=== PATIENT | male | born 1960 | race Caucasian/White ===

== ENCOUNTER 2016-11-11 15:26 | Emergency (ER) | payer BC ==
[2016-11-11 15:50] VITALS: BP 133/58; PULSE 68; RESP 17; O2SAT 97
[2016-11-11 15:51] VITALS: TEMP 99.4
[2016-11-11] MEDS ORDERED: guaiFENesin 100 mg/5 ml Syrup UD PO STA (15:55)
[2016-11-11] MEDS ORDERED: guaiFENesin 100 mg/5 ml Syrup UD ONE (16:11)
--- NOTE | 2016-11-11 16:14 | RAD ---
HISTORY: cough COMPARISON: 06/23/2013 TECHNIQUE: Chest PA and lateral FINDINGS: LUNGS: No consolidation. Bilateral infrahilar minimal peribronchial thickening -right greater than left - can be seen with bronchitis 15 mm nodular opacity projecting over right lower lung zone, anterior right 6th rib and posterior right 9th rib. Possible nipple shadow. Cannot be confirmed as present previously. Right pulmonary nodule -not excluded PLEURA: No significant pleural effusion identified. No pneumothorax apparent. CARDIOVASCULAR: Minimal cardiomegaly OSSEOUS STRUCTURES: No significant abnormalities. VISUALIZED UPPER ABDOMEN: Normal. OTHER FINDINGS: None. IMPRESSION: No consolidative like infiltrate. Right infrahilar bronchovascular markings a reflect bronchitis. Indeterminate right lower lung zone nodular opacity - nipple shadow versus right pulmonary nodule Nipple markers with bilateral obliques chest x-ray views versus noncontrast CT chest
--- NOTE | 2016-11-11 16:24 | C.PDOC ---
Time Seen by Provider: 11/11/16 15:40 Chief Complaint (Nursing): Dizziness/Lightheaded Past Medical History Vital Signs: Last Vital Signs Temp 99.4 F 11/11/16 15:45 Pulse 68 11/11/16 15:45 Resp 17 11/11/16 15:45 BP 133/58 L 11/11/16 15:45 Pulse Ox 97 11/11/16 15:45 - Medical History PMH: Anemia, Diabetes, HTN, End Stage Renal Disease - [facility] Procedures DIALYSIS ARTERIOVENOSTOM (06/23/13) HEMODIALYSIS (06/23/13) VENOUS CATHETERIZATION FOR RENAL DIALYSIS (06/23/13) Family History: States: Diabetes - Social History Hx Tobacco Use: No Hx Alcohol Use: No Hx Substance Use: No - Immunization History Hx Tetanus Toxoid Vaccination: No Hx Influenza Vaccination: No Hx Pneumococcal Vaccination: No ED Course And Treatment O2 Sat by Pulse Oximetry: 97 Disposition Counseled Patient/Family Regarding: Diagnosis, Need For Followup, Rx Given - Disposition Disposition: HOME/ ROUTINE Disposition Time: 16:24 Condition: STABLE Instructions: Upper Respiratory Infection (ED)
--- NOTE | 2016-11-11 16:28 | C.PDOC ---
History Of Present Illness Patient is a 55 y/o male, whose past medical history includes HTN, diabetes, and ESRD on hemodialysis (Mon, Wed, Fri) presents to the emergency department for evaluation of cough since yesterday. Patient reports having upper back pain when he coughs. He wants to make sure "no fluid in lungs". He also reports feeling lightheaded and thinks blood pressure is high. Denies any sputum, shortness of breath, congestion, sore throat, fever, chills, headache, or any other associated symptoms at this time. Patient is also asking for food. Time Seen by Provider: 11/11/16 15:40 Chief Complaint (Nursing): Dizziness/Lightheaded History Per: Patient History/Exam Limitations: no limitations Onset/Duration Of Symptoms: Days (1) Current Symptoms Are (Timing): Still Present Severity: None Pain Scale Rating Of: 0 Recent travel outside of the [place]: No Additional History Per: Patient Past Medical History Reviewed: Historical Data, Nursing Documentation, Vital Signs Vital Signs: Last Vital Signs Temp 99.4 F 11/11/16 15:45 Pulse 68 11/11/16 15:45 Resp 17 11/11/16 15:45 BP 133/58 L 11/11/16 15:45 Pulse Ox 97 11/11/16 16:33 - Medical History PMH: Anemia, Diabetes, HTN, End Stage Renal Disease Other Surgeries: vascular access - [facility] Procedures DIALYSIS ARTERIOVENOSTOM (06/23/13) HEMODIALYSIS (06/23/13) VENOUS CATHETERIZATION FOR RENAL DIALYSIS (06/23/13) Family History: States: Diabetes - Social History Hx Tobacco Use: No Hx Alcohol Use: No Hx Substance Use: No - Immunization History Hx Tetanus Toxoid Vaccination: No Hx Influenza Vaccination: No Hx Pneumococcal Vaccination: No Review Of Systems Except As Marked, All Systems Reviewed And Found Negative. Constitutional: Negative for: Fever, Chills Cardiovascular: Positive for: Light Headedness. Negative for: Chest Pain, Palpitations Respiratory: Positive for: Cough. Negative for: Shortness of Breath, Hemoptysis , Sputum Gastrointestinal: Negative for: Nausea, Vomiting Genitourinary: Negative for: Incontinence Musculoskeletal: Positive for: Back Pain Neurological: Positive for: Dizziness. Negative for: Weakness, Numbness, Headache Physical Exam - Physical Exam Appears: Well, Non-toxic, No Acute Distress Skin: Warm, Dry, No Diaphoretic, No Pale, No Rash Head: Atraumatic, Normacephalic Eye(s): bilateral: Normal Inspection, EOMI Ear(s): Bilateral: Normal (no erythema) Nose: Normal Oral Mucosa: Moist Throat: Normal, No Erythema, No Exudate, No Drooling, No Mass Neck: Normal ROM, Supple Chest: Symmetrical Cardiovascular: Rhythm Regular, No Murmur Respiratory: Normal Breath Sounds, No Accessory Muscle Use, No Rales, No Rhonchi , No Wheezing Gastrointestinal/Abdominal: Soft, No Tenderness Extremity: Left: Other (left arm fistula), Bilateral: Atraumatic, No Pedal Edema , Normal Color And Temperature, Normal ROM Neurological/Psych: Oriented x3, Normal Speech Gait: Steady ED Course And Treatment ECG: Interpreted By Me, Viewed By Me ECG Rhythm: Sinus Rhythm ECG Interpretation: No Changes From Prior Interpretation Of ECG: T wave inversion in lateral leads. No change from prior ECG on 06/23/13. Rate From EC (bpm) O2 Sat by Pulse Oximetry: 97 (on RA) Pulse Ox Interpretation: Normal - Radiology CXR: Interpreted by Me, Viewed By Me CXR Interpretation: Yes: No Acute Disease Progress Note: EKG, CXR ordered and reviewed. Patient was treated with Robitussin. On reassessment, patient is resting comfortably, no acute distress. Patient was asking for food upon arrival. Additionally upon discharge asking for work note for 2 days. He is stable for discharge Disposition Counseled Patient/Family Regarding: Diagnosis, Need For Followup, Rx Given - Disposition Referrals: Adam Holland MD [Staff Provider] - Disposition: HOME/ ROUTINE Disposition Time: 16:24 Condition: STABLE Additional Instructions: Your chest xray was normal, no pneumonia or fluid in lungs Please take cough medicine as needed and follow up with your primary DR Deepa Holland Continue with your usual medications Prescriptions: Benzonatate [Tessalon Perles] 100 mg PO TID #30 sgl Instructions: Upper Respiratory Infection (ED) Forms: Work Excuse - POA Present On Arrival: None - Clinical Impression Clinical Impression: Upper respiratory infection - PA / VENEREAL DISEASE CONTROL HEAD / Resident Statement MD/DO has reviewed & agrees with the documentation as recorded. - Scribe Statement The provider has reviewed the documentation as recorded by the Scribe Yumiko Holland All medical record entries made by the Scribe were at my direction and personally dictated by me. I have reviewed the chart and agree that the record accurately reflects my personal performance of the history, physical exam, medical decision making, and the department course for this patient. I have also personally directed, reviewed, and agree with the discharge instructions and disposition.
--- NOTE | 2016-11-12 12:15 | CARD ---
APPROVED REPORT EKG Measurement Heart [id number] <Conclusion> Sinus rhythm with short MS ST & T wave abnormality, consider inferolateral ischemia Prolonged QT Abnormal ECG
== END 2016-11-11 16:35 | disposition home or self-care (01) ==
LOC: C.ER 15:26
DX: J06.9 Acute upper respiratory infection, unspecified (principal)

== ENCOUNTER 2017-04-22 14:14 | Inpatient (IN) | payer BC ==
--- NOTE | 2017-04-22 15:29 | C.PDOC ---
History Of Present Illness 56 y/o male presents to the ED complaining of cough associated with fever, shortness of breath and 3 episodes of loose stool x 2 days. Shortness of breath worsened today. Denies vomiting, rash, neck pain, travel or any further medical complaints. PMD: Adam Holland MD Time Seen by Provider: 04/22/17 14:39 Chief Complaint (Nursing): Chest Pain History Per: Patient History/Exam Limitations: no limitations Onset/Duration Of Symptoms: Days (x2 days) Current Symptoms Are (Timing): Still Present Recent travel outside of the [place]: No Past Medical History Reviewed: Historical Data, Nursing Documentation, Vital Signs Vital Signs: Last Vital Signs Temp 101.2 F H 04/22/17 16:10 Pulse 91 H 04/22/17 14:25 Resp 20 04/22/17 14:25 BP 149/49 L 04/22/17 17:04 Pulse Ox 93 L 04/22/17 18:41 - Medical History PMH: Anemia, Diabetes, HTN, End Stage Renal Disease, Chronic Kidney Disease Other PMH: Dialysis - LT LOWER ARM AV SHUNT....+VE BRUIT AND THRILL Other Surgeries: Vacular access device - [email or web address] Procedures DIALYSIS ARTERIOVENOSTOM (06/23/13) HEMODIALYSIS (06/23/13) VENOUS CATHETERIZATION FOR RENAL DIALYSIS (06/23/13) Family History: States: Diabetes - Social History Hx Tobacco Use: No Hx Alcohol Use: Yes (ocassionally) Hx Substance Use: No - Immunization History Hx Tetanus Toxoid Vaccination: No Hx Influenza Vaccination: Yes Hx Pneumococcal Vaccination: Yes Review Of Systems Except As Marked, All Systems Reviewed And Found Negative. (As per HPI, otherwise negative) Constitutional: Positive for: Fever Respiratory: Positive for: Cough, Shortness of Breath Gastrointestinal: Positive for: Other (3 episodes of loose stool). Negative for : Nausea Musculoskeletal: Negative for: Neck Pain Skin: Negative for: Rash Physical Exam - Physical Exam Appears: Chronically Ill Skin: Normal Color, Warm, Dry, No Rash Head: Atraumatic, Normacephalic Eye(s): bilateral: Normal Inspection, PERRL, EOMI Ear(s): Bilateral: Normal Oral Mucosa: Moist Throat: No Erythema, No Exudate Neck: Normal ROM, Supple Chest: Symmetrical, No Tenderness Cardiovascular: Rhythm Regular, No Murmur Respiratory: Decreased Breath Sounds Gastrointestinal/Abdominal: Normal Exam, Soft, No Tenderness Back: Normal Inspection, No CVA Tenderness Extremity: Normal ROM, No Swelling Neurological/Psych: Oriented x3, Normal Speech, Normal Motor Gait: Steady ED Course And Treatment - Laboratory Results Result Diagrams: 04/22/17 15:37 04/22/17 15:37 ECG: Interpreted By Vt ECG Rhythm: Sinus Rhythm ECG Interpretation: Normal Rate From EC O2 Sat by Pulse Oximetry: 93 (RA) Pulse Ox Interpretation: Normal - Radiology CXR: Interpreted by Me CXR Interpretation: Yes: No Acute Disease. No: Infiltrates Medical Decision Making Medical Decision Making: Time: 14:57 Plan: EKG CMP Lactic Acid, Plasma CBC w/ diff Chest x-ray Influenza A B Tamiflu is given for flu. Patient placed for isolation for influenza. Case was discussed with Deepa Holland. Scribe Attestation: Documented by Sachin Holland acting as a scribe for ESSIE Reyes. Scribe Attestation: All medical record entries made by the Scribe were at my direction and personally dictated by me. I have reviewed the chart and agree that the record accurately reflects my personal performance of the history, physical exam, medical decision making, and the department course for this patient. I have also personally directed, reviewed, and agree with the discharge instructions and disposition. Disposition - Disposition Disposition: HOSPITALIZED Disposition Time: 17:30 Condition: FAIR - POA Present On Arrival: None - Clinical Impression Clinical Impression: Chest pain, Influenza B, Dyspnea
[2017-04-22 15:43] LABS: BASO # 0.1 K/uL (0.0-0.2); BASO % 0.7 % (0.0-2.0); EOS % 0.2 % (0.0-4.0); HEMOGLOBIN 9.6 g/dL (12.0-18.0); LYMPH # 0.4 K/uL (1.0-4.3); LYMPH % 4.9 % (20.0-40.0); MEAN CORPUSCULAR HEMOGLOBIN 30.2 pg (27.0-31.0); MEAN CORPUSCULAR HGB CONC 32.9 g/dL (33.0-37.0); MEAN PLATELET VOLUME 10.3 fL (7.2-11.7); MONO # 0.5 K/uL (0.0-0.8); MONO % 6.1 % (0.0-10.0); NEUT # 7.2 K/uL (1.8-7.0); NEUT % 88.1 % (50.0-75.0); RBC 3.19 Mil/uL (4.40-5.90); RED CELL DISTRIBUTION WIDTH 16.1 % (11.5-14.5); WHITE BLOOD COUNT 8.2 K/uL (4.8-10.8)
[2017-04-22 15:51] LABS: MEAN CELL VOLUME 91.8 fL (80.0-94.0); PLATELET COUNT 93 K/uL (130-400)
[2017-04-22 16:06] LABS: ANISOCYTOSIS SLIGHT; BANDS 7 % (0-2); HYPOCHROMIC SLIGHT; LYMPHOCYTE 8 % (20-40); MONOCYTE 7 % (0-10); NEUTROPHIL 78 % (50-75); PLATELET ESTIMATE DECREASED (NORMAL); POIKILOCYTOSIS SLIGHT; TOTAL CELLS COUNTED 100
[2017-04-22 16:08] LABS: LARGE PLATELETS PRESENT; TARGET CELLS SLIGHT
[2017-04-22 16:09] LABS: ALB/GLOB RATIO 1.2 (1.0-2.1); ALBUMIN 3.6 g/dL (3.5-5.0); CALCIUM 7.8 mg/dl (8.6-10.4)
--- NOTE | 2017-04-22 16:32 | RAD ---
HISTORY: SOB, cough, fever COMPARISON: No prior. TECHNIQUE: Chest PA and lateral FINDINGS: LUNGS: No active pulmonary disease. PLEURA: No significant pleural effusion identified. No pneumothorax apparent. CARDIOVASCULAR: Borderline heart size. No congestive change. OSSEOUS STRUCTURES: No significant abnormalities. VISUALIZED UPPER ABDOMEN: Normal. OTHER FINDINGS: None. IMPRESSION: No acute infiltrate.
--- NOTE | 2017-04-22 19:51 | CP.PCM.HP ---
Past Patient History - Infectious Disease Hx of Infectious Diseases: None - Past Medical History & Family History Past Medical History?: Yes - Past Social History Smoking Status: Never Smoked - CARDIAC Hx Hypertension: Yes - RENAL Hx Chronic Kidney Disease: Yes - ENDOCRINE/METABOLIC Hx Endocrine Disorders: Yes Hx Diabetes Mellitus Type 2: Yes - HEMATOLOGICAL/ONCOLOGICAL Hx Anemia: Yes - MUSCULOSKELETAL/RHEUMATOLOGICAL Hx Falls: No - PSYCHIATRIC Hx Substance Use: No - SURGICAL HISTORY Hx Vascular Access Device: Yes - ANESTHESIA Hx Anesthesia: No Meds Allergies/Adverse Reactions: Allergies Allergy/AdvReac Type Severity Reaction Status Date / Time No Known Allergies Allergy Verified 04/22/17 14:55 Physical Exam - Constitutional Appears: Well - Head Exam Head Exam: ATRAUMATIC, NORMAL INSPECTION, NORMOCEPHALIC - Eye Exam Eye Exam: EOMI, Normal appearance, PERRL Pupil Exam: NORMAL ACCOMODATION, PERRL - ENT Exam ENT Exam: Mucous Membranes Moist, Normal Exam - Neck Exam Neck exam: Positive for: Normal Inspection - Respiratory Exam Respiratory Exam: Decreased Breath Sounds - Cardiovascular Exam Cardiovascular Exam: REGULAR RHYTHM, +S1, +S2 - GI/Abdominal Exam GI & Abdominal Exam: Diminished Bowel Sounds, Soft - Rectal Exam Rectal Exam: Deferred Results - Vital Signs Recent Vital Signs: Last Vital Signs Temp 98.5 F 04/22/17 19:13 Pulse 67 04/22/17 19:13 Resp 18 04/22/17 19:13 BP 166/61 H 04/22/17 19:13 Pulse Ox 96 04/22/17 19:13 - Labs Result Diagrams: 04/22/17 15:37 04/22/17 15:37 Labs: Laboratory Results - last 24 hr 04/22/17 04/22/17 04/22/17 14:19 15:37 15:37 WBC 8.2 RBC 3.19 L Hgb 9.6 L Hct 29.3 L MCV 91.8 D MCH 30.2 MCHC 32.9 L RDW 16.1 H Plt Count 93 L D MPV 10.3 Neut % (Auto) 88.1 H Lymph % (Auto) 4.9 L [place] % (Auto) 6.1 Eos % (Auto) 0.2 Baso % (Auto) 0.7 Neut # 7.2 H Lymph # 0.4 L [place] # 0.5 Eos # 0.0 Baso # 0.1 Neutrophils % (Manual) 78 H Band Neutrophils % 7 H Lymphocytes % (Manual) 8 L Monocytes % (Manual) 7 Platelet Estimate Decreased L Large Platelets Present Hypochromasia (manual) Slight Poikilocytosis (manual Slight Anisocytosis (manual) Slight Target Cells Slight Sodium 133 Potassium 4.6 Chloride 91 L Carbon Dioxide 30 Anion Gap 18 BUN 58 H Creatinine 9.0 H* Est GFR ( Amer) 7 Est GFR (Non-Af Amer) 6 POC Glucose (mg/dL) 187 H Random Glucose 167 H Lactic Acid Calcium 7.8 L Total Bilirubin 1.0 AST 36 ALT 44 Alkaline Phosphatase 198 H Total Protein 6.7 Albumin 3.6 Globulin 3.1 Albumin/Globulin Ratio 1.2 Influenza Typ A,B (EIA) 04/22/17 04/22/17 15:37 Unknown WBC RBC Hgb Hct MCV MCH MCHC RDW Plt Count MPV Neut % (Auto) Lymph % (Auto) [place] % (Auto) Eos % (Auto) Baso % (Auto) Neut # Lymph # [place] # Eos # Baso # Neutrophils % (Manual) Band Neutrophils % Lymphocytes % (Manual) Monocytes % (Manual) Platelet Estimate Large Platelets Hypochromasia (manual) Poikilocytosis (manual Anisocytosis (manual) Target Cells Sodium Potassium Chloride Carbon Dioxide Anion Gap BUN Creatinine Est GFR ( Amer) Est GFR (Non-Af Amer) POC Glucose (mg/dL) Random Glucose Lactic Acid 1.3 Calcium Total Bilirubin AST ALT Alkaline Phosphatase Total Protein Albumin Globulin Albumin/Globulin Ratio Influenza Typ A,B (EIA) Pos for influenza b H
[2017-04-22] MEDS ORDERED: Pneumococcal 23-Valent Vaccine IM ONE (20:17)
[2017-04-22] MEDS ORDERED: HYDROmorphone 1 mg/ml ISec IVP PRN (22:56)
[2017-04-22] MEDS: (Novolog) Insulin Aspart, Recombinant 100 u/ml 10 ml vial SC SCH (22:57)
[2017-04-23] MEDS: (Novolog) Insulin Aspart, Recombinant 100 u/ml 10 ml vial SC SCH ×4 (07:30→21:18)
--- NOTE | 2017-04-23 10:51 | CP.PCM.CON ---
History of Present Illness - History of Present Illness History of Present Illness: 56 y/o male presents to the ED complaining of cough associated with fever, shortness of breath and 3 episodes of loose stool x 2 days. Shortness of breath worsened today. Denies vomiting, rash, neck pain, travel or any further medical complaints. Has had fever, chills, CLINE, cough FLU teat positive- admitted for flu treatment Last dialysis 04/22 PMH: ESRD HTN DM 2 SEC HPT PSH: AV FISTULA Review of Systems - Constitutional Constitutional: Chills, Fatigue, Fever - EENT Eyes: absent: As Per HPI, Blind Spots, Blurred Vision, Change in Vision, Decreased Night Vision, Diplopia, Discharge, Dry Eye, Exophthalmos, Floaters, Irritation, Itchy Eyes, Loss of Peripheral Vision, Pain, Photophobia, Requires Corrective Lenses, Sees Flashes, Spots in Vision, Tunnel Vision, Other Visual Disturbances, Loss of Vision, Other Ears: absent: As Per HPI, Decreased Hearing, Ear Discharge, Ear Pain, Tinnitus, Abnormal Hearing, Disequilibrium, Dizziness, Other Nose/Mouth/Throat: absent: As Per HPI, Epistaxis, Nasal Congestion, Nasal Discharge, Nasal Obstruction, Nasal Trauma, Nose Pain, Post Nasal Drip, Sinus Pain, Sinus Pressure, Bleeding Gums, Change in Voice, Dental Pain, Dry Mouth, Dysphagia, Halitosis, Hoarsness, Lip Swelling, Mouth Lesions, Mouth Pain, Odynophagia, Sore Throat, Throat Swelling, Tongue Swelling, Facial Pain, Neck Pain, Neck Mass, Other - Cardiovascular Cardiovascular: Chest Pain, Dyspnea on Exertion - Respiratory Respiratory: Cough, Pain with Coughing - Gastrointestinal Gastrointestinal: Abdominal Pain, Nausea - Genitourinary Genitourinary: As Per HPI - Musculoskeletal Musculoskeletal: Muscle Weakness, Myalgias - Integumentary Integumentary: absent: As Per HPI, Acne, Alopecia, Bleeding Lesions, Change in Hair, Change in Nails, Change in Pigmentation, Changing Lesions, Dry Skin, Erythema, Furuncle, Hirsutism, Lesions, New Lesions, Non-Healing Lesions, Photosensitivity, Pruritus, Rash, Skin Pain, Skin Ulcer, Sores, Striae, Swelling , Unusual Bruising, Wounds, Jaundice, Other - Neurological Neurological: Weakness Past Patient History - Infectious Disease Hx of Infectious Diseases: None - Past Medical History & Family History Past Medical History?: Yes Past Family History: Reviewed and not pertinent - Past Social History Smoking Status: Never Smoked Chewing Tobacco Use: No Cigar Use: No Drugs: Denies Home Situation {Lives}: With Family - CARDIAC Hx Hypertension: Yes - RENAL Hx Chronic Kidney Disease: Yes - ENDOCRINE/METABOLIC Hx Endocrine Disorders: Yes Hx Diabetes Mellitus Type 2: Yes - HEMATOLOGICAL/ONCOLOGICAL Hx Anemia: Yes - MUSCULOSKELETAL/RHEUMATOLOGICAL Hx Falls: No - PSYCHIATRIC Hx Substance Use: No - SURGICAL HISTORY Hx Vascular Access Device: Yes - ANESTHESIA Hx Anesthesia: No Meds Allergies/Adverse Reactions: Allergies Allergy/AdvReac Type Severity Reaction Status Date / Time No Known Allergies Allergy Verified 04/22/17 14:55 - Medications Medications: Current Medications Amlodipine Besylate (Norvasc) 10 mg PO DAILY [facility] Aspirin (Aspirin Chewable) 81 mg PO DAILY [facility] Last Admin: 04/23/17 10:43 Dose: 81 mg Benzonatate (Tessalon Perles) 100 mg PO TID [facility] Last Admin: 04/23/17 10:43 Dose: 100 mg Ferrous Sulfate (Feosol) 325 mg PO TID [facility] Last Admin: 04/23/17 10:43 Dose: 325 mg Hydromorphone HCl (Dilaudid) 1 mg IVP Q8H PRN PRN Reason: Pain, moderate (4-7) Last Admin: 04/22/17 23:08 Dose: 1 mg Insulin Aspart (Novolog) 0 unit SC ACHS [facility] PRN Reason: Protocol Last Admin: 04/23/17 07:30 Dose: Not Given Losartan Potassium (Cozaar) 50 mg PO DAILY [facility] Last Admin: 04/23/17 10:44 Dose: 50 mg Oseltamivir Phosphate (Tamiflu Susp) 30 mg PO DAILY [facility] Stop: 04/27/17 11:01 Pantoprazole Sodium (Protonix Inj) 40 mg IVP DAILY [facility] Last Admin: 04/23/17 10:46 Dose: 40 mg Sitagliptin Phosphate (Januvia) 100 mg PO BID [facility] Physical Exam - Constitutional Appears: In Acute Distress, Chronically Ill - Head Exam Head Exam: ATRAUMATIC, NORMAL INSPECTION - Eye Exam Eye Exam: EOMI, Normal appearance - Neck Exam Neck exam: Positive for: Normal Inspection. Negative for: Tenderness - Respiratory Exam Respiratory Exam: Rhonchi, NORMAL BREATHING PATTERN - Cardiovascular Exam Cardiovascular Exam: REGULAR RHYTHM, +S1 - GI/Abdominal Exam GI & Abdominal Exam: Soft. absent: Tenderness - Extremities Exam Extremities exam: Positive for: normal inspection. Negative for: tenderness - Neurological Exam Neurological exam: Alert, Oriented x3 - Skin Skin Exam: Dry, Warm Results - Vital Signs Recent Vital Signs: Last Vital Signs Temp 98.6 F 04/23/17 07:36 Pulse 67 04/23/17 07:36 Resp 20 04/23/17 07:36 BP 186/81 H 04/23/17 07:36 Pulse Ox 92 L 04/23/17 07:36 - Labs Result Diagrams: 04/22/17 15:37 04/22/17 15:37 Labs: Laboratory Results - last 24 hr 04/22/17 04/22/17 04/22/17 14:19 15:37 15:37 WBC 8.2 RBC 3.19 L Hgb 9.6 L Hct 29.3 L MCV 91.8 D MCH 30.2 MCHC 32.9 L RDW 16.1 H Plt Count 93 L D MPV 10.3 Neut % (Auto) 88.1 H Lymph % (Auto) 4.9 L [place] % (Auto) 6.1 Eos % (Auto) 0.2 Baso % (Auto) 0.7 Neut # 7.2 H Lymph # 0.4 L [place] # 0.5 Eos # 0.0 Baso # 0.1 Neutrophils % (Manual) 78 H Band Neutrophils % 7 H Lymphocytes % (Manual) 8 L Monocytes % (Manual) 7 Platelet Estimate Decreased L Large Platelets Present Hypochromasia (manual) Slight Poikilocytosis (manual Slight Anisocytosis (manual) Slight Target Cells Slight Sodium 133 Potassium 4.6 Chloride 91 L Carbon Dioxide 30 Anion Gap 18 BUN 58 H Creatinine 9.0 H* Est GFR ( Amer) 7 Est GFR (Non-Af Amer) 6 POC Glucose (mg/dL) 187 H Random Glucose 167 H Lactic Acid Calcium 7.8 L Total Bilirubin 1.0 AST 36 ALT 44 Alkaline Phosphatase 198 H Total Protein 6.7 Albumin 3.6 Globulin 3.1 Albumin/Globulin Ratio 1.2 Influenza Typ A,B (EIA) 04/22/17 04/22/17 04/22/17 15:37 21:14 Unknown WBC RBC Hgb Hct MCV MCH MCHC RDW Plt Count MPV Neut % (Auto) Lymph % (Auto) [place] % (Auto) Eos % (Auto) Baso % (Auto) Neut # Lymph # [place] # Eos # Baso # Neutrophils % (Manual) Band Neutrophils % Lymphocytes % (Manual) Monocytes % (Manual) Platelet Estimate Large Platelets Hypochromasia (manual) Poikilocytosis (manual Anisocytosis (manual) Target Cells Sodium Potassium Chloride Carbon Dioxide Anion Gap BUN Creatinine Est GFR ( Amer) Est GFR (Non-Af Amer) POC Glucose (mg/dL) 118 H Random Glucose Lactic Acid 1.3 Calcium Total Bilirubin AST ALT Alkaline Phosphatase Total Protein Albumin Globulin Albumin/Globulin Ratio Influenza Typ A,B (EIA) Pos for influenza b H 04/23/17 06:32 WBC RBC Hgb Hct MCV MCH MCHC RDW Plt Count MPV Neut % (Auto) Lymph % (Auto) [place] % (Auto) Eos % (Auto) Baso % (Auto) Neut # Lymph # [place] # Eos # Baso # Neutrophils % (Manual) Band Neutrophils % Lymphocytes % (Manual) Monocytes % (Manual) Platelet Estimate Large Platelets Hypochromasia (manual) Poikilocytosis (manual Anisocytosis (manual) Target Cells Sodium Potassium Chloride Carbon Dioxide Anion Gap BUN Creatinine Est GFR ( Amer) Est GFR (Non-Af Amer) POC Glucose (mg/dL) 64 L Random Glucose Lactic Acid Calcium Total Bilirubin AST ALT Alkaline Phosphatase Total Protein Albumin Globulin Albumin/Globulin Ratio Influenza Typ A,B (EIA) Assessment & Plan (1) ESRD (end stage renal disease) Status: Acute (2) Type 2 diabetes mellitus with diabetic nephropathy Status: Acute (3) HTN (hypertension) Status: Acute (4) Flu Status: Acute - Assessment and Plan (Free Text) Plan: Recommend tamiflu Dialysis MWF Monitor HTN
[2017-04-23] MEDS: Oseltamivir 6 MG/ML PO SCH (10:56)
--- NOTE | 2017-04-23 11:59 | CARD ---
APPROVED REPORT EKG Measurement Heart [id number] <Conclusion> Normal sinus rhythm Possible Left atrial enlargement T wave abnormality, consider lateral ischemia Prolonged QT Abnormal ECG
--- NOTE | 2017-04-23 14:15 | CP.PCM.PN ---
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 DISCUSS WITH THE FINDINGS WITH DR EL NO SIGN OF DISTRESS NOTED AT THIS TIME Objective - Vital Signs/Intake and Output Vital Signs (last 24 hours): Temp Pulse Resp BP Pulse Ox 99 F 71 20 178/88 H 98 04/23/17 12:56 04/23/17 12:56 04/23/17 12:56 04/23/17 12:56 04/23/17 12:56 - Medications Medications: Current Medications Amlodipine Besylate (Norvasc) 10 mg PO DAILY [facility] Last Admin: 04/23/17 11:50 Dose: 10 mg Aspirin (Aspirin Chewable) 81 mg PO DAILY [facility] Last Admin: 04/23/17 10:43 Dose: 81 mg Benzonatate (Tessalon Perles) 100 mg PO TID [facility] Last Admin: 04/23/17 13:05 Dose: 100 mg Clonidine HCl (Catapres) 0.2 mg PO BID [facility] Last Admin: 04/23/17 12:54 Dose: 0.2 mg Ferrous Sulfate (Feosol) 325 mg PO TID [facility] Last Admin: 04/23/17 13:05 Dose: 325 mg Hydromorphone HCl (Dilaudid) 1 mg IVP Q8H PRN PRN Reason: Pain, moderate (4-7) Last Admin: 04/23/17 11:51 Dose: 1 mg Insulin Aspart (Novolog) 0 unit SC [facility] PRN Reason: Protocol Last Admin: 04/23/17 12:53 Dose: 2 unit Losartan Potassium (Cozaar) 50 mg PO DAILY [facility] Last Admin: 04/23/17 10:44 Dose: 50 mg Oseltamivir Phosphate (Tamiflu Susp) 30 mg PO DAILY [facility] Stop: 04/27/17 11:01 Last Admin: 04/23/17 10:56 Dose: 30 mg Pantoprazole Sodium (Protonix Inj) 40 mg IVP DAILY [facility] Last Admin: 04/23/17 10:46 Dose: 40 mg Sitagliptin Phosphate (Januvia) 25 mg PO DAILY [facility] - Labs Labs: 04/22/17 15:37 04/22/17 15:37
--- NOTE | 2017-04-23 15:49 | CARD ---
APPROVED REPORT EKG Measurement Heart [id number] <Conclusion> Normal sinus rhythm ST & T wave abnormality, consider lateral ischemia Prolonged QT Abnormal ECG
--- NOTE | 2017-04-23 17:15 | CP.PCM.CON ---
History of Present Illness - History of Present Illness History of Present Illness: 56 y/o male presents to the ED complaining of cough associated with fever, shortness of breath and 3 episodes of loose stool x 2 days. Shortness of breath worsened today. Denies vomiting, rash, neck pain, travel or any further medical complaints. referred for ID eval of influenza PMD: Adam Holland MD - Medical History PMH: Anemia, Diabetes, HTN, End Stage Renal Disease, Chronic Kidney Disease Other PMH: Dialysis - LT LOWER ARM AV SHUNT....+VE BRUIT AND THRILL Other Surgeries: Vacular access device Review of Systems - Review of Systems All systems: reviewed and no additional remarkable complaints except - Constitutional Constitutional: Anorexia, Chills, Fever - EENT Eyes: absent: As Per HPI, Blind Spots, Blurred Vision, Change in Vision, Decreased Night Vision, Diplopia, Discharge, Dry Eye, Exophthalmos, Floaters, Irritation, Itchy Eyes, Loss of Peripheral Vision, Pain, Photophobia, Requires Corrective Lenses, Sees Flashes, Spots in Vision, Tunnel Vision, Other Visual Disturbances, Loss of Vision, Other Ears: absent: As Per HPI, Decreased Hearing, Ear Discharge, Ear Pain, Tinnitus, Abnormal Hearing, Disequilibrium, Dizziness, Other Nose/Mouth/Throat: absent: As Per HPI, Epistaxis, Nasal Congestion, Nasal Discharge, Nasal Obstruction, Nasal Trauma, Nose Pain, Post Nasal Drip, Sinus Pain, Sinus Pressure, Bleeding Gums, Change in Voice, Dental Pain, Dry Mouth, Dysphagia, Halitosis, Hoarsness, Lip Swelling, Mouth Lesions, Mouth Pain, Odynophagia, Sore Throat, Throat Swelling, Tongue Swelling, Facial Pain, Neck Pain, Neck Mass, Other - Cardiovascular Cardiovascular: As Per HPI - Respiratory Respiratory: As Per HPI, Cough, Dyspnea - Gastrointestinal Gastrointestinal: As Per HPI, Abdominal Pain, Diarrhea - Genitourinary Genitourinary: absent: As Per HPI, Change in Urinary Stream, Difficulty Urinating, Dysuria, Flank Pain, Hematuria, Pyuria, Nocturia, Urinary Incontinence, Urinary Frequency, Urinary Hesitance, Urinary Urgency, Voiding Freq/Small Amts, Freq UTI, Hx Renal/Bladder Calculi, Hx /Renal Surgery, Bladder Distension, Other - Musculoskeletal Musculoskeletal: absent: As Per HPI, Abnormal Gait, Arthralgias, Atrophy, Back Pain, Deformity, Joint Swelling, Limited Range of Motion, Loss of Height, Muscle Cramps, Muscle Weakness, Myalgias, Neck Pain, Numbness, Radiating Pain into Limb, Stiffness, Tingling, Other - Integumentary Integumentary: absent: As Per HPI, Acne, Alopecia, Bleeding Lesions, Change in Hair, Change in Nails, Change in Pigmentation, Changing Lesions, Dry Skin, Erythema, Furuncle, Hirsutism, Lesions, New Lesions, Non-Healing Lesions, Photosensitivity, Pruritus, Rash, Skin Pain, Skin Ulcer, Sores, Striae, Swelling , Unusual Bruising, Wounds, Jaundice, Other - Neurological Neurological: absent: As Per HPI, Abnormal Gait, Abnormal Hearing, Abnormal Movements, Abnormal Speech, Behavioral Changes, Burning Sensations, Confusion, Convulsions, Disequilibrium, Dizziness, Numbness, Focal Weakness, Frequent Falls , Headaches, Lack of Coordination, Loss of Vision, Memory Loss, Paresthesias, Radicular Pain, Restless Legs, Sensory Deficit, Syncope, Tingling, Tremor, Vertigo, Weakness, Other Visual Disturbances, Other - Psychiatric Psychiatric: absent: As Per HPI, Abnormal Sleep Pattern, Anhedonia, Anxiety, Auditory Hallucinations, Behavioral Changes, Change in Appetite, Change in Libido, Confusion, Depression, Difficulty Concentrating, Hallucinations, Homicidal Ideation, Hopelessness, Irritability, Memory Loss, Mood Swings, Panic Attacks, Paranoia, Suicidal Ideation, Visual Hallucinations, Tactile Hallucinations, Other - Endocrine Endocrine: absent: As Per HPI, Change in Body Appearance, Change in Libido, Cold Intolorance, Deepening of Voice, Excessive Sweating, Fatigue, Flushing, Heat Intolorance, Increase in Ring/Shoe/Hat Size, Palpitations, Polydipsia, Polyphagia, Polyuria, Other - Hematologic/Lymphatic Hematologic: absent: As Per HPI, Easy Bleeding, Easy Bruising, Lymphadenopathy, Other Past Patient History - Infectious Disease Hx of Infectious Diseases: None - Past Medical History & Family History Past Medical History?: Yes Past Family History: Reviewed and not pertinent - Past Social History Smoking Status: Never Smoked Chewing Tobacco Use: No Cigar Use: No Drugs: Denies Home Situation {Lives}: With Family - CARDIAC Hx Hypertension: Yes - RENAL Hx Chronic Kidney Disease: Yes - ENDOCRINE/METABOLIC Hx Endocrine Disorders: Yes Hx Diabetes Mellitus Type 2: Yes - HEMATOLOGICAL/ONCOLOGICAL Hx Anemia: Yes - MUSCULOSKELETAL/RHEUMATOLOGICAL Hx Falls: No - PSYCHIATRIC Hx Substance Use: No - SURGICAL HISTORY Hx Vascular Access Device: Yes - ANESTHESIA Hx Anesthesia: No Meds Allergies/Adverse Reactions: Allergies Allergy/AdvReac Type Severity Reaction Status Date / Time No Known Allergies Allergy Verified 04/22/17 14:55 - Medications Medications: Current Medications Amlodipine Besylate (Norvasc) 10 mg PO DAILY [facility] Last Admin: 04/23/17 11:50 Dose: 10 mg Aspirin (Aspirin Chewable) 81 mg PO DAILY [facility] Last Admin: 04/23/17 10:43 Dose: 81 mg Benzonatate (Tessalon Perles) 100 mg PO TID [facility] Last Admin: 04/23/17 13:05 Dose: 100 mg Clonidine HCl (Catapres) 0.2 mg PO BID [facility] Last Admin: 04/23/17 12:54 Dose: 0.2 mg Ferrous Sulfate (Feosol) 325 mg PO TID [facility] Last Admin: 04/23/17 13:05 Dose: 325 mg Hydromorphone HCl (Dilaudid) 1 mg IVP Q8H PRN PRN Reason: Pain, moderate (4-7) Last Admin: 04/23/17 11:51 Dose: 1 mg Insulin Aspart (Novolog) 0 unit SC ACHS [facility] PRN Reason: Protocol Last Admin: 04/23/17 16:52 Dose: Not Given Losartan Potassium (Cozaar) 50 mg PO DAILY [facility] Last Admin: 04/23/17 10:44 Dose: 50 mg Oseltamivir Phosphate (Tamiflu Susp) 30 mg PO DAILY [facility] Stop: 04/27/17 11:01 Last Admin: 04/23/17 10:56 Dose: 30 mg Pantoprazole Sodium (Protonix Inj) 40 mg IVP DAILY [facility] Last Admin: 04/23/17 10:46 Dose: 40 mg Sitagliptin Phosphate (Januvia) 25 mg PO DAILY [facility] Physical Exam - Constitutional Appears: Toxic, Chronically Ill - Head Exam Head Exam: ATRAUMATIC, NORMAL INSPECTION, NORMOCEPHALIC - Eye Exam Eye Exam: PERRL. absent: Scleral icterus - ENT Exam ENT Exam: Mucous Membranes Dry, Normal External Ear Exam, Normal Oropharynx - Neck Exam Neck exam: Negative for: Lymphadenopathy - Respiratory Exam Respiratory Exam: Decreased Breath Sounds, Prolonged Expiratory Phase, Rhonchi - Cardiovascular Exam Cardiovascular Exam: Tachycardia, REGULAR RHYTHM, +S1, +S2 - GI/Abdominal Exam GI & Abdominal Exam: Diminished Bowel Sounds, Soft. absent: Guarding, Rebound, Rigid, Tenderness - Rectal Exam Rectal Exam: Deferred - Exam Exam: NORMAL INSPECTION - Extremities Exam Extremities exam: Positive for: pedal pulses present. Negative for: calf tenderness, pedal edema, tenderness - Back Exam Back exam: absent: CVA tenderness (L), CVA tenderness (R), paraspinal tenderness - Neurological Exam Neurological exam: Alert, CN II-XII Intact, Oriented x3, Reflexes Normal - Psychiatric Exam Psychiatric exam: Depressed - Skin Skin Exam: Dry Results - Vital Signs Recent Vital Signs: Last Vital Signs Temp 98 F 04/23/17 15:28 Pulse 67 04/23/17 15:28 Resp 20 04/23/17 15:28 BP 152/74 H 04/23/17 15:28 Pulse Ox 92 L 04/23/17 15:28 - Labs Result Diagrams: 04/22/17 15:37 04/22/17 15:37 Labs: Laboratory Results - last 24 hr 04/22/17 04/23/17 04/23/17 21:14 06:32 07:08 POC Glucose (mg/dL) 118 H 64 L 120 H Troponin I 04/23/17 04/23/17 04/23/17 11:21 11:54 16:14 POC Glucose (mg/dL) 169 H 77 Troponin I 0.4890 H* Assessment & Plan (1) Chest pain Status: Acute (2) ESRD (end stage renal disease) Status: Acute (3) Flu Status: Acute (4) HTN (hypertension) Status: Acute (5) Influenza B Status: Acute (6) Type 2 diabetes mellitus with diabetic nephropathy Status: Acute (7) Hyperkalemia Status: Acute (8) Upper respiratory infection Status: Acute - Assessment and Plan (Free Text) Assessment: cont iv rx and isolation tamiflu ordered
[2017-04-23] MEDS ORDERED: Oxycodone/Acetaminophen 5/325 mg Tab PO PRN (17:18)
--- NOTE | 2017-04-23 17:31 | CP.PCM.PN ---
Subjective - Date & Time of Evaluation Date of Evaluation: 04/23/17 Time of Evaluation: 09:40 - Subjective Subjective: clinically same Objective - Vital Signs/Intake and Output Vital Signs (last 24 hours): Temp Pulse Resp BP Pulse Ox 98 F 67 20 152/74 H 92 L 04/23/17 15:28 04/23/17 15:28 04/23/17 15:28 04/23/17 15:28 04/23/17 15:28 Intake and Output: 04/23/17 04/23/17 06:59 18:59 Intake Total 480 Balance 480 - Medications Medications: Current Medications Amlodipine Besylate (Norvasc) 10 mg PO DAILY [facility] Last Admin: 04/23/17 11:50 Dose: 10 mg Aspirin (Aspirin Chewable) 81 mg PO DAILY [facility] Last Admin: 04/23/17 10:43 Dose: 81 mg Benzonatate (Tessalon Perles) 100 mg PO TID [facility] Last Admin: 04/23/17 17:29 Dose: 100 mg Clonidine HCl (Catapres) 0.2 mg PO BID [facility] Last Admin: 04/23/17 17:30 Dose: 0.2 mg Ferrous Sulfate (Feosol) 325 mg PO TID [facility] Last Admin: 04/23/17 17:30 Dose: 325 mg Hydromorphone HCl (Dilaudid) 1 mg IVP Q8H PRN PRN Reason: Pain, moderate (4-7) Last Admin: 04/23/17 11:51 Dose: 1 mg Ceftriaxone Sodium 1 gm/ (Sodium Chloride) 100 mls @ 100 mls/hr IVPB Q24H [facility] Insulin Aspart (Novolog) 0 unit SC ACHS [facility] PRN Reason: Protocol Last Admin: 04/23/17 16:52 Dose: Not Given Losartan Potassium (Cozaar) 50 mg PO DAILY [facility] Last Admin: 04/23/17 10:44 Dose: 50 mg Oseltamivir Phosphate (Tamiflu Susp) 30 mg PO DAILY [facility] Stop: 04/27/17 11:01 Last Admin: 04/23/17 10:56 Dose: 30 mg Pantoprazole Sodium (Protonix Inj) 40 mg IVP DAILY [facility] Last Admin: 04/23/17 10:46 Dose: 40 mg Sitagliptin Phosphate (Januvia) 25 mg PO DAILY [facility] - Labs Labs: 04/22/17 15:37 04/22/17 15:37
--- NOTE | 2017-04-23 18:24 | CP.PCM.CON ---
History of Present Illness - History of Present Illness History of Present Illness: I was asked to evaluate patient by Dr Deepa Holland. Patient is a 56 year old male with PMH HTN, hypercholesteroelmia ESRD on HD who presents with fever, cough and pleuritic chest pain. Symptoms began about 2 days ago and the patient was found to have fever. The patient presented to [facility]. He is positve for influenza. The patient describes a sharp pain that occurs with inspiration. He also has back pain. Review of Systems - Constitutional Constitutional: Fatigue, Fever, Malaise - EENT Eyes: absent: As Per HPI, Blind Spots, Blurred Vision, Change in Vision, Decreased Night Vision, Diplopia, Discharge, Dry Eye, Exophthalmos, Floaters, Irritation, Itchy Eyes, Loss of Peripheral Vision, Pain, Photophobia, Requires Corrective Lenses, Sees Flashes, Spots in Vision, Tunnel Vision, Other Visual Disturbances, Loss of Vision, Other Ears: absent: As Per HPI, Decreased Hearing, Ear Discharge, Ear Pain, Tinnitus, Abnormal Hearing, Disequilibrium, Dizziness, Other Nose/Mouth/Throat: absent: As Per HPI, Epistaxis, Nasal Congestion, Nasal Discharge, Nasal Obstruction, Nasal Trauma, Nose Pain, Post Nasal Drip, Sinus Pain, Sinus Pressure, Bleeding Gums, Change in Voice, Dental Pain, Dry Mouth, Dysphagia, Halitosis, Hoarsness, Lip Swelling, Mouth Lesions, Mouth Pain, Odynophagia, Sore Throat, Throat Swelling, Tongue Swelling, Facial Pain, Neck Pain, Neck Mass, Other - Cardiovascular Cardiovascular: absent: As Per HPI, Acrocyanosis, Chest Pain, Chest Pain at Rest , Chest Pain with Activity, Claudication, Diaphoresis, Dyspnea, Dyspnea on Exertion, Edema, Irregular Heart Rhythm, Pain Radiating to Arm/Neck/Jaw, Leg Edema, Leg Ulcers, Lightheadedness, Orthopnea, Palpitations, Paroxysmal Nocturnal Dyspnea, Pedal Edema, Radiating Pain, Rapid Heart Rate, Slow Heart Rate, Syncope, Other - Respiratory Respiratory: absent: As Per HPI, Cough, Dyspnea, Hemoptysis, Dyspnea on Exertion , Wheezing, Snoring, Stridor, Pain on Inspiration, Chest Congestion, Excessive Mucous Production, Change in Mucous Color, Pain with Coughing, Other - Gastrointestinal Gastrointestinal: absent: As Per HPI, Abdominal Pain, Belching, Bloating, Change in Bowel Habits, Change in Stool Character, Coffee Ground Emesis, Constipation, Cramping, Diarrhea, Dyspepsia, Dysphagia, Early Satiety, Excessive Flatus, Fecal Incontinence, Heartburn, Hematemesis, Hematochezia, Loose Stools, Melena, Nausea, Odynophagia, Temesmus, Vomiting, Other - Genitourinary Genitourinary: absent: As Per HPI, Change in Urinary Stream, Difficulty Urinating, Dysuria, Flank Pain, Hematuria, Pyuria, Nocturia, Urinary Incontinence, Urinary Frequency, Urinary Hesitance, Urinary Urgency, Voiding Freq/Small Amts, Freq UTI, Hx Renal/Bladder Calculi, Hx /Renal Surgery, Bladder Distension, Other - Musculoskeletal Musculoskeletal: absent: As Per HPI, Abnormal Gait, Arthralgias, Atrophy, Back Pain, Deformity, Joint Swelling, Limited Range of Motion, Loss of Height, Muscle Cramps, Muscle Weakness, Myalgias, Neck Pain, Numbness, Radiating Pain into Limb, Stiffness, Tingling, Other - Integumentary Integumentary: absent: As Per HPI, Acne, Alopecia, Bleeding Lesions, Change in Hair, Change in Nails, Change in Pigmentation, Changing Lesions, Dry Skin, Erythema, Furuncle, Hirsutism, Lesions, New Lesions, Non-Healing Lesions, Photosensitivity, Pruritus, Rash, Skin Pain, Skin Ulcer, Sores, Striae, Swelling , Unusual Bruising, Wounds, Jaundice, Other - Neurological Neurological: absent: As Per HPI, Abnormal Gait, Abnormal Hearing, Abnormal Movements, Abnormal Speech, Behavioral Changes, Burning Sensations, Confusion, Convulsions, Disequilibrium, Dizziness, Numbness, Focal Weakness, Frequent Falls , Headaches, Lack of Coordination, Loss of Vision, Memory Loss, Paresthesias, Radicular Pain, Restless Legs, Sensory Deficit, Syncope, Tingling, Tremor, Vertigo, Weakness, Other Visual Disturbances, Other - Psychiatric Psychiatric: absent: As Per HPI, Abnormal Sleep Pattern, Anhedonia, Anxiety, Auditory Hallucinations, Behavioral Changes, Change in Appetite, Change in Libido, Confusion, Depression, Difficulty Concentrating, Hallucinations, Homicidal Ideation, Hopelessness, Irritability, Memory Loss, Mood Swings, Panic Attacks, Paranoia, Suicidal Ideation, Visual Hallucinations, Tactile Hallucinations, Other - Endocrine Endocrine: absent: As Per HPI, Change in Body Appearance, Change in Libido, Cold Intolorance, Deepening of Voice, Excessive Sweating, Fatigue, Flushing, Heat Intolorance, Increase in Ring/Shoe/Hat Size, Palpitations, Polydipsia, Polyphagia, Polyuria, Other - Hematologic/Lymphatic Hematologic: absent: As Per HPI, Easy Bleeding, Easy Bruising, Lymphadenopathy, Other Past Patient History - Infectious Disease Hx of Infectious Diseases: None - Past Medical History & Family History Past Medical History?: Yes Past Family History: Reviewed and not pertinent - Past Social History Smoking Status: Never Smoked Chewing Tobacco Use: No Cigar Use: No Drugs: Denies Home Situation {Lives}: With Family - CARDIAC Hx Hypertension: Yes - RENAL Hx Chronic Kidney Disease: Yes - ENDOCRINE/METABOLIC Hx Endocrine Disorders: Yes Hx Diabetes Mellitus Type 2: Yes - HEMATOLOGICAL/ONCOLOGICAL Hx Anemia: Yes - MUSCULOSKELETAL/RHEUMATOLOGICAL Hx Falls: No - PSYCHIATRIC Hx Substance Use: No - SURGICAL HISTORY Hx Vascular Access Device: Yes - ANESTHESIA Hx Anesthesia: No Meds Allergies/Adverse Reactions: Allergies Allergy/AdvReac Type Severity Reaction Status Date / Time No Known Allergies Allergy Verified 04/22/17 14:55 - Medications Medications: Current Medications Amlodipine Besylate (Norvasc) 10 mg PO DAILY [facility] Last Admin: 04/23/17 11:50 Dose: 10 mg Aspirin (Aspirin Chewable) 81 mg PO DAILY [facility] Last Admin: 04/23/17 10:43 Dose: 81 mg Benzonatate (Tessalon Perles) 100 mg PO TID [facility] Last Admin: 04/23/17 17:29 Dose: 100 mg Clonidine HCl (Catapres) 0.2 mg PO BID [facility] Last Admin: 04/23/17 17:30 Dose: 0.2 mg Ferrous Sulfate (Feosol) 325 mg PO TID [facility] Last Admin: 04/23/17 17:30 Dose: 325 mg Hydromorphone HCl (Dilaudid) 1 mg IVP Q8H PRN PRN Reason: Pain, moderate (4-7) Last Admin: 04/23/17 11:51 Dose: 1 mg Ceftriaxone Sodium 1 gm/ (Sodium Chloride) 100 mls @ 100 mls/hr IVPB Q24H [facility] Insulin Aspart (Novolog) 0 unit SC ACHS [facility] PRN Reason: Protocol Last Admin: 04/23/17 16:52 Dose: Not Given Losartan Potassium (Cozaar) 50 mg PO DAILY [facility] Last Admin: 04/23/17 10:44 Dose: 50 mg Oseltamivir Phosphate (Tamiflu Susp) 30 mg PO DAILY [facility] Stop: 04/27/17 11:01 Last Admin: 04/23/17 10:56 Dose: 30 mg Pantoprazole Sodium (Protonix Inj) 40 mg IVP DAILY [facility] Last Admin: 04/23/17 10:46 Dose: 40 mg Sitagliptin Phosphate (Januvia) 25 mg PO DAILY [facility] Temazepam (Restoril) 15 mg PO HS PRN PRN Reason: Sleep Physical Exam - Constitutional Appears: Non-toxic - Head Exam Head Exam: NORMAL INSPECTION - Eye Exam Eye Exam: Normal appearance - ENT Exam ENT Exam: Mucous Membranes Moist - Neck Exam Neck exam: Positive for: Full Rom - Respiratory Exam Respiratory Exam: NORMAL BREATHING PATTERN - Cardiovascular Exam Cardiovascular Exam: REGULAR RHYTHM - GI/Abdominal Exam GI & Abdominal Exam: Normal Bowel Sounds - Rectal Exam Rectal Exam: Deferred - Extremities Exam Extremities exam: Negative for: pedal edema - Back Exam Back exam: NORMAL INSPECTION - Neurological Exam Neurological exam: Alert, Oriented x3 - Psychiatric Exam Psychiatric exam: Normal Affect - Skin Skin Exam: Normal Color Results - Vital Signs Recent Vital Signs: Last Vital Signs Temp 98 F 04/23/17 15:28 Pulse 63 04/23/17 17:32 Resp 20 04/23/17 15:28 BP 153/65 H 04/23/17 17:32 Pulse Ox 92 L 04/23/17 15:28 - Labs Result Diagrams: 04/22/17 15:37 04/22/17 15:37 Labs: Laboratory Results - last 24 hr 04/22/17 04/23/17 04/23/17 21:14 06:32 07:08 POC Glucose (mg/dL) 118 H 64 L 120 H Troponin I 04/23/17 04/23/17 04/23/17 11:21 11:54 16:14 POC Glucose (mg/dL) 169 H 77 Troponin I 0.4890 H* - EKG Data EKG shows normal: Sinus rhythm Assessment & Plan (1) Dyspnea Assessment and Plan: likely due to flu. I have reviewed the EKG there is evidence of lateral wall T wave abnormality. The patient had a similar EKG in October. I recommend treatment for flu. The troponin is likley not diagnostic of [place]. recommend medical tehrapy. can add aspirin. follow up after full therapy for flu, and likely will need stress test as an outpatient. Status: Acute (2) ESRD (end stage renal disease) Status: Acute (3) Influenza B Status: Acute
[2017-04-24] MEDS: (Novolog) Insulin Aspart, Recombinant 100 u/ml 10 ml vial SC SCH ×4 (09:31→21:12)
[2017-04-24] MEDS: Oseltamivir 6 MG/ML PO SCH (09:40)
--- NOTE | 2017-04-24 13:51 | CP.PCM.PN ---
Subjective - Date & Time of Evaluation Date of Evaluation: 04/24/17 Time of Evaluation: 13:48 - Subjective Subjective: Seen at dialysis Now afebrile Feels much better No n. v, f, chills, diarrhea, HAs HTN still uncontrolled Objective - Vital Signs/Intake and Output Vital Signs (last 24 hours): Temp Pulse Resp BP Pulse Ox 97.9 F 61 16 211/85 H 97 04/24/17 13:05 04/24/17 13:05 04/24/17 13:05 04/24/17 13:05 04/24/17 13:05 Intake and Output: 04/24/17 04/24/17 06:59 18:59 Intake Total 100 Balance 100 - Medications Medications: Current Medications Amlodipine Besylate (Norvasc) 10 mg PO DAILY [facility] Last Admin: 04/24/17 12:35 Dose: 10 mg Aspirin (Aspirin Chewable) 81 mg PO DAILY [facility] Last Admin: 04/24/17 09:26 Dose: 81 mg Benzonatate (Tessalon Perles) 100 mg PO TID [facility] Last Admin: 04/24/17 09:27 Dose: 100 mg Clonidine HCl (Catapres) 0.2 mg PO BID [facility] Last Admin: 04/24/17 12:35 Dose: 0.2 mg Ferrous Sulfate (Feosol) 325 mg PO TID [facility] Last Admin: 04/24/17 09:27 Dose: 325 mg Hydromorphone HCl (Dilaudid) 1 mg IVP Q8H PRN PRN Reason: Pain, moderate (4-7) Last Admin: 04/23/17 11:51 Dose: 1 mg Ceftriaxone Sodium 1 gm/ (Sodium Chloride) 100 mls @ 100 mls/hr IVPB Q24H [facility] Last Admin: 04/23/17 18:56 Dose: 100 mls/hr Insulin Aspart (Novolog) 0 unit SC ACHS [facility] PRN Reason: Protocol Last Admin: 04/24/17 09:31 Dose: Not Given Losartan Potassium (Cozaar) 50 mg PO DAILY [facility] Last Admin: 04/24/17 12:35 Dose: 50 mg Oseltamivir Phosphate (Tamiflu Susp) 30 mg PO DAILY [facility] Stop: 04/27/17 11:01 Last Admin: 04/24/17 09:40 Dose: 30 mg Pantoprazole Sodium (Protonix Inj) 40 mg IVP DAILY [facility] Last Admin: 04/24/17 09:27 Dose: 40 mg Sitagliptin Phosphate (Januvia) 25 mg PO DAILY [facility] Last Admin: 04/24/17 09:27 Dose: 25 mg Temazepam (Restoril) 15 mg PO HS PRN PRN Reason: Sleep Last Admin: 04/23/17 21:20 Dose: 15 mg - Labs Labs: 04/22/17 15:37 04/22/17 15:37 - Constitutional Appears: Non-toxic, No Acute Distress, Chronically Ill - Head Exam Head Exam: ATRAUMATIC, NORMAL INSPECTION - Eye Exam Eye Exam: EOMI, Normal appearance - Neck Exam Neck Exam: Normal Inspection. absent: Tenderness - Respiratory Exam Respiratory Exam: Clear to Ausculation Bilateral, NORMAL BREATHING PATTERN - Cardiovascular Exam Cardiovascular Exam: REGULAR RHYTHM, +S1 - GI/Abdominal Exam GI & Abdominal Exam: Soft. absent: Tenderness - Extremities Exam Extremities Exam: Normal Inspection. absent: Tenderness - Neurological Exam Neurological Exam: Alert, CN II-XII Intact - Skin Skin Exam: Dry, Warm Assessment and Plan (1) ESRD (end stage renal disease) Status: Acute (2) Type 2 diabetes mellitus with diabetic nephropathy Status: Acute (3) HTN (hypertension) Status: Acute (4) Flu Status: Acute - Assessment and Plan (Free Text) Plan: UF 3400ml with HD Increase BP meds monitor for fevers
--- NOTE | 2017-04-24 13:54 | CP.PCM.PN ---
Subjective - Date & Time of Evaluation Date of Evaluation: 04/24/17 Time of Evaluation: 13:43 - Subjective Subjective: PATIENT WAS ADMITTED FOR INFLUENZA B AND DYSPNEA; PATIENT IS CHRONIC HD AND HE IS SCHEDULED MWF PATIENT IS ON TAMIFLU RENAL DOSE SINCE 04/22 PATIENT HAD AN ELEVATED BP DURING DIALYSIS AND BP MEDS WERE ADMINISTERED AT THE TREATMENT ROOM BY THE NURSE INFECTION DISEASE CONSULT- DR GRACE WANT TO WAIT FOR BLOOD CULT RESULT BEFORE CLEAR THE PATIENT FOR DC PATIENT IS AFEBRILE AND LATEST AMMONIA LEVEL IS 26 AFTER LACTULOSE GIVEN PLAN IS TO D/C TOMORROW HOME IF BP IS STABLE, AND BLOOD CULT IS NEGATIVE Objective - Vital Signs/Intake and Output Vital Signs (last 24 hours): Temp Pulse Resp BP Pulse Ox 97.9 F 61 16 211/85 H 97 04/24/17 13:05 04/24/17 13:05 04/24/17 13:05 04/24/17 13:05 04/24/17 13:05 Intake and Output: 04/24/17 04/24/17 06:59 18:59 Intake Total 100 Balance 100 - Medications Medications: Current Medications Amlodipine Besylate (Norvasc) 10 mg PO DAILY [facility] Last Admin: 04/24/17 12:35 Dose: 10 mg Aspirin (Aspirin Chewable) 81 mg PO DAILY [facility] Last Admin: 04/24/17 09:26 Dose: 81 mg Benzonatate (Tessalon Perles) 100 mg PO TID [facility] Last Admin: 04/24/17 09:27 Dose: 100 mg Clonidine HCl (Catapres) 0.2 mg PO BID [facility] Last Admin: 04/24/17 12:35 Dose: 0.2 mg Ferrous Sulfate (Feosol) 325 mg PO TID [facility] Last Admin: 04/24/17 09:27 Dose: 325 mg Hydromorphone HCl (Dilaudid) 1 mg IVP Q8H PRN PRN Reason: Pain, moderate (4-7) Last Admin: 04/23/17 11:51 Dose: 1 mg Ceftriaxone Sodium 1 gm/ (Sodium Chloride) 100 mls @ 100 mls/hr IVPB Q24H [facility] Last Admin: 04/23/17 18:56 Dose: 100 mls/hr Insulin Aspart (Novolog) 0 unit SC ACHS [facility] PRN Reason: Protocol Last Admin: 04/24/17 09:31 Dose: Not Given Losartan Potassium (Cozaar) 50 mg PO DAILY [facility] Last Admin: 04/24/17 12:35 Dose: 50 mg Oseltamivir Phosphate (Tamiflu Susp) 30 mg PO DAILY [facility] Stop: 04/27/17 11:01 Last Admin: 04/24/17 09:40 Dose: 30 mg Pantoprazole Sodium (Protonix Inj) 40 mg IVP DAILY [facility] Last Admin: 04/24/17 09:27 Dose: 40 mg Sitagliptin Phosphate (Januvia) 25 mg PO DAILY [facility] Last Admin: 04/24/17 09:27 Dose: 25 mg Temazepam (Restoril) 15 mg PO HS PRN PRN Reason: Sleep Last Admin: 04/23/17 21:20 Dose: 15 mg - Labs Labs: 04/22/17 15:37 04/22/17 15:37
--- NOTE | 2017-04-24 17:40 | CP.PCM.PN ---
Subjective - Date & Time of Evaluation Date of Evaluation: 04/24/17 Time of Evaluation: 10:00 - Subjective Subjective: doing better cultures so far neg possible d/c on po rx ok to d/c rocephin if cultures neg Objective - Vital Signs/Intake and Output Vital Signs (last 24 hours): Temp Pulse Resp BP Pulse Ox 97.9 F 64 20 158/69 H 96 04/24/17 16:00 04/24/17 16:00 04/24/17 16:00 04/24/17 17:38 04/24/17 16:00 Intake and Output: 04/24/17 04/24/17 06:59 18:59 Intake Total 100 480 Balance 100 480 - Medications Medications: Current Medications Amlodipine Besylate (Norvasc) 10 mg PO DAILY [facility] Last Admin: 04/24/17 12:35 Dose: 10 mg Aspirin (Aspirin Chewable) 81 mg PO DAILY [facility] Last Admin: 04/24/17 09:26 Dose: 81 mg Benzonatate (Tessalon Perles) 100 mg PO TID [facility] Last Admin: 04/24/17 17:38 Dose: 100 mg Carvedilol (Coreg) 12.5 mg PO BID [facility] Last Admin: 04/24/17 17:38 Dose: 12.5 mg Clonidine HCl (Catapres) 0.2 mg PO BID [facility] Last Admin: 04/24/17 17:38 Dose: 0.2 mg Ferrous Sulfate (Feosol) 325 mg PO TID [facility] Last Admin: 04/24/17 17:38 Dose: 325 mg Hydromorphone HCl (Dilaudid) 1 mg IVP Q8H PRN PRN Reason: Pain, moderate (4-7) Last Admin: 04/23/17 11:51 Dose: 1 mg Ceftriaxone Sodium 1 gm/ (Sodium Chloride) 100 mls @ 100 mls/hr IVPB Q24H [facility] Last Admin: 04/23/17 18:56 Dose: 100 mls/hr Insulin Aspart (Novolog) 0 unit SC ACHS [facility] PRN Reason: Protocol Last Admin: 04/24/17 16:57 Dose: 3 unit Losartan Potassium (Cozaar) 50 mg PO DAILY [facility] Last Admin: 04/24/17 12:35 Dose: 50 mg Oseltamivir Phosphate (Tamiflu Susp) 30 mg PO DAILY [facility] Stop: 04/27/17 11:01 Last Admin: 04/24/17 09:40 Dose: 30 mg Pantoprazole Sodium (Protonix Inj) 40 mg IVP DAILY [facility] Last Admin: 04/24/17 09:27 Dose: 40 mg Sitagliptin Phosphate (Januvia) 25 mg PO DAILY [facility] Last Admin: 04/24/17 09:27 Dose: 25 mg Temazepam (Restoril) 15 mg PO HS PRN PRN Reason: Sleep Last Admin: 04/23/17 21:20 Dose: 15 mg - Labs Labs: 04/22/17 15:37 04/22/17 15:37 - Constitutional Appears: Non-toxic, Chronically Ill - Head Exam Head Exam: NORMOCEPHALIC - Eye Exam Eye Exam: PERRL - ENT Exam ENT Exam: Mucous Membranes Dry - Neck Exam Neck Exam: absent: Lymphadenopathy - Respiratory Exam Respiratory Exam: Decreased Breath Sounds - Cardiovascular Exam Cardiovascular Exam: REGULAR RHYTHM Assessment and Plan (1) Chest pain Status: Acute (2) ESRD (end stage renal disease) Status: Acute (3) Flu Status: Acute (4) HTN (hypertension) Status: Acute (5) Influenza B Status: Acute (6) Type 2 diabetes mellitus with diabetic nephropathy Status: Acute (7) Hyperkalemia Status: Acute (8) Upper respiratory infection Status: Acute
--- NOTE | 2017-04-24 19:36 | CP.PCM.PN ---
Subjective - Date & Time of Evaluation Date of Evaluation: 04/24/17 Time of Evaluation: 10:00 - Subjective Subjective: clinically same Objective - Vital Signs/Intake and Output Vital Signs (last 24 hours): Temp Pulse Resp BP Pulse Ox 97.9 F 63 20 158/69 H 96 04/24/17 16:00 04/24/17 18:24 04/24/17 16:00 04/24/17 17:38 04/24/17 16:00 Intake and Output: 04/24/17 04/25/17 18:59 06:59 Intake Total 660 100 Balance 660 100 - Medications Medications: Current Medications Amlodipine Besylate (Norvasc) 10 mg PO DAILY [facility] Last Admin: 04/24/17 12:35 Dose: 10 mg Aspirin (Aspirin Chewable) 81 mg PO DAILY [facility] Last Admin: 04/24/17 09:26 Dose: 81 mg Benzonatate (Tessalon Perles) 100 mg PO TID [facility] Last Admin: 04/24/17 17:38 Dose: 100 mg Carvedilol (Coreg) 12.5 mg PO BID [facility] Last Admin: 04/24/17 17:38 Dose: 12.5 mg Clonidine HCl (Catapres) 0.2 mg PO BID [facility] Last Admin: 04/24/17 17:38 Dose: 0.2 mg Ferrous Sulfate (Feosol) 325 mg PO TID [facility] Last Admin: 04/24/17 17:38 Dose: 325 mg Hydromorphone HCl (Dilaudid) 1 mg IVP Q8H PRN PRN Reason: Pain, moderate (4-7) Last Admin: 04/23/17 11:51 Dose: 1 mg Ceftriaxone Sodium 1 gm/ (Sodium Chloride) 100 mls @ 100 mls/hr IVPB Q24H [facility] Last Admin: 04/24/17 18:59 Dose: 100 mls/hr Insulin Aspart (Novolog) 0 unit SC ACHS [facility] PRN Reason: Protocol Last Admin: 04/24/17 16:57 Dose: 3 unit Losartan Potassium (Cozaar) 50 mg PO DAILY [facility] Last Admin: 04/24/17 12:35 Dose: 50 mg Oseltamivir Phosphate (Tamiflu Susp) 30 mg PO DAILY [facility] Stop: 04/27/17 11:01 Last Admin: 04/24/17 09:40 Dose: 30 mg Pantoprazole Sodium (Protonix Inj) 40 mg IVP DAILY [facility] Last Admin: 04/24/17 09:27 Dose: 40 mg Sitagliptin Phosphate (Januvia) 25 mg PO DAILY [facility] Last Admin: 04/24/17 09:27 Dose: 25 mg Temazepam (Restoril) 15 mg PO HS PRN PRN Reason: Sleep Last Admin: 04/23/17 21:20 Dose: 15 mg - Labs Labs: 04/22/17 15:37 04/22/17 15:37
[2017-04-24 23:53] VITALS: RESP 20
[2017-04-25 08:15] VITALS: O2SAT 98
[2017-04-25] MEDS: (Novolog) Insulin Aspart, Recombinant 100 u/ml 10 ml vial SC SCH ×2 (08:23→12:22)
--- NOTE | 2017-04-25 11:23 | CP.PCM.PN ---
Subjective - Date & Time of Evaluation Date of Evaluation: 04/25/17 Time of Evaluation: 11:21 - Subjective Subjective: in bed, comfortable still with couhg BP elevated had HD yesterday afebrile ROS- as per HPI, other than that 10 point ROS negative Objective - Vital Signs/Intake and Output Vital Signs (last 24 hours): Temp Pulse Resp BP Pulse Ox 98 F 60 20 176/78 H 98 04/25/17 08:14 04/25/17 08:14 04/25/17 08:14 04/25/17 09:31 04/25/17 08:14 Intake and Output: 04/25/17 04/25/17 06:59 18:59 Intake Total 160 Balance 160 - Medications Medications: Current Medications Amlodipine Besylate (Norvasc) 10 mg PO DAILY [facility] Last Admin: 04/25/17 09:31 Dose: 10 mg Aspirin (Aspirin Chewable) 81 mg PO DAILY [facility] Last Admin: 04/25/17 09:30 Dose: 81 mg Benzonatate (Tessalon Perles) 100 mg PO TID [facility] Last Admin: 04/25/17 09:31 Dose: 100 mg Carvedilol (Coreg) 12.5 mg PO BID [facility] Last Admin: 04/25/17 09:31 Dose: 12.5 mg Clonidine HCl (Catapres) 0.2 mg PO BID [facility] Last Admin: 04/25/17 09:30 Dose: 0.2 mg Ferrous Sulfate (Feosol) 325 mg PO TID [facility] Last Admin: 04/25/17 09:30 Dose: 325 mg Hydromorphone HCl (Dilaudid) 1 mg IVP Q8H PRN PRN Reason: Pain, moderate (4-7) Last Admin: 04/23/17 11:51 Dose: 1 mg Ceftriaxone Sodium 1 gm/ (Sodium Chloride) 100 mls @ 100 mls/hr IVPB Q24H [facility] Last Admin: 04/24/17 18:59 Dose: 100 mls/hr Insulin Aspart (Novolog) 0 unit SC ACHS [facility] PRN Reason: Protocol Last Admin: 04/25/17 08:23 Dose: 4 unit Losartan Potassium (Cozaar) 50 mg PO DAILY [facility] Last Admin: 04/25/17 09:31 Dose: 50 mg Oseltamivir Phosphate (Tamiflu Susp) 30 mg PO DAILY [facility] Stop: 04/27/17 11:01 Last Admin: 04/24/17 09:40 Dose: 30 mg Pantoprazole Sodium (Protonix Inj) 40 mg IVP DAILY [facility] Last Admin: 04/25/17 09:30 Dose: 40 mg Sitagliptin Phosphate (Januvia) 25 mg PO DAILY [facility] Last Admin: 04/25/17 09:31 Dose: 25 mg Temazepam (Restoril) 15 mg PO HS PRN PRN Reason: Sleep Last Admin: 04/24/17 21:24 Dose: 15 mg - Labs Labs: 04/22/17 15:37 04/22/17 15:37 - Constitutional Appears: Well, Non-toxic - Head Exam Head Exam: ATRAUMATIC, NORMOCEPHALIC - Eye Exam Eye Exam: EOMI, PERRL - ENT Exam ENT Exam: Mucous Membranes Moist - Neck Exam Neck Exam: Full ROM - Respiratory Exam Respiratory Exam: Decreased Breath Sounds, Rhonchi - Cardiovascular Exam Cardiovascular Exam: REGULAR RHYTHM, +S1, +S2 - GI/Abdominal Exam GI & Abdominal Exam: Soft. absent: Tenderness - Extremities Exam Extremities Exam: Full ROM. absent: Pedal Edema - Neurological Exam Neurological Exam: Alert, Awake, Oriented x3 - Psychiatric Exam Psychiatric exam: Normal Affect, Normal Mood - Skin Skin Exam: Dry, Intact Assessment and Plan (1) ESRD (end stage renal disease) Status: Acute (2) Flu Status: Acute (3) HTN (hypertension) Status: Acute (4) Type 2 diabetes mellitus with diabetic nephropathy Status: Acute - Assessment and Plan (Free Text) Plan: HD MWF increase losartan to 100 mg daily for elevated BP
[2017-04-25] MEDS: Oseltamivir 6 MG/ML PO SCH (14:15)
--- NOTE | 2017-04-25 15:09 | CP.PCM.PN ---
Subjective - Date & Time of Evaluation Date of Evaluation: 04/25/17 Time of Evaluation: 10:00 - Subjective Subjective: clinically same Objective - Vital Signs/Intake and Output Vital Signs (last 24 hours): Temp Pulse Resp BP Pulse Ox 98 F 60 20 176/78 H 98 04/25/17 08:14 04/25/17 08:14 04/25/17 08:14 04/25/17 09:31 04/25/17 08:14 Intake and Output: 04/25/17 04/25/17 06:59 18:59 Intake Total 160 Balance 160 - Medications Medications: Current Medications Amlodipine Besylate (Norvasc) 10 mg PO DAILY [facility] Last Admin: 04/25/17 09:31 Dose: 10 mg Aspirin (Aspirin Chewable) 81 mg PO DAILY [facility] Last Admin: 04/25/17 09:30 Dose: 81 mg Benzonatate (Tessalon Perles) 100 mg PO TID [facility] Last Admin: 04/25/17 13:55 Dose: 100 mg Carvedilol (Coreg) 12.5 mg PO BID [facility] Last Admin: 04/25/17 09:31 Dose: 12.5 mg Clonidine HCl (Catapres) 0.2 mg PO BID [facility] Last Admin: 04/25/17 09:30 Dose: 0.2 mg Ferrous Sulfate (Feosol) 325 mg PO TID [facility] Last Admin: 04/25/17 13:55 Dose: 325 mg Hydromorphone HCl (Dilaudid) 1 mg IVP Q8H PRN PRN Reason: Pain, moderate (4-7) Last Admin: 04/23/17 11:51 Dose: 1 mg Ceftriaxone Sodium 1 gm/ (Sodium Chloride) 100 mls @ 100 mls/hr IVPB Q24H [facility] Last Admin: 04/24/17 18:59 Dose: 100 mls/hr Insulin Aspart (Novolog) 0 unit SC ACHS [facility] PRN Reason: Protocol Last Admin: 04/25/17 12:22 Dose: Not Given Losartan Potassium (Cozaar) 100 mg PO DAILY [facility] Oseltamivir Phosphate (Tamiflu Susp) 30 mg PO DAILY [facility] Stop: 04/27/17 11:01 Last Admin: 04/25/17 14:15 Dose: 30 mg Pantoprazole Sodium (Protonix Ec Tab) 40 mg PO DAILY [facility] Sitagliptin Phosphate (Januvia) 25 mg PO DAILY [facility] Last Admin: 04/25/17 09:31 Dose: 25 mg Temazepam (Restoril) 15 mg PO HS PRN PRN Reason: Sleep Last Admin: 04/24/17 21:24 Dose: 15 mg - Labs Labs: 04/22/17 15:37 04/22/17 15:37
[2017-04-25 15:15] VITALS: PULSE 57
[2017-04-25 15:30] VITALS: BP 171/78; TEMP 98
[2017-04-26] MEDS ORDERED: Pantoprazole 40 mg EC Tab PO SCH (10:00)
== END 2017-04-25 15:56 | disposition home or self-care (01) | DRG 193 ==
LOC: C.ER 14:14 → C.9E 17:30 → C.5S 19:04 → OBSVTOIN 04-24 13:41
PROVIDERS: ADMIT Internal Medicine Nephrology; ATTEND Internal Medicine Nephrology
PROC: 5A1D70Z Performance of Urinary Filtration, Intermittent, Less than 6 Hours Per Day (ICD-10-PCS; principal; 2017-04-24)
DX: J10.1 Influenza due to other identified influenza virus with other respiratory manifestations (principal); N18.6 End stage renal disease; E11.22 Type 2 diabetes mellitus with diabetic chronic kidney disease; I12.0 Hypertensive chronic kidney disease with stage 5 chronic kidney disease or end stage renal disease; R09.89 Other specified symptoms and signs involving the circulatory and respiratory systems; D64.9 Anemia, unspecified; E87.6 Hypokalemia; Z99.2 Dependence on renal dialysis

== ENCOUNTER 2017-05-18 10:39 | Inpatient (IN) | payer BC ==
--- NOTE | 2017-05-18 11:14 | C.PDOC ---
History Of Present Illness 56 y/o male, with history of end-stage renal disease and HTN, sent by dialysis center to the ER for generalized weakness and multiple falls in the past few days. Patient receives dialysis treatment on Thursday, Wednesdays, and Fridays. Of note, patient did not receive dialysis today. Family is at bedside stating that patient has generalized weakness. Family and patient denies that he has fever,nausea, vomiting, chest pain, and abdominal pain. Time Seen by Provider: 05/18/17 11:04 Chief Complaint (Nursing): Weakness/Neurological Deficit History Per: Patient History/Exam Limitations: no limitations Onset/Duration Of Symptoms: Days Current Symptoms Are (Timing): Still Present Past Medical History Reviewed: Historical Data, Nursing Documentation, Vital Signs Vital Signs: Last Vital Signs Temp 98.6 F 05/18/17 14:54 Pulse 64 05/18/17 14:54 Resp 18 05/18/17 14:54 BP 174/63 H 05/18/17 14:54 Pulse Ox 92 L 05/18/17 15:25 - Medical History PMH: Anemia, Diabetes, HTN, End Stage Renal Disease, Chronic Kidney Disease Surgical History: No Surg Hx - [facility] Procedures (04/24/17) DIALYSIS [facility] (06/23/13) HEMODIALYSIS (06/23/13) VENOUS CATHETERIZATION FOR RENAL DIALYSIS (06/23/13) Family History: States: Diabetes - Social History Hx Tobacco Use: No Hx Alcohol Use: Yes Hx Substance Use: No - Immunization History Hx Tetanus Toxoid Vaccination: No Hx Influenza Vaccination: Yes Hx Pneumococcal Vaccination: Yes Review Of Systems Except As Marked, All Systems Reviewed And Found Negative. Constitutional: Positive for: Weakness. Negative for: Fever, Chills Cardiovascular: Negative for: Chest Pain Gastrointestinal: Negative for: Nausea, Vomiting, Abdominal Pain Physical Exam - Physical Exam Appears: Non-toxic, No Acute Distress Skin: Normal Color, Warm Head: Atraumatic, Normacephalic Eye(s): bilateral: Normal Inspection, PERRL Nose: Normal Oral Mucosa: Moist Neck: Supple Chest: Symmetrical Cardiovascular: Rhythm Regular Respiratory: Normal Breath Sounds, No Accessory Muscle Use, No Rales, No Rhonchi , No Wheezing Extremity: Normal ROM Neurological/Psych: Oriented x3, Normal Speech, Normal Cognition, Normal Motor, Normal Sensation ED Course And Treatment - Laboratory Results Result Diagrams: 05/18/17 12:02 05/18/17 12:02 O2 Sat by Pulse Oximetry: 92 Pulse Ox Interpretation: Abnormal Medical Decision Making Medical Decision Making: Impression: Generalized Weakness, no focal deficit on exam. h/o of esrd, missed hd today. ro intracrnial, metabolic, infectious etiology Plan: --Labs --Urinalysis --ECG --CT-Head 930: seen by dr nolan bedside ,accepted, dr higgins will arrange hd. labs unremarkble. no leukocytosis. afebrile, Disposition - Disposition Disposition: HOSPITALIZED Disposition Time: 15:25 Condition: STABLE - Clinical Impression Clinical Impression: Weakness, Renal failure, Near syncope - Scribe Statement The provider has reviewed the documentation as recorded by the Christinaibe Niki Michaud Provider Attestation: All medical record entries made by the Scribe were at my direction and personally dictated by me. I have reviewed the chart and agree that the record accurately reflects my personal performance of the history, physical exam, medical decision making, and the department course for this patient. I have also personally directed, reviewed, and agree with the discharge instructions and disposition. Decision To Admit - Pt Status Changed To: Hospital Disposition Of: Inpatient - Admit Certification Admit to Inpatient:: After my assessment, the patient will require hospitalization for at least two midnights. This is because of the severity of symptoms shown, intensity of services needed, and/or the medical risk in this patient being treated as an outpatient. - InPatient: Physician Admission Certification: I certify that this patient requires 2 or more midnights of care for the following reason:: need sadmission for possible cardiac sycnpee - . Bed Request Type: Telemetry Admitting Physician: Adam Nolan Patient Diagnosis: Weakness, Renal failure, Near syncope
[2017-05-18 12:09] LABS: BASO # 0.1 K/uL (0.0-0.2); BASO % 1.4 % (0.0-2.0); EOS # 0.1 K/uL (0.0-0.7); EOS % 0.8 % (0.0-4.0); HEMOGLOBIN 9.7 g/dL (12.0-18.0); LYMPH # 0.9 K/uL (1.0-4.3); LYMPH % 12.2 % (20.0-40.0); MEAN CELL VOLUME 93.1 fL (80.0-94.0); MEAN CORPUSCULAR HEMOGLOBIN 30.7 pg (27.0-31.0); MEAN PLATELET VOLUME 10.7 fL (7.2-11.7); MONO # 0.6 K/uL (0.0-0.8); MONO % 8.3 % (0.0-10.0); NEUT # 5.9 K/uL (1.8-7.0); NEUT % 77.3 % (50.0-75.0); NRBC % 0.1 % (0.0-2.0); RBC 3.16 Mil/uL (4.40-5.90); RED CELL DISTRIBUTION WIDTH 17.1 % (11.5-14.5); WHITE BLOOD COUNT 7.6 K/uL (4.8-10.8)
[2017-05-18 12:15] LABS: INR 1.2; PROTHROMBIN TIME 13.7 SECONDS (9.7-12.2)
[2017-05-18 12:29] LABS: TROPONIN I 0.027 ng/mL (0.00-0.120)
[2017-05-18 12:31] LABS: ALB/GLOB RATIO 1.1 (1.0-2.1); ALBUMIN 3.9 g/dL (3.5-5.0); CALCIUM 9.4 mg/dl (8.6-10.4)
--- NOTE | 2017-05-18 12:54 | CT ---
PROCEDURE: CT HEAD WITHOUT CONTRAST. HISTORY: fall/weakness COMPARISON: None available. TECHNIQUE: Axial computed tomography images were obtained through the head/brain without intravenous contrast. Radiation dose: Total exam DLP = 1468.95 MGy-cm. This CT exam was performed using one or more of the following dose reduction techniques: Automated exposure control, adjustment of the mA and/or kV according to patient size, and/or use of iterative reconstruction technique. FINDINGS: HEMORRHAGE: No intracranial hemorrhage. BRAIN: Diffuse atrophy with prominence of the ventricles and sulci noted. No mass effect or edema. Intracranial atherosclerosis. Scattered periventricular and subcortical white matter hypodensities, which are nonspecific, but often seen with chronic microvascular ischemic disease. Please note that MRI with diffusion imaging is more sensitive in the detection of acute ischemic event. VENTRICLES: No hydrocephalus. CALVARIUM: Unremarkable. PARANASAL SINUSES: Mucosal the bilateral maxillary sinuses. No air-fluid levels identified. MASTOID AIR CELLS: Unremarkable as visualized. No inflammatory changes. 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 IMPRESSION: Generalized atrophy. Nonspecific white matter changes.
--- NOTE | 2017-05-18 13:04 | RAD ---
Chest x-ray single frontal view History: Chest pain. Comparison: 04/22/2017 Findings: Prominent diffuse increased interstitial markings suggestive for underlying edema and or infiltrate. Patchy increased markings at the left lung base. Cardiomegaly. Degenerative changes in the spine and shoulders. Impression: Prominent diffuse increased interstitial markings suggestive for underlying edema and or infiltrate. Patchy increased markings at the left lung base. Cardiomegaly.
[2017-05-18 16:20] LABS: MAGNESIUM 2.3 mg/dL (1.6-2.3)
[2017-05-18 16:49] LABS: HEPATITIS B SURFACE AG Negative (NEGATIVE)
--- NOTE | 2017-05-18 19:15 | CP.PCM.HP ---
Past Patient History - Infectious Disease Hx of Infectious Diseases: None - Past Medical History & Family History Past Medical History?: Yes - Past Social History Smoking Status: Never Smoked - CARDIAC Hx Hypertension: Yes - RENAL Hx Chronic Kidney Disease: Yes - ENDOCRINE/METABOLIC Hx Endocrine Disorders: Yes Hx Diabetes Mellitus Type 2: Yes - HEMATOLOGICAL/ONCOLOGICAL Hx Anemia: Yes - MUSCULOSKELETAL/RHEUMATOLOGICAL Hx Falls: No - PSYCHIATRIC Hx Substance Use: No - SURGICAL HISTORY Hx Surgeries: Yes Hx Orthopedic Surgery: Yes (left shoulder) Hx Vascular Access Device: Yes (Left arm AV shunt) - ANESTHESIA Hx Anesthesia: No Meds Allergies/Adverse Reactions: Allergies Allergy/AdvReac Type Severity Reaction Status Date / Time No Known Allergies Allergy Verified 04/22/17 14:55 Physical Exam - Constitutional Appears: Well - Head Exam Head Exam: ATRAUMATIC, NORMAL INSPECTION, NORMOCEPHALIC - Eye Exam Eye Exam: EOMI, Normal appearance, PERRL Pupil Exam: NORMAL ACCOMODATION, PERRL - ENT Exam ENT Exam: Mucous Membranes Moist, Normal Exam - Neck Exam Neck exam: Positive for: Normal Inspection - Respiratory Exam Respiratory Exam: Decreased Breath Sounds - Cardiovascular Exam Cardiovascular Exam: REGULAR RHYTHM, +S1, +S2 - GI/Abdominal Exam GI & Abdominal Exam: Diminished Bowel Sounds, Soft - Rectal Exam Rectal Exam: Deferred Results - Vital Signs Recent Vital Signs: Last Vital Signs Temp 91.1 F L 05/18/17 16:00 Pulse 63 05/18/17 16:00 Resp 18 05/18/17 16:00 BP 208/81 H 05/18/17 19:00 Pulse Ox 92 L 05/18/17 15:29 - Labs Result Diagrams: 05/18/17 12:02 05/18/17 12:02 Labs: Laboratory Results - last 24 hr 05/18/17 05/18/17 05/18/17 12:02 12:02 12:02 WBC 7.6 RBC 3.16 L Hgb 9.7 L Hct 29.5 L MCV 93.1 MCH 30.7 MCHC 33.0 RDW 17.1 H Plt Count 145 MPV 10.7 Neut % (Auto) 77.3 H Lymph % (Auto) 12.2 L [place] % (Auto) 8.3 Eos % (Auto) 0.8 Baso % (Auto) 1.4 Neut # 5.9 Lymph # 0.9 L [place] # 0.6 Eos # 0.1 Baso # 0.1 PT 13.7 H INR 1.2 APTT 32 Sodium 130 L Potassium 5.6 H Chloride 92 L Carbon Dioxide 26 Anion Gap 18 BUN 57 H Creatinine 8.6 H* Est GFR ( Amer) 8 Est GFR (Non-Af Amer) 6 Random Glucose 195 H Calcium 9.4 Phosphorus Magnesium Total Bilirubin 1.0 AST 57 ALT 66 Alkaline Phosphatase 170 H Troponin I 0.0270 Total Protein 7.4 Albumin 3.9 Globulin 3.5 Albumin/Globulin Ratio 1.1 Hep Bs Antigen 05/18/17 15:56 WBC RBC Hgb Hct MCV MCH MCHC RDW Plt Count MPV Neut % (Auto) Lymph % (Auto) [place] % (Auto) Eos % (Auto) Baso % (Auto) Neut # Lymph # [place] # Eos # Baso # PT INR APTT Sodium Potassium Chloride Carbon Dioxide Anion Gap BUN Creatinine Est GFR ( Amer) Est GFR (Non-Af Amer) Random Glucose Calcium Phosphorus 5.3 H Magnesium 2.3 Total Bilirubin AST ALT Alkaline Phosphatase Troponin I Total Protein Albumin Globulin Albumin/Globulin Ratio Hep Bs Antigen Negative
[2017-05-18 19:58] LABS: SQUAMOUS EPITHIAL < 1 /hpf (0-5); URINE BILIRUBIN NEGATIVE (NEGATIVE); URINE BLOOD NEGATIVE (NEGATIVE); URINE CLARITY Clear (Clear); URINE COLOR Yellow (YELLOW); URINE GLUCOSE (UA) 3+ mg/dL (Normal); URINE LEUKOCYTE ESTERASE NEG Leu/uL (Negative); URINE NITRATE NEGATIVE (NEGATIVE); URINE PROTEIN 3+ mg/dL (NEGATIVE); URINE UROBILINOGEN NORMAL mg/dL (0.2-1.0)
--- NOTE | 2017-05-19 10:47 | CP.PCM.CON ---
History of Present Illness - History of Present Illness History of Present Illness: I was asked to see patient by Dr Deepa Holland. Patient is a 56 year old male with PMH ESRD on HD, HTN, DM who presents with weakness and near syncope. He was scheduled for dialysis, and developed the above symptoms. He denies chest pain or dyspnea. he presented to [facility] with hypertensive urgency. He denies current chest pain. Review of Systems - Constitutional Constitutional: absent: As Per HPI, Anorexia, Chills, Daytime Sleepiness, Excessive Sweating, Fatigue, Fever, Frequent Falls, Headache, Increased Appetite , Lethargy, Malaise, Night Sweats, Snoring, Sleep Apnea, Weight Gain, Weight Loss, Weakness, Other - EENT Eyes: absent: As Per HPI, Blind Spots, Blurred Vision, Change in Vision, Decreased Night Vision, Diplopia, Discharge, Dry Eye, Exophthalmos, Floaters, Irritation, Itchy Eyes, Loss of Peripheral Vision, Pain, Photophobia, Requires Corrective Lenses, Sees Flashes, Spots in Vision, Tunnel Vision, Other Visual Disturbances, Loss of Vision, Other Ears: absent: As Per HPI, Decreased Hearing, Ear Discharge, Ear Pain, Tinnitus, Abnormal Hearing, Disequilibrium, Dizziness, Other Nose/Mouth/Throat: absent: As Per HPI, Epistaxis, Nasal Congestion, Nasal Discharge, Nasal Obstruction, Nasal Trauma, Nose Pain, Post Nasal Drip, Sinus Pain, Sinus Pressure, Bleeding Gums, Change in Voice, Dental Pain, Dry Mouth, Dysphagia, Halitosis, Hoarsness, Lip Swelling, Mouth Lesions, Mouth Pain, Odynophagia, Sore Throat, Throat Swelling, Tongue Swelling, Facial Pain, Neck Pain, Neck Mass, Other - Cardiovascular Cardiovascular: Syncope - Respiratory Respiratory: absent: As Per HPI, Cough, Dyspnea, Hemoptysis, Dyspnea on Exertion , Wheezing, Snoring, Stridor, Pain on Inspiration, Chest Congestion, Excessive Mucous Production, Change in Mucous Color, Pain with Coughing, Other - Gastrointestinal Gastrointestinal: absent: As Per HPI, Abdominal Pain, Belching, Bloating, Change in Bowel Habits, Change in Stool Character, Coffee Ground Emesis, Constipation, Cramping, Diarrhea, Dyspepsia, Dysphagia, Early Satiety, Excessive Flatus, Fecal Incontinence, Heartburn, Hematemesis, Hematochezia, Loose Stools, Melena, Nausea, Odynophagia, Temesmus, Vomiting, Other - Genitourinary Genitourinary: absent: As Per HPI, Change in Urinary Stream, Difficulty Urinating, Dysuria, Flank Pain, Hematuria, Pyuria, Nocturia, Urinary Incontinence, Urinary Frequency, Urinary Hesitance, Urinary Urgency, Voiding Freq/Small Amts, Freq UTI, Hx Renal/Bladder Calculi, Hx /Renal Surgery, Bladder Distension, Other - Musculoskeletal Musculoskeletal: absent: As Per HPI, Abnormal Gait, Arthralgias, Atrophy, Back Pain, Deformity, Joint Swelling, Limited Range of Motion, Loss of Height, Muscle Cramps, Muscle Weakness, Myalgias, Neck Pain, Numbness, Radiating Pain into Limb, Stiffness, Tingling, Other - Integumentary Integumentary: absent: As Per HPI, Acne, Alopecia, Bleeding Lesions, Change in Hair, Change in Nails, Change in Pigmentation, Changing Lesions, Dry Skin, Erythema, Furuncle, Hirsutism, Lesions, New Lesions, Non-Healing Lesions, Photosensitivity, Pruritus, Rash, Skin Pain, Skin Ulcer, Sores, Striae, Swelling , Unusual Bruising, Wounds, Jaundice, Other - Neurological Neurological: Syncope - Psychiatric Psychiatric: absent: As Per HPI, Abnormal Sleep Pattern, Anhedonia, Anxiety, Auditory Hallucinations, Behavioral Changes, Change in Appetite, Change in Libido, Confusion, Depression, Difficulty Concentrating, Hallucinations, Homicidal Ideation, Hopelessness, Irritability, Memory Loss, Mood Swings, Panic Attacks, Paranoia, Suicidal Ideation, Visual Hallucinations, Tactile Hallucinations, Other - Endocrine Endocrine: absent: As Per HPI, Change in Body Appearance, Change in Libido, Cold Intolorance, Deepening of Voice, Excessive Sweating, Fatigue, Flushing, Heat Intolorance, Increase in Ring/Shoe/Hat Size, Palpitations, Polydipsia, Polyphagia, Polyuria, Other - Hematologic/Lymphatic Hematologic: absent: As Per HPI, Easy Bleeding, Easy Bruising, Lymphadenopathy, Other Past Patient History - Infectious Disease Hx of Infectious Diseases: None - Past Medical History & Family History Past Medical History?: Yes - Past Social History Smoking Status: Never Smoked - CARDIAC Hx Hypertension: Yes - RENAL Hx Chronic Kidney Disease: Yes - ENDOCRINE/METABOLIC Hx Endocrine Disorders: Yes Hx Diabetes Mellitus Type 2: Yes - HEMATOLOGICAL/ONCOLOGICAL Hx Anemia: Yes - MUSCULOSKELETAL/RHEUMATOLOGICAL Hx Falls: No - PSYCHIATRIC Hx Substance Use: No - SURGICAL HISTORY Hx Surgeries: Yes Hx Orthopedic Surgery: Yes (left shoulder) Hx Vascular Access Device: Yes (Left arm AV shunt) - ANESTHESIA Hx Anesthesia: No Meds Home Medications: Home Medication List Medication Instructions Recorded Confirmed Type Calcium Acetate [Phoslo] 667 mg PO TID #90 tab 05/20/17 Rx Carvedilol [Coreg] 12.5 mg PO BID #60 tab 05/20/17 Rx GlipiZIDE [Glucotrol] 5 mg PO DAILY #30 tab 05/20/17 Rx Losartan [Cozaar] 50 mg PO DAILY #30 tab 05/20/17 Rx Minoxidil 5 mg PO DAILY #30 tab 05/20/17 Rx amLODIPine [Norvasc] 10 mg PO DAILY #30 tab 05/20/17 Rx cloNIDine [Catapres] 0.2 mg PO BID #60 tab 05/20/17 Rx Allergies/Adverse Reactions: Allergies Allergy/AdvReac Type Severity Reaction Status Date / Time No Known Allergies Allergy Verified 04/22/17 14:55 - Medications Medications: Current Medications Amlodipine Besylate (Norvasc) 10 mg PO DAILY [facility] Last Admin: 05/19/17 09:30 Dose: 10 mg Aspirin (Aspirin Chewable) 81 mg PO DAILY [facility] Last Admin: 05/19/17 09:30 Dose: 81 mg Calcium Acetate (Phoslo) 667 mg PO TID [facility] Last Admin: 05/19/17 09:29 Dose: 667 mg Carvedilol (Coreg) 12.5 mg PO BID [facility] Last Admin: 05/19/17 09:29 Dose: 12.5 mg Clonidine HCl (Catapres) 0.2 mg PO DAILY [facility] Last Admin: 05/19/17 09:30 Dose: 0.2 mg Glipizide (Glucotrol) 5 mg PO DAILY [facility] Last Admin: 05/19/17 09:30 Dose: 5 mg Heparin Sodium (Porcine) (Heparin) 5,000 units SC Q12 [facility] Last Admin: 05/19/17 09:29 Dose: 5,000 units Minoxidil (Minoxidil) 2.5 mg PO DAILY [facility] Last Admin: 05/19/17 09:30 Dose: 2.5 mg Zolpidem Tartrate (Ambien) 5 mg PO HS PRN PRN Reason: Insomnia Physical Exam - Constitutional Appears: Non-toxic - Head Exam Head Exam: NORMAL INSPECTION - Eye Exam Eye Exam: Normal appearance - ENT Exam ENT Exam: Mucous Membranes Moist - Neck Exam Neck exam: Positive for: Full Rom - Respiratory Exam Respiratory Exam: NORMAL BREATHING PATTERN - Cardiovascular Exam Cardiovascular Exam: REGULAR RHYTHM - GI/Abdominal Exam GI & Abdominal Exam: Normal Bowel Sounds - Rectal Exam Rectal Exam: Deferred - Extremities Exam Extremities exam: Positive for: tenderness - Neurological Exam Neurological exam: Alert, Oriented x3 - Psychiatric Exam Psychiatric exam: Normal Affect, Normal Mood - Skin Skin Exam: Normal Color, Warm Results - Vital Signs Recent Vital Signs: Last Vital Signs Temp 97.2 F L 05/19/17 08:26 Pulse 60 05/19/17 08:26 Resp 20 05/19/17 08:26 BP 186/79 H 05/19/17 09:29 Pulse Ox 100 05/19/17 08:26 - Labs Result Diagrams: 05/18/17 12:02 05/18/17 12:02 Labs: Laboratory Results - last 24 hr 05/18/17 05/18/17 05/18/17 12:02 12:02 12:02 WBC 7.6 RBC 3.16 L Hgb 9.7 L Hct 29.5 L MCV 93.1 MCH 30.7 MCHC 33.0 RDW 17.1 H Plt Count 145 MPV 10.7 Neut % (Auto) 77.3 H Lymph % (Auto) 12.2 L [place] % (Auto) 8.3 Eos % (Auto) 0.8 Baso % (Auto) 1.4 Neut # 5.9 Lymph # 0.9 L [place] # 0.6 Eos # 0.1 Baso # 0.1 PT 13.7 H INR 1.2 APTT 32 Sodium 130 L Potassium 5.6 H Chloride 92 L Carbon Dioxide 26 Anion Gap 18 BUN 57 H Creatinine 8.6 H* Est GFR ( Amer) 8 Est GFR (Non-Af Amer) 6 POC Glucose (mg/dL) Random Glucose 195 H Calcium 9.4 Phosphorus Magnesium Total Bilirubin 1.0 AST 57 ALT 66 Alkaline Phosphatase 170 H Troponin I 0.0270 Total Protein 7.4 Albumin 3.9 Globulin 3.5 Albumin/Globulin Ratio 1.1 Urine Color Urine Clarity Urine pH Ur Specific [place] Urine Protein Urine Glucose (UA) Urine Ketones Urine Blood Urine Nitrate Urine Bilirubin Urine Urobilinogen Ur Leukocyte Esterase Urine WBC (Auto) Urine RBC (Auto) Ur Squamous Epith Cells Hep Bs Antigen 05/18/17 05/18/17 05/18/17 15:56 19:47 21:23 WBC RBC Hgb Hct MCV MCH MCHC RDW Plt Count MPV Neut % (Auto) Lymph % (Auto) [place] % (Auto) Eos % (Auto) Baso % (Auto) Neut # Lymph # [place] # Eos # Baso # PT INR APTT Sodium Potassium Chloride Carbon Dioxide Anion Gap BUN Creatinine Est GFR ( Amer) Est GFR (Non-Af Amer) POC Glucose (mg/dL) 226 H Random Glucose Calcium Phosphorus 5.3 H Magnesium 2.3 Total Bilirubin AST ALT Alkaline Phosphatase Troponin I Total Protein Albumin Globulin Albumin/Globulin Ratio Urine Color Yellow Urine Clarity Clear Urine pH 8.0 Ur Specific [place] 1.011 Urine Protein 3+ H Urine Glucose (UA) 3+ H Urine Ketones Negative Urine Blood Negative Urine Nitrate Negative Urine Bilirubin Negative Urine Urobilinogen Normal Ur Leukocyte Esterase Neg Urine WBC (Auto) 1 Urine RBC (Auto) 2 Ur Squamous Epith Cells < 1 Hep Bs Antigen Negative 05/19/17 05:59 WBC RBC Hgb Hct MCV MCH MCHC RDW Plt Count MPV Neut % (Auto) Lymph % (Auto) [place] % (Auto) Eos % (Auto) Baso % (Auto) Neut # Lymph # [place] # Eos # Baso # PT INR APTT Sodium Potassium Chloride Carbon Dioxide Anion Gap BUN Creatinine Est GFR ( Amer) Est GFR (Non-Af Amer) POC Glucose (mg/dL) 236 H Random Glucose Calcium Phosphorus Magnesium Total Bilirubin AST ALT Alkaline Phosphatase Troponin I Total Protein Albumin Globulin Albumin/Globulin Ratio Urine Color Urine Clarity Urine pH Ur Specific [place] Urine Protein Urine Glucose (UA) Urine Ketones Urine Blood Urine Nitrate Urine Bilirubin Urine Urobilinogen Ur Leukocyte Esterase Urine WBC (Auto) Urine RBC (Auto) Ur Squamous Epith Cells Hep Bs Antigen - EKG Data EKG Interpreted by: Myself EKG shows normal: Sinus rhythm Assessment & Plan (1) Near syncope Assessment and Plan: likley related to uncontrolled hypertension. will monitor on telemetry Status: Acute (2) ESRD (end stage renal disease) Assessment and Plan: will need dialysis Status: Acute (3) HTN (hypertension) Assessment and Plan: blood pressure control Status: Acute
--- NOTE | 2017-05-19 10:47 | CP.PCM.CON ---
History of Present Illness - History of Present Illness History of Present Illness: patient seen/examined. full consult to follow. patient has history or ESRD on HD, HTN who presents with dizziness weakness. patient is hypertensive urgency. currently no active chest pain or dyspnea. will control blood pressure. recheck labs after dailysis. Past Patient History - Infectious Disease Hx of Infectious Diseases: None - Past Medical History & Family History Past Medical History?: Yes - Past Social History Smoking Status: Never Smoked - CARDIAC Hx Hypertension: Yes - RENAL Hx Chronic Kidney Disease: Yes - ENDOCRINE/METABOLIC Hx Endocrine Disorders: Yes Hx Diabetes Mellitus Type 2: Yes - HEMATOLOGICAL/ONCOLOGICAL Hx Anemia: Yes - MUSCULOSKELETAL/RHEUMATOLOGICAL Hx Falls: No - PSYCHIATRIC Hx Substance Use: No - SURGICAL HISTORY Hx Surgeries: Yes Hx Orthopedic Surgery: Yes (left shoulder) Hx Vascular Access Device: Yes (Left arm AV shunt) - ANESTHESIA Hx Anesthesia: No Meds Allergies/Adverse Reactions: Allergies Allergy/AdvReac Type Severity Reaction Status Date / Time No Known Allergies Allergy Verified 04/22/17 14:55 - Medications Medications: Current Medications Amlodipine Besylate (Norvasc) 10 mg PO DAILY [facility] Last Admin: 05/19/17 09:30 Dose: 10 mg Aspirin (Aspirin Chewable) 81 mg PO DAILY [facility] Last Admin: 05/19/17 09:30 Dose: 81 mg Calcium Acetate (Phoslo) 667 mg PO TID [facility] Last Admin: 05/19/17 09:29 Dose: 667 mg Carvedilol (Coreg) 12.5 mg PO BID [facility] Last Admin: 05/19/17 09:29 Dose: 12.5 mg Clonidine HCl (Catapres) 0.2 mg PO DAILY [facility] Last Admin: 05/19/17 09:30 Dose: 0.2 mg Glipizide (Glucotrol) 5 mg PO DAILY [facility] Last Admin: 05/19/17 09:30 Dose: 5 mg Heparin Sodium (Porcine) (Heparin) 5,000 units SC Q12 [facility] Last Admin: 05/19/17 09:29 Dose: 5,000 units Minoxidil (Minoxidil) 2.5 mg PO DAILY [facility] Last Admin: 05/19/17 09:30 Dose: 2.5 mg Zolpidem Tartrate (Ambien) 5 mg PO HS PRN PRN Reason: Insomnia Results - Vital Signs Recent Vital Signs: Last Vital Signs Temp 97.2 F L 05/19/17 08:26 Pulse 60 05/19/17 08:26 Resp 20 05/19/17 08:26 BP 186/79 H 05/19/17 09:29 Pulse Ox 100 05/19/17 08:26 - Labs Result Diagrams: 05/18/17 12:02 05/18/17 12:02 Labs: Laboratory Results - last 24 hr 05/18/17 05/18/17 05/18/17 12:02 12:02 12:02 WBC 7.6 RBC 3.16 L Hgb 9.7 L Hct 29.5 L MCV 93.1 MCH 30.7 MCHC 33.0 RDW 17.1 H Plt Count 145 MPV 10.7 Neut % (Auto) 77.3 H Lymph % (Auto) 12.2 L [place] % (Auto) 8.3 Eos % (Auto) 0.8 Baso % (Auto) 1.4 Neut # 5.9 Lymph # 0.9 L [place] # 0.6 Eos # 0.1 Baso # 0.1 PT 13.7 H INR 1.2 APTT 32 Sodium 130 L Potassium 5.6 H Chloride 92 L Carbon Dioxide 26 Anion Gap 18 BUN 57 H Creatinine 8.6 H* Est GFR ( Amer) 8 Est GFR (Non-Af Amer) 6 POC Glucose (mg/dL) Random Glucose 195 H Calcium 9.4 Phosphorus Magnesium Total Bilirubin 1.0 AST 57 ALT 66 Alkaline Phosphatase 170 H Troponin I 0.0270 Total Protein 7.4 Albumin 3.9 Globulin 3.5 Albumin/Globulin Ratio 1.1 Urine Color Urine Clarity Urine pH Ur Specific [place] Urine Protein Urine Glucose (UA) Urine Ketones Urine Blood Urine Nitrate Urine Bilirubin Urine Urobilinogen Ur Leukocyte Esterase Urine WBC (Auto) Urine RBC (Auto) Ur Squamous Epith Cells Hep Bs Antigen 05/18/17 05/18/17 05/18/17 15:56 19:47 21:23 WBC RBC Hgb Hct MCV MCH MCHC RDW Plt Count MPV Neut % (Auto) Lymph % (Auto) [place] % (Auto) Eos % (Auto) Baso % (Auto) Neut # Lymph # [place] # Eos # Baso # PT INR APTT Sodium Potassium Chloride Carbon Dioxide Anion Gap BUN Creatinine Est GFR ( Amer) Est GFR (Non-Af Amer) POC Glucose (mg/dL) 226 H Random Glucose Calcium Phosphorus 5.3 H Magnesium 2.3 Total Bilirubin AST ALT Alkaline Phosphatase Troponin I Total Protein Albumin Globulin Albumin/Globulin Ratio Urine Color Yellow Urine Clarity Clear Urine pH 8.0 Ur Specific [place] 1.011 Urine Protein 3+ H Urine Glucose (UA) 3+ H Urine Ketones Negative Urine Blood Negative Urine Nitrate Negative Urine Bilirubin Negative Urine Urobilinogen Normal Ur Leukocyte Esterase Neg Urine WBC (Auto) 1 Urine RBC (Auto) 2 Ur Squamous Epith Cells < 1 Hep Bs Antigen Negative 05/19/17 05:59 WBC RBC Hgb Hct MCV MCH MCHC RDW Plt Count MPV Neut % (Auto) Lymph % (Auto) [place] % (Auto) Eos % (Auto) Baso % (Auto) Neut # Lymph # [place] # Eos # Baso # PT INR APTT Sodium Potassium Chloride Carbon Dioxide Anion Gap BUN Creatinine Est GFR ( Amer) Est GFR (Non-Af Amer) POC Glucose (mg/dL) 236 H Random Glucose Calcium Phosphorus Magnesium Total Bilirubin AST ALT Alkaline Phosphatase Troponin I Total Protein Albumin Globulin Albumin/Globulin Ratio Urine Color Urine Clarity Urine pH Ur Specific [place] Urine Protein Urine Glucose (UA) Urine Ketones Urine Blood Urine Nitrate Urine Bilirubin Urine Urobilinogen Ur Leukocyte Esterase Urine WBC (Auto) Urine RBC (Auto) Ur Squamous Epith Cells Hep Bs Antigen
--- NOTE | 2017-05-19 11:20 | CP.PCM.CON ---
History of Present Illness - History of Present Illness History of Present Illness: seen and examined 56 y/o male, with history of end-stage renal disease and HTN, sent by dialysis center to the ER for generalized weakness and multiple falls in the past few days. Patient receives dialysis treatment on Thursday, Wednesdays, and Fridays. Of note, patient did not receive dialysis today. Family is at bedside stating that patient has generalized weakness. Pt able to walk to bathroom but gets weak after walking a short distance. Family and patient denies that he has fever,nausea, vomiting, chest pain, and abdominal pain. Pt had SBP in 220s on admission, diagnosed w/ htn emergency. He was emergently dialyzed yesterday evening PMH: ESRD HTN DM 2 SEC HPT PSH: AV FISTULA Allergies: NKDA Family hx: no hx of kidney dz in family Review of Systems - Review of Systems All systems: reviewed and no additional remarkable complaints except (as per HPI ) Past Patient History - Infectious Disease Hx of Infectious Diseases: None - Past Medical History & Family History Past Medical History?: Yes - Past Social History Smoking Status: Never Smoked - CARDIAC Hx Hypertension: Yes - RENAL Hx Chronic Kidney Disease: Yes - ENDOCRINE/METABOLIC Hx Endocrine Disorders: Yes Hx Diabetes Mellitus Type 2: Yes - HEMATOLOGICAL/ONCOLOGICAL Hx Anemia: Yes - MUSCULOSKELETAL/RHEUMATOLOGICAL Hx Falls: No - PSYCHIATRIC Hx Substance Use: No - SURGICAL HISTORY Hx Surgeries: Yes Hx Orthopedic Surgery: Yes (left shoulder) Hx Vascular Access Device: Yes (Left arm AV shunt) - ANESTHESIA Hx Anesthesia: No Meds Allergies/Adverse Reactions: Allergies Allergy/AdvReac Type Severity Reaction Status Date / Time No Known Allergies Allergy Verified 04/22/17 14:55 - Medications Medications: Current Medications Amlodipine Besylate (Norvasc) 10 mg PO DAILY [facility] Last Admin: 05/19/17 09:30 Dose: 10 mg Aspirin (Aspirin Chewable) 81 mg PO DAILY [facility] Last Admin: 05/19/17 09:30 Dose: 81 mg Calcium Acetate (Phoslo) 667 mg PO TID [facility] Last Admin: 05/19/17 09:29 Dose: 667 mg Carvedilol (Coreg) 12.5 mg PO BID [facility] Last Admin: 05/19/17 09:29 Dose: 12.5 mg Clonidine HCl (Catapres) 0.2 mg PO DAILY [facility] Last Admin: 01/23/18 09:30 Dose: 0.2 mg Glipizide (Glucotrol) 5 mg PO DAILY [facility] Last Admin: 05/19/17 09:30 Dose: 5 mg Heparin Sodium (Porcine) (Heparin) 5,000 units SC Q12 [facility] Last Admin: 05/19/17 09:29 Dose: 5,000 units Minoxidil (Minoxidil) 2.5 mg PO DAILY [facility] Last Admin: 05/19/17 09:30 Dose: 2.5 mg Zolpidem Tartrate (Ambien) 5 mg PO HS PRN PRN Reason: Insomnia Physical Exam - Constitutional Appears: Non-toxic, No Acute Distress, Chronically Ill - Head Exam Head Exam: NORMAL INSPECTION - Eye Exam Eye Exam: Normal appearance Pupil Exam: PERRL - ENT Exam ENT Exam: Mucous Membranes Moist, Normal Exam - Neck Exam Neck exam: Positive for: Normal Inspection - Respiratory Exam Respiratory Exam: Clear to Auscultation Bilateral, NORMAL BREATHING PATTERN - Cardiovascular Exam Cardiovascular Exam: REGULAR RHYTHM, RRR - GI/Abdominal Exam GI & Abdominal Exam: Distended, Normal Bowel Sounds, Soft - Extremities Exam Extremities exam: Positive for: normal inspection (lue avf w/ thrill) - Neurological Exam Neurological exam: Alert, Oriented x3 - Psychiatric Exam Psychiatric exam: Normal Affect, Normal Mood - Skin Skin Exam: Intact, Warm Results - Vital Signs Recent Vital Signs: Last Vital Signs Temp 97.2 F L 05/19/17 08:26 Pulse 60 05/19/17 08:26 Resp 20 05/19/17 08:26 BP 186/79 H 05/19/17 09:29 Pulse Ox 100 05/19/17 08:26 - Labs Result Diagrams: 05/18/17 12:02 05/18/17 12:02 Labs: Laboratory Results - last 24 hr 05/18/17 05/18/17 05/18/17 12:02 12:02 12:02 WBC 7.6 RBC 3.16 L Hgb 9.7 L Hct 29.5 L MCV 93.1 MCH 30.7 MCHC 33.0 RDW 17.1 H Plt Count 145 MPV 10.7 Neut % (Auto) 77.3 H Lymph % (Auto) 12.[address] [place] % (Auto) 8.3 Eos % (Auto) 0.8 Baso % (Auto) 1.4 Neut # 5.9 Lymph # 0.[address] [place] # 0.6 Eos # 0.1 Baso # 0.1 PT 13.7 H INR 1.2 APTT 32 Sodium 130 L Potassium 5.6 H Chloride 92 L Carbon Dioxide 26 Anion Gap 18 BUN 57 H Creatinine 8.6 H* Est GFR ( Amer) 8 Est GFR (Non-Af Amer) 6 POC Glucose (mg/dL) Random Glucose 195 H Calcium 9.4 Phosphorus Magnesium Total Bilirubin 1.0 AST 57 ALT 66 Alkaline Phosphatase 170 H Troponin I 0.0270 Total Protein 7.4 Albumin 3.9 Globulin 3.5 Albumin/Globulin Ratio 1.1 Urine Color Urine Clarity Urine pH Ur Specific [place] Urine Protein Urine Glucose (UA) Urine Ketones Urine Blood Urine Nitrate Urine Bilirubin Urine Urobilinogen Ur Leukocyte Esterase Urine WBC (Auto) Urine RBC (Auto) Ur Squamous Epith Cells Hep Bs Antigen 05/18/17 05/18/17 05/18/17 15:56 19:47 21:23 WBC RBC Hgb Hct MCV MCH MCHC RDW Plt Count MPV Neut % (Auto) Lymph % (Auto) [place] % (Auto) Eos % (Auto) Baso % (Auto) Neut # Lymph # [place] # Eos # Baso # PT INR APTT Sodium Potassium Chloride Carbon Dioxide Anion Gap BUN Creatinine Est GFR ( Amer) Est GFR (Non-Af Amer) POC Glucose (mg/dL) 226 H Random Glucose Calcium Phosphorus 5.3 H Magnesium 2.3 Total Bilirubin AST ALT Alkaline Phosphatase Troponin I Total Protein Albumin Globulin Albumin/Globulin Ratio Urine Color Yellow Urine Clarity Clear Urine pH 8.0 Ur Specific [place] 1.011 Urine Protein 3+ H Urine Glucose (UA) 3+ H Urine Ketones Negative Urine Blood Negative Urine Nitrate Negative Urine Bilirubin Negative Urine Urobilinogen Normal Ur Leukocyte Esterase Neg Urine WBC (Auto) 1 Urine RBC (Auto) 2 Ur Squamous Epith Cells < 1 Hep Bs Antigen Negative 05/19/17 05:59 WBC RBC Hgb Hct MCV MCH MCHC RDW Plt Count MPV Neut % (Auto) Lymph % (Auto) [place] % (Auto) Eos % (Auto) Baso % (Auto) Neut # Lymph # [place] # Eos # Baso # PT INR APTT Sodium Potassium Chloride Carbon Dioxide Anion Gap BUN Creatinine Est GFR ( Amer) Est GFR (Non-Af Amer) POC Glucose (mg/dL) 236 H Random Glucose Calcium Phosphorus Magnesium Total Bilirubin AST ALT Alkaline Phosphatase Troponin I Total Protein Albumin Globulin Albumin/Globulin Ratio Urine Color Urine Clarity Urine pH Ur Specific [place] Urine Protein Urine Glucose (UA) Urine Ketones Urine Blood Urine Nitrate Urine Bilirubin Urine Urobilinogen Ur Leukocyte Esterase Urine WBC (Auto) Urine RBC (Auto) Ur Squamous Epith Cells Hep Bs Antigen Assessment & Plan (1) Near syncope Status: Acute (2) Weakness Status: Acute (3) ESRD (end stage renal disease) Status: Acute (4) HTN (hypertension) Status: Acute - Assessment and Plan (Free Text) Assessment: maintain hd mwf increase minoxidil dose clonidine bid dosing carly w/ hd
[2017-05-19] MEDS ORDERED: EPOETIN ALFA 4,000 UNIT/ML ML Dialysis IV ONE (12:13)
--- NOTE | 2017-05-19 16:38 | CP.PCM.PN ---
Subjective - Date & Time of Evaluation Date of Evaluation: 05/19/17 Time of Evaluation: 10:20 - Subjective Subjective: clinically same Objective - Vital Signs/Intake and Output Vital Signs (last 24 hours): Temp Pulse Resp BP Pulse Ox 98.3 F 63 20 162/99 H 96 05/19/17 15:00 05/19/17 15:30 05/19/17 15:00 05/19/17 15:00 05/19/17 15:00 Intake and Output: 05/19/17 05/19/17 06:59 18:59 Intake Total 300 Balance 300 - Medications Medications: Current Medications Amlodipine Besylate (Norvasc) 10 mg PO DAILY [facility] Last Admin: 05/19/17 09:30 Dose: 10 mg Aspirin (Aspirin Chewable) 81 mg PO DAILY [facility] Last Admin: 05/19/17 09:30 Dose: 81 mg Calcium Acetate (Phoslo) 667 mg PO TID [facility] Last Admin: 05/19/17 13:18 Dose: 667 mg Carvedilol (Coreg) 12.5 mg PO BID [facility] Last Admin: 05/19/17 09:29 Dose: 12.5 mg Clonidine HCl (Catapres) 0.2 mg PO BID [facility] Glipizide (Glucotrol) 5 mg PO DAILY [facility] Last Admin: 05/19/17 09:30 Dose: 5 mg Heparin Sodium (Porcine) (Heparin) 5,000 units SC Q12 [facility] Last Admin: 05/19/17 09:29 Dose: 5,000 units Minoxidil (Minoxidil) 5 mg PO DAILY [facility] Zolpidem Tartrate (Ambien) 5 mg PO HS PRN PRN Reason: Insomnia - Labs Labs: 05/18/17 12:02 05/18/17 12:02 PT 13.7 SECONDS (9.7-12.2) H 05/18/17 12:02 INR 1.2 05/18/17 12:02 APTT 32 SECONDS (21-34) 05/18/17 12:02 - Constitutional Appears: Well - Head Exam Head Exam: ATRAUMATIC, NORMAL INSPECTION, NORMOCEPHALIC - Eye Exam Eye Exam: EOMI, Normal appearance, PERRL Pupil Exam: NORMAL ACCOMODATION, PERRL - ENT Exam ENT Exam: Mucous Membranes Moist, Normal Exam - Neck Exam Neck Exam: Full ROM, Normal Inspection. absent: Lymphadenopathy - Respiratory Exam Respiratory Exam: Decreased Breath Sounds - Cardiovascular Exam Cardiovascular Exam: REGULAR RHYTHM, +S1, +S2 - GI/Abdominal Exam GI & Abdominal Exam: Soft, Diminished Bowel Sounds - Rectal Exam Rectal Exam: Deferred
[2017-05-19] MEDS ORDERED: (Novolog) Insulin Aspart, Recombinant 100 u/ml 10 ml vial SC SCH ×2 (16:54→22:00)
[2017-05-19] MEDS: (Novolog) Insulin Aspart, Recombinant 100 u/ml 10 ml vial SC SCH ×2 (17:22→21:52)
--- NOTE | 2017-05-19 23:13 | CARD ---
APPROVED REPORT EKG Measurement Heart [id number] ID [id number] <Conclusion> Normal sinus rhythm ST & T wave abnormality, consider lateral ischemia Prolonged QT Abnormal ECG
[2017-05-20] MEDS: (Novolog) Insulin Aspart, Recombinant 100 u/ml 10 ml vial SC SCH ×2 (06:45→14:32)
--- NOTE | 2017-05-20 08:30 | CP.PCM.PN ---
Subjective - Date & Time of Evaluation Date of Evaluation: 05/20/17 Time of Evaluation: 08:10 - Subjective Subjective: feels better. no nausea Objective - Vital Signs/Intake and Output Vital Signs (last 24 hours): Temp Pulse Resp BP Pulse Ox 98.4 F 58 L 18 181/80 H 96 05/20/17 08:08 05/20/17 08:08 05/20/17 08:08 05/20/17 08:08 05/20/17 08:08 - Medications Medications: Current Medications Amlodipine Besylate (Norvasc) 10 mg PO DAILY [facility] Last Admin: 05/19/17 09:30 Dose: 10 mg Aspirin (Aspirin Chewable) 81 mg PO DAILY [facility] Last Admin: 05/19/17 09:30 Dose: 81 mg Calcium Acetate (Phoslo) 667 mg PO TID [facility] Last Admin: 05/19/17 17:22 Dose: 667 mg Carvedilol (Coreg) 12.5 mg PO BID [facility] Last Admin: 05/19/17 18:05 Dose: 12.5 mg Clonidine HCl (Catapres) 0.2 mg PO BID [facility] Last Admin: 05/19/17 17:22 Dose: 0.2 mg Glipizide (Glucotrol) 5 mg PO DAILY [facility] Last Admin: 05/19/17 09:30 Dose: 5 mg Heparin Sodium (Porcine) (Heparin) 5,000 units SC Q12 [facility] Last Admin: 05/19/17 21:18 Dose: 5,000 units Insulin Aspart (Novolog) 0 unit SC ACHS [facility] PRN Reason: Protocol Last Admin: 05/20/17 06:45 Dose: Not Given Minoxidil (Minoxidil) 5 mg PO DAILY [facility] Zolpidem Tartrate (Ambien) 5 mg PO HS PRN PRN Reason: Insomnia Last Admin: 05/19/17 21:18 Dose: 5 mg - Labs Labs: 05/18/17 12:02 05/18/17 12:02 PT 13.7 SECONDS (9.7-12.2) H 05/18/17 12:02 INR 1.2 05/18/17 12:02 APTT 32 SECONDS (21-34) 05/18/17 12:02 - Constitutional Appears: Non-toxic - Head Exam Head Exam: NORMAL INSPECTION - Eye Exam Eye Exam: Normal appearance - ENT Exam ENT Exam: Mucous Membranes Moist - Neck Exam Neck Exam: Full ROM - Respiratory Exam Respiratory Exam: Decreased Breath Sounds - Cardiovascular Exam Cardiovascular Exam: REGULAR RHYTHM - GI/Abdominal Exam GI & Abdominal Exam: Normal Bowel Sounds - Rectal Exam Rectal Exam: Deferred - Extremities Exam Extremities Exam: absent: Pedal Edema - Back Exam Back Exam: NORMAL INSPECTION - Neurological Exam Neurological Exam: Alert - Psychiatric Exam Psychiatric exam: Normal Affect - Skin Skin Exam: Normal Color Assessment and Plan (1) ESRD (end stage renal disease) Assessment & Plan: HD today Status: Acute (2) HTN (hypertension) Assessment & Plan: add Losartan. otherwise stable cardiac status Status: Acute
[2017-05-20 09:57] VITALS: O2SAT 95
--- NOTE | 2017-05-20 14:49 | CP.PCM.PN ---
Subjective - Date & Time of Evaluation Date of Evaluation: 05/20/17 Time of Evaluation: 14:46 - Subjective Subjective: s/p dialysis now - UF 3400ml HTN still increased feels well no other complaint Objective - Vital Signs/Intake and Output Vital Signs (last 24 hours): Temp Pulse Resp BP Pulse Ox 98.1 F 63 65 H 188/73 H 95 05/20/17 09:15 05/20/17 09:15 05/20/17 09:15 05/20/17 14:33 05/20/17 09:15 - Medications Medications: Current Medications Amlodipine Besylate (Norvasc) 10 mg PO DAILY [facility] Last Admin: 05/20/17 14:32 Dose: 10 mg Aspirin (Aspirin Chewable) 81 mg PO DAILY [facility] Last Admin: 05/20/17 14:29 Dose: 81 mg Calcium Acetate (Phoslo) 667 mg PO TID [facility] Last Admin: 05/20/17 14:33 Dose: Not Given Carvedilol (Coreg) 12.5 mg PO BID [facility] Last Admin: 05/20/17 14:33 Dose: 12.5 mg Clonidine HCl (Catapres) 0.2 mg PO BID [facility] Last Admin: 05/20/17 14:30 Dose: 0.2 mg Glipizide (Glucotrol) 5 mg PO DAILY [facility] Last Admin: 05/20/17 14:31 Dose: 5 mg Heparin Sodium (Porcine) (Heparin) 5,000 units SC Q12 [facility] Last Admin: 05/20/17 14:31 Dose: Not Given Insulin Aspart (Novolog) 0 unit SC ACHS [facility] PRN Reason: Protocol Last Admin: 05/20/17 14:32 Dose: Not Given Losartan Potassium (Cozaar) 50 mg PO DAILY [facility] Last Admin: 05/20/17 14:31 Dose: 50 mg Minoxidil (Minoxidil) 5 mg PO BID [facility] Zolpidem Tartrate (Ambien) 5 mg PO HS PRN PRN Reason: Insomnia Last Admin: 05/19/17 21:18 Dose: 5 mg - Labs Labs: 05/18/17 12:02 05/18/17 12:02 PT 13.7 SECONDS (9.7-12.2) H 05/18/17 12:02 INR 1.2 05/18/17 12:02 APTT 32 SECONDS (21-34) 05/18/17 12:02 - Constitutional Appears: No Acute Distress, Chronically Ill - Head Exam Head Exam: ATRAUMATIC, NORMAL INSPECTION - Eye Exam Eye Exam: EOMI, Normal appearance - Neck Exam Neck Exam: Normal Inspection. absent: Tenderness - Respiratory Exam Respiratory Exam: Clear to Ausculation Bilateral, NORMAL BREATHING PATTERN - Cardiovascular Exam Cardiovascular Exam: REGULAR RHYTHM, +S1 - GI/Abdominal Exam GI & Abdominal Exam: Soft. absent: Tenderness - Extremities Exam Extremities Exam: Normal Inspection. absent: Tenderness - Neurological Exam Neurological Exam: Alert, CN II-XII Intact - Skin Skin Exam: Dry, Warm Assessment and Plan (1) Near syncope Status: Acute (2) ESRD (end stage renal disease) Status: Acute (3) HTN (hypertension) Status: Acute - Assessment and Plan (Free Text) Plan: Increase minoxidil dose dialysis MWF Discharge as per medicine
[2017-05-20 15:27] VITALS: PULSE 70; RESP 20; TEMP 98.5
--- NOTE | 2017-05-20 15:28 | CP.PCM.PN ---
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 Carranza today, stable for discharge from cardiology stand point seen by Dr. shruti nolan , stable for discharge home today and f/u with his office on Thursday physical therapy out patient arranged Objective - Vital Signs/Intake and Output Vital Signs (last 24 hours): Temp Pulse Resp BP Pulse Ox 98.5 F 70 20 183/75 H 95 05/20/17 15:26 05/20/17 15:26 05/20/17 15:26 05/20/17 15:26 05/20/17 15:26 - Medications Medications: Current Medications Amlodipine Besylate (Norvasc) [address] [facility] Last Admin: 05/20/17 14:32 Dose: 10 mg Aspirin (Aspirin Chewable) [address] [facility] Last Admin: 05/20/17 14:29 Dose: 81 mg Calcium Acetate (Phoslo) [address] [facility] Last Admin: 05/20/17 14:33 Dose: Not Given Carvedilol (Coreg) 12.[address] [facility] Last Admin: 05/20/17 14:33 Dose: 12.5 mg Clonidine HCl (Catapres) 0.[address] [facility] Last Admin: 05/20/17 14:30 Dose: 0.2 mg Glipizide (Glucotrol) [address] [facility] Last Admin: 05/20/17 14:31 Dose: 5 mg Heparin Sodium (Porcine) (Heparin) 5,[address] [facility] Last Admin: 05/20/17 14:31 Dose: Not Given Insulin Aspart (Novolog) [address] [facility] PRN Reason: Protocol Last Admin: 05/20/17 14:32 Dose: Not Given Losartan Potassium (Cozaar) [address] [facility] Last Admin: 05/20/17 14:31 Dose: 50 mg Minoxidil (Minoxidil) [address] [facility] Zolpidem Tartrate (Ambien) 5 mg PO HS PRN PRN Reason: Insomnia Last Admin: 05/19/17 21:18 Dose: 5 mg - Labs Labs: 05/18/17 12:02 05/18/17 12:02 PT 13.7 SECONDS (9.7-12.2) H 05/18/17 12:02 INR 1.2 05/18/17 12:02 APTT 32 SECONDS (21-34) 05/18/17 12:02
[2017-05-20 16:01] VITALS: BP 183/74
== END 2017-05-20 17:25 | disposition home or self-care (01) | DRG 312 ==
LOC: C.ER 10:39 → C.9E 13:25 → C.6T 14:35
PROVIDERS: ADMIT Internal Medicine Nephrology; ATTEND Internal Medicine Nephrology
PROC: 5A1D70Z Performance of Urinary Filtration, Intermittent, Less than 6 Hours Per Day (ICD-10-PCS; principal; 2017-05-18)
PROC: 5A1D70Z Performance of Urinary Filtration, Intermittent, Less than 6 Hours Per Day (ICD-10-PCS; 2017-05-19)
DX: R55 Syncope and collapse (principal); E11.22 Type 2 diabetes mellitus with diabetic chronic kidney disease; I12.0 Hypertensive chronic kidney disease with stage 5 chronic kidney disease or end stage renal disease; N18.6 End stage renal disease; I16.1 Hypertensive emergency; N25.81 Secondary hyperparathyroidism of renal origin; Z79.84 Long term (current) use of oral hypoglycemic drugs; Z99.2 Dependence on renal dialysis

== ENCOUNTER 2018-01-29 18:39 | Inpatient (IN) | payer BC ==
[2018-01-29 18:49] VITALS: BMI 24.3
[2018-01-29 19:01] LABS: BASO # 0.2 K/uL (0.0-0.2); BASO % 2.7 % (0.0-2.0); EOS # 0.1 K/uL (0.0-0.7); EOS % 1.9 % (0.0-4.0); HEMOGLOBIN 10.5 g/dL (12.0-18.0); LYMPH # 0.9 K/uL (1.0-4.3); LYMPH % 15.5 % (20.0-40.0); MEAN CELL VOLUME 87.7 fL (80.0-94.0); MEAN CORPUSCULAR HEMOGLOBIN 29.3 pg (27.0-31.0); MEAN CORPUSCULAR HGB CONC 33.4 g/dL (33.0-37.0); MEAN PLATELET VOLUME 8.8 fL (7.2-11.7); MONO # 0.7 K/uL (0.0-0.8); MONO % 11.8 % (0.0-10.0); NEUT % 68.1 % (50.0-75.0); NRBC % 0.2 % (0.0-2.0); RBC 3.59 Mil/uL (4.40-5.90); WHITE BLOOD COUNT 5.9 K/uL (4.8-10.8)
[2018-01-29 19:09] LABS: INR 1.1; PROTHROMBIN TIME 12.2 SECONDS (9.7-12.2)
[2018-01-29 19:14] LABS: ALB/GLOB RATIO 1.5 (1.0-2.1); ALBUMIN 4.6 g/dL (3.5-5.0); CALCIUM 9.6 mg/dl (8.6-10.4)
--- NOTE | 2018-01-29 19:16 | C.PDOC ---
History Of Present Illness 57 year old male with PMHx od ESRD, HTN is brought to the ED by EMS for evaluation of new sudden onset slurred speech prior to arrival. Family unknown of exact time. As per EMS , daughter states she talked to patient on the phone after completing dialysis this afternoon and patient with new onset slurred speech. As per Family at bedside, patient with simialr symptoms 9 months ago but resolved without residual defects. Patient receives dialysis treatments on Thursday, Thursday and Thursday. Patient is not complaint with his medications. Patient was seen by ramp manager in the past and refused angiogram. Patient is a poor historian. 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 PER EMS, DAUGHTER STATES TA LKED TO PT ON PHONE AFTER COMPLETING HD THIS AFTERNOON AND PT W NEW ONSET SLURRED SPEECH. PER FAMILY @ BEDSIDE, PT W SIM SX 9 MO AGO BUT RESOLVED WO RESIDUAL DEF. history of end-stage renal disease and HTN, sent by dialysis center to the ER for generalized weakness and multiple falls in the past few days. Patient receives dialysis treatment on Thursday, Wednesdays, and Fridays. Patient is not compliant Patient is seen by the ramp manager in the past patient refuses angiogram Time Seen by Provider: 01/29/18 19:10 Chief Complaint (Nursing): Altered Mental Status History Per: EMS, Family History/Exam Limitations: Clinical Condition Onset/Duration Of Symptoms: Hrs Onset Of Symptoms: Cannot Confirm Onset Current Symptoms Are (Timing): Still Present Usual Baseline: Unknown Exacerbating Factor(s): Other Use Of Anticoag/Antiplatelets: Unknown Speech Is: Slurred Decreased Ability To: Stand Recent travel outside of the [place]: No Additional History Per: EMS Associated Symptoms: Confused Past Medical History Reviewed: Historical Data, Nursing Documentation, Vital Signs - Medical History PMH: Anemia, Diabetes, HTN, End Stage Renal Disease, Chronic Kidney Disease Surgical History: No Surg Hx - [facility] Procedures (05/18/17) DIALYSIS [facility] (06/23/13) HEMODIALYSIS (06/23/13) VENOUS CATHETERIZATION FOR RENAL DIALYSIS (06/23/13) Family History: States: Diabetes - Social History Hx Tobacco Use: No Hx Alcohol Use: Yes Hx Substance Use: No - Immunization History Hx Tetanus Toxoid Vaccination: No Hx Influenza Vaccination: Yes Hx Pneumococcal Vaccination: Yes Review Of Systems Except As Marked, All Systems Reviewed And Found Negative. Constitutional: Negative for: Fever, Chills Eyes: Negative for: Vision Change Cardiovascular: Negative for: Chest Pain, Palpitations Respiratory: Negative for: Cough, Shortness of Breath Gastrointestinal: Negative for: Nausea, Vomiting Skin: Negative for: Rash Neurological: Positive for: Change in Speech, Altered Mental Status. Negative for: Weakness, Numbness Physical Exam - Physical Exam Appears: Non-toxic, Other (moderate distress) Skin: Normal Color, Warm, Dry Head: Atraumatic, Normacephalic Eye(s): bilateral: Normal Inspection, PERRL, EOMI Oral Mucosa: Moist, No Drooling Throat: Normal, No Drooling, Other (no stridor) Neck: Normal ROM, Supple Chest: Symmetrical Cardiovascular: Rhythm Regular Respiratory: Normal Breath Sounds, No Rales, No Rhonchi, No Wheezing Gastrointestinal/Abdominal: Soft, No Tenderness, No Guarding, No Rebound Extremity: No Tenderness, No Swelling Extremity: Bilateral: Atraumatic, Normal Color And Temperature Neurological/Psych: Other (See NIH) Gait: Unable To Assess ED Course And Treatment - Laboratory Results Result Diagrams: 01/30/18 10:20 01/30/18 11:58 ECG: Interpreted By Me Interpretation Of ECG: TWI I, II, AVL V4-6 [facility] 04/2017 Rate From EC O2 Sat by Pulse Oximetry: 99 (ON RA) Pulse Ox Interpretation: Normal - Radiology CXR: Interpreted by Me CXR Interpretation: Yes: Cardiomegaly ([facility] PRIOR) NIHSS Stroke Scale - Date/Time Evaluation Performed Date Performed: 01/29/18 Time Performed: 19:23 When Was NIHSS Performed: Baseline - How Severe is the Stoke Level of Consciousness: 0=Alert LOC to Questions: 0=Both comments correct LOC to commands: 0=Obeys both correctly Best Gaze: 0=Normal Visual: 0=No visual loss Facial: 0=Normal Motor Arm - Left: 0=No drift Motor Arm - Right: 0=No drift Motor Leg - Left: 0=No drift Motor Leg - Right: 0=No drift Limb Ataxia: 0=Absent Sensory: 1=Mild to moderate loss Best Language: 0=No aphasia Dysarthia: 1=Mild to moderate slurring Extinction & Inattention (Neglect): 0=Normal, no object Score: 2 Severity Of Stroke: 1-4= Minor Stroke Progress - Re-Evaluation Re-evaluation Note: 01/29/18 19:11 d/w dr brown: CT HEAD -bleed, +lucency l thalamus 1 cm NEW COMPARED TO PRIOR 01/29/18 19:24 PT POORLY COOPERATIVE W EXAM INITIALLY APPEARING W GLOBAL MOTOR DEFICIT, NONVERBAL. AFTER EXTENSIVE D/W FAMILY AND INTERVENTION W PT, PT NOW VERBAL APPROPRIATE INTERACTIVE. NIH 2. PER BROTHER, PT APPEARS MORE SLEEPY AND "QUIETER" VOICE BUT NO CONFUSION. PS IS COMPLIANT W MEDS, NO ASA TODAY. 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 Q1 HR NEURO. DOES NOT MEET TPA CRITERIA. WILL CONSULT. 01/29/18 19:37 PT FAILED SWALLOW SCREEN, UNABLE TO DOSE PLAVIX 01/29/18 20:01 EXAM [facility] PRIOR D/W DR Deepa EL WILL ADMIT - Data Reviewed Data Reviewed: Lab, Diagnostic imaging, EKG, Old records - Critical Care Citical Care: Excluding Proc Time Critical Care Time: 90 minutes rTPA Inclusion/Exclusion - Refusal of Treatment Patient Refused Treatment: No - Inclusion Criteria for Altepase Patient is 18 years or Older: Yes Time of Onset Established Less Than 270 Mins Before TX Begin: Yes Risk/Benefit Discussed With Patient/Family Member Present: Yes - Exclusion Criteria for Altepase Uncontrolled Hypertension at Time of TX (SBP>185 or DBP>110): Yes Active Internal Bleeding: No Known Bleeding Diathesis: No Evidence of an Intracranial Hemorrhage: No Evidence Major Acute Infarct w/ Signs Greater Than 1/3 MCA: No Suspicion of Subarachnoid Bleed on PreTX Eval(CT: neg bleed): No - Warning to TPA With Conditions Following Conditions Weighed Against Anticipated Benefit: Yes Condition: Stroke Serevity Too Mild, Rapid Improvement, Care Team Unable to Determine Eligibilty Medical Decision Making Medical Decision Making: Plan: * Labs * CT head * EKG * Labs * CXR * Aspirin [address] Lujan called, neurology vertical contour band saw operator regarding the patient. Disposition Counseled Patient/Family Regarding: Studies Performed, Diagnosis - Disposition Disposition: HOSPITALIZED Disposition Time: 20:00 Condition: SERIOUS - Clinical Impression Clinical Impression: TIA (transient ischemic attack) - Scribe Statement The provider has reviewed the documentation as recorded by the Scribe Zechariah Baldwin All medical record entries made by the Scribe were at my direction and personally dictated by me. I have reviewed the chart and agree that the record accurately reflects my personal performance of the history, physical exam, medical decision making, and the department course for this patient. I have also personally directed, reviewed, and agree with the discharge instructions and d isposition.
--- NOTE | 2018-01-29 19:18 | CT ---
Date of service: 01/29/2018 PROCEDURE: CT HEAD WITHOUT CONTRAST. HISTORY: Code Stroke COMPARISON: Noncontrast head CT 05/18/2017. TECHNIQUE: Axial computed tomography images were obtained through the head/brain without intravenous contrast. Radiation dose: Total exam DLP = 2260.51 mGy-cm. This CT exam was performed using one or more of the following dose reduction techniques: Automated exposure control, adjustment of the mA and/or kV according to patient size, and/or use of iterative reconstruction technique. FINDINGS: HEMORRHAGE: No intracranial hemorrhage. BRAIN: There is an interval tiny lucency identified at the left thalamus suggestive of tiny acute or subacute infarct. No lobar brain infarction identified throughout once again. Minimal diffuse cerebral atrophy is reiterated. Trace bilateral chronic microangiopathy is also identified once again. No mass effect or suspicious extra-axial fluid collection. Midline parenchymal brain anatomy remains unremarkable with the posterior fossa contents remarkable only for prominent cisterna magna once again. VENTRICLES: Unremarkable. No hydrocephalus. CALVARIUM: Unremarkable. PARANASAL SINUSES: Unremarkable as visualized. No significant inflammatory changes. MASTOID AIR CELLS: Unremarkable as visualized. No inflammatory changes. OTHER FINDINGS: None. IMPRESSION: 1. Interval acute or subacute infarction left thalamus minimal in size. 2. No additional interval acute findings appreciable. 3. Minimal age related neuro degenerative changes as described above, reiterated. 4. Prominent cisterna magna again identified. Findings discussed with Dr. Hicks with written down and read back verification 01/29/2018, 7:08 p.m..
[2018-01-29 19:25] LABS: TROPONIN I 0.028 ng/mL (0.00-0.120)
--- NOTE | 2018-01-29 23:10 | CP.PCM.HP ---
Past Patient History - Infectious Disease Hx of Infectious Diseases: None - Past Medical History & Family History Past Medical History?: Yes - Past Social History Smoking Status: Never Smoked - CARDIAC Hx Hypertension: Yes - RENAL Hx Chronic Kidney Disease: Yes - ENDOCRINE/METABOLIC Hx Endocrine Disorders: Yes Hx Diabetes Mellitus Type 2: Yes - HEMATOLOGICAL/ONCOLOGICAL Hx Anemia: Yes - MUSCULOSKELETAL/RHEUMATOLOGICAL Hx Falls: No - PSYCHIATRIC Hx Substance Use: No - SURGICAL HISTORY Hx Surgeries: Yes Hx Orthopedic Surgery: Yes (left shoulder) Hx Vascular Access Device: Yes (Left arm AV shunt) - ANESTHESIA Hx Anesthesia: No Meds Allergies/Adverse Reactions: Allergies Allergy/AdvReac Type Severity Reaction Status Date / Time No Known Allergies Allergy Verified 04/22/17 14:55 Results - Vital Signs Recent Vital Signs: Last Vital Signs Temp 98.1 F 01/29/18 22:11 Pulse 66 01/29/18 22:11 Resp 14 01/29/18 22:11 BP 144/63 01/29/18 22:11 Pulse Ox 99 01/29/18 22:11 - Labs Result Diagrams: 01/29/18 18:57 01/29/18 18:57 Labs: Laboratory Results - last 24 hr 01/29/18 01/29/18 01/29/18 18:48 18:57 18:57 WBC 5.9 RBC 3.59 L Hgb 10.5 L Hct 31.5 L MCV 87.7 D MCH 29.3 MCHC 33.4 RDW 18.0 H Plt Count 176 MPV 8.8 Neut % (Auto) 68.1 Lymph % (Auto) 15.5 L [place] % (Auto) 11.8 H Eos % (Auto) 1.9 Baso % (Auto) 2.7 H Neut # (Auto) 4.0 Lymph # (Auto) 0.9 L [place] # (Auto) 0.7 Eos # (Auto) 0.1 Baso # (Auto) 0.2 PT 12.2 INR 1.1 APTT 33 Sodium Potassium Chloride Carbon Dioxide Anion Gap BUN Creatinine Est GFR ( Amer) Est GFR (Non-Af Amer) POC Glucose (mg/dL) 177 H Random Glucose Hemoglobin A1c Calcium Total Bilirubin AST ALT Alkaline Phosphatase Troponin I Total Protein Albumin Globulin Albumin/Globulin Ratio Triglycerides Cholesterol LDL Cholesterol Direct HDL Cholesterol Blood Type Antibody Screen 10/05/18 10/05/18 10/05/18 18:57 18:57 18:57 WBC RBC Hgb Hct MCV MCH MCHC RDW Plt Count MPV Neut % (Auto) Lymph % (Auto) [place] % (Auto) Eos % (Auto) Baso % (Auto) Neut # (Auto) Lymph # (Auto) [place] # (Auto) Eos # (Auto) Baso # (Auto) PT INR APTT Sodium 141 Potassium 4.7 Chloride 95 L Carbon Dioxide 35 H Anion Gap 16 BUN 29 H Creatinine 5.3 H Est GFR ( Amer) 14 Est GFR (Non-Af Amer) 11 POC Glucose (mg/dL) Random Glucose 184 H Hemoglobin A1c 7.8 H Calcium 9.6 Total Bilirubin 0.6 AST 20 ALT 20 L D Alkaline Phosphatase 126 D Troponin I 0.0280 Total Protein 7.6 Albumin 4.6 Globulin 3.0 Albumin/Globulin Ratio 1.5 Triglycerides 72 Cholesterol 167 LDL Cholesterol Direct 72 HDL Cholesterol 71 H Blood Type B POSITIVE Antibody Screen Negative
[2018-01-30] MEDS: (Novolog) Insulin Aspart, Recombinant 100 u/ml 10 ml vial SC SCH ×4 (07:30→21:52)
[2018-01-30 10:24] LABS: BASO # 0.1 K/uL (0.0-0.2); BASO % 1.3 % (0.0-2.0); EOS # 0.1 K/uL (0.0-0.7); EOS % 1.5 % (0.0-4.0); HEMOGLOBIN 10.2 g/dL (12.0-18.0); LYMPH # 0.8 K/uL (1.0-4.3); LYMPH % 18.7 % (20.0-40.0); MEAN CELL VOLUME 88.8 fL (80.0-94.0); MEAN CORPUSCULAR HEMOGLOBIN 29.1 pg (27.0-31.0); MEAN CORPUSCULAR HGB CONC 32.8 g/dL (33.0-37.0); MEAN PLATELET VOLUME 8.7 fL (7.2-11.7); MONO # 0.6 K/uL (0.0-0.8); MONO % 13.6 % (0.0-10.0); NEUT # 2.8 K/uL (1.8-7.0); NEUT % 64.9 % (50.0-75.0); NRBC % 0.1 % (0.0-2.0); RBC 3.51 Mil/uL (4.40-5.90); RED CELL DISTRIBUTION WIDTH 18.6 % (11.5-14.5); WHITE BLOOD COUNT 4.3 K/uL (4.8-10.8)
[2018-01-30] MEDS: Enoxaparin 30 mg Syringe SC SCH (10:30)
--- NOTE | 2018-01-30 10:33 | CP.PCM.CON ---
History of Present Illness - History of Present Illness History of Present Illness: 57 year old male with PMHx od ESRDon HD MWF, HTN, DM brought to the ED by EMS for evaluation of new sudden onset slurred speech prior to arrival. Family unknown of exact time. As per EMS , daughter states she talked to patient on the phone after completing dialysis yesterday afternoon and patient with new onset slurred speech. As per Family , patient with simialr symptoms 9 months ago but resolved without residual defects. Patient receives dialysis treatments on Thursday, Thursday and Thursday. Patient is not complaint with his medications. Patient was seen by [facility] in the past and refused angiogram. Patient is a poor historian. PMHx- esrd on HD, HTN, DM PSHx- av fistula Social- denies any smoking, alcohol or drugs Family - no family history of ESRD Review of Systems - Review of Systems Review of Systems: unable to obtain as pt very poor historian and not answering questions Past Patient History - Infectious Disease Hx of Infectious Diseases: None - Past Medical History & Family History Past Medical History?: Yes - Past Social History Smoking Status: Never Smoked - CARDIAC Hx Hypertension: Yes - RENAL Hx Chronic Kidney Disease: Yes - ENDOCRINE/METABOLIC Hx Endocrine Disorders: Yes Hx Diabetes Mellitus Type 2: Yes - HEMATOLOGICAL/ONCOLOGICAL Hx Anemia: Yes - MUSCULOSKELETAL/RHEUMATOLOGICAL Hx Falls: No - PSYCHIATRIC Hx Substance Use: No - SURGICAL HISTORY Hx Surgeries: Yes Hx Orthopedic Surgery: Yes (left shoulder) Hx Vascular Access Device: Yes (Left arm AV shunt) - ANESTHESIA Hx Anesthesia: No Meds Allergies/Adverse Reactions: Allergies Allergy/AdvReac Type Severity Reaction Status Date / Time No Known Allergies Allergy Verified 04/22/17 14:55 - Medications Medications: Current Medications Amlodipine Besylate (Norvasc) 10 mg PO DAILY [facility] Aspirin (Aspirin) 325 mg PO DAILY [facility] Calcium Acetate (Phoslo) 667 mg PO TID [facility] Carvedilol (Coreg) 12.5 mg PO BID [facility] Clonidine HCl (Catapres) 0.2 mg PO BID [facility] Enoxaparin Sodium (Lovenox) 30 mg SC DAILY [facility] Glipizide (Glucotrol) 5 mg PO DAILY [facility] Insulin Aspart (Novolog) 0 unit SC ACHS [facility]; Protocol Losartan Potassium (Cozaar) 100 mg PO DAILY [facility] Minoxidil (Minoxidil) 2.5 mg PO BID [facility] Pantoprazole Sodium (Protonix Inj) 40 mg IVP DAILY [facility] Rosuvastatin Calcium (Crestor) 10 mg PO HS [facility] Last Admin: 01/29/18 23:48 Dose: Not Given Sitagliptin Phosphate (Januvia) 100 mg PO DAILY [facility] Physical Exam - Constitutional Appears: Well, Non-toxic - Head Exam Head Exam: ATRAUMATIC, NORMOCEPHALIC - Eye Exam Eye Exam: EOMI, PERRL - ENT Exam ENT Exam: Mucous Membranes Moist - Neck Exam Neck exam: Negative for: Lymphadenopathy - Respiratory Exam Respiratory Exam: Clear to Auscultation Bilateral. absent: Rhonchi, Wheezes - Cardiovascular Exam Cardiovascular Exam: REGULAR RHYTHM, +S1, +S2 - GI/Abdominal Exam GI & Abdominal Exam: Normal Bowel Sounds, Soft. absent: Tenderness - Extremities Exam Extremities exam: Positive for: full ROM. Negative for: joint swelling, pedal edema - Neurological Exam Neurological exam: Alert - Psychiatric Exam Psychiatric exam: Normal Affect, Normal Mood - Skin Skin Exam: Dry, Warm Results - Vital Signs Recent Vital Signs: Last Vital Signs Temp 98.7 F 01/30/18 07:15 Pulse 65 01/30/18 07:15 Resp 20 01/30/18 07:15 BP 167/77 H 01/30/18 07:15 Pulse Ox 100 01/30/18 07:15 - Labs Result Diagrams: 01/30/18 10:20 01/29/18 18:57 Labs: Laboratory Results - last 24 hr 01/29/18 01/29/18 01/29/18 18:48 18:57 18:57 WBC 5.9 RBC 3.59 L Hgb 10.5 L Hct 31.5 L MCV 87.7 D MCH 29.3 MCHC 33.4 RDW 18.0 H Plt Count 176 MPV 8.8 Neut % (Auto) 68.1 Lymph % (Auto) 15.5 L [place] % (Auto) 11.8 H Eos % (Auto) 1.9 Baso % (Auto) 2.7 H Neut # (Auto) 4.0 Lymph # (Auto) 0.9 L [place] # (Auto) 0.7 Eos # (Auto) 0.1 Baso # (Auto) 0.2 PT 12.2 INR 1.1 APTT 33 Sodium Potassium Chloride Carbon Dioxide Anion Gap BUN Creatinine Est GFR ( Amer) Est GFR (Non-Af Amer) POC Glucose (mg/dL) 177 H Random Glucose Hemoglobin A1c Calcium Total Bilirubin AST ALT Alkaline Phosphatase Troponin I Total Protein Albumin Globulin Albumin/Globulin Ratio Triglycerides Cholesterol LDL Cholesterol Direct HDL Cholesterol Blood Type Antibody Screen 01/29/18 01/29/18 01/29/18 18:57 18:57 18:57 WBC RBC Hgb Hct MCV MCH MCHC RDW Plt Count MPV Neut % (Auto) Lymph % (Auto) [place] % (Auto) Eos % (Auto) Baso % (Auto) Neut # (Auto) Lymph # (Auto) [place] # (Auto) Eos # (Auto) Baso # (Auto) PT INR APTT Sodium 141 Potassium 4.7 Chloride 95 L Carbon Dioxide 35 H Anion Gap 16 BUN 29 H Creatinine 5.3 H Est GFR ( Amer) 14 Est GFR (Non-Af Amer) 11 POC Glucose (mg/dL) Random Glucose 184 H Hemoglobin A1c 7.8 H Calcium 9.6 Total Bilirubin 0.6 AST 20 ALT 20 L D Alkaline Phosphatase 126 D Troponin I 0.0280 Total Protein 7.6 Albumin 4.6 Globulin 3.0 Albumin/Globulin Ratio 1.5 Triglycerides 72 Cholesterol 167 LDL Cholesterol Direct 72 HDL Cholesterol 71 H Blood Type B POSITIVE Antibody Screen Negative 01/30/18 10:20 WBC 4.3 L RBC 3.51 L Hgb 10.2 L Hct 31.2 L MCV 88.8 MCH 29.1 MCHC 32.8 L RDW 18.6 H Plt Count 164 MPV 8.7 Neut % (Auto) 64.9 Lymph % (Auto) 18.7 L [place] % (Auto) 13.6 H Eos % (Auto) 1.5 Baso % (Auto) 1.3 Neut # (Auto) 2.8 Lymph # (Auto) 0.8 L [place] # (Auto) 0.6 Eos # (Auto) 0.1 Baso # (Auto) 0.1 PT INR APTT Sodium Potassium Chloride Carbon Dioxide Anion Gap BUN Creatinine Est GFR ( Amer) Est GFR (Non-Af Amer) POC Glucose (mg/dL) Random Glucose Hemoglobin A1c Calcium Total Bilirubin AST ALT Alkaline Phosphatase Troponin I Total Protein Albumin Globulin Albumin/Globulin Ratio Triglycerides Cholesterol LDL Cholesterol Direct HDL Cholesterol Blood Type Antibody Screen Assessment & Plan (1) Slurred speech Status: Acute (2) ESRD (end stage renal disease) Status: Acute (3) HTN (hypertension) Status: Acute (4) Type 2 diabetes mellitus with diabetic nephropathy Status: Acute - Assessment and Plan (Free Text) Plan: CT head- new left thalamus stroke neurolgy eval ASA and plavix resume BP meds target BP < 130/80 HD on thursday monitor BS
--- NOTE | 2018-01-30 11:13 | CP.PCM.CON ---
History of Present Illness - History of Present Illness History of Present Illness: CONSULT DICTATIED NEW CHANGE IN MENTAL STATUS WITH SPEECH IMPAIRED THALAMIC APHASIA MILD PARESIS NEUROPATHY ASA/PLAVIX/STATIN/ARB DM CONTROL MRI/ECHO/CAROTID/EEG Past Patient History - Infectious Disease Hx of Infectious Diseases: None - Past Medical History & Family History Past Medical History?: Yes - Past Social History Smoking Status: Never Smoked - CARDIAC Hx Hypertension: Yes - RENAL Hx Chronic Kidney Disease: Yes - ENDOCRINE/METABOLIC Hx Endocrine Disorders: Yes Hx Diabetes Mellitus Type 2: Yes - HEMATOLOGICAL/ONCOLOGICAL Hx Anemia: Yes - MUSCULOSKELETAL/RHEUMATOLOGICAL Hx Falls: No - PSYCHIATRIC Hx Substance Use: No - SURGICAL HISTORY Hx Surgeries: Yes Hx Orthopedic Surgery: Yes (left shoulder) Hx Vascular Access Device: Yes (Left arm AV shunt) - ANESTHESIA Hx Anesthesia: No Meds Allergies/Adverse Reactions: Allergies Allergy/AdvReac Type Severity Reaction Status Date / Time No Known Allergies Allergy Verified 04/22/17 14:55 - Medications Medications: Current Medications Amlodipine Besylate (Norvasc) 10 mg PO DAILY [facility] Aspirin (Aspirin) 325 mg PO DAILY [facility] Calcium Acetate (Phoslo) 667 mg PO TID [facility] Carvedilol (Coreg) 12.5 mg PO BID [facility] Clonidine HCl (Catapres) 0.2 mg PO BID [facility] Enoxaparin Sodium (Lovenox) 30 mg SC DAILY [facility] Glipizide (Glucotrol) 5 mg PO DAILY [facility] Insulin Aspart (Novolog) 0 unit SC ACHS [facility]; Protocol Losartan Potassium (Cozaar) 100 mg PO DAILY [facility] Minoxidil (Minoxidil) 2.5 mg PO BID [facility] Pantoprazole Sodium (Protonix Inj) 40 mg IVP DAILY [facility] Rosuvastatin Calcium (Crestor) 10 mg PO HS [facility] Last Admin: 01/29/18 23:48 Dose: Not Given Sitagliptin Phosphate (Januvia) 100 mg PO DAILY [facility] Results - Vital Signs Recent Vital Signs: Last Vital Signs Temp 98.7 F 01/30/18 07:15 Pulse 65 01/30/18 07:15 Resp 20 01/30/18 07:15 BP 167/77 H 01/30/18 07:15 Pulse Ox 100 01/30/18 07:15 - Labs Result Diagrams: 01/30/18 10:20 01/29/18 18:57 Labs: Laboratory Results - last 24 hr 1001/29/18 01/29/18 18:48 18:57 18:57 WBC 5.9 RBC 3.59 L Hgb 10.5 L Hct 31.5 L MCV 87.7 D MCH 29.3 MCHC 33.4 RDW 18.0 H Plt Count 176 MPV 8.8 Neut % (Auto) 68.1 Lymph % (Auto) 15.5 L [place] % (Auto) 11.8 H Eos % (Auto) 1.9 Baso % (Auto) 2.7 H Neut # (Auto) 4.0 Lymph # (Auto) 0.9 L [place] # (Auto) 0.7 Eos # (Auto) 0.1 Baso # (Auto) 0.2 PT 12.2 INR 1.1 APTT 33 Sodium Potassium Chloride Carbon Dioxide Anion Gap BUN Creatinine Est GFR ( Amer) Est GFR (Non-Af Amer) POC Glucose (mg/dL) 177 H Random Glucose Hemoglobin A1c Calcium Total Bilirubin AST ALT Alkaline Phosphatase Troponin I Total Protein Albumin Globulin Albumin/Globulin Ratio Triglycerides Cholesterol LDL Cholesterol Direct HDL Cholesterol Blood Type Antibody Screen 01/29/18 01/29/18 01/29/18 18:57 18:57 18:57 WBC RBC Hgb Hct MCV MCH MCHC RDW Plt Count MPV Neut % (Auto) Lymph % (Auto) [place] % (Auto) Eos % (Auto) Baso % (Auto) Neut # (Auto) Lymph # (Auto) [place] # (Auto) Eos # (Auto) Baso # (Auto) PT INR APTT Sodium 141 Potassium 4.7 Chloride 95 L Carbon Dioxide 35 H Anion Gap 16 BUN 29 H Creatinine 5.3 H Est GFR ( Amer) 14 Est GFR (Non-Af Amer) 11 POC Glucose (mg/dL) Random Glucose 184 H Hemoglobin A1c 7.8 H Calcium 9.6 Total Bilirubin 0.6 AST 20 ALT 20 L D Alkaline Phosphatase 126 D Troponin I 0.0280 Total Protein 7.6 Albumin 4.6 Globulin 3.0 Albumin/Globulin Ratio 1.5 Triglycerides 72 Cholesterol 167 LDL Cholesterol Direct 72 HDL Cholesterol 71 H Blood Type B POSITIVE Antibody Screen Negative 01/30/18 10:20 WBC 4.3 L RBC 3.51 L Hgb 10.2 L Hct 31.2 L MCV 88.8 MCH 29.1 MCHC 32.8 L RDW 18.6 H Plt Count 164 MPV 8.7 Neut % (Auto) 64.9 Lymph % (Auto) 18.7 L [place] % (Auto) 13.6 H Eos % (Auto) 1.5 Baso % (Auto) 1.3 Neut # (Auto) 2.8 Lymph # (Auto) 0.8 L [place] # (Auto) 0.6 Eos # (Auto) 0.1 Baso # (Auto) 0.1 PT INR APTT Sodium Potassium Chloride Carbon Dioxide Anion Gap BUN Creatinine Est GFR ( Amer) Est GFR (Non-Af Amer) POC Glucose (mg/dL) Random Glucose Hemoglobin A1c Calcium Total Bilirubin AST ALT Alkaline Phosphatase Troponin I Total Protein Albumin Globulin Albumin/Globulin Ratio Triglycerides Cholesterol LDL Cholesterol Direct HDL Cholesterol Blood Type Antibody Screen
[2018-01-30 11:29] LABS: CK-MB 0.89 ng/mL (0.0-3.38); TROPONIN I 0.028 ng/mL (0.00-0.120)
[2018-01-30 12:35] LABS: ALB/GLOB RATIO 1.4 (1.0-2.1); ALBUMIN 3.8 g/dL (3.5-5.0); CALCIUM 9.4 mg/dl (8.6-10.4)
[2018-01-30 13:17] LABS: PROLACTIN 8.5 ng/mL (3.7-17.9)
--- NOTE | 2018-01-30 13:52 | RAD ---
Date of service: 01/29/2018 HISTORY: Code Stroke COMPARISON: Comparison chest dated 05/18/2017 FINDINGS: LUNGS: Note that the left lung apex is obscured partially obscured by overlying mandible and facial soft tissue artifact. Mild moderate diffuse pulmonary venous congestive changes with bilateral lower lobe alveolar-type infiltrates and possible small bilateral effusions PLEURA: No significant pleural effusion identified, no pneumothorax apparent. CARDIOVASCULAR: Marked cardiomegaly. OSSEOUS STRUCTURES: No significant abnormalities. VISUALIZED UPPER ABDOMEN: Normal. OTHER FINDINGS: None. IMPRESSION: Slightly limited study as described Mild moderate diffuse pulmonary venous congestive changes with bilateral lower lobe alveolar-type infiltrates and possible small bilateral effusions
[2018-01-30 14:31] LABS: FREE T4 1.29 ng/dL (0.78-2.19)
--- NOTE | 2018-01-30 14:51 | CP.PCM.CON ---
History of Present Illness - History of Present Illness History of Present Illness: CC: CVA HPI: 57 year old man with chronic medical conditiosn 1. ESRD on HD stable 2. HTN is chronic and stable now with permessive hypertension as per neuro, on clonidine, minoxidil, amlodipine 3. DM is chronic and stable on insulin and januvia Past Patient History - Infectious Disease Hx of Infectious Diseases: None - Past Medical History & Family History Past Medical History?: Yes - Past Social History Smoking Status: Never Smoked - CARDIAC Hx Hypertension: Yes - RENAL Hx Chronic Kidney Disease: Yes - ENDOCRINE/METABOLIC Hx Endocrine Disorders: Yes Hx Diabetes Mellitus Type 2: Yes - HEMATOLOGICAL/ONCOLOGICAL Hx Anemia: Yes - MUSCULOSKELETAL/RHEUMATOLOGICAL Hx Falls: No - PSYCHIATRIC Hx Substance Use: No - SURGICAL HISTORY Hx Surgeries: Yes Hx Orthopedic Surgery: Yes (left shoulder) Hx Vascular Access Device: Yes (Left arm AV shunt) - ANESTHESIA Hx Anesthesia: No Meds Allergies/Adverse Reactions: Allergies Allergy/AdvReac Type Severity Reaction Status Date / Time No Known Allergies Allergy Verified 04/22/17 14:55 - Medications Medications: Current Medications Amlodipine Besylate (Norvasc) 10 mg PO DAILY [facility] Last Admin: 01/30/18 10:30 Dose: Not Given Aspirin (Aspirin) 325 mg PO DAILY [facility] Last Admin: 01/30/18 10:30 Dose: Not Given Calcium Acetate (Phoslo) 667 mg PO TID [facility] Last Admin: 01/30/18 10:30 Dose: Not Given Carvedilol (Coreg) 12.5 mg PO BID [facility] Last Admin: 01/30/18 10:30 Dose: Not Given Clonidine HCl (Catapres) 0.2 mg PO BID [facility] Last Admin: 01/30/18 10:30 Dose: Not Given Clopidogrel Bisulfate (Plavix) 75 mg PO DAILY [facility] Enoxaparin Sodium (Lovenox) 30 mg SC DAILY [facility] Last Admin: 01/30/18 10:30 Dose: Not Given Glipizide (Glucotrol) 5 mg PO DAILY [facility] Last Admin: 01/30/18 10:30 Dose: Not Given Influenza Virus Vaccine (Fluzone Quad [id number]) 60 mcg IM .ONCE ONE Stop: 01/31/18 12:01 Insulin Aspart (Novolog) 0 unit [facility]; Protocol Last Admin: 01/30/18 10:30 Dose: Not Given Losartan Potassium (Cozaar) 100 mg PO DAILY [facility] Last Admin: 01/30/18 10:30 Dose: Not Given Minoxidil (Minoxidil) 2.5 mg PO BID [facility] Last Admin: 01/30/18 10:30 Dose: Not Given Pantoprazole Sodium (Protonix Inj) 40 mg IVP DAILY [facility] Last Admin: 01/30/18 10:30 Dose: Not Given Rosuvastatin Calcium (Crestor) 10 mg PO [facility] Last Admin: 01/29/18 23:48 Dose: Not Given Rosuvastatin Calcium (Crestor) 5 mg PO [facility] Sitagliptin Phosphate (Januvia) 100 mg PO DAILY [facility] Last Admin: 01/30/18 10:30 Dose: Not Given Physical Exam - Constitutional Appears: Well, Non-toxic, Confused - Head Exam Head Exam: ATRAUMATIC, NORMAL INSPECTION - Eye Exam Eye Exam: absent: Conjunctival injection, Scleral icterus Pupil Exam: NORMAL ACCOMODATION - ENT Exam ENT Exam: Mucous Membranes Moist, Normal External Ear Exam - Neck Exam Neck exam: Negative for: Lymphadenopathy, Thyromegaly - Respiratory Exam Respiratory Exam: Clear to Auscultation Bilateral, NORMAL BREATHING PATTERN - Cardiovascular Exam Cardiovascular Exam: REGULAR RHYTHM, RRR, +S1, +S2. absent: JVD Additional comments: Left forearm +AVF - GI/Abdominal Exam GI & Abdominal Exam: Normal Bowel Sounds. absent: Organomegaly - Extremities Exam Extremities exam: Negative for: calf tenderness, pedal edema - Neurological Exam Neurological exam: Altered, CN II-XII Intact, Oriented x3 - Psychiatric Exam Psychiatric exam: Normal Affect, Normal Mood Results - Vital Signs Recent Vital Signs: Last Vital Signs Temp 98.7 F 01/30/18 07:15 Pulse 65 01/30/18 07:15 Resp 20 01/30/18 07:15 BP 167/77 H 01/30/18 07:15 Pulse Ox 100 01/30/18 07:15 - Labs Result Diagrams: 01/30/18 10:20 01/30/18 11:58 Labs: Laboratory Results - last 24 hr 01/29/18 01/29/18 01/29/18 18:48 18:57 18:57 WBC 5.9 RBC 3.59 L Hgb 10.5 L Hct 31.5 L MCV 87.7 D MCH 29.3 MCHC 33.4 RDW 18.0 H Plt Count 176 MPV 8.8 Neut % (Auto) 68.1 Lymph % (Auto) 15.5 L [place] % (Auto) 11.8 H Eos % (Auto) 1.9 Baso % (Auto) 2.7 H Neut # (Auto) 4.0 Lymph # (Auto) 0.9 L [place] # (Auto) 0.7 Eos # (Auto) 0.1 Baso # (Auto) 0.2 ESR PT 12.2 INR 1.1 APTT 33 Sodium Potassium Chloride Carbon Dioxide Anion Gap BUN Creatinine Est GFR ( Amer) Est GFR (Non-Af Amer) POC Glucose (mg/dL) 177 H Random Glucose Hemoglobin A1c Calcium Phosphorus Magnesium Total Bilirubin AST ALT Alkaline Phosphatase Total Creatine Kinase CK-MB (Mass) Troponin I Total Protein Albumin Globulin Albumin/Globulin Ratio Triglycerides Cholesterol LDL Cholesterol Direct HDL Cholesterol Vitamin B12 Homocysteine Free T4 TSH 3rd Generation Prolactin Blood Type Antibody Screen 01/29/18 01/29/18 01/29/18 18:57 18:57 18:57 WBC RBC Hgb Hct MCV MCH MCHC RDW Plt Count MPV Neut % (Auto) Lymph % (Auto) [place] % (Auto) Eos % (Auto) Baso % (Auto) Neut # (Auto) Lymph # (Auto) [place] # (Auto) Eos # (Auto) Baso # (Auto) ESR PT INR APTT Sodium 141 Potassium 4.7 Chloride 95 L Carbon Dioxide 35 H Anion Gap 16 BUN 29 H Creatinine 5.3 H Est GFR ( Amer) 14 Est GFR (Non-Af Amer) 11 POC Glucose (mg/dL) Random Glucose 184 H Hemoglobin A1c 7.8 H Calcium 9.6 Phosphorus Magnesium Total Bilirubin 0.6 AST 20 ALT 20 L D Alkaline Phosphatase 126 D Total Creatine Kinase CK-MB (Mass) Troponin I 0.0280 Total Protein 7.6 Albumin 4.6 Globulin 3.0 Albumin/Globulin Ratio 1.5 Triglycerides 72 Cholesterol 167 LDL Cholesterol Direct 72 HDL Cholesterol 71 H Vitamin B12 Homocysteine Free T4 TSH 3rd Generation Prolactin Blood Type B POSITIVE Antibody Screen Negative 01/30/18 01/30/18 01/30/18 10:20 10:20 11:58 WBC 4.3 L RBC 3.51 L Hgb 10.2 L Hct 31.2 L MCV 88.8 MCH 29.1 MCHC 32.8 L RDW 18.6 H Plt Count 164 MPV 8.7 Neut % (Auto) 64.9 Lymph % (Auto) 18.7 L [place] % (Auto) 13.6 H Eos % (Auto) 1.5 Baso % (Auto) 1.3 Neut # (Auto) 2.8 Lymph # (Auto) 0.8 L [place] # (Auto) 0.6 Eos # (Auto) 0.1 Baso # (Auto) 0.1 ESR PT INR APTT Sodium 140 Potassium 4.6 Chloride 95 L Carbon Dioxide 35 H Anion Gap 15 BUN 40 H Creatinine 7.3 H Est GFR ( Amer) 9 Est GFR (Non-Af Amer) 8 POC Glucose (mg/dL) Random Glucose 181 H Hemoglobin A1c Calcium 9.4 Phosphorus 4.0 Magnesium 2.3 Total Bilirubin 0.4 AST 14 L D ALT 14 L D Alkaline Phosphatase 111 Total Creatine Kinase 38 L CK-MB (Mass) 0.89 Troponin I 0.0280 Total Protein 6.6 Albumin 3.8 Globulin 2.8 Albumin/Globulin Ratio 1.4 Triglycerides Cholesterol LDL Cholesterol Direct HDL Cholesterol Vitamin B12 Homocysteine Free T4 TSH 3rd Generation Prolactin Blood Type Antibody Screen 01/30/18 01/30/18 01/30/18 12:12 12:17 13:55 WBC RBC Hgb Hct MCV MCH MCHC RDW Plt Count MPV Neut % (Auto) Lymph % (Auto) [place] % (Auto) Eos % (Auto) Baso % (Auto) Neut # (Auto) Lymph # (Auto) [place] # (Auto) Eos # (Auto) Baso # (Auto) ESR 9 PT INR APTT Sodium Potassium Chloride Carbon Dioxide Anion Gap BUN Creatinine Est GFR ( Amer) Est GFR (Non-Af Amer) POC Glucose (mg/dL) Random Glucose Hemoglobin A1c Calcium Phosphorus Magnesium Total Bilirubin AST ALT Alkaline Phosphatase Total Creatine Kinase CK-MB (Mass) Troponin I Total Protein Albumin Globulin Albumin/Globulin Ratio Triglycerides Cholesterol LDL Cholesterol Direct HDL Cholesterol Vitamin B12 450 Homocysteine 22.9 H Free T4 1.29 TSH 3rd Generation 1.20 Prolactin 8.5 Blood Type Antibody Screen - EKG Data EKG Interpreted by: Myself EKG shows normal: Sinus rhythm (LVH with strain) Rate: Normal - Imaging and Cardiology Chest x-ray Status: Image reviewed by me (Poor inspirtory effort, pleural effusions) Assessment & Plan - Assessment and Plan (Free Text) Assessment: 57 year old man with acute CVA of thalamic region, high dose statin, antiplatelet as per neuro, BP targets as per neuro x 48 hours ESRD on HD, may need to decrease dry weight Acute diastolic CHF treat with more HD DM is chronic and stable on insulin, continue januvia HTN is chronic and hypertensive
--- NOTE | 2018-01-30 15:36 | CP.PCM.PN ---
Subjective - Date & Time of Evaluation Date of Evaluation: 01/30/18 Time of Evaluation: 11:00 - Subjective Subjective: clinically same Objective - Vital Signs/Intake and Output Vital Signs (last 24 hours): Temp Pulse Resp BP Pulse Ox 98.7 F 65 20 167/77 H 100 01/30/18 07:15 01/30/18 07:15 01/30/18 07:15 01/30/18 07:15 01/30/18 07:15 - Medications Medications: Current Medications Amlodipine Besylate (Norvasc) 10 mg PO DAILY [facility] Last Admin: 01/30/18 10:30 Dose: Not Given Aspirin (Aspirin) 325 mg PO DAILY [facility] Last Admin: 01/30/18 10:30 Dose: Not Given Calcium Acetate (Phoslo) 667 mg PO TID [facility] Last Admin: 01/30/18 10:30 Dose: Not Given Carvedilol (Coreg) 12.5 mg PO BID [facility] Last Admin: 01/30/18 10:30 Dose: Not Given Clonidine HCl (Catapres) 0.2 mg PO BID [facility] Last Admin: 01/30/18 10:30 Dose: Not Given Clopidogrel Bisulfate (Plavix) 75 mg PO DAILY [facility] Enoxaparin Sodium (Lovenox) 30 mg SC DAILY [facility] Last Admin: 01/30/18 10:30 Dose: Not Given Glipizide (Glucotrol) 5 mg PO DAILY [facility] Last Admin: 01/30/18 10:30 Dose: Not Given Influenza Virus Vaccine (Fluzone Quad 2935-1920) 60 mcg IM .ONCE ONE Stop: 01/31/18 12:01 Insulin Aspart (Novolog) 0 unit SC [facility]; Protocol Last Admin: 01/30/18 10:30 Dose: Not Given Losartan Potassium (Cozaar) 100 mg PO DAILY [facility] Last Admin: 01/30/18 10:30 Dose: Not Given Minoxidil (Minoxidil) 2.5 mg PO BID [facility] Last Admin: 01/30/18 10:30 Dose: Not Given Pantoprazole Sodium (Protonix Inj) 40 mg IVP DAILY [facility] Last Admin: 01/30/18 10:30 Dose: Not Given Rosuvastatin Calcium (Crestor) 10 mg PO [facility] Last Admin: 01/29/18 23:48 Dose: Not Given Rosuvastatin Calcium (Crestor) 5 mg PO [facility] Sitagliptin Phosphate (Januvia) 100 mg PO DAILY [facility] Last Admin: 01/30/18 10:30 Dose: Not Given - Labs Labs: 01/30/18 10:20 01/30/18 11:58 PT 12.2 SECONDS (9.7-12.2) 01/29/18 18:57 INR 1.1 01/29/18 18:57 APTT 33 SECONDS (21-34) 01/29/18 18:57 - Constitutional Appears: Well - Head Exam Head Exam: ATRAUMATIC, NORMAL INSPECTION, NORMOCEPHALIC - Eye Exam Eye Exam: EOMI, Normal appearance, PERRL Pupil Exam: NORMAL ACCOMODATION, PERRL - ENT Exam ENT Exam: Mucous Membranes Moist, Normal Exam - Neck Exam Neck Exam: Full ROM, Normal Inspection. absent: Lymphadenopathy - Respiratory Exam Respiratory Exam: Decreased Breath Sounds - Cardiovascular Exam Cardiovascular Exam: REGULAR RHYTHM, +S1, +S2 - GI/Abdominal Exam GI & Abdominal Exam: Soft, Diminished Bowel Sounds - Rectal Exam Rectal Exam: Deferred
[2018-01-31] MEDS: (Novolog) Insulin Aspart, Recombinant 100 u/ml 10 ml vial SC SCH ×4 (08:10→21:48)
[2018-01-31] MEDS: Enoxaparin 30 mg Syringe SC SCH (10:23)
[2018-01-31] MEDS ORDERED: Influenza Vaccine 60 MCG/0.5 ML SYR (3 yr & up) IM ONE ×2 (12:00→14:00)
--- NOTE | 2018-01-31 13:28 | CP.PCM.PN ---
Subjective - Date & Time of Evaluation Date of Evaluation: 01/31/18 Time of Evaluation: 13:26 - Subjective Subjective: Events reviewed Objective - Vital Signs/Intake and Output Vital Signs (last 24 hours): Temp Pulse Resp BP Pulse Ox 98.1 F 72 20 147/69 95 01/31/18 07:00 01/31/18 12:54 01/31/18 07:00 01/31/18 10:24 01/31/18 07:00 Intake and Output: 01/31/18 01/31/18 06:59 18:59 Intake Total 120 Balance 120 - Medications Medications: Current Medications Amlodipine Besylate (Norvasc) 10 mg PO DAILY [facility] Last Admin: 01/31/18 10:23 Dose: 10 mg Aspirin (Aspirin) 325 mg PO DAILY [facility] Last Admin: 01/31/18 10:23 Dose: 325 mg Calcium Acetate (Phoslo) 667 mg PO TID [facility] Last Admin: 01/31/18 10:24 Dose: 667 mg Carvedilol (Coreg) 12.5 mg PO BID [facility] Last Admin: 01/31/18 10:24 Dose: 12.5 mg Clonidine HCl (Catapres) 0.2 mg PO BID [facility] Last Admin: 01/31/18 10:24 Dose: 0.2 mg Clopidogrel Bisulfate (Plavix) 75 mg PO DAILY [facility] Last Admin: 01/31/18 10:24 Dose: 75 mg Enoxaparin Sodium (Lovenox) 30 mg SC DAILY [facility] Last Admin: 01/31/18 10:23 Dose: 30 mg Glipizide (Glucotrol) 5 mg PO DAILY [facility] Last Admin: 01/31/18 10:24 Dose: 5 mg Insulin Aspart (Novolog) 0 unit SC [facility]; Protocol Last Admin: 01/31/18 12:30 Dose: Not Given Losartan Potassium (Cozaar) 100 mg PO DAILY [facility] Last Admin: 01/31/18 10:23 Dose: 100 mg Minoxidil (Minoxidil) 2.5 mg PO BID [facility] Last Admin: 01/31/18 10:24 Dose: 2.5 mg Pantoprazole Sodium (Protonix Inj) 40 mg IVP DAILY [facility] Last Admin: 01/31/18 10:24 Dose: 40 mg Rosuvastatin Calcium (Crestor) 5 mg PO HS [facility] Last Admin: 01/30/18 21:52 Dose: 5 mg Sitagliptin Phosphate (Januvia) 100 mg PO DAILY [facility] Last Admin: 01/31/18 10:23 Dose: 100 mg - Labs Labs: 01/30/18 10:20 01/30/18 11:58 PT 12.2 SECONDS (9.7-12.2) 01/29/18 18:57 INR 1.1 01/29/18 18:57 APTT 33 SECONDS (21-34) 01/29/18 18:57 Assessment and Plan - Assessment and Plan (Free Text) Assessment: 57 year old man with acute CVA of thalamic region, high dose statin, Dual antiplatelet therapy ESRD on HD, may need to decrease dry weight Acute diastolic CHF treat with more HD DM is chronic and stable on insulin, continue januvia HTN is chronic and Stable on minoxidil, amlodipine, clonidine, coreg, losartan Aggressive physical therapy
--- NOTE | 2018-01-31 14:38 | CP.PCM.PN ---
Subjective - Date & Time of Evaluation Date of Evaluation: 01/31/18 Time of Evaluation: 10:45 - Subjective Subjective: clinically same Objective - Vital Signs/Intake and Output Vital Signs (last 24 hours): Temp Pulse Resp BP Pulse Ox 98.1 F 72 20 147/69 95 01/31/18 07:00 01/31/18 12:54 01/31/18 07:00 01/31/18 10:24 01/31/18 07:00 Intake and Output: 01/31/18 01/31/18 06:59 18:59 Intake Total 120 Balance 120 - Medications Medications: Current Medications Amlodipine Besylate (Norvasc) 10 mg PO DAILY [facility] Last Admin: 01/31/18 10:23 Dose: 10 mg Aspirin (Aspirin) 325 mg PO DAILY [facility] Last Admin: 01/31/18 10:23 Dose: 325 mg Calcium Acetate (Phoslo) 667 mg PO TID [facility] Last Admin: 01/31/18 13:29 Dose: 667 mg Carvedilol (Coreg) 12.5 mg PO BID [facility] Last Admin: 01/31/18 10:24 Dose: 12.5 mg Clonidine HCl (Catapres) 0.2 mg PO BID [facility] Last Admin: 01/31/18 10:24 Dose: 0.2 mg Clopidogrel Bisulfate (Plavix) 75 mg PO DAILY [facility] Last Admin: 01/31/18 10:24 Dose: 75 mg Enoxaparin Sodium (Lovenox) 30 mg SC DAILY [facility] Last Admin: 01/31/18 10:23 Dose: 30 mg Glipizide (Glucotrol) 5 mg PO DAILY [facility] Last Admin: 01/31/18 10:24 Dose: 5 mg Insulin Aspart (Novolog) 0 unit SC [facility]; Protocol Last Admin: 01/31/18 12:30 Dose: Not Given Losartan Potassium (Cozaar) 100 mg PO DAILY [facility] Last Admin: 01/31/18 10:23 Dose: 100 mg Minoxidil (Minoxidil) 2.5 mg PO BID [facility] Last Admin: 01/31/18 10:24 Dose: 2.5 mg Pantoprazole Sodium (Protonix Inj) 40 mg IVP DAILY [facility] Last Admin: 01/31/18 10:24 Dose: 40 mg Rosuvastatin Calcium (Crestor) 5 mg PO HS [facility] Last Admin: 01/30/18 21:52 Dose: 5 mg Sitagliptin Phosphate (Januvia) 100 mg PO DAILY [facility] Last Admin: 01/31/18 10:23 Dose: 100 mg - Labs Labs: 01/30/18 10:20 01/30/18 11:58 PT 12.2 SECONDS (9.7-12.2) 01/29/18 18:57 INR 1.1 01/29/18 18:57 APTT 33 SECONDS (21-34) 01/29/18 18:57 - Constitutional Appears: Well - Head Exam Head Exam: ATRAUMATIC, NORMAL INSPECTION, NORMOCEPHALIC - Eye Exam Eye Exam: EOMI, Normal appearance, PERRL Pupil Exam: NORMAL ACCOMODATION, PERRL - ENT Exam ENT Exam: Mucous Membranes Moist, Normal Exam - Neck Exam Neck Exam: Full ROM, Normal Inspection. absent: Lymphadenopathy - Respiratory Exam Respiratory Exam: Decreased Breath Sounds - Cardiovascular Exam Cardiovascular Exam: REGULAR RHYTHM, +S1, +S2 - GI/Abdominal Exam GI & Abdominal Exam: Soft, Diminished Bowel Sounds - Rectal Exam Rectal Exam: Deferred
--- NOTE | 2018-02-01 06:33 | CON ---
DATE: 01/30/2018 ATTENDING PHYSICIAN: Gely Holland MD LOCATION: The patient's room number is 650, bed B. REASON FOR THE CONSULTATION: Transient ischemic attack. CHIEF COMPLAINT: The patient was brought in by family member with a history of change in speech as per the documentation. From neurological point of view, I was called into evaluate him for further management. HISTORY OF PRESENT ILLNESS: The patient is a 57-year-old right-handed male presenting with change in mental status, manifesting as slurred speech as per the documentation from his daughter who has found him with change in his speech yesterday afternoon. The patient was brought into emergency room yesterday evening, and he was admitted following CAT scan. They found some deficiency in the brain consistent with possible stroke. From the neurological point of view, I was called into evaluate him. He had similar episodes happened in the past, which resolved on its own. At present, he is complaining of chest pain. PAST MEDICAL HISTORY: Hypertension, non-insulin dependent diabetes mellitus, and dyslipidemia. ALLERGIES: NO KNOWN ALLERGIES. REVIEW OF SYSTEMS: A 12-point systems have been reviewed. From neuro, change in mental status. MEDICATIONS: Aspirin, Catapres, Coreg, Cozaar, Glucotrol, Januvia, minoxidil, Norvasc, and PhosLo. PHYSICAL EXAMINATION: VITAL SIGNS: Blood pressure 167/77, mean arterial pressure of 107, respiratory rate 18 to 20 per minute, pulse rate 65 and regular, and temperature 98.7 degrees Fahrenheit. NECK: Supple. No carotid bruit. HEART: Heart sounds regular with systolic murmurs. Breathing is normal on either side. EXTREMITIES: Both legs seem to be externally rotated. NEUROLOGICAL: Mental status examination: The patient is examined in the presence of his close friends who were [place]ian with less Welsh speaking. However, they are very close to the patient. The patient, however, recognized them as well as name of the persons. Spontaneous speech, one word answer. He knows his name. Seems to be confused. He does not want to be oriented to place and time. He follows one-step command. Significant right and left contusion. Naming repetition and fluency, all are impaired. Cranial nerve examination: Responds to visual threat. Pupils react to light. Extraocular movement decreased in all direction. No facial sensory deficits. Mild facial asymmetry manifesting with flattening of the right nasolabial fold. Hearing is normal. Tongue is midline. Good gag. Motor examination: On outstretched hand with eyes closed, no drift noted. Power is symmetric on either side. Deep tendon flexes are absent throughout. Plantars have equivocal response on both sides. Sensory examination: Responds to pain symmetrically on both sides. No cortical sensory loss. Significant bilateral distal sensory motor neuropathy noted. Coordination: Nbkgzp-[id number] test is intact. Gait is deferred at this time. CONCLUSION: As per neurological examination, the patient is presenting with cerebral dysfunction manifesting with transcortical aphasia with quadriparesis. This is probably posterior cerebral artery ischemic process. The patient is also suffering from bilateral distal symmetric sensory motor neuropathy. Uncontrolled high blood pressure. RECOMMENDATIONS: 1. Keep the blood pressure, mean arterial pressure around 100. 2. Add Plavix in addition to aspirin for better protection for his stroke process. 3. Angiotensin-receptor blockers with statins should be given. 4. Diabetic control. 5. MRI of the brain to rule out any new ischemic process at the posterior cerebral artery distribution. 6. Coronary echocardiogram to rule out any cardiac thrombogenesis. 7. Carotid Doppler to assess the stenosis. 8. Rule out paroxysmal activities by doing electroencephalogram. 9. Keep him bedrest, out of bed with supervision. 10. Speech and swallow evaluation as well is also recommended. The patient will be followed closely with you. Binu Duarte MD
[2018-02-01] MEDS: (Novolog) Insulin Aspart, Recombinant 100 u/ml 10 ml vial SC SCH ×4 (07:45→22:06)
--- NOTE | 2018-02-01 08:01 | CARD ---
APPROVED REPORT Date of service: 01/29/2018 EKG Measurement Heart [id number] <Conclusion> Normal sinus rhythm ST & T wave abnormality, consider inferolateral ischemia Prolonged QT Abnormal ECG
--- NOTE | 2018-02-01 10:47 | CP.PCM.PN ---
Subjective - Date & Time of Evaluation Date of Evaluation: 02/01/18 Time of Evaluation: 10:46 - Subjective Subjective: seen and examined comfortable 10 point ros obtained and negative Objective - Vital Signs/Intake and Output Vital Signs (last 24 hours): Temp Pulse Resp BP Pulse Ox 97.7 F 68 18 148/64 99 02/01/18 07:00 02/01/18 07:05 02/01/18 07:00 02/01/18 07:00 02/01/18 07:15 Intake and Output: 02/01/18 02/01/18 06:59 18:59 Intake Total 120 Balance 120 - Medications Medications: Current Medications Amlodipine Besylate (Norvasc) 10 mg PO DAILY [facility] Last Admin: 01/31/18 10:23 Dose: 10 mg Aspirin (Aspirin) 325 mg PO DAILY [facility] Last Admin: 01/31/18 10:23 Dose: 325 mg Calcium Acetate (Phoslo) 667 mg PO TIDCC [facility] Last Admin: 02/01/18 09:35 Dose: 667 mg Carvedilol (Coreg) 12.5 mg PO BID [facility] Last Admin: 01/31/18 17:38 Dose: 12.5 mg Clonidine HCl (Catapres) 0.2 mg PO BID [facility] Last Admin: 01/31/18 17:37 Dose: 0.2 mg Clopidogrel Bisulfate (Plavix) 75 mg PO DAILY [facility] Last Admin: 01/31/18 10:24 Dose: 75 mg Enoxaparin Sodium (Lovenox) 30 mg SC DAILY [facility] Last Admin: 01/31/18 10:23 Dose: 30 mg Glipizide (Glucotrol) 5 mg PO DAILY [facility] Last Admin: 01/31/18 10:24 Dose: 5 mg Insulin Aspart (Novolog) 0 unit SC [facility]; Protocol Last Admin: 02/01/18 07:45 Dose: 1 unit Lorazepam (Ativan) 1 mg IVP ONCE PRN PRN Reason: prior to mri Stop: 02/01/18 15:30 Losartan Potassium (Cozaar) 100 mg PO DAILY [facility] Minoxidil (Minoxidil) 2.5 mg PO BID [facility] Last Admin: 01/31/18 17:38 Dose: 2.5 mg Pantoprazole Sodium (Protonix Inj) 40 mg IVP DAILY [facility] Last Admin: 01/31/18 10:24 Dose: 40 mg Rosuvastatin Calcium (Crestor) 5 mg PO HS [facility] Last Admin: 01/31/18 21:46 Dose: 5 mg Sitagliptin Phosphate (Januvia) 25 mg PO DAILY [facility] - Labs Labs: 01/30/18 10:20 01/30/18 11:58 PT 12.2 SECONDS (9.7-12.2) 01/29/18 18:57 INR 1.1 01/29/18 18:57 APTT 33 SECONDS (21-34) 01/29/18 18:57 - Constitutional Appears: Non-toxic, No Acute Distress, Chronically Ill - Head Exam Head Exam: NORMAL INSPECTION, NORMOCEPHALIC - Eye Exam Eye Exam: Normal appearance Pupil Exam: PERRL - ENT Exam ENT Exam: Mucous Membranes Moist, Normal Exam - Neck Exam Neck Exam: Full ROM - Respiratory Exam Respiratory Exam: Decreased Breath Sounds, Clear to Ausculation Bilateral - Cardiovascular Exam Cardiovascular Exam: REGULAR RHYTHM, RRR - GI/Abdominal Exam GI & Abdominal Exam: Distended, Soft - Extremities Exam Extremities Exam: Full ROM, Normal Inspection Assessment and Plan (1) Slurred speech Status: Acute (2) ESRD (end stage renal disease) Status: Acute (3) HTN (hypertension) Status: Acute (4) Type 2 diabetes mellitus with diabetic nephropathy Status: Acute - Assessment and Plan (Free Text) Assessment: new thalamic cva poorly controlled htn esrd on hd diastolic dysfunction dm plan: hd today, challenge dry weight bp currently acceptable on current meds on [facility] rehab
[2018-02-01] MEDS: Enoxaparin 30 mg Syringe SC SCH (11:00)
--- NOTE | 2018-02-01 12:06 | PN ---
DATE: 02/01/2018 NEUROLOGICAL PROBLEM: Change in mental status. PHYSICAL EXAMINATION: VITAL SIGNS: Blood pressure 148/71, mean arterial pressure of 96, respiratory rate 18, temperature 98.3 with a pulse rate of 61 and regular. The patient is arousable, following commands. He knows he is in the hospital, communicable only in the [place]ic. Moves all four extremities as before. His mental status examination is somewhat improved to compare with my yesterday's examination. His recommended workup from neurological point of view is all in progress. Continue the present management with stroke prophylaxis. The patient will be followed closely with you. Binu Duarte MD
--- NOTE | 2018-02-01 13:52 | MRI ---
Date of service: 02/01/2018 PROCEDURE: MRI BRAIN WITHOUT CONTRAST HISTORY: STROKE COMPARISON: The TECHNIQUE: Multiplanar, multisequence MR images of the brain were obtained without intravenous contrast enhancement. FINDINGS: HEMORRHAGE: No acute parenchymal, subarachnoid nor extra-axial hemorrhage. No evidence of hemosiderin deposition identified on gradient echo weighted sequence. DWI: No evidence of an acute or early subacute infarction seen on diffusion imaging.. BRAIN PARENCHYMA: Minor chronic periventricular white matter ischemic changes with a few scattered chronic bilateral basal nuclei and brainstem lacunar type infarcts. No obvious parenchymal nor extra-axial mass or collection seen on this noncontrast exam. Mild moderate generalized volume loss VENTRICLES: No obstructive hydrocephalus. CRANIUM: Unremarkable. ORBITS: Findings consistent with exophthalmos; clinical correlation with thyroid function tests and ophthalmologic examination. PARANASAL SINUSES/MASTOIDS: Minor mucosal thickening within the left and minimal mucosal thickening right maxillary antra. VASCULAR SYSTEM: Visualized major vascular flow voids at skull base patent. OTHER FINDINGS: None. IMPRESSION: No acute intracranial hemorrhage or infarction. Mild chronic white matter basal nuclei and brainstem ischemic changes. Mild moderate generalized volume loss. Findings consistent with exophthalmos; clinical correlation with thyroid function tests and ophthalmologic examination.
--- NOTE | 2018-02-01 18:14 | CARD ---
APPROVED REPORT Date of service: 02/01/2018 EXAM: Two-dimensional and M-mode echocardiogram with Doppler and color Doppler. Other Information Quality : GoodRhythm : INDICATION CVA/TIA RISK FACTORS Hypertension Hyperlipidemia Diabetes 2D DIMENSIONS IVSd1.4 (0.7-1.1cm)LVDd4.8 (3.9-5.9cm) LVOT Diameter2.1 (1.8-2.4cm)PWd1.4 (0.7-1.1cm) LA Knzwvv17 (18-58mL)LVDs2.8 (2.5-4.0cm) FS (%) 40.9 %LVEF (%)71.7 (>50%) LVEF (Sosa's)62.38 % M-Mode DIMENSIONS Left Atrium (MM)4.14 (2.5-4.0cm)IVSd0.82 (0.7-1.1cm) Aortic Root3.40 (2.2-3.7cm)LVDd5.48 (4.0-5.6cm) Aortic Cusp Exc.1.58 (1.5-2.0cm)PWd1.08 (0.7-1.1cm) FS (%) 44 %LVDs3.08 (2.0-3.8cm) LVEF (%)74 (>50%) Aortic Valve AoV Peak Brjajule364.1cm/sAoV VTI55.8cmAO Peak GR.29mmHg LVOT Peak Htahrqqy837.5cm/sLVOT VTI27.19cmAO Mean GR.15mmHg TODD (VMAX)1.85qu2YQF (VTI)1.62cm2 Mitral Valve MV E Scvnnpjx706.5cm/sMV A Clyummyq98.9cm/sE/A ratio1.8 TDI Lateral E' Peak V4.48cm/sMedial E' Peak V3.45cm/sE/Lateral E'27.3 E/Medial E'35.5 Tricuspid Valve TR Peak Agmdlwwg114hu/sTR Peak Gr.54wgGcVXNR16mqLt LEFT VENTRICLE The left ventricle is normal size. There is mild to moderate concentric left ventricular hypertrophy. The left ventricular function is normal. The left ventricular ejection fraction is within the normal range. There is normal LV segmental wall motion. RIGHT VENTRICLE The right ventricle is normal size. The right ventricle is mildly hypertrophied. The right ventricular systolic function is normal. ATRIA The left atrium is borderline dilated. The right atrium is borderline dilated. AORTIC VALVE The aortic valve is severely thickened. No aortic regurgitation is present. There is mild valvular aortic stenosis. MITRAL VALVE The mitral valve is moderately thickened. There is no mitral valve stenosis. Mitral regurgitation is mild. TRICUSPID VALVE The tricuspid valve is normal in structure. There is mild tricuspid regurgitation. There is mild to moderate pulmonary hypertension. PULMONIC VALVE The pulmonary valve is normal in structure. There is trace pulmonic valvular regurgitation. GREAT VESSELS The aortic root is normal in size. The IVC is normal in size and collapses >50% with inspiration. PERICARDIAL EFFUSION There is a small circumferential pericardial effusion. <Conclusion> There is mild to moderate concentric left ventricular hypertrophy. The left ventricular function is normal. The left ventricular ejection fraction is within the normal range. There is normal LV segmental wall motion. Mitral regurgitation is mild. There is mild tricuspid regurgitation. There is mild valvular aortic stenosis. There is mild to moderate pulmonary hypertension. There is a small circumferential pericardial effusion.
--- NOTE | 2018-02-01 18:26 | CP.PCM.PN ---
Subjective - Date & Time of Evaluation Date of Evaluation: 02/01/18 Time of Evaluation: 09:45 - Subjective Subjective: clinically same Objective - Vital Signs/Intake and Output Vital Signs (last 24 hours): Temp Pulse Resp BP Pulse Ox 97.7 F 67 16 166/72 H 98 02/01/18 14:25 02/01/18 14:05 02/01/18 14:25 02/01/18 17:25 02/01/18 14:25 Intake and Output: 02/01/18 02/01/18 06:59 18:59 Intake Total 120 Balance 120 - Medications Medications: Current Medications Amlodipine Besylate (Norvasc) 10 mg PO DAILY [facility] Last Admin: 02/01/18 11:56 Dose: Not Given Aspirin (Aspirin) 325 mg PO DAILY [facility] Last Admin: 02/01/18 11:00 Dose: 325 mg Calcium Acetate (Phoslo) 667 mg PO TIDCC [facility] Last Admin: 02/01/18 09:35 Dose: 667 mg Carvedilol (Coreg) 12.5 mg PO BID [facility] Last Admin: 02/01/18 11:55 Dose: Not Given Clonidine HCl (Catapres) 0.2 mg PO BID [facility] Last Admin: 02/01/18 11:55 Dose: Not Given Clopidogrel Bisulfate (Plavix) 75 mg PO DAILY [facility] Last Admin: 02/01/18 11:00 Dose: 75 mg Enoxaparin Sodium (Lovenox) 30 mg SC DAILY [facility] Last Admin: 02/01/18 11:00 Dose: 30 mg Glipizide (Glucotrol) 5 mg PO DAILY [facility] Last Admin: 02/01/18 11:00 Dose: 5 mg Insulin Aspart (Novolog) 0 unit SC [facility]; Protocol Last Admin: 02/01/18 12:16 Dose: 4 unit Losartan Potassium (Cozaar) 100 mg PO DAILY [facility] Last Admin: 02/01/18 11:55 Dose: Not Given Minoxidil (Minoxidil) 2.5 mg PO BID [facility] Last Admin: 02/01/18 11:55 Dose: Not Given Pantoprazole Sodium (Protonix Inj) 40 mg IVP DAILY [facility] Last Admin: 02/01/18 10:59 Dose: 40 mg Rosuvastatin Calcium (Crestor) 5 mg PO HS [facility] Last Admin: 01/31/18 21:46 Dose: 5 mg Sitagliptin Phosphate (Januvia) 25 mg PO DAILY [facility] Last Admin: 02/01/18 11:00 Dose: 25 mg - Labs Labs: 01/30/18 10:20 01/30/18 11:58 PT 12.2 SECONDS (9.7-12.2) 01/29/18 18:57 INR 1.1 01/29/18 18:57 APTT 33 SECONDS (21-34) 01/29/18 18:57
[2018-02-01 18:32] VITALS: RESP 20
--- NOTE | 2018-02-01 21:07 | CARD ---
APPROVED REPORT Date of service: 01/30/2018 EKG Measurement Heart [id number] <Conclusion> Normal sinus rhythm Possible Left atrial enlargement ST & T wave abnormality, consider inferolateral ischemia Prolonged QT Abnormal ECG
[2018-02-02] MEDS: (Novolog) Insulin Aspart, Recombinant 100 u/ml 10 ml vial SC SCH ×2 (08:23→12:42)
[2018-02-02] MEDS: Enoxaparin 30 mg Syringe SC SCH (09:31)
--- NOTE | 2018-02-02 09:40 | CP.PCM.PN ---
"Subjective - Date & Time of Evaluation Date of Evaluation: 02/02/18 Time of Evaluation: 09:38 - Subjective Subjective: No new compliants No CP or SOB Moves all extrem, normal speech, power and tone. No fever,chills, N,V or abd pain. Objective - Vital Signs/Intake and Output Vital Signs (last 24 hours): Temp Pulse Resp BP Pulse Ox 98.4 F 62 20 168/71 H 100 02/02/18 07:00 02/02/18 08:00 02/02/18 07:00 02/02/18 08:50 02/02/18 07:00 Intake and Output: 02/02/18 02/02/18 06:59 18:59 Intake Total 120 Balance 120 - Medications Medications: Current Medications Amlodipine Besylate (Norvasc) 10 mg PO DAILY [facility] Last Admin: 02/02/18 09:36 Dose: Not Given Aspirin (Aspirin) 325 mg PO DAILY [facility] Last Admin: 02/02/18 09:29 Dose: 325 mg Calcium Acetate (Phoslo) 667 mg PO TIDCC [facility] Last Admin: 02/02/18 08:44 Dose: 667 mg Carvedilol (Coreg) 12.5 mg PO BID [facility] Last Admin: 02/01/18 18:36 Dose: 12.5 mg Clonidine HCl (Catapres) 0.2 mg PO BID [facility] Last Admin: 02/02/18 09:33 Dose: Not Given Clopidogrel Bisulfate (Plavix) 75 mg PO DAILY [facility] Last Admin: 02/02/18 09:29 Dose: 75 mg Enoxaparin Sodium (Lovenox) 30 mg SC DAILY [facility] Last Admin: 02/02/18 09:31 Dose: 30 mg Famotidine (Pepcid) 20 mg PO DAILY [facility] Last Admin: 02/02/18 09:30 Dose: 20 mg Glipizide (Glucotrol) 5 mg PO DAILY [facility] Last Admin: 02/02/18 09:29 Dose: 5 mg Insulin Aspart (Novolog) 0 unit SC [facility]; Protocol Last Admin: 02/02/18 08:23 Dose: Not Given Losartan Potassium (Cozaar) 100 mg PO DAILY [facility] Last Admin: 02/02/18 09:33 Dose: Not Given Minoxidil (Minoxidil) 2.5 mg PO BID [facility] Last Admin: 02/01/18 18:36 Dose: 2.5 mg Rosuvastatin Calcium (Crestor) 5 mg PO HS [facility] Last Admin: 02/01/18 21:07 Dose: 5 mg Sitagliptin Phosphate (Januvia) 25 mg PO DAILY [facility] Last Admin: 02/02/18 09:30 Dose: 25 mg Zolpidem Tartrate (Ambien) 5 mg PO HS PRN PRN Reason: Insomnia Last Admin: 02/01/18 22:09 Dose: 5 mg - Labs Labs: 01/30/18 10:20 01/30/18 11:58 PT 12.2 SECONDS (9.7-12.2) 01/29/18 18:57 INR 1.1 01/29/18 18:57 APTT 33 SECONDS (21-34) 01/29/18 18:57 - Constitutional Appears: No Acute Distress - Head Exam Head Exam: ATRAUMATIC, NORMAL INSPECTION, NORMOCEPHALIC - Eye Exam Eye Exam: EOMI, Normal appearance - ENT Exam ENT Exam: Mucous Membranes Moist, Normal Oropharynx - Neck Exam Neck Exam: Full ROM. absent: Tenderness, Thyromegaly - Respiratory Exam Respiratory Exam: Clear to Ausculation Bilateral. absent: Rhonchi, Wheezes - Cardiovascular Exam Cardiovascular Exam: REGULAR RHYTHM, +S1, +S2, Murmur Additional comments: soft B/L carotid bruits - GI/Abdominal Exam GI & Abdominal Exam: Soft, Normal Bowel Sounds. absent: Tenderness, Organomegaly - Extremities Exam Extremities Exam: Full ROM, Normal Inspection. absent: Pedal Edema, Tenderness - Neurological Exam Neurological Exam: Alert, Awake, Oriented x3 - Psychiatric Exam Psychiatric exam: Normal Affect - Skin Skin Exam: Normal Color, Warm Assessment and Plan - Assessment and Plan (Free Text) Assessment: Images directly viewed by me: | Echo Mod LVH, normal LVEF, grade 2 DD, mild AI, MR, TR with PASP ~42-45mmhg, Aortic sclerosis with no more than mild stenosis by doppler. | Carotid : mild scattered plaque CC and bulb B/L no significant stenosis 57 year old man with acute CVA of thalamic region, high dose statin, antiplatelet as per neuro, BP targets as per neuro x 48 hours - ESRD on HD, may need to decrease dry weight - Acute diastolic CHF treat with more HD - DM is chronic and stable on insulin, continue januvia - HTN is chronic and hypertensive Suggest optimization of BP if ok with neuro: by addition of chlorthalidone and hydralazine and titrate"
--- NOTE | 2018-02-02 10:03 | CP.PCM.PN ---
Subjective - Date & Time of Evaluation Date of Evaluation: 02/02/18 Time of Evaluation: 10:01 - Subjective Subjective: no events comfortable 10 point ROS obtained and negative bp remains high, noted addition of minoxidil noted Objective - Vital Signs/Intake and Output Vital Signs (last 24 hours): Temp Pulse Resp BP Pulse Ox 98.4 F 62 20 168/71 H 100 02/02/18 07:00 02/02/18 08:00 02/02/18 07:00 02/02/18 09:39 02/02/18 07:00 Intake and Output: 02/02/18 02/02/18 06:59 18:59 Intake Total 120 Balance 120 - Medications Medications: Current Medications Amlodipine Besylate (Norvasc) 10 mg PO DAILY [facility] Last Admin: 02/02/18 09:36 Dose: Not Given Aspirin (Aspirin) 325 mg PO DAILY [facility] Last Admin: 02/02/18 09:29 Dose: 325 mg Calcium Acetate (Phoslo) 667 mg PO TIDCC [facility] Last Admin: 02/02/18 08:44 Dose: 667 mg Carvedilol (Coreg) 12.5 mg PO BID [facility] Last Admin: 02/02/18 09:39 Dose: 12.5 mg Clonidine HCl (Catapres) 0.2 mg PO BID [facility] Last Admin: 02/02/18 09:33 Dose: Not Given Clopidogrel Bisulfate (Plavix) 75 mg PO DAILY [facility] Last Admin: 02/02/18 09:29 Dose: 75 mg Enoxaparin Sodium (Lovenox) 30 mg SC DAILY [facility] Last Admin: 02/02/18 09:31 Dose: 30 mg Famotidine (Pepcid) 20 mg PO DAILY [facility] Last Admin: 02/02/18 09:30 Dose: 20 mg Glipizide (Glucotrol) 5 mg PO DAILY [facility] Last Admin: 02/02/18 09:29 Dose: 5 mg Insulin Aspart (Novolog) 0 unit SC [facility]; Protocol Last Admin: 02/02/18 08:23 Dose: Not Given Losartan Potassium (Cozaar) 100 mg PO DAILY [facility] Last Admin: 02/02/18 09:33 Dose: Not Given Minoxidil (Minoxidil) 2.5 mg PO BID [facility] Last Admin: 02/02/18 09:39 Dose: 2.5 mg Rosuvastatin Calcium (Crestor) 5 mg PO HS [facility] Last Admin: 02/01/18 21:07 Dose: 5 mg Sitagliptin Phosphate (Januvia) 25 mg PO DAILY [facility] Last Admin: 02/02/18 09:30 Dose: 25 mg Zolpidem Tartrate (Ambien) 5 mg PO HS PRN PRN Reason: Insomnia Last Admin: 02/01/18 22:09 Dose: 5 mg - Labs Labs: 01/30/18 10:20 01/30/18 11:58 PT 12.2 SECONDS (9.7-12.2) 01/29/18 18:57 INR 1.1 01/29/18 18:57 APTT 33 SECONDS (21-34) 01/29/18 18:57 - Constitutional Appears: No Acute Distress, Chronically Ill - Head Exam Head Exam: NORMAL INSPECTION, NORMOCEPHALIC - Eye Exam Eye Exam: Normal appearance, PERRL Pupil Exam: PERRL - ENT Exam ENT Exam: Mucous Membranes Moist, Normal Exam - Neck Exam Neck Exam: Full ROM, Normal Inspection - Respiratory Exam Respiratory Exam: Clear to Ausculation Bilateral, NORMAL BREATHING PATTERN - Cardiovascular Exam Cardiovascular Exam: REGULAR RHYTHM, RRR - GI/Abdominal Exam GI & Abdominal Exam: Distended, Soft, Normal Bowel Sounds - Extremities Exam Extremities Exam: Full ROM, Normal Inspection - Neurological Exam Neurological Exam: Alert, Awake - Psychiatric Exam Psychiatric exam: Normal Affect, Normal Mood - Skin Skin Exam: Dry, Intact Assessment and Plan (1) Slurred speech Status: Acute (2) ESRD (end stage renal disease) Status: Acute (3) HTN (hypertension) Status: Acute (4) Type 2 diabetes mellitus with diabetic nephropathy Status: Acute - Assessment and Plan (Free Text) Assessment: hd mwf, increase uf, challenge dry weight may increase minoxidil dose if bp remains uncontrolled management of cva per neuro
--- NOTE | 2018-02-02 13:36 | CP.PCM.PN ---
Subjective - Date & Time of Evaluation Date of Evaluation: 02/02/18 Time of Evaluation: 15:26 - Subjective Subjective: PGY1 Neurology Progress Note for Dr. Vargas: Patient seen at bedside this morning. Patient's family at bedside and with patient's consent, history and physical exam was obtained. Patient reports he is feeling much better today. No acute events overnight. No new complaints. Patient was able to tolerate diet without issue. Patient reports that he feels better today, and says he can "move all of his extremities just fine." Patient denies chest pain, shortness of breath, dizziness, headache, nausea, vomiting and/or blurry vision. Objective - Vital Signs/Intake and Output Vital Signs (last 24 hours): Temp Pulse Resp BP Pulse Ox 98.4 F 62 20 168/71 H 100 02/02/18 07:00 02/02/18 08:00 02/02/18 07:00 02/02/18 09:39 02/02/18 07:00 Intake and Output: 02/02/18 02/02/18 06:59 18:59 Intake Total 120 Balance 120 - Medications Medications: Current Medications Amlodipine Besylate (Norvasc) 10 mg PO DAILY [facility] Last Admin: 02/02/18 09:36 Dose: Not Given Aspirin (Aspirin) 325 mg PO DAILY [facility] Last Admin: 02/02/18 09:29 Dose: 325 mg Calcium Acetate (Phoslo) 667 mg PO TIDCC [facility] Last Admin: 02/02/18 12:10 Dose: 667 mg Carvedilol (Coreg) 12.5 mg PO BID [facility] Last Admin: 02/02/18 09:39 Dose: 12.5 mg Clonidine HCl (Catapres) 0.2 mg PO BID [facility] Last Admin: 02/02/18 09:33 Dose: Not Given Clopidogrel Bisulfate (Plavix) 75 mg PO DAILY [facility] Last Admin: 02/02/18 09:29 Dose: 75 mg Enoxaparin Sodium (Lovenox) 30 mg SC DAILY [facility] Last Admin: 02/02/18 09:31 Dose: 30 mg Famotidine (Pepcid) 20 mg PO DAILY [facility] Last Admin: 02/02/18 09:30 Dose: 20 mg Glipizide (Glucotrol) 5 mg PO DAILY [facility] Last Admin: 02/02/18 09:29 Dose: 5 mg Insulin Aspart (Novolog) 0 unit SC [facility]; Protocol Last Admin: 02/02/18 12:42 Dose: 3 unit Losartan Potassium (Cozaar) 100 mg PO DAILY [facility] Last Admin: 02/02/18 09:33 Dose: Not Given Minoxidil (Minoxidil) 2.5 mg PO BID [facility] Last Admin: 02/02/18 09:39 Dose: 2.5 mg Rosuvastatin Calcium (Crestor) 5 mg PO HS [facility] Last Admin: 02/01/18 21:07 Dose: 5 mg Sitagliptin Phosphate (Januvia) 25 mg PO DAILY [facility] Last Admin: 02/02/18 09:30 Dose: 25 mg Zolpidem Tartrate (Ambien) 5 mg PO HS PRN PRN Reason: Insomnia Last Admin: 02/01/18 22:09 Dose: 5 mg - Labs Labs: 01/30/18 10:20 01/30/18 11:58 PT 12.2 SECONDS (9.7-12.2) 01/29/18 18:57 INR 1.1 01/29/18 18:57 APTT 33 SECONDS (21-34) 01/29/18 18:57
--- NOTE | 2018-02-02 15:18 | CP.PCM.PN ---
Subjective - Date & Time of Evaluation Date of Evaluation: 02/02/18 Time of Evaluation: 10:30 - Subjective Subjective: clinically same Objective - Vital Signs/Intake and Output Vital Signs (last 24 hours): Temp Pulse Resp BP Pulse Ox 98.4 F 62 20 168/71 H 100 02/02/18 07:00 02/02/18 08:00 02/02/18 07:00 02/02/18 09:39 02/02/18 07:00 Intake and Output: 02/02/18 02/02/18 06:59 18:59 Intake Total 120 Balance 120 - Medications Medications: Current Medications Amlodipine Besylate (Norvasc) 10 mg PO [facility]ILY [facility] Last Admin: 02/02/18 09:36 Dose: Not Given Aspirin (Aspirin) 325 mg PO DAILY [facility] Last Admin: 02/02/18 09:29 Dose: 325 mg Calcium Acetate (Phoslo) 667 mg PO [facility] Last Admin: 02/02/18 12:10 Dose: 667 mg Carvedilol (Coreg) 12.5 mg PO BID [facility] Last Admin: 02/02/18 09:39 Dose: 12.5 mg Clonidine HCl (Catapres) 0.2 mg PO BID [facility] Last Admin: 02/02/18 09:33 Dose: Not Given Clopidogrel Bisulfate (Plavix) 75 mg PO DAILY [facility] Last Admin: 02/02/18 09:29 Dose: 75 mg Enoxaparin Sodium (Lovenox) 30 mg SC [facility]ILY [facility] Last Admin: 02/02/18 09:31 Dose: 30 mg Famotidine (Pepcid) 20 mg PO DAILY [facility] Last Admin: 02/02/18 09:30 Dose: 20 mg Glipizide (Glucotrol) 5 mg PO DAILY [facility] Last Admin: 02/02/18 09:29 Dose: 5 mg Insulin Aspart (Novolog) 0 unit SC [facility]; Protocol Last Admin: 02/02/18 12:42 Dose: 3 unit Losartan Potassium (Cozaar) 100 mg PO DAILY [facility] Last Admin: 02/02/18 09:33 Dose: Not Given Minoxidil (Minoxidil) 2.5 mg PO BID [facility] Last Admin: 02/02/18 09:39 Dose: 2.5 mg Rosuvastatin Calcium (Crestor) 5 mg PO [facility] Last Admin: 02/01/18 21:07 Dose: 5 mg Sitagliptin Phosphate (Januvia) 25 mg PO DAILY [facility] Last Admin: 02/02/18 09:30 Dose: 25 mg Zolpidem Tartrate (Ambien) 5 mg PO HS PRN PRN Reason: Insomnia Last Admin: 02/01/18 22:09 Dose: 5 mg - Labs Labs: 01/30/18 10:20 01/30/18 11:58 PT 12.2 SECONDS (9.7-12.2) 01/29/18 18:57 INR 1.1 01/29/18 18:57 APTT 33 SECONDS (21-34) 01/29/18 18:57 - Constitutional Appears: Well - Head Exam Head Exam: ATRAUMATIC, NORMAL INSPECTION, NORMOCEPHALIC - Eye Exam Eye Exam: EOMI, Normal appearance, PERRL Pupil Exam: NORMAL ACCOMODATION, PERRL - ENT Exam ENT Exam: Mucous Membranes Moist, Normal Exam - Neck Exam Neck Exam: Full ROM, Normal Inspection. absent: Lymphadenopathy - Respiratory Exam Respiratory Exam: Decreased Breath Sounds - Cardiovascular Exam Cardiovascular Exam: REGULAR RHYTHM, +S1, +S2 - GI/Abdominal Exam GI & Abdominal Exam: Soft, Diminished Bowel Sounds - Rectal Exam Rectal Exam: Deferred
[2018-02-02 16:05] VITALS: BP 137/80; TEMP 98; O2SAT 97
[2018-02-02 16:38] VITALS: PULSE 62
--- NOTE | 2018-02-02 16:48 | CP.PCM.PN ---
Subjective - Date & Time of Evaluation Date of Evaluation: 02/02/18 Time of Evaluation: 16:48 - Subjective Subjective: alert, oriented, ambulatory, denies pain, NAD. Objective - Vital Signs/Intake and Output Vital Signs (last 24 hours): Temp Pulse Resp BP Pulse Ox 98 F 62 20 137/80 97 02/02/18 16:00 02/02/18 16:37 02/02/18 16:00 02/02/18 16:00 02/02/18 16:00 Intake and Output: 02/02/18 02/02/18 06:59 18:59 Intake Total 120 500 Balance 120 500 - Medications Medications: Current Medications Amlodipine Besylate (Norvasc) 10 mg PO DAILY [facility] Last Admin: 02/02/18 09:36 Dose: Not Given Aspirin (Aspirin) 325 mg PO DAILY [facility] Last Admin: 02/02/18 09:29 Dose: 325 mg Calcium Acetate (Phoslo) 667 mg PO TIDCC [facility] Last Admin: 02/02/18 12:10 Dose: 667 mg Carvedilol (Coreg) 12.5 mg PO BID [facility] Last Admin: 02/02/18 09:39 Dose: 12.5 mg Clonidine HCl (Catapres) 0.2 mg PO BID [facility] Last Admin: 02/02/18 09:33 Dose: Not Given Clopidogrel Bisulfate (Plavix) 75 mg PO DAILY [facility] Last Admin: 02/02/18 09:29 Dose: 75 mg Enoxaparin Sodium (Lovenox) 30 mg SC DAILY [facility] Last Admin: 02/02/18 09:31 Dose: 30 mg Famotidine (Pepcid) 20 mg PO DAILY [facility] Last Admin: 02/02/18 09:30 Dose: 20 mg Glipizide (Glucotrol) 5 mg PO DAILY [facility] Last Admin: 02/02/18 09:29 Dose: 5 mg Insulin Aspart (Novolog) 0 unit SC [facility]; Protocol Last Admin: 02/02/18 12:42 Dose: 3 unit Losartan Potassium (Cozaar) 100 mg PO DAILY [facility] Last Admin: 02/02/18 09:33 Dose: Not Given Minoxidil (Minoxidil) 2.5 mg PO BID [facility] Last Admin: 02/02/18 09:39 Dose: 2.5 mg Rosuvastatin Calcium (Crestor) 5 mg PO HS [facility] Last Admin: 02/01/18 21:07 Dose: 5 mg Sitagliptin Phosphate (Januvia) 25 mg PO DAILY [facility] Last Admin: 02/02/18 09:30 Dose: 25 mg Zolpidem Tartrate (Ambien) 5 mg PO HS PRN PRN Reason: Insomnia Last Admin: 02/01/18 22:09 Dose: 5 mg - Labs Labs: 01/30/18 10:20 01/30/18 11:58 PT 12.2 SECONDS (9.7-12.2) 01/29/18 18:57 INR 1.1 01/29/18 18:57 APTT 33 SECONDS (21-34) 01/29/18 18:57 Assessment and Plan - Assessment and Plan (Free Text) Assessment: 57 year old male admitted with TIA, weakness, seen and examined. Alert and orientedx3, denies any pain or headaches. Physical therapy cleared for independent walking. Discussed with DR Deepa Holland, plan to discharge home and fol low up in the office in 1 week. All medications such as plavix, aspirin crestor and the BP meds continued at home.
--- NOTE | 2018-02-03 12:06 | VASCLAB ---
Date of service: 02/01/2018 PROCEDURE: Carotid Duplex Exam. HISTORY: ASSESS STENOSIS COMPARISON: None available. TECHNIQUE: Grayscale and duplex Doppler evaluation of the cervical carotid and vertebral arteries were performed. The common carotid, carotid bifurcations and cervical Internal Carotid Artery (ICA) and proximal External Carotid Artery (ECA) were evaluated. The vertebral arteries were evaluated for gross patency and flow direction. Report prepared by Jojo Iyer, HALINA, S FINDINGS: RIGHT CAROTID ARTERIES: 1. Common Carotid Artery: No significant focal plaque formation of the right common carotid artery. Maximum Peak Systolic velocity: 92 cm/sec: End-diastolic velocity 14 cm/sec. 2. Carotid Bifurcation: plaque formation. Maximum Peak Systolic velocity: 74 cm/sec: End-diastolic velocity 13 cm/sec. 3. Internal Carotid Artery: Plaque description: 3.1. Proximal Segment: Peak systolic velocity 87 cm/sec: End-diastolic velocity 19 cm/sec - % stenosis 3.2. Middle Segment: Peak systolic velocity 61 cm/sec: End-diastolic velocity 13 cm/sec - % stenosis 3.3. Distal Segment: Peak systolic velocity 73 cm/sec: End-diastolic velocity 14 cm/sec - % stenosis 4. External Carotid Artery: No significant focal plaque formation. Peak systolic velocity 97 cm/sec 5. ICA/CCA Ratio: 1.1 LEFT CAROTID ARTERIES: 1. Common Carotid Artery: No significant focal plaque formation of the left common carotid artery. Maximum Peak Systolic velocity: 90 cm/sec: End-diastolic velocity 16 cm/sec. 2. Carotid Bifurcation: plaque formation. Maximum Peak Systolic velocity: 71 cm/sec: End-diastolic velocity 14 cm/sec. 3. Internal Carotid Artery: Plaque description: 3.1. Proximal Segment: Peak systolic velocity 71 cm/sec: End-diastolic velocity 18 cm/sec - % stenosis 3.2. Middle Segment: Peak systolic velocity 73 cm/sec: End-diastolic velocity 16 cm/sec - % stenosis 3.3. Distal Segment: Peak systolic velocity 102 cm/sec: End-diastolic velocity 21 cm/sec - % stenosis 4. External Carotid Artery: No significant focal plaque formation. Peak systolic velocity 89 cm/sec 5. ICA/CCA Ratio: 1.5 VERTEBRAL ARTERIES: 1. Right Vertebral Artery: The right vertebral artery flow direction is antegrade. 2. Left Vertebral Artery: The left vertebral artery flow direction is antegrade. OTHER FINDINGS: 1. Right Brachial Blood pressure: 130 mmHg. 2. Left Brachial Blood pressure: 125 mmHg. IMPRESSION: RIGHT: Duplex scan does not suggest hemodynamically significant stenosis of the right extracranial carotid arteries. LEFT: Duplex scan does not suggest hemodynamically significant stenosis of the left extracranial carotid arteries.
--- NOTE | 2018-02-03 14:38 | EEG ---
DATE: 01/30/2018 This is a 16-channel electroencephalogram of awake and drowsy adult. During the study, photic stimulation was performed. Hyperventilation was not performed. The resting electroencephalogram consist of 20 to 30 microvolt, 9 to 11 Hz alpha activity seen at posterior dominant rhythm in parietal and occipital leads. Decreased delta activity seen, which is consistent with early drowsiness and some movement artifact contaminated with background rhythm on right temporal and frontal leads. The photic stimulation did not evoke driving response noted at 2 to 20 Hz. IMPRESSION: This is a normal electroencephalogram of awake and drowsy adult. During the study, neither electroencephalographic, paroxysmal activities nor focal slowing noted. Binu Duarte MD
== END 2018-02-02 16:50 | disposition home or self-care (01) | DRG 64 ==
LOC: C.ER 18:39 → C.9E 20:00 → C.6T 21:58
PROVIDERS: ADMIT Internal Medicine Nephrology; ATTEND Internal Medicine Nephrology
PROC: 5A1D70Z Performance of Urinary Filtration, Intermittent, Less than 6 Hours Per Day (ICD-10-PCS; principal; 2018-02-01)
DX: I63.9 Cerebral infarction, unspecified (principal); I50.31 Acute diastolic (congestive) heart failure; N18.6 End stage renal disease; G82.50 Quadriplegia, unspecified; I13.2 Hypertensive heart and chronic kidney disease with heart failure and with stage 5 chronic kidney disease, or end stage renal disease; R47.01 Aphasia; E78.5 Hyperlipidemia, unspecified; E11.22 Type 2 diabetes mellitus with diabetic chronic kidney disease; E11.21 Type 2 diabetes mellitus with diabetic nephropathy; Z79.4 Long term (current) use of insulin; Z99.2 Dependence on renal dialysis; I70.0 Atherosclerosis of aorta; I65.22 Occlusion and stenosis of left carotid artery

== ENCOUNTER 2018-06-09 18:21 | Observation (INO) | payer BC ==
[2018-06-09 18:21] VITALS: BMI 24.3
[2018-06-09] MEDS ORDERED: Labetalol 5 mg/ml Inj 20ML IV STA ×2 (19:19→22:57)
[2018-06-09] MEDS ORDERED: (Novolin R) Insulin Human Regular 100 units/ml vial IVP ONE (19:21)
--- NOTE | 2018-06-09 19:25 | C.PDOC ---
History Of Present Illness 57 year old male presents complaining of headache. Patient came from dialysis this afternoon and noticed his blood pressure was high. Patient reports not taking his sugar medication today either. Denies chest pain or SOB. Chief Complaint (Nursing): High Blood Pressure History Per: Patient History/Exam Limitations: no limitations Onset/Duration Of Symptoms: Hrs Current Symptoms Are (Timing): Still Present Associated Symptoms: Headache Quality Of Symptoms: Asymptomatic Recent travel outside of the [place]: No Past Medical History Reviewed: Historical Data, Nursing Documentation, Vital Signs Vital Signs: Last Vital Signs Temp 97.9 F 06/09/18 18:27 Pulse 68 06/09/18 18:27 Resp 17 06/09/18 18:27 BP 239/99 H 06/09/18 19:07 Pulse Ox 97 06/09/18 18:27 - Medical History PMH: Anemia, Diabetes, HTN, End Stage Renal Disease, Chronic Kidney Disease - [facility] Procedures (01/29/18) DIALYSIS ARTERIOVENOSTOM (06/23/13) HEMODIALYSIS (06/23/13) VENOUS CATHETERIZATION FOR RENAL DIALYSIS (06/23/13) Family History: States: Diabetes - Social History Hx Tobacco Use: No Hx Alcohol Use: No Hx Substance Use: No - Immunization History Hx Tetanus Toxoid Vaccination: No Hx Influenza Vaccination: Yes Hx Pneumococcal Vaccination: Yes Review Of Systems Constitutional: Negative for: Fever, Chills Cardiovascular: Negative for: Chest Pain, Palpitations Respiratory: Negative for: Cough, Shortness of Breath Gastrointestinal: Negative for: Nausea, Vomiting Neurological: Positive for: Headache. Negative for: Weakness, Numbness Physical Exam - Physical Exam Appears: Non-toxic, Other (Alert, Conscious) Skin: Normal Color, Warm, Dry Head: Atraumatic, Normacephalic Eye(s): bilateral: Normal Inspection, PERRL, EOMI Oral Mucosa: Moist Neck: Normal, No Midline Cervical Tenderness, No Paracervical Tenderness, Supple Chest: Symmetrical, No Tenderness Cardiovascular: Rhythm Regular, Other (Pressure 233/92) Respiratory: Normal Breath Sounds, No Rales, No Rhonchi, No Wheezing Gastrointestinal/Abdominal: Soft, No Tenderness Neurological/Psych: Oriented x3, Normal Speech ED Course And Treatment - Laboratory Results Result Diagrams: 06/09/18 19:31 06/09/18 19:31 ECG: Interpreted By Me, Viewed By Me ECG Rhythm: ST/T Changes ECG Interpretation: No Acute Changes, Abnormal Interpretation Of ECG: NSR, st-T abnormalitry inferolateraal area., abnormal tracings Rate From EC O2 Sat by Pulse Oximetry: 97 (Room air) Pulse Ox Interpretation: Normal Progress Note: CT head, EKG, and blood work ordered. Insulin, toradol, and labetalol administered. Disposition Discussed With Dr.: Adam Holland Doctor Will See Patient In The: Hospital Counseled Patient/Family Regarding: Diagnosis - Disposition Disposition: HOSPITALIZED Disposition Time: 23:38 Condition: STABLE Prescriptions: Mv,Vargas,Min/Iron/Folic Acid/Lut [Complete Multi] 1 tab PO DAILY #30 tab Forms: [employer] (Tanzanian) - POA Present On Arrival: None - Clinical Impression Clinical Impression: ESRD (end stage renal disease) on dialysis, Severe hypertension, Hyperglycemia - Scribe Statement The provider has reviewed the documentation as recorded by the Scribtracee Lombardi All medical record entries made by the Scribe were at my direction and personally dictated by me. I have reviewed the chart and agree that the record accurately reflects my personal performance of the history, physical exam, medical decision making, and the department course for this patient. I have also personally directed, reviewed, and agree with the discharge instructions and disposition.
[2018-06-09] MEDS ORDERED: Labetalol 5mg/ml (4ml) ONE ×4 (19:27→22:23)
[2018-06-09] MEDS ORDERED: (Novolin R) Insulin Human Regular 100 units/ml vial ONE ×2 (19:33→23:16)
[2018-06-09 19:34] LABS: EOS # 0.1 K/uL (0.0-0.7); MEAN CELL VOLUME 91.3 fL (80.0-94.0); MONO # 0.3 K/uL (0.0-0.8); NEUT # 2.4 K/uL (1.8-7.0); NRBC % 0.1 % (0.0-2.0)
[2018-06-09 19:41] LABS: BASO % 1.2 % (0.0-2.0); EOS % 3.2 % (0.0-4.0); HEMOGLOBIN 11.3 g/dL (12.0-18.0); LYMPH # 0.9 K/uL (1.0-4.3); LYMPH % 23.8 % (20.0-40.0); MEAN CORPUSCULAR HEMOGLOBIN 29.6 pg (27.0-31.0); MEAN CORPUSCULAR HGB CONC 32.4 g/dL (33.0-37.0); MEAN PLATELET VOLUME 10.3 fL (7.2-11.7); MONO % 7.6 % (0.0-10.0); NEUT % 64.2 % (50.0-75.0); RBC 3.82 Mil/uL (4.40-5.90); RED CELL DISTRIBUTION WIDTH 15.2 % (11.5-14.5); WHITE BLOOD COUNT 3.7 K/uL (4.8-10.8)
[2018-06-09 19:46] LABS: ALB/GLOB RATIO 1.6 (1.0-2.1); ALBUMIN 4.9 g/dL (3.5-5.0)
[2018-06-09] MEDS ORDERED: Labetalol 25mg/5ml Syringe IVP STA ×6 (20:36→23:09)
[2018-06-09] MEDS ORDERED: (Novolin R) Insulin Human Regular 100 units/ml vial SC ONE (22:59)
[2018-06-10 04:11] LABS: CK-MB 2.4 ng/mL (0.0-3.38); TROPONIN I 0.038 ng/mL (0.00-0.120)
[2018-06-10] MEDS ORDERED: Nitroglycerin 2% Ointment Foilpak UD TOP ONE ×2 (05:18→05:26)
--- NOTE | 2018-06-10 06:55 | CP.PCM.CON ---
History of Present Illness - History of Present Illness History of Present Illness: 57 year old male with h/o HTN,DM,anemia,ESRD on HD presents to ER complaining of headache. Patient came from dialysis this afternoon and noticed his blood pressure was high when checked at home . Patient reports not taking his sugar m edication yesterday. Denies chest pain or SOB. last HD 06/09/18 In ER treated with trandate,imdur,norvasc and clonidine with improvement in BP Current BP 174/74mmHg history from patient and Review of Systems - Review of Systems Systems not reviewed;Unavailable: Language Barrier - Constitutional Constitutional: Chills, Fever - EENT Eyes: Change in Vision Ears: Dizziness Nose/Mouth/Throat: Sore Throat - Cardiovascular Cardiovascular: Chest Pain, Dyspnea - Respiratory Respiratory: Cough - Gastrointestinal Gastrointestinal: Abdominal Pain, Nausea, Vomiting - Integumentary Integumentary: Pruritus, Rash - Neurological Neurological: Dizziness Past Patient History - Infectious Disease Hx of Infectious Diseases: None - Past Medical History & Family History Past Medical History?: Yes - Past Social History Smoking Status: Never Smoked Home Situation {Lives}: With Family - CARDIAC Hx Hypertension: Yes - RENAL Hx Chronic Kidney Disease: Yes - ENDOCRINE/METABOLIC Hx Endocrine Disorders: Yes Hx Diabetes Mellitus Type 2: Yes - HEMATOLOGICAL/ONCOLOGICAL Hx Anemia: Yes - MUSCULOSKELETAL/RHEUMATOLOGICAL Hx Falls: No - PSYCHIATRIC Hx Substance Use: No - SURGICAL HISTORY Hx Surgeries: Yes Hx Orthopedic Surgery: Yes (left shoulder) Hx Vascular Access Device: Yes (Left arm AV shunt) - ANESTHESIA Hx Anesthesia: Yes Hx Anesthesia Reactions: No Meds Home Medications: Home Medication List Medication Instructions Recorded Confirmed Type Mv,Vargas,Min/Iron/Folic Acid/Lut 1 tab PO DAILY #30 tab 06/09/18 Rx [Complete Multi] Allergies/Adverse Reactions: Allergies Allergy/AdvReac Type Severity Reaction Status Date / Time No Known Allergies Allergy Verified 06/09/18 18:31 - Medications Medications: Current Medications Amlodipine Besylate (Norvasc) 10 mg PO DAILY [facility] Aspirin (Aspirin) 325 mg PO DAILY [facility] Calcium Acetate (Phoslo) 667 mg PO TID [facility] Carvedilol (Coreg) 12.5 mg PO BID [facility] Clonidine HCl (Catapres) 0.1 mg PO Q8 [facility] Clopidogrel Bisulfate (Plavix) 75 mg PO DAILY [facility] Glipizide (Glucotrol) 5 mg PO DAILY [facility] Heparin Sodium (Porcine) (Heparin) 5,000 units SC BID [facility] Insulin Aspart (Novolog) 0 unit SC QID [facility]; Protocol Isosorbide Mononitrate (Imdur) 60 mg PO DAILY [facility] Losartan Potassium (Cozaar) 100 mg PO DAILY [facility] Minoxidil (Minoxidil) 2.5 mg PO BID [facility] Pantoprazole Sodium (Protonix Ec Tab) 20 mg PO DAILY [facility] Rosuvastatin Calcium (Crestor) 5 mg PO HS [facility] Sitagliptin Phosphate (Januvia) 25 mg PO DAILY [facility] Sitagliptin Phosphate (Januvia) 100 mg PO DAILY [facility] Physical Exam - Constitutional Appears: No Acute Distress - Head Exam Head Exam: ATRAUMATIC, NORMAL INSPECTION, NORMOCEPHALIC - Eye Exam Eye Exam: EOMI - ENT Exam ENT Exam: Mucous Membranes Moist - Neck Exam Neck exam: Positive for: Normal Inspection - Respiratory Exam Respiratory Exam: Clear to Auscultation Bilateral - Cardiovascular Exam Cardiovascular Exam: REGULAR RHYTHM - GI/Abdominal Exam GI & Abdominal Exam: Normal Bowel Sounds, Soft. absent: Tenderness - Extremities Exam Extremities exam: Positive for: normal inspection. Negative for: pedal edema - Neurological Exam Neurological exam: Alert, Oriented x3 - Skin Skin Exam: Normal Color Results - Vital Signs Recent Vital Signs: Last Vital Signs Temp 98.2 F 06/10/18 06:18 Pulse 58 L 06/10/18 06:18 Resp 20 06/10/18 06:18 BP 173/74 H 06/10/18 06:18 Pulse Ox 20 L 06/10/18 06:18 - Labs Result Diagrams: 06/09/18 19:31 06/09/18 19:31 Labs: Laboratory Results - last 24 hr 06/09/18 06/09/18 06/09/18 18:50 19:31 19:31 WBC 3.7 L RBC 3.82 L Hgb 11.3 L Hct 34.8 L MCV 91.3 D MCH 29.6 MCHC 32.4 L RDW 15.2 H Plt Count 117 L D MPV 10.3 Neut % (Auto) 64.2 Lymph % (Auto) 23.8 [place] % (Auto) 7.6 Eos % (Auto) 3.2 Baso % (Auto) 1.2 Neut # (Auto) 2.4 Lymph # (Auto) 0.9 L [place] # (Auto) 0.3 Eos # (Auto) 0.1 Baso # (Auto) 0.0 Sodium 135 Potassium 4.0 Chloride 87 L Carbon Dioxide 34 H Anion Gap 18 BUN 40 H Creatinine 5.6 H Est GFR ( Amer) 13 Est GFR (Non-Af Amer) 11 POC Glucose (mg/dL) 409 H* Random Glucose 394 H D Calcium 9.0 Total Bilirubin 0.8 AST 24 ALT 35 Alkaline Phosphatase 170 H D Total Creatine Kinase CK-MB (Mass) Troponin I Total Protein 7.9 Albumin 4.9 Globulin 3.0 Albumin/Globulin Ratio 1.6 06/09/18 06/09/18 06/10/18 20:39 23:10 03:38 WBC RBC Hgb Hct MCV MCH MCHC RDW Plt Count MPV Neut % (Auto) Lymph % (Auto) [place] % (Auto) Eos % (Auto) Baso % (Auto) Neut # (Auto) Lymph # (Auto) [place] # (Auto) Eos # (Auto) Baso # (Auto) Sodium Potassium Chloride Carbon Dioxide Anion Gap BUN Creatinine Est GFR ( Amer) Est GFR (Non-Af Amer) POC Glucose (mg/dL) 284 H 267 H Random Glucose Calcium Total Bilirubin AST ALT Alkaline Phosphatase Total Creatine Kinase 72 CK-MB (Mass) 2.40 Troponin I 0.0380 Total Protein Albumin Globulin Albumin/Globulin Ratio Assessment & Plan - Assessment and Plan (Free Text) Assessment: 1.Uncontrolled BP-improved with meds contine BP meds 2.Hyperglycemia in patient with DM 3.Anemia BP improved .will not admit to ICU at present time
--- NOTE | 2018-06-10 07:18 | CT ---
Date of service: 06/09/2018 PROCEDURE: CT HEAD WITHOUT CONTRAST. HISTORY: Headache. Increased blood pressure. COMPARISON: 01/29/2018 TECHNIQUE: Axial computed tomography images were obtained through the head/brain without intravenous contrast. Radiation dose: Total exam DLP = 850.69 mGy-cm. This CT exam was performed using one or more of the following dose reduction techniques: Automated exposure control, adjustment of the mA and/or kV according to patient size, and/or use of iterative reconstruction technique. FINDINGS: HEMORRHAGE: No intracranial hemorrhage. BRAIN: No mass effect or edema. Scattered focal lucencies in the subcortical and periventricular white matter suggestive for chronic microvascular ischemic change. Punctate left basal ganglia lacunar infarct. Chronic lacunar infarct in the left thalamus. Prominent cisterna magna.. VENTRICLES: Unremarkable. No hydrocephalus. CALVARIUM: Unremarkable. PARANASAL SINUSES: Unremarkable as visualized. No significant inflammatory changes. MASTOID AIR CELLS: Unremarkable as visualized. No inflammatory changes. OTHER FINDINGS: Intracranial arterial calcifications. IMPRESSION: Chronic microvascular ischemic changes. Chronic lacunar infarcts in the left basal ganglia and thalamus. Prominent cisterna magna. If symptoms persists, consider correlation with MRI. A preliminary report was generated at 9:15 p.m. on 06/09/[address] Alexx Dugan from [employer].
[2018-06-10] MEDS: (Novolog) Insulin Aspart, Recombinant 100 u/ml 10 ml vial SC SCH ×4 (08:14→21:17)
[2018-06-10] MEDS ORDERED: Pantoprazole 20 mg EC Tab PO SCH (10:00)
[2018-06-10] MEDS ORDERED: (Novolog) Insulin Aspart, Recombinant 100 u/ml 10 ml vial SC SCH (10:00)
[2018-06-10 13:29] LABS: CK-MB 2.49 ng/mL (0.0-3.38); TROPONIN I 0.036 ng/mL (0.00-0.120)
--- NOTE | 2018-06-10 14:59 | CP.PCM.CON ---
History of Present Illness - History of Present Illness History of Present Illness: 57 year old male with h/o HTN, DM,anemia,ESRD on HD presents to ER complaining of headache. Patient came from dialysis yesterday afternoon and was found to have elevated blood pressure Patient reports not taking his BP medication yesterday.Had chest pain yesterday as well. initial Bp was 230/130 Denies chest pain or SOB at present . feels fine , no headaches In ER, he was treated with trandate,imdur,norvasc and clonidine with improvement in BP PMHx- as above PSHx- av fistula placement Social- no smoking, alcohol or drugs Family- no family history of kidney disease Review of Systems - Review of Systems Review of Systems: as per HPI, other than that 10 point ROS negative Past Patient History - Infectious Disease Hx of Infectious Diseases: None - Past Medical History & Family History Past Medical History?: Yes - Past Social History Smoking Status: Never Smoked Home Situation {Lives}: With Family - CARDIAC Hx Hypertension: Yes - RENAL Hx Chronic Kidney Disease: Yes - ENDOCRINE/METABOLIC Hx Endocrine Disorders: Yes Hx Diabetes Mellitus Type 2: Yes - HEMATOLOGICAL/ONCOLOGICAL Hx Anemia: Yes - MUSCULOSKELETAL/RHEUMATOLOGICAL Hx Falls: No - PSYCHIATRIC Hx Substance Use: No - SURGICAL HISTORY Hx Surgeries: Yes Hx Orthopedic Surgery: Yes (left shoulder) Hx Vascular Access Device: Yes (Left arm AV shunt) - ANESTHESIA Hx Anesthesia: Yes Hx Anesthesia Reactions: No Meds Home Medications: Home Medication List Medication Instructions Recorded Confirmed Type Mv,Vargas,Min/Iron/Folic Acid/Lut 1 tab PO DAILY #30 tab 06/09/18 Rx [Complete Multi] Allergies/Adverse Reactions: Allergies Allergy/AdvReac Type Severity Reaction Status Date / Time No Known Allergies Allergy Verified 06/09/18 18:31 - Medications Medications: Current Medications Amlodipine Besylate (Norvasc) 10 mg PO DAILY [facility] Last Admin: 06/10/18 11:28 Dose: 10 mg Aspirin (Aspirin) 325 mg PO DAILY [facility] Last Admin: 06/10/18 11:28 Dose: 325 mg Calcium Acetate (Phoslo) 667 mg PO TIDCC [facility] Last Admin: 06/10/18 12:48 Dose: 667 mg Carvedilol (Coreg) 12.5 mg PO BID [facility] Last Admin: 06/10/18 11:28 Dose: 12.5 mg Clonidine HCl (Catapres) 0.1 mg PO Q8 [facility] Last Admin: 06/10/18 13:54 Dose: 0.1 mg Clopidogrel Bisulfate (Plavix) 75 mg PO DAILY [facility] Last Admin: 06/10/18 11:28 Dose: 75 mg Glipizide (Glucotrol) 5 mg PO DAILY [facility] Last Admin: 06/10/18 11:28 Dose: 5 mg Heparin Sodium (Porcine) (Heparin) 5,000 units SC BID [facility] Last Admin: 06/10/18 11:29 Dose: 5,000 units Influenza Virus Vaccine (Flucelvax Quad [id number] Syr) 60 mcg IM .ONCE ONE Stop: 06/12/18 10:01 Insulin Aspart (Novolog) 0 unit SC [facility]; Protocol Last Admin: 06/10/18 11:38 Dose: 10 u Isosorbide Mononitrate (Imdur) 60 mg PO DAILY [facility] Last Admin: 06/10/18 11:28 Dose: 60 mg Losartan Potassium (Cozaar) 100 mg PO DAILY [facility] Last Admin: 06/10/18 11:28 Dose: 100 mg Minoxidil (Minoxidil) 2.5 mg PO BID [facility] Last Admin: 06/10/18 11:29 Dose: 2.5 mg Pantoprazole Sodium (Protonix Ec Tab) 20 mg PO DAILY [facility] Last Admin: 06/10/18 11:28 Dose: 20 mg Pneumococcal Polyvalent Vaccine (Pneumovax 23 Vaccine) 0.5 ml IM .ONCE ONE Stop: 06/12/18 10:01 Rosuvastatin Calcium (Crestor) 5 mg PO [facility] Sitagliptin Phosphate (Januvia) 25 mg PO DAILY [facility] Last Admin: 06/10/18 11:28 Dose: 25 mg Physical Exam - Constitutional Appears: Well, Non-toxic - Head Exam Head Exam: ATRAUMATIC, NORMOCEPHALIC - Eye Exam Eye Exam: EOMI, PERRL - ENT Exam ENT Exam: Mucous Membranes Moist - Neck Exam Neck exam: Negative for: Lymphadenopathy - Respiratory Exam Respiratory Exam: Clear to Auscultation Bilateral. absent: Rhonchi, Wheezes - Cardiovascular Exam Cardiovascular Exam: REGULAR RHYTHM, +S1, +S2 - GI/Abdominal Exam GI & Abdominal Exam: Normal Bowel Sounds, Soft. absent: Tenderness - Extremities Exam Extremities exam: Positive for: full ROM. Negative for: pedal edema - Neurological Exam Neurological exam: Alert, Oriented x3 - Psychiatric Exam Psychiatric exam: Normal Affect, Normal Mood - Skin Skin Exam: Dry, Intact, Normal Color Results - Vital Signs Recent Vital Signs: Last Vital Signs Temp 98.1 F 06/10/18 07:40 Pulse 63 06/10/18 12:51 Resp 18 06/10/18 07:40 BP 152/66 H 06/10/18 11:35 Pulse Ox 94 L 06/10/18 07:40 - Labs Result Diagrams: 06/09/18 19:31 06/09/18 19:31 Labs: Laboratory Results - last 24 hr 06/09/18 06/09/18 06/09/18 18:50 19:31 19:31 WBC 3.7 L RBC 3.82 L Hgb 11.3 L Hct 34.8 L MCV 91.3 D MCH 29.6 MCHC 32.4 L RDW 15.2 H Plt Count 117 L D MPV 10.3 Neut % (Auto) 64.2 Lymph % (Auto) 23.8 [place] % (Auto) 7.6 Eos % (Auto) 3.2 Baso % (Auto) 1.2 Neut # (Auto) 2.4 Lymph # (Auto) 0.9 L [place] # (Auto) 0.3 Eos # (Auto) 0.1 Baso # (Auto) 0.0 Sodium 135 Potassium 4.0 Chloride 87 L Carbon Dioxide 34 H Anion Gap 18 BUN 40 H Creatinine 5.6 H Est GFR ( Amer) 13 Est GFR (Non-Af Amer) 11 POC Glucose (mg/dL) 409 H* Random Glucose 394 H D Calcium 9.0 Total Bilirubin 0.8 AST 24 ALT 35 Alkaline Phosphatase 170 H D Total Creatine Kinase CK-MB (Mass) Troponin I Total Protein 7.9 Albumin 4.9 Globulin 3.0 Albumin/Globulin Ratio 1.6 06/09/18 06/09/18 06/10/18 20:39 23:10 03:38 WBC RBC Hgb Hct MCV MCH MCHC RDW Plt Count MPV Neut % (Auto) Lymph % (Auto) [place] % (Auto) Eos % (Auto) Baso % (Auto) Neut # (Auto) Lymph # (Auto) [place] # (Auto) Eos # (Auto) Baso # (Auto) Sodium Potassium Chloride Carbon Dioxide Anion Gap BUN Creatinine Est GFR ( Amer) Est GFR (Non-Af Amer) POC Glucose (mg/dL) 284 H 267 H Random Glucose Calcium Total Bilirubin AST ALT Alkaline Phosphatase Total Creatine Kinase 72 CK-MB (Mass) 2.40 Troponin I 0.0380 Total Protein Albumin Globulin Albumin/Globulin Ratio 06/10/18 12:10 WBC RBC Hgb Hct MCV MCH MCHC RDW Plt Count MPV Neut % (Auto) Lymph % (Auto) [place] % (Auto) Eos % (Auto) Baso % (Auto) Neut # (Auto) Lymph # (Auto) [place] # (Auto) Eos # (Auto) Baso # (Auto) Sodium Potassium Chloride Carbon Dioxide Anion Gap BUN Creatinine Est GFR ( Amer) Est GFR (Non-Af Amer) POC Glucose (mg/dL) Random Glucose Calcium Total Bilirubin AST ALT Alkaline Phosphatase Total Creatine Kinase 65 CK-MB (Mass) 2.49 Troponin I 0.0360 Total Protein Albumin Globulin Albumin/Globulin Ratio Assessment & Plan (1) Hypertensive urgency Status: Acute (2) ESRD (end stage renal disease) on dialysis Status: Acute (3) Severe hypertension Status: Acute (4) Chest pain Status: Acute - Assessment and Plan (Free Text) Plan: hd tomorrow increase clonidine to .2 tid for elevated BP chest pain likely related to elevated BP improved now troponins negative
--- NOTE | 2018-06-10 19:34 | CP.PCM.HP ---
Past Patient History - Infectious Disease Hx of Infectious Diseases: None - Past Medical History & Family History Past Medical History?: Yes - Past Social History Smoking Status: Never Smoked Home Situation {Lives}: With Family - CARDIAC Hx Hypertension: Yes - RENAL Hx Chronic Kidney Disease: Yes - ENDOCRINE/METABOLIC Hx Endocrine Disorders: Yes Hx Diabetes Mellitus Type 2: Yes - HEMATOLOGICAL/ONCOLOGICAL Hx Anemia: Yes - MUSCULOSKELETAL/RHEUMATOLOGICAL Hx Falls: No - PSYCHIATRIC Hx Substance Use: No - SURGICAL HISTORY Hx Surgeries: Yes Hx Orthopedic Surgery: Yes (left shoulder) Hx Vascular Access Device: Yes (Left arm AV shunt) - ANESTHESIA Hx Anesthesia: Yes Hx Anesthesia Reactions: No Meds Home Medications: Home Medication List Medication Instructions Recorded Confirmed Type Mv,Vargas,Min/Iron/Folic Acid/Lut 1 tab PO DAILY #30 tab 06/09/18 Rx [Complete Multi] Allergies/Adverse Reactions: Allergies Allergy/AdvReac Type Severity Reaction Status Date / Time No Known Allergies Allergy Verified 06/09/18 18:31 Physical Exam - Constitutional Appears: Well - Head Exam Head Exam: ATRAUMATIC, NORMAL INSPECTION, NORMOCEPHALIC - Eye Exam Eye Exam: EOMI, Normal appearance, PERRL Pupil Exam: NORMAL ACCOMODATION, PERRL - ENT Exam ENT Exam: Mucous Membranes Moist, Normal Exam - Neck Exam Neck exam: Positive for: Normal Inspection - Respiratory Exam Respiratory Exam: Decreased Breath Sounds - Cardiovascular Exam Cardiovascular Exam: REGULAR RHYTHM, +S1, +S2 - GI/Abdominal Exam GI & Abdominal Exam: Diminished Bowel Sounds, Soft - Rectal Exam Rectal Exam: Deferred Results - Vital Signs Recent Vital Signs: Last Vital Signs Temp 98.1 F 06/10/18 16:35 Pulse 63 06/10/18 16:35 Resp 20 06/10/18 16:35 BP 130/78 06/10/18 17:41 Pulse Ox 95 06/10/18 16:35 - Labs Result Diagrams: 06/09/18 19:31 06/09/18 19:31 Labs: Laboratory Results - last 24 hr 06/09/18 06/09/18 06/09/18 19:31 19:31 20:39 WBC 3.7 L RBC 3.82 L Hgb 11.3 L Hct 34.8 L MCV 91.3 D MCH 29.6 MCHC 32.4 L RDW 15.2 H Plt Count 117 L D MPV 10.3 Neut % (Auto) 64.2 Lymph % (Auto) 23.8 [place] % (Auto) 7.6 Eos % (Auto) 3.2 Baso % (Auto) 1.2 Neut # (Auto) 2.4 Lymph # (Auto) 0.9 L [place] # (Auto) 0.3 Eos # (Auto) 0.1 Baso # (Auto) 0.0 Sodium 135 Potassium 4.0 Chloride 87 L Carbon Dioxide 34 H Anion Gap 18 BUN 40 H Creatinine 5.6 H Est GFR ( Amer) 13 Est GFR (Non-Af Amer) 11 POC Glucose (mg/dL) 284 H Random Glucose 394 H D Calcium 9.0 Total Bilirubin 0.8 AST 24 ALT 35 Alkaline Phosphatase 170 H D Total Creatine Kinase CK-MB (Mass) Troponin I Total Protein 7.9 Albumin 4.9 Globulin 3.0 Albumin/Globulin Ratio 1.6 Hep Bs Antigen 06/09/18 06/10/18 06/10/18 23:10 03:38 12:10 WBC RBC Hgb Hct MCV MCH MCHC RDW Plt Count MPV Neut % (Auto) Lymph % (Auto) [place] % (Auto) Eos % (Auto) Baso % (Auto) Neut # (Auto) Lymph # (Auto) [place] # (Auto) Eos # (Auto) Baso # (Auto) Sodium Potassium Chloride Carbon Dioxide Anion Gap BUN Creatinine Est GFR ( Amer) Est GFR (Non-Af Amer) POC Glucose (mg/dL) 267 H Random Glucose Calcium Total Bilirubin AST ALT Alkaline Phosphatase Total Creatine Kinase 72 65 CK-MB (Mass) 2.40 2.49 Troponin I 0.0380 0.0360 Total Protein Albumin Globulin Albumin/Globulin Ratio Hep Bs Antigen 06/10/18 12:10 WBC RBC Hgb Hct MCV MCH MCHC RDW Plt Count MPV Neut % (Auto) Lymph % (Auto) [place] % (Auto) Eos % (Auto) Baso % (Auto) Neut # (Auto) Lymph # (Auto) [place] # (Auto) Eos # (Auto) Baso # (Auto) Sodium Potassium Chloride Carbon Dioxide Anion Gap BUN Creatinine Est GFR ( Amer) Est GFR (Non-Af Amer) POC Glucose (mg/dL) Random Glucose Calcium Total Bilirubin AST ALT Alkaline Phosphatase Total Creatine Kinase CK-MB (Mass) Troponin I Total Protein Albumin Globulin Albumin/Globulin Ratio Hep Bs Antigen Negative
--- NOTE | 2018-06-10 20:08 | CARD ---
APPROVED REPORT Date of service: 06/09/2018 EKG Measurement Heart [id number] <Conclusion> Normal sinus rhythm Possible Left atrial enlargement ST & T wave abnormality, consider inferolateral ischemia Prolonged QT Abnormal ECG
[2018-06-11] MEDS: (Novolog) Insulin Aspart, Recombinant 100 u/ml 10 ml vial SC SCH ×4 (08:12→22:17)
--- NOTE | 2018-06-11 15:35 | CP.PCM.PN ---
Subjective - Date & Time of Evaluation Date of Evaluation: 06/11/18 Time of Evaluation: 15:32 - Subjective Subjective: pt seen and examined had HD earlier no headacehs no CP bp remains elevated on multiple meds ROS- as per HPI, other than that 10 point ROS negative Objective - Vital Signs/Intake and Output Vital Signs (last 24 hours): Temp Pulse Resp BP Pulse Ox 97.7 F 65 19 192/89 H 98 06/11/18 12:25 06/11/18 13:03 06/11/18 12:25 06/11/18 14:08 06/11/18 12:25 - Medications Medications: Current Medications Amlodipine Besylate (Norvasc) 10 mg PO DAILY [facility] Last Admin: 06/11/18 09:23 Dose: Not Given Aspirin (Aspirin) 325 mg PO DAILY [facility] Last Admin: 06/11/18 13:02 Dose: 325 mg Calcium Acetate (Phoslo) 667 mg PO TIDCC [facility] Last Admin: 06/11/18 11:54 Dose: Not Given Carvedilol (Coreg) 12.5 mg PO BID [facility] Last Admin: 06/11/18 09:22 Dose: Not Given Clonidine HCl (Catapres) 0.1 mg PO Q8 [facility] Last Admin: 06/11/18 13:02 Dose: 0.1 mg Clopidogrel Bisulfate (Plavix) 75 mg PO DAILY [facility] Last Admin: 06/11/18 13:02 Dose: 75 mg Famotidine (Pepcid) 20 mg PO DAILY [facility] Last Admin: 06/11/18 13:03 Dose: 20 mg Glipizide (Glucotrol) 5 mg PO DAILY [facility] Last Admin: 06/11/18 09:22 Dose: Not Given Heparin Sodium (Porcine) (Heparin) 5,000 units SC BID [facility] Last Admin: 06/11/18 09:22 Dose: Not Given Influenza Virus Vaccine (Flucelvax Quad 7591-7316 Syr) 60 mcg IM .ONCE ONE Stop: 06/12/18 10:01 Insulin Aspart (Novolog) [address] [facility]; Protocol Last Admin: 06/11/18 11:54 Dose: Not Given Isosorbide Mononitrate (Imdur) 60 mg PO DAILY [facility] Last Admin: 06/11/18 13:02 Dose: 60 mg Losartan Potassium (Cozaar) 100 mg PO DAILY [facility] Last Admin: 06/11/18 09:22 Dose: Not Given Minoxidil (Minoxidil) 5 mg PO BID [facility] Pneumococcal Polyvalent Vaccine (Pneumovax 23 Vaccine) 0.5 ml IM .ONCE ONE Stop: 06/12/18 10:01 Rosuvastatin Calcium (Crestor) 5 mg PO HS [facility] Last Admin: 06/10/18 21:22 Dose: 5 mg Sitagliptin Phosphate (Januvia) 25 mg PO DAILY [facility] Last Admin: 06/11/18 09:23 Dose: Not Given - Labs Labs: 06/09/18 19:31 06/09/18 19:31 - Constitutional Appears: Well, Non-toxic - Head Exam Head Exam: ATRAUMATIC, NORMOCEPHALIC - Eye Exam Eye Exam: EOMI, PERRL - ENT Exam ENT Exam: Mucous Membranes Moist - Neck Exam Neck Exam: Full ROM - Respiratory Exam Respiratory Exam: Clear to Ausculation Bilateral. absent: Rhonchi, Wheezes - Cardiovascular Exam Cardiovascular Exam: REGULAR RHYTHM, +S1, +S2 - GI/Abdominal Exam GI & Abdominal Exam: Soft. absent: Distended, Tenderness - Extremities Exam Extremities Exam: Full ROM. absent: Pedal Edema - Neurological Exam Neurological Exam: Alert, Awake, Oriented x3 - Psychiatric Exam Psychiatric exam: Normal Affect, Normal Mood - Skin Skin Exam: Normal Color, Warm Assessment and Plan (1) Hypertensive urgency Status: Acute (2) ESRD (end stage renal disease) on dialysis Status: Acute (3) Severe hypertension Status: Acute (4) Chest pain Status: Acute - Assessment and Plan (Free Text) Plan: HD today chest pain resolved BP remains elevated will increase clonidine to 0.3 mg
--- NOTE | 2018-06-11 16:54 | CP.PCM.CON ---
History of Present Illness - History of Present Illness History of Present Illness: patient seen/examined full consutl to follow uncontrolled HTN can add amlodipine 10 mg daily HCTZ 25 mg daily Past Patient History - Infectious Disease Hx of Infectious Diseases: None - Past Medical History & Family History Past Medical History?: Yes - Past Social History Smoking Status: Never Smoked Home Situation {Lives}: With Family - CARDIAC Hx Hypertension: Yes - RENAL Hx Chronic Kidney Disease: Yes - ENDOCRINE/METABOLIC Hx Endocrine Disorders: Yes Hx Diabetes Mellitus Type 2: Yes - HEMATOLOGICAL/ONCOLOGICAL Hx Anemia: Yes - MUSCULOSKELETAL/RHEUMATOLOGICAL Hx Falls: No - PSYCHIATRIC Hx Substance Use: No - SURGICAL HISTORY Hx Surgeries: Yes Hx Orthopedic Surgery: Yes (left shoulder) Hx Vascular Access Device: Yes (Left arm AV shunt) - ANESTHESIA Hx Anesthesia: Yes Hx Anesthesia Reactions: No Meds Home Medications: Home Medication List Medication Instructions Recorded Confirmed Type Mv,Vargas,Min/Iron/Folic Acid/Lut 1 tab PO DAILY #30 tab 06/09/18 Rx [Complete Multi] Allergies/Adverse Reactions: Allergies Allergy/AdvReac Type Severity Reaction Status Date / Time No Known Allergies Allergy Verified 06/09/18 18:31 - Medications Medications: Current Medications Amlodipine Besylate (Norvasc) 10 mg PO DAILY [facility] Last Admin: 06/11/18 09:23 Dose: Not Given Aspirin (Aspirin) 325 mg PO DAILY [facility] Last Admin: 06/11/18 13:02 Dose: 325 mg Calcium Acetate (Phoslo) 667 mg PO TIDCC [facility] Last Admin: 06/11/18 11:54 Dose: Not Given Carvedilol (Coreg) 12.5 mg PO BID [facility] Last Admin: 06/11/18 09:22 Dose: Not Given Clonidine HCl (Catapres) 0.3 mg PO Q8 [facility] Clopidogrel Bisulfate (Plavix) 75 mg PO DAILY [facility] Last Admin: 06/11/18 13:02 Dose: 75 mg Famotidine (Pepcid) 20 mg PO DAILY [facility] Last Admin: 06/11/18 13:03 Dose: 20 mg Glipizide (Glucotrol) 5 mg PO DAILY [facility] Last Admin: 06/11/18 09:22 Dose: Not Given Heparin Sodium (Porcine) (Heparin) 5,000 units SC BID [facility] Last Admin: 06/11/18 09:22 Dose: Not Given Influenza Virus Vaccine (Flucelvax Quad 2775-0812 Syr) 60 mcg IM .ONCE ONE Stop: 06/12/18 10:01 Insulin Aspart (Novolog) 0 unit SC ACHS [facility]; Protocol Last Admin: 06/11/18 11:54 Dose: Not Given Isosorbide Mononitrate (Imdur) 60 mg PO DAILY [facility] Last Admin: 06/11/18 13:02 Dose: 60 mg Losartan Potassium (Cozaar) 100 mg PO DAILY [facility] Last Admin: 06/11/18 09:22 Dose: Not Given Minoxidil (Minoxidil) 5 mg PO BID [facility] Pneumococcal Polyvalent Vaccine (Pneumovax 23 Vaccine) 0.5 ml IM .ONCE ONE Stop: 06/12/18 10:01 Rosuvastatin Calcium (Crestor) 5 mg PO HS [facility] Last Admin: 06/10/18 21:22 Dose: 5 mg Sitagliptin Phosphate (Januvia) 25 mg PO DAILY [facility] Last Admin: 06/11/18 09:23 Dose: Not Given Results - Vital Signs Recent Vital Signs: Last Vital Signs Temp 97.7 F 06/11/18 12:25 Pulse 64 06/11/18 15:20 Resp 19 06/11/18 12:25 BP 192/89 H 06/11/18 14:08 Pulse Ox 98 06/11/18 12:25 - Labs Result Diagrams: 06/09/18 19:31 06/09/18 19:31 Labs: Laboratory Results - last 24 hr 06/10/18 06/10/18 06/10/18 06:47 11:34 12:10 POC Glucose (mg/dL) 92 369 H Hep Bs Antigen Negative 06/10/18 06/10/18 06/11/18 16:09 21:00 06:36 POC Glucose (mg/dL) 317 H 162 H 216 H Hep Bs Antigen 06/11/18 11:36 POC Glucose (mg/dL) 77 Hep Bs Antigen
--- NOTE | 2018-06-11 16:54 | CP.PCM.CON ---
History of Present Illness - History of Present Illness History of Present Illness: Patient seen 06/12/18 [id number] I was asked to see patient by Angie Holland Patient is a 57 year old male with HTN ESRD on HD DM who presents with uncontrolled HTN. Symptoms occurred during dialysis. He was noted to be hypertensive and experienced a slight headache. Review of Systems - Constitutional Constitutional: absent: As Per HPI, Anorexia, Chills, Daytime Sleepiness, Excessive Sweating, Fatigue, Fever, Frequent Falls, Headache, Increased Appetite, Lethargy, Malaise, Night Sweats, Snoring, Sleep Apnea, Weight Gain, Weight Loss, Weakness, Other - EENT Eyes: absent: As Per HPI, Blind Spots, Blurred Vision, Change in Vision, Decreased Night Vision, Diplopia, Discharge, Dry Eye, Exophthalmos, Floaters, Irritation, Itchy Eyes, Loss of Peripheral Vision, Pain, Photophobia, Requires Corrective Lenses, Sees Flashes, Spots in Vision, Tunnel Vision, Other Visual Disturbances, Loss of Vision, Other Ears: absent: As Per HPI, Decreased Hearing, Ear Discharge, Ear Pain, Tinnitus, Abnormal Hearing, Disequilibrium, Dizziness, Other Nose/Mouth/Throat: absent: As Per HPI, Epistaxis, Nasal Congestion, Nasal Discharge, Nasal Obstruction, Nasal Trauma, Nose Pain, Post Nasal Drip, Sinus Pain, Sinus Pressure, Bleeding Gums, Change in Voice, Dental Pain, Dry Mouth, Dysphagia, Halitosis, Hoarsness, Lip Swelling, Mouth Lesions, Mouth Pain, Odynophagia, Sore Throat, Throat Swelling, Tongue Swelling, Facial Pain, Neck Pain, Neck Mass, Other - Cardiovascular Cardiovascular: absent: As Per HPI, Acrocyanosis, Chest Pain, Chest Pain at Rest, Chest Pain with Activity, Claudication, Diaphoresis, Dyspnea, Dyspnea on Exertion, Edema, Irregular Heart Rhythm, Pain Radiating to Arm/Neck/Jaw, Leg Edema, Leg Ulcers, Lightheadedness, Orthopnea, Palpitations, Paroxysmal Nocturnal Dyspnea, Pedal Edema, Radiating Pain, Rapid Heart Rate, Slow Heart Rat e, Syncope, Other - Respiratory Respiratory: absent: As Per HPI, Cough, Dyspnea, Hemoptysis, Dyspnea on Exertion, Wheezing, Snoring, Stridor, Pain on Inspiration, Chest Congestion, Excessive Mucous Production, Change in Mucous Color, Pain with Coughing, Other - Gastrointestinal Gastrointestinal: absent: As Per HPI, Abdominal Pain, Belching, Bloating, Change in Bowel Habits, Change in Stool Character, Coffee Ground Emesis, Constipation, Cramping, Diarrhea, Dyspepsia, Dysphagia, Early Satiety, Excessive Flatus, Fecal Incontinence, Heartburn, Hematemesis, Hematochezia, Loose Stools, Melena, Nausea, Odynophagia, Temesmus, Vomiting, Other - Genitourinary Genitourinary: absent: As Per HPI, Change in Urinary Stream, Difficulty Urinating, Dysuria, Flank Pain, Hematuria, Pyuria, Nocturia, Urinary Incontinence, Urinary Frequency, Urinary Hesitance, Urinary Urgency, Voiding Freq/Small Amts, Freq UTI, Hx Renal/Bladder Calculi, Hx /Renal Surgery, Bladder Distension, Other - Musculoskeletal Musculoskeletal: absent: As Per HPI, Abnormal Gait, Arthralgias, Atrophy, Back Pain, Deformity, Joint Swelling, Limited Range of Motion, Loss of Height, Muscle Cramps, Muscle Weakness, Myalgias, Neck Pain, Numbness, Radiating Pain into Limb, Stiffness, Tingling, Other - Integumentary Integumentary: absent: As Per HPI, Acne, Alopecia, Bleeding Lesions, Change in Hair, Change in Nails, Change in Pigmentation, Changing Lesions, Dry Skin, Erythema, Furuncle, Hirsutism, Lesions, New Lesions, Non-Healing Lesions, Photosensitivity, Pruritus, Rash, Skin Pain, Skin Ulcer, Sores, Striae, Swelling, Unusual Bruising, Wounds, Jaundice, Other - Neurological Neurological: Headaches - Psychiatric Psychiatric: absent: As Per HPI, Abnormal Sleep Pattern, Anhedonia, Anxiety, Auditory Hallucinations, Behavioral Changes, Change in Appetite, Change in Libido, Confusion, Depression, Difficulty Concentrating, Hallucinations, Homicidal Ideation, Hopelessness, Irritability, Memory Loss, Mood Swings, Panic Attacks, Paranoia, Suicidal Ideation, Visual Hallucinations, Tactile Hallucinations, Other - Endocrine Endocrine: absent: As Per HPI, Change in Body Appearance, Change in Libido, Cold Intolorance, Deepening of Voice, Excessive Sweating, Fatigue, Flushing, Heat Intolorance, Increase in Ring/Shoe/Hat Size, Palpitations, Polydipsia, Polyphagia, Polyuria, Other - Hematologic/Lymphatic Hematologic: absent: As Per HPI, Easy Bleeding, Easy Bruising, Lymphadenopathy, Other Past Patient History - Infectious Disease Hx of Infectious Diseases: None - Past Medical History & Family History Past Medical History?: Yes - Past Social History Smoking Status: Never Smoked Home Situation {Lives}: With Family - CARDIAC Hx Hypertension: Yes - RENAL Hx Chronic Kidney Disease: Yes - ENDOCRINE/METABOLIC Hx Endocrine Disorders: Yes Hx Diabetes Mellitus Type 2: Yes - HEMATOLOGICAL/ONCOLOGICAL Hx Anemia: Yes - MUSCULOSKELETAL/RHEUMATOLOGICAL Hx Falls: No - PSYCHIATRIC Hx Substance Use: No - SURGICAL HISTORY Hx Surgeries: Yes Hx Orthopedic Surgery: Yes (left shoulder) Hx Vascular Access Device: Yes (Left arm AV shunt) - ANESTHESIA Hx Anesthesia: Yes Hx Anesthesia Reactions: No Meds Home Medications: Home Medication List Medication Instructions Recorded Confirmed Type Mv,Vargas,Min/Iron/Folic Acid/Lut 1 tab PO DAILY #30 tab 06/09/18 Rx [Complete Multi] Isosorbide Mononitrate [Imdur] 60 mg PO DAILY #30 tab 06/12/18 Rx Losartan [Cozaar] 100 mg PO DAILY #30 tab 06/12/18 Rx cloNIDine [Catapres] 0.3 mg PO Q8 #90 tab 06/12/18 Rx Allergies/Adverse Reactions: Allergies Allergy/AdvReac Type Severity Reaction Status Date / Time No Known Allergies Allergy Verified 06/09/18 18:31 - Medications Medications: Current Medications Amlodipine Besylate (Norvasc) 10 mg PO DAILY [facility] Last Admin: 06/11/18 09:23 Dose: Not Given Aspirin (Aspirin) 325 mg PO DAILY [facility] Last Admin: 06/11/18 13:02 Dose: 325 mg Calcium Acetate (Phoslo) 667 mg PO TIDCC [facility] Last Admin: 06/11/18 11:54 Dose: Not Given Carvedilol (Coreg) 12.5 mg PO BID [facility] Last Admin: 06/11/18 09:22 Dose: Not Given Clonidine HCl (Catapres) 0.3 mg PO Q8 [facility] Clopidogrel Bisulfate (Plavix) 75 mg PO DAILY [facility] Last Admin: 06/11/18 13:02 Dose: 75 mg Famotidine (Pepcid) 20 mg PO DAILY [facility] Last Admin: 06/11/18 13:03 Dose: 20 mg Glipizide (Glucotrol) 5 mg PO DAILY [facility] Last Admin: 06/11/18 09:22 Dose: Not Given Heparin Sodium (Porcine) (Heparin) 5,000 units SC BID [facility] Last Admin: 06/11/18 09:22 Dose: Not Given Influenza Virus Vaccine (Flucelvax Quad 4249-6019 Syr) 60 mcg IM .ONCE ONE Stop: 06/12/18 10:01 Insulin Aspart (Novolog) 0 unit SC [facility]; Protocol Last Admin: 06/11/18 11:54 Dose: Not Given Isosorbide Mononitrate (Imdur) 60 mg PO DAILY [facility] Last Admin: 06/11/18 13:02 Dose: 60 mg Losartan Potassium (Cozaar) 100 mg PO DAILY [facility] Last Admin: 06/11/18 09:22 Dose: Not Given Minoxidil (Minoxidil) 5 mg PO BID [facility] Pneumococcal Polyvalent Vaccine (Pneumovax 23 Vaccine) 0.5 ml IM .ONCE ONE Stop: 06/12/18 10:01 Rosuvastatin Calcium (Crestor) 5 mg PO HS [facility] Last Admin: 06/10/18 21:22 Dose: 5 mg Sitagliptin Phosphate (Januvia) 25 mg PO DAILY [facility] Last Admin: 06/11/18 09:23 Dose: Not Given Physical Exam - Constitutional Appears: Non-toxic - Head Exam Head Exam: NORMAL INSPECTION - Eye Exam Eye Exam: Normal appearance - ENT Exam ENT Exam: Mucous Membranes Moist - Neck Exam Neck exam: Positive for: Full Rom - Respiratory Exam Respiratory Exam: NORMAL BREATHING PATTERN - Cardiovascular Exam Cardiovascular Exam: REGULAR RHYTHM - GI/Abdominal Exam GI & Abdominal Exam: Normal Bowel Sounds - Rectal Exam Rectal Exam: Deferred - Extremities Exam Extremities exam: Positive for: normal inspection. Negative for: pedal edema - Back Exam Back exam: NORMAL INSPECTION - Neurological Exam Neurological exam: Alert, Oriented x3 - Psychiatric Exam Psychiatric exam: Normal Affect - Skin Skin Exam: Normal Color Results - Vital Signs Recent Vital Signs: Last Vital Signs Temp 97.7 F 06/11/18 12:25 Pulse 64 06/11/18 15:20 Resp 19 06/11/18 12:25 BP 192/89 H 06/11/18 14:08 Pulse Ox 98 06/11/18 12:25 - Labs Result Diagrams: 06/09/18 19:31 06/09/18 19:31 Labs: Laboratory Results - last 24 hr 06/10/18 06/10/18 06/10/18 06:47 11:34 12:10 POC Glucose (mg/dL) 92 369 H Hep Bs Antigen Negative 06/10/18 06/10/18 06/11/18 16:09 21:00 06:36 POC Glucose (mg/dL) 317 H 162 H 216 H Hep Bs Antigen 06/11/18 11:36 POC Glucose (mg/dL) 77 Hep Bs Antigen - EKG Data EKG Interpreted by: Myself EKG shows normal: Sinus rhythm Assessment & Plan (1) Hypertensive urgency Assessment and Plan: no neruolgical sequelae at present. recommend additoion of amlodipine. can add HCTZ Status: Acute (2) Diabetes Assessment and Plan: glucose control Status: Acute (3) ESRD (end stage renal disease) on dialysis Assessment and Plan: wlee controlled Status: Acute
--- NOTE | 2018-06-11 18:41 | CP.PCM.PN ---
Subjective - Date & Time of Evaluation Date of Evaluation: 06/11/18 Time of Evaluation: 10:30 - Subjective Subjective: clinically same Objective - Vital Signs/Intake and Output Vital Signs (last 24 hours): Temp Pulse Resp BP Pulse Ox 97.4 F L 62 18 167/82 H 96 06/11/18 16:00 06/11/18 16:00 06/11/18 16:00 06/11/18 17:50 06/11/18 16:00 - Medications Medications: Current Medications Amlodipine Besylate (Norvasc) 10 mg PO DAILY [facility] Last Admin: 06/11/18 09:23 Dose: Not Given Aspirin (Aspirin) 325 mg PO DAILY [facility] Last Admin: 06/11/18 13:02 Dose: 325 mg Calcium Acetate (Phoslo) 667 mg PO TIDCC [facility] Last Admin: 06/11/18 17:49 Dose: 667 mg Carvedilol (Coreg) 12.5 mg PO BID [facility] Last Admin: 06/11/18 17:50 Dose: 12.5 mg Clonidine HCl (Catapres) 0.3 mg PO Q8 [facility] Clopidogrel Bisulfate (Plavix) 75 mg PO DAILY [facility] Last Admin: 06/11/18 13:02 Dose: 75 mg Famotidine (Pepcid) 20 mg PO DAILY [facility] Last Admin: 06/11/18 13:03 Dose: 20 mg Glipizide (Glucotrol) 5 mg PO DAILY [facility] Last Admin: 06/11/18 09:22 Dose: Not Given Heparin Sodium (Porcine) (Heparin) 5,000 units SC BID [facility] Last Admin: 06/11/18 17:50 Dose: 5,000 units Influenza Virus Vaccine (Flucelvax Quad [id number] Syr) 60 mcg IM .ONCE ONE Stop: 06/12/18 10:01 Insulin Aspart (Novolog) 0 unit SC [facility]; Protocol Last Admin: 06/11/18 11:54 Dose: Not Given Isosorbide Mononitrate (Imdur) 60 mg PO DAILY [facility] Last Admin: 06/11/18 13:02 Dose: 60 mg Losartan Potassium (Cozaar) 100 mg PO DAILY [facility] Last Admin: 06/11/18 09:22 Dose: Not Given Minoxidil (Minoxidil) 5 mg PO BID [facility] Last Admin: 06/11/18 17:49 Dose: 5 mg Pneumococcal Polyvalent Vaccine (Pneumovax 23 Vaccine) 0.5 ml IM .ONCE ONE Stop: 06/12/18 10:01 Rosuvastatin Calcium (Crestor) 5 mg PO HS [facility] Last Admin: 06/10/18 21:22 Dose: 5 mg Sitagliptin Phosphate (Januvia) 25 mg PO DAILY [facility] Last Admin: 06/11/18 09:23 Dose: Not Given - Labs Labs: 06/09/18 19:31 06/09/18 19:31 - Constitutional Appears: Well - Head Exam Head Exam: ATRAUMATIC, NORMAL INSPECTION, NORMOCEPHALIC - Eye Exam Eye Exam: EOMI, Normal appearance, PERRL Pupil Exam: Fixed - ENT Exam ENT Exam: Mucous Membranes Moist, Normal Exam - Neck Exam Neck Exam: Full ROM, Normal Inspection. absent: Lymphadenopathy - Respiratory Exam Respiratory Exam: Decreased Breath Sounds - Cardiovascular Exam Cardiovascular Exam: REGULAR RHYTHM, +S1, +S2 - GI/Abdominal Exam GI & Abdominal Exam: Soft, Diminished Bowel Sounds - Rectal Exam Rectal Exam: Deferred
[2018-06-12 00:31] VITALS: RESP 20
[2018-06-12] MEDS: (Novolog) Insulin Aspart, Recombinant 100 u/ml 10 ml vial SC SCH ×2 (07:42→11:23)
[2018-06-12 08:04] VITALS: TEMP 98.7; O2SAT 97
--- NOTE | 2018-06-12 08:22 | CP.PCM.PN ---
Subjective - Date & Time of Evaluation Date of Evaluation: 06/12/18 Time of Evaluation: 08:20 - Subjective Subjective: pt seen and examined feels good wants to go home no CP or OSB no headaches, dizziness or palpitations ROS- as per HPI, other than that 10 point ROS negative Objective - Vital Signs/Intake and Output Vital Signs (last 24 hours): Temp Pulse Resp BP Pulse Ox 98.7 F 59 L 20 176/75 H 97 06/12/18 07:00 06/12/18 07:00 06/12/18 07:00 06/12/18 07:00 06/12/18 07:00 - Medications Medications: Current Medications Amlodipine Besylate (Norvasc) 10 mg PO DAILY [facility] Last Admin: 06/11/18 09:23 Dose: Not Given Aspirin (Aspirin) 325 mg PO DAILY [facility] Last Admin: 06/11/18 13:02 Dose: 325 mg Calcium Acetate (Phoslo) 667 mg PO TIDCC [facility] Last Admin: 06/12/18 07:42 Dose: 667 mg Carvedilol (Coreg) 12.5 mg PO BID [facility] Last Admin: 06/11/18 17:50 Dose: 12.5 mg Clonidine HCl (Catapres) 0.3 mg PO Q8 [facility] Last Admin: 06/12/18 05:47 Dose: 0.3 mg Clopidogrel Bisulfate (Plavix) 75 mg PO DAILY [facility] Last Admin: 06/11/18 13:02 Dose: 75 mg Famotidine (Pepcid) 20 mg PO DAILY [facility] Last Admin: 06/11/18 13:03 Dose: 20 mg Glipizide (Glucotrol) 5 mg PO DAILY [facility] Last Admin: 06/11/18 09:22 Dose: Not Given Heparin Sodium (Porcine) (Heparin) 5,000 units SC BID [facility] Last Admin: 06/11/18 17:50 Dose: 5,000 units Influenza Virus Vaccine (Flucelvax Quad 9835-0371 Syr) 60 mcg IM .ONCE ONE Stop: 06/12/18 10:01 Insulin Aspart (Novolog) 0 unit SC [facility]; Protocol Last Admin: 06/12/18 07:42 Dose: 4 u Isosorbide Mononitrate (Imdur) 60 mg PO DAILY [facility] Last Admin: 06/11/18 13:02 Dose: 60 mg Losartan Potassium (Cozaar) 100 mg PO DAILY [facility] Last Admin: 06/11/18 09:22 Dose: Not Given Minoxidil (Minoxidil) 5 mg PO BID [facility] Last Admin: 06/11/18 17:49 Dose: 5 mg Pneumococcal Polyvalent Vaccine (Pneumovax 23 Vaccine) 0.5 ml IM .ONCE ONE Stop: 06/12/18 10:01 Rosuvastatin Calcium (Crestor) 5 mg PO HS [facility] Last Admin: 06/11/18 21:20 Dose: 5 mg Sitagliptin Phosphate (Januvia) 25 mg PO DAILY [facility] Last Admin: 06/11/18 09:23 Dose: Not Given - Labs Labs: 06/09/18 19:31 06/09/18 19:31 - Constitutional Appears: Well, Non-toxic - Head Exam Head Exam: ATRAUMATIC, NORMOCEPHALIC - Eye Exam Eye Exam: EOMI, PERRL - ENT Exam ENT Exam: Mucous Membranes Moist - Neck Exam Neck Exam: Full ROM - Respiratory Exam Respiratory Exam: Clear to Ausculation Bilateral. absent: Rhonchi, Wheezes - Cardiovascular Exam Cardiovascular Exam: REGULAR RHYTHM, +S1, +S2 - GI/Abdominal Exam GI & Abdominal Exam: Soft. absent: Distended, Tenderness - Extremities Exam Extremities Exam: Full ROM. absent: Pedal Edema - Neurological Exam Neurological Exam: Alert, Awake, Oriented x3 - Psychiatric Exam Psychiatric exam: Normal Affect, Normal Mood - Skin Skin Exam: Normal Color, Warm Assessment and Plan (1) Hypertensive urgency Status: Acute (2) ESRD (end stage renal disease) on dialysis Status: Acute (3) Severe hypertension Status: Acute (4) Chest pain Status: Acute - Assessment and Plan (Free Text) Plan: Maintain HD MWF next HD thursday Bp better from before clonidine dose was increased yesterday pt with resistant HTN and difficult to control despite multiple medications low salt diet stable renal cassidy
[2018-06-12 09:52] VITALS: PULSE 58
[2018-06-12] MEDS ORDERED: Pneumococcal 23-Valent Vaccine IM ONE (10:00)
[2018-06-12] MEDS ORDERED: Influenza Vaccine 60 mcg/0.5 mL SYR (4YR UP) IM ONE (10:00)
[2018-06-12 11:57] VITALS: BP 177/82
--- NOTE | 2018-06-12 18:08 | CP.PCM.PN ---
Subjective - Date & Time of Evaluation Date of Evaluation: 06/12/18 Time of Evaluation: 11:00 - Subjective Subjective: alert and oriented x3, no sob or chest pains, NAD. Objective - Vital Signs/Intake and Output Vital Signs (last 24 hours): Temp Pulse Resp BP Pulse Ox 98.7 F 58 L 20 177/82 H 97 06/12/18 07:00 06/12/18 09:51 06/12/18 07:00 06/12/18 11:55 06/12/18 07:00 - Labs Labs: 06/09/18 19:31 06/09/18 19:31 Assessment and Plan - Assessment and Plan (Free Text) Assessment: Patient admitted with uncontrolled HTN, seen and examined. BP improving, alert and orientedx3, denies sob or chest pains. Cleared by cardiologyst, discussed with DR Deepa Holland, plan to discharge home today. Advised to follow up with PMD in 1 week.
== END 2018-06-12 12:20 | disposition home or self-care (01) ==
LOC: C.ER 18:21 → C.6T 23:47
PROVIDERS: ADMIT Internal Medicine Nephrology; ATTEND Internal Medicine Nephrology
DX: I16.0 Hypertensive urgency (principal); I12.0 Hypertensive chronic kidney disease with stage 5 chronic kidney disease or end stage renal disease; N18.6 End stage renal disease; Z79.899 Other long term (current) drug therapy; Z99.2 Dependence on renal dialysis; R06.02 Shortness of breath; R51 Headache; D64.9 Anemia, unspecified; E11.22 Type 2 diabetes mellitus with diabetic chronic kidney disease; E11.65 Type 2 diabetes mellitus with hyperglycemia
CPT/HCPCS: 36415; 70450; 80053; 82948; 84484; 85025; 87340; 90674; 90732; 93005; 96372; 96374; 99285; G0008; G0009; G0257; G0378; J1644; J1885

== ENCOUNTER 2018-06-16 12:35 | Observation (INO) | payer BC ==
[2018-06-16 12:35] VITALS: BMI 24.3
[2018-06-16 13:57] LABS: BASO # 0.1 K/uL (0.0-0.2); EOS # 0.1 K/uL (0.0-0.7); EOS % 1.5 % (0.0-4.0); HEMOGLOBIN 10.2 g/dL (12.0-18.0); LYMPH # 0.9 K/uL (1.0-4.3); MEAN CELL VOLUME 90.7 fL (80.0-94.0); MEAN PLATELET VOLUME 9.6 fL (7.2-11.7); MONO # 0.3 K/uL (0.0-0.8); NEUT # 4.2 K/uL (1.8-7.0); NEUT % 75.5 % (50.0-75.0); RBC 3.39 Mil/uL (4.40-5.90); RED CELL DISTRIBUTION WIDTH 15.4 % (11.5-14.5)
--- NOTE | 2018-06-16 14:01 | C.PDOC ---
History Of Present Illness 57 y/o male with a PMHx of HTN, ESRD (on dialysis), presents via ambulance, sent in from dialysis for evaluation of headache and markedly elevated blood pressure. Patient states his pressure has been higher than usual for 1 week, naeem pite taking his medications as prescribed. Patient is a somewhat poor historian. He reports only a mild headache on arrival. Time Seen by Provider: 06/16/18 13:30 Chief Complaint (Nursing): Chest Pain History Per: Patient History/Exam Limitations: no limitations Onset/Duration Of Symptoms: Days Current Symptoms Are (Timing): Still Present Past Medical History Reviewed: Historical Data, Nursing Documentation, Vital Signs Vital Signs: Last Vital Signs Temp 98.2 F 06/16/18 13:05 Pulse 58 L 06/16/18 13:05 Resp 18 06/16/18 13:05 BP 202/77 H 06/16/18 13:05 Pulse Ox 94 L 06/16/18 13:05 - Medical History PMH: Anemia, Diabetes, HTN, End Stage Renal Disease, Chronic Kidney Disease Other Surgeries: Left arm AV shunt - [facility] (01/29/18) DIALYSIS ARTERIOVENOSTOM (06/23/13) HEMODIALYSIS (06/23/13) VENOUS CATHETERIZATION FOR RENAL DIALYSIS (06/23/13) Family History: States: Diabetes - Social History Hx Tobacco Use: No Hx Alcohol Use: No Hx Substance Use: No - Immunization History Hx Tetanus Toxoid Vaccination: No Hx Influenza Vaccination: Yes Hx Pneumococcal Vaccination: Yes Review Of Systems Constitutional: Negative for: Fever, Chills Eyes: Negative for: Vision Change Cardiovascular: Negative for: Palpitations Respiratory: Negative for: Shortness of Breath Gastrointestinal: Negative for: Vomiting, Diarrhea Genitourinary: Negative for: Dysuria, Hematuria Musculoskeletal: Negative for: Back Pain Neurological: Positive for: Headache. Negative for: Weakness, Numbness Physical Exam - Physical Exam Appears: Non-toxic, No Acute Distress Skin: Warm, Dry, No Rash Head: Atraumatic, Normacephalic Eye(s): bilateral: Normal Inspection, PERRL, EOMI Neck: Normal ROM Chest: Symmetrical Cardiovascular: Murmur (Holosystolic murmur, heard best at left sternal border) Respiratory: Rales (Bibasilar), No Rhonchi, No Wheezing Gastrointestinal/Abdominal: Soft, No Tenderness, No Distention Extremity: Bilateral: Atraumatic, Normal ROM Pulses: Left Dorsalis Pedis: Normal, Right Dorsalis Pedis: Normal Neurological/Psych: Oriented x3, Normal Cranial Nerves Gait: Steady ED Course And Treatment - Laboratory Results Result Diagrams: 06/16/18 13:49 06/16/18 13:49 Lab Interpretation: Abnormal (BNP 112,000, Troponin 0.41, BUN 53, Cr 6.6, HCO3 33) ECG: Interpreted By Me ECG Rhythm: Sinus Bradycardia, ST/T Changes (inversions laterally) O2 Sat by Pulse Oximetry: 94 (on RA) Pulse Ox Interpretation: Normal - Radiology CXR: Interpreted by Me CXR Interpretation: Yes: Cardiomegaly (with vascular congestion and CHF) - CT Scan/US Head CT Other Rad Studies (CT/US): Read By Radiologist, Radiology Report Reviewed CT/US Interpretation: FINDINGS: HEMORRHAGE: No intracranial hemorrhage. BRAIN: Diffuse atrophy with prominence of the ventricles and sulci noted. No mass effect or edema. Intracranial atherosclerosis. Bilateral chronic appearing lacunar type infarcts. Scattered periventricular and subcortical white matter hypodensities, which are nonspecific, but often seen with chronic microvascular ischemic disease. Prominent cisterna magna. Please note that MRI with diffusion imaging is more sensitive in the detection of acute ischemic event. VENTRICLES: No hydrocephalus. CALVARIUM: Unremarkable. PARANASAL SINUSES: Unremarkable as visualized. No significant inflammatory changes. MASTOID AIR CELLS: Unremarkable as visualized. No inflammatory changes. OTHER FINDINGS: None. IMPRESSION: Generalized atrophy. Chronic microvascular ischemic changes. Chronic lacunar infarcts, bilateral basal ganglia. Progress Note: Labs, EKG, and CT Head ordered. Administered 650mg Tylenol for the headache as well as 20mg IV Lasix. Reevaluation Time: 14:57 Reassessment Condition: Unchanged (Pressure still elevated) - Physician Consult Information Time Consulting Physician Contacted: 14:57 Physician Contacted: Adam Holland Outcome Of Conversation: Patient to be admitted to [facility] with consults for Dr Delcid and Dr Saenz. Disposition - Disposition Disposition: HOSPITALIZED Disposition Time: 14:59 Condition: STABLE - POA Present On Arrival: None - Clinical Impression Clinical Impression: ESRD (end stage renal disease) on dialysis, Severe hypertension, CHF (congestive heart failure) - Scribe Statement The provider has reviewed the documentation as recorded by the Modesto Thompson Provider Attestation: All medical record entries made by the Scribe were at my direction and personally dictated by me. I have reviewed the chart and agree that the record accurately reflects my personal performance of the history, physical exam, medical decision making, and the department course for this patient. I have also personally directed, reviewed, and agree with the discharge instructions and disposition.
[2018-06-16 14:02] LABS: WHITE BLOOD COUNT 5.6 K/uL (4.8-10.8)
[2018-06-16 14:11] LABS: ALB/GLOB RATIO 1.5 (1.0-2.1); ALBUMIN 4.6 g/dL (3.5-5.0); CALCIUM 9.3 mg/dl (8.6-10.4)
[2018-06-16 14:34] LABS: TROPONIN I 0.418 ng/mL (0.00-0.120)
--- NOTE | 2018-06-16 14:40 | CT ---
Date of service: 06/16/2018 PROCEDURE: CT HEAD WITHOUT CONTRAST. HISTORY: Headache COMPARISON: Noncontrast head CT performed 06/09/18 TECHNIQUE: Axial computed tomography images were obtained through the head/brain without intravenous contrast. Radiation dose: Total exam DLP = 889.96 mGy-cm. This CT exam was performed using one or more of the following dose reduction techniques: Automated exposure control, adjustment of the mA and/or kV according to patient size, and/or use of iterative reconstruction technique. FINDINGS: HEMORRHAGE: No intracranial hemorrhage. BRAIN: Diffuse atrophy with prominence of the ventricles and sulci noted. No mass effect or edema. Intracranial atherosclerosis. Bilateral chronic appearing lacunar type infarcts. Scattered periventricular and subcortical white matter hypodensities, which are nonspecific, but often seen with chronic microvascular ischemic disease. Prominent cisterna magna. Please note that MRI with diffusion imaging is more sensitive in the detection of acute ischemic event. VENTRICLES: No hydrocephalus. CALVARIUM: Unremarkable. PARANASAL SINUSES: Unremarkable as visualized. No significant inflammatory changes. MASTOID AIR CELLS: Unremarkable as visualized. No inflammatory changes. OTHER FINDINGS: None. IMPRESSION: Generalized atrophy. Chronic microvascular ischemic changes. Chronic lacunar infarcts, bilateral basal ganglia.
--- NOTE | 2018-06-16 16:03 | RAD ---
Date of service: 06/16/2018 HISTORY: CHF COMPARISON: No prior. FINDINGS: LUNGS: The lungs are well inflated. There is severe pulmonary venous congestion and interstitial pulmonary edema. PLEURA: No pleural effusions or pneumothorax. CARDIOVASCULAR: Persistent severe cardiomegaly. No aortic atherosclerotic calcifications present. OSSEOUS STRUCTURES: Within normal limits for the patient's age. VISUALIZED UPPER ABDOMEN: Normal. OTHER FINDINGS: None. IMPRESSION: Severe cardiomegaly, pulmonary venous congestion and interstitial pulmonary edema compatible with congestive heart failure.
--- NOTE | 2018-06-16 17:31 | CP.PCM.HP ---
Past Patient History - Infectious Disease Hx of Infectious Diseases: None - Past Medical History & Family History Past Medical History?: Yes - Past Social History Smoking Status: Never Smoked - CARDIAC Hx Hypertension: Yes - RENAL Hx Chronic Kidney Disease: Yes - ENDOCRINE/METABOLIC Hx Endocrine Disorders: Yes Hx Diabetes Mellitus Type 2: Yes - HEMATOLOGICAL/ONCOLOGICAL Hx Anemia: Yes - MUSCULOSKELETAL/RHEUMATOLOGICAL Hx Falls: No - PSYCHIATRIC Hx Substance Use: No - SURGICAL HISTORY Hx Surgeries: Yes Hx Orthopedic Surgery: Yes (left shoulder) Hx Vascular Access Device: Yes (Left arm AV shunt) - ANESTHESIA Hx Anesthesia: Yes Hx Anesthesia Reactions: No Meds Allergies/Adverse Reactions: Allergies Allergy/AdvReac Type Severity Reaction Status Date / Time No Known Allergies Allergy Verified 06/09/18 18:31 Physical Exam - Constitutional Appears: Well - Head Exam Head Exam: ATRAUMATIC, NORMAL INSPECTION, NORMOCEPHALIC - Eye Exam Eye Exam: EOMI, Normal appearance, PERRL Pupil Exam: NORMAL ACCOMODATION, PERRL - ENT Exam ENT Exam: Mucous Membranes Moist, Normal Exam - Neck Exam Neck exam: Positive for: Normal Inspection - Respiratory Exam Respiratory Exam: Decreased Breath Sounds - Cardiovascular Exam Cardiovascular Exam: REGULAR RHYTHM, +S1, +S2 - GI/Abdominal Exam GI & Abdominal Exam: Diminished Bowel Sounds, Soft - Rectal Exam Rectal Exam: Deferred Results - Vital Signs Recent Vital Signs: Last Vital Signs Temp 98.2 F 06/16/18 13:05 Pulse 61 06/16/18 17:30 Resp 16 06/16/18 17:30 BP 198/84 H 06/16/18 17:30 Pulse Ox 98 06/16/18 17:30 - Labs Result Diagrams: 06/16/18 13:49 06/16/18 13:49 Labs: Laboratory Results - last 24 hr 06/16/18 06/16/18 13:49 13:49 WBC 5.6 D RBC 3.39 L Hgb 10.2 L Hct 30.7 L MCV 90.7 MCH 30.0 MCHC 33.0 RDW 15.4 H Plt Count 113 L MPV 9.6 Neut % (Auto) 75.5 H Lymph % (Auto) 16.0 L [place] % (Auto) 6.0 Eos % (Auto) 1.5 Baso % (Auto) 1.0 Neut # (Auto) 4.2 Lymph # (Auto) 0.9 L [place] # (Auto) 0.3 Eos # (Auto) 0.1 Baso # (Auto) 0.1 Sodium 136 Potassium 4.1 Chloride 88 L Carbon Dioxide 33 H Anion Gap 19 BUN 53 H Creatinine 6.6 H Est GFR ( Amer) 11 Est GFR (Non-Af Amer) 9 Random Glucose 158 H D Calcium 9.3 Total Bilirubin 0.9 AST 24 ALT 29 Alkaline Phosphatase 149 H Troponin I 0.4180 H* NT-Pro-B Natriuret Pep 692533 H Total Protein 7.7 Albumin 4.6 Globulin 3.1 Albumin/Globulin Ratio 1.5
[2018-06-16] MEDS: (Novolin R) Insulin Human Regular 100 units/ml vial SC SCH (22:01)
[2018-06-17 01:02] LABS: CK-MB 2.35 ng/mL (0.0-3.38); TROPONIN I 0.354 ng/mL (0.00-0.120)
--- NOTE | 2018-06-17 07:56 | CP.PCM.CON ---
History of Present Illness - History of Present Illness History of Present Illness: patient seen examined. full consult to follow Patient has uncontrolled hypertension troponin elevation is due to renal failure. consider increasing minoxidil to 10 mg TID Past Patient History - Infectious Disease Hx of Infectious Diseases: None - Past Medical History & Family History Past Medical History?: Yes - Past Social History Smoking Status: Never Smoked - CARDIAC Hx Hypertension: Yes - RENAL Hx Chronic Kidney Disease: Yes - ENDOCRINE/METABOLIC Hx Endocrine Disorders: Yes Hx Diabetes Mellitus Type 2: Yes - HEMATOLOGICAL/ONCOLOGICAL Hx Anemia: Yes - MUSCULOSKELETAL/RHEUMATOLOGICAL Hx Falls: No - PSYCHIATRIC Hx Substance Use: No - SURGICAL HISTORY Hx Surgeries: Yes Hx Orthopedic Surgery: Yes (left shoulder) Hx Vascular Access Device: Yes (Left arm AV shunt) - ANESTHESIA Hx Anesthesia: Yes Hx Anesthesia Reactions: No Meds Allergies/Adverse Reactions: Allergies Allergy/AdvReac Type Severity Reaction Status Date / Time No Known Allergies Allergy Verified 06/09/18 18:31 - Medications Medications: Current Medications Amlodipine Besylate (Norvasc) 10 mg PO DAILY [facility] Aspirin (Aspirin) 81 mg PO DAILY [facility] Last Admin: 06/16/18 17:15 Dose: 81 mg Calcium Acetate (Phoslo) 667 mg PO TID [facility] Last Admin: 06/16/18 18:31 Dose: 667 mg Carvedilol (Coreg) 12.5 mg PO BID [facility] Last Admin: 06/16/18 18:33 Dose: 12.5 mg Clonidine HCl (Catapres) 0.3 mg PO Q8 [facility] Last Admin: 06/17/18 05:21 Dose: 0.3 mg Clopidogrel Bisulfate (Plavix) 75 mg PO DAILY [facility] Glipizide (Glucotrol) 5 mg PO DAILY [facility] Insulin Human Regular (Novolin R) 0 unit [facility]; Protocol Last Admin: 06/16/18 22:01 Dose: 2 unit Isosorbide Mononitrate (Imdur) 60 mg PO DAILY [facility] Minoxidil (Minoxidil) 5 mg PO BID [facility] Last Admin: 06/16/18 18:32 Dose: 5 mg Multivitamins (Hexavitamin) 1 tab PO DAILY [facility] Rosuvastatin Calcium (Crestor) 5 mg PO [facility] Last Admin: 06/16/18 22:01 Dose: 5 mg Sitagliptin Phosphate (Januvia) 100 mg PO DAILY [facility] Results - Vital Signs Recent Vital Signs: Last Vital Signs Temp 98.2 F 06/17/18 05:22 Pulse 56 L 06/17/18 05:22 Resp 20 06/17/18 05:22 BP 176/77 H 06/17/18 05:22 Pulse Ox 96 06/17/18 05:22 - Labs Result Diagrams: 06/16/18 13:49 06/16/18 13:49 Labs: Laboratory Results - last 24 hr 06/16/18 06/16/18 06/16/18 13:49 13:49 17:34 WBC 5.6 D RBC 3.39 L Hgb 10.2 L Hct 30.7 L MCV 90.7 MCH 30.0 MCHC 33.0 RDW 15.4 H Plt Count 113 L MPV 9.6 Neut % (Auto) 75.5 H Lymph % (Auto) 16.0 L [place] % (Auto) 6.0 Eos % (Auto) 1.5 Baso % (Auto) 1.0 Neut # (Auto) 4.2 Lymph # (Auto) 0.9 L [place] # (Auto) 0.3 Eos # (Auto) 0.1 Baso # (Auto) 0.1 Sodium 136 Potassium 4.1 Chloride 88 L Carbon Dioxide 33 H Anion Gap 19 BUN 53 H Creatinine 6.6 H Est GFR ( Amer) 11 Est GFR (Non-Af Amer) 9 POC Glucose (mg/dL) 267 H Random Glucose 158 H D Calcium 9.3 Total Bilirubin 0.9 AST 24 ALT 29 Alkaline Phosphatase 149 H Total Creatine Kinase CK-MB (Mass) Troponin I 0.4180 H* NT-Pro-B Natriuret Pep 941575 H Total Protein 7.7 Albumin 4.6 Globulin 3.1 Albumin/Globulin Ratio 1.5 06/16/18 06/16/18 06/17/18 18:08 21:09 00:09 WBC RBC Hgb Hct MCV MCH MCHC RDW Plt Count MPV Neut % (Auto) Lymph % (Auto) [place] % (Auto) Eos % (Auto) Baso % (Auto) Neut # (Auto) Lymph # (Auto) [place] # (Auto) Eos # (Auto) Baso # (Auto) Sodium Potassium Chloride Carbon Dioxide Anion Gap BUN Creatinine Est GFR ( Amer) Est GFR (Non-Af Amer) POC Glucose (mg/dL) 274 H 388 H Random Glucose Calcium Total Bilirubin AST ALT Alkaline Phosphatase Total Creatine Kinase 40 L CK-MB (Mass) 2.35 Troponin I 0.3540 H* NT-Pro-B Natriuret Pep Total Protein Albumin Globulin Albumin/Globulin Ratio 06/17/18 02:05 WBC RBC Hgb Hct MCV MCH MCHC RDW Plt Count MPV Neut % (Auto) Lymph % (Auto) [place] % (Auto) Eos % (Auto) Baso % (Auto) Neut # (Auto) Lymph # (Auto) [place] # (Auto) Eos # (Auto) Baso # (Auto) Sodium Potassium Chloride Carbon Dioxide Anion Gap BUN Creatinine Est GFR ( Amer) Est GFR (Non-Af Amer) POC Glucose (mg/dL) 238 H Random Glucose Calcium Total Bilirubin AST ALT Alkaline Phosphatase Total Creatine Kinase CK-MB (Mass) Troponin I NT-Pro-B Natriuret Pep Total Protein Albumin Globulin Albumin/Globulin Ratio
--- NOTE | 2018-06-17 07:56 | CP.PCM.CON ---
Past Patient History - Infectious Disease Hx of Infectious Diseases: None - Past Medical History & Family History Past Medical History?: Yes - Past Social History Smoking Status: Never Smoked - CARDIAC Hx Hypertension: Yes - RENAL Hx Chronic Kidney Disease: Yes - ENDOCRINE/METABOLIC Hx Endocrine Disorders: Yes Hx Diabetes Mellitus Type 2: Yes - HEMATOLOGICAL/ONCOLOGICAL Hx Anemia: Yes - MUSCULOSKELETAL/RHEUMATOLOGICAL Hx Falls: No - PSYCHIATRIC Hx Substance Use: No - SURGICAL HISTORY Hx Surgeries: Yes Hx Orthopedic Surgery: Yes (left shoulder) Hx Vascular Access Device: Yes (Left arm AV shunt) - ANESTHESIA Hx Anesthesia: Yes Hx Anesthesia Reactions: No Meds Allergies/Adverse Reactions: Allergies Allergy/AdvReac Type Severity Reaction Status Date / Time No Known Allergies Allergy Verified 06/09/18 18:31 - Medications Medications: Current Medications Amlodipine Besylate (Norvasc) 10 mg PO DAILY [facility] Aspirin (Aspirin) 81 mg PO DAILY [facility] Last Admin: 06/16/18 17:15 Dose: 81 mg Calcium Acetate (Phoslo) 667 mg PO TID [facility] Last Admin: 06/16/18 18:31 Dose: 667 mg Carvedilol (Coreg) 12.5 mg PO BID [facility] Last Admin: 06/16/18 18:33 Dose: 12.5 mg Clonidine HCl (Catapres) 0.3 mg PO Q8 [facility] Last Admin: 06/17/18 05:21 Dose: 0.3 mg Clopidogrel Bisulfate (Plavix) 75 mg PO DAILY [facility] Glipizide (Glucotrol) 5 mg PO DAILY [facility] Insulin Human Regular (Novolin R) 0 unit [facility]; Protocol Last Admin: 06/16/18 22:01 Dose: 2 unit Isosorbide Mononitrate (Imdur) 60 mg PO DAILY [facility] Minoxidil (Minoxidil) 5 mg PO BID [facility] Last Admin: 06/16/18 18:32 Dose: 5 mg Multivitamins (Hexavitamin) 1 tab PO DAILY [facility] Rosuvastatin Calcium (Crestor) 5 mg PO [facility] Last Admin: 06/16/18 22:01 Dose: 5 mg Sitagliptin Phosphate (Januvia) 100 mg PO DAILY [facility] Results - Vital Signs Recent Vital Signs: Last Vital Signs Temp 98.2 F 06/17/18 05:22 Pulse 56 L 06/17/18 05:22 Resp 20 06/17/18 05:22 BP 176/77 H 06/17/18 05:22 Pulse Ox 96 06/17/18 05:22 - Labs Result Diagrams: 06/16/18 13:49 06/16/18 13:49 Labs: Laboratory Results - last 24 hr 06/16/18 06/16/18 06/16/18 13:49 13:49 17:34 WBC 5.6 D RBC 3.39 L Hgb 10.2 L Hct 30.7 L MCV 90.7 MCH 30.0 MCHC 33.0 RDW 15.4 H Plt Count 113 L MPV 9.6 Neut % (Auto) 75.5 H Lymph % (Auto) 16.0 L [place] % (Auto) 6.0 Eos % (Auto) 1.5 Baso % (Auto) 1.0 Neut # (Auto) 4.2 Lymph # (Auto) 0.9 L [place] # (Auto) 0.3 Eos # (Auto) 0.1 Baso # (Auto) 0.1 Sodium 136 Potassium 4.1 Chloride 88 L Carbon Dioxide 33 H Anion Gap 19 BUN 53 H Creatinine 6.6 H Est GFR ( Amer) 11 Est GFR (Non-Af Amer) 9 POC Glucose (mg/dL) 267 H Random Glucose 158 H D Calcium 9.3 Total Bilirubin 0.9 AST 24 ALT 29 Alkaline Phosphatase 149 H Total Creatine Kinase CK-MB (Mass) Troponin I 0.4180 H* NT-Pro-B Natriuret Pep 681355 H Total Protein 7.7 Albumin 4.6 Globulin 3.1 Albumin/Globulin Ratio 1.5 06/16/18 06/16/18 06/17/18 18:08 21:09 00:09 WBC RBC Hgb Hct MCV MCH MCHC RDW Plt Count MPV Neut % (Auto) Lymph % (Auto) [place] % (Auto) Eos % (Auto) Baso % (Auto) Neut # (Auto) Lymph # (Auto) [place] # (Auto) Eos # (Auto) Baso # (Auto) Sodium Potassium Chloride Carbon Dioxide Anion Gap BUN Creatinine Est GFR ( Amer) Est GFR (Non-Af Amer) POC Glucose (mg/dL) 274 H 388 H Random Glucose Calcium Total Bilirubin AST ALT Alkaline Phosphatase Total Creatine Kinase 40 L CK-MB (Mass) 2.35 Troponin I 0.3540 H* NT-Pro-B Natriuret Pep Total Protein Albumin Globulin Albumin/Globulin Ratio 06/17/18 02:05 WBC RBC Hgb Hct MCV MCH MCHC RDW Plt Count MPV Neut % (Auto) Lymph % (Auto) [place] % (Auto) Eos % (Auto) Baso % (Auto) Neut # (Auto) Lymph # (Auto) [place] # (Auto) Eos # (Auto) Baso # (Auto) Sodium Potassium Chloride Carbon Dioxide Anion Gap BUN Creatinine Est GFR ( Amer) Est GFR (Non-Af Amer) POC Glucose (mg/dL) 238 H Random Glucose Calcium Total Bilirubin AST ALT Alkaline Phosphatase Total Creatine Kinase CK-MB (Mass) Troponin I NT-Pro-B Natriuret Pep Total Protein Albumin Globulin Albumin/Globulin Ratio
[2018-06-17 09:04] LABS: CK-MB 1.62 ng/mL (0.0-3.38)
[2018-06-17 09:09] LABS: TROPONIN I 0.322 ng/mL (0.00-0.120)
[2018-06-17] MEDS: Multiple Vitamins Tab PO SCH (09:55)
[2018-06-17] MEDS: (Novolin R) Insulin Human Regular 100 units/ml vial SC SCH ×4 (09:56→22:21)
--- NOTE | 2018-06-17 12:55 | CP.PCM.CON ---
History of Present Illness - History of Present Illness History of Present Illness: 57 y/o male with a PMHx of HTN, ESRD (on dialysis), presents via ambulance, sent in from dialysis for evaluation of headache and markedly elevated blood pressure. Patient states his pressure has been higher than usual for 1 week, despite taking his medications as prescribed. Patient is a somewhat poor historian. Had recent hospital admission with similar condition at present, no headache or SOB, no chest pain no other complaints PMHx- HTN, ESRD on HD PSHx- av fistula placement Social- no smoking, alcohol or drug use Family- no family history of kidney disease Review of Systems - Review of Systems Review of Systems: as per HPI, other than that 10 point ROS negative Past Patient History - Infectious Disease Hx of Infectious Diseases: None - Past Medical History & Family History Past Medical History?: Yes - Past Social History Smoking Status: Never Smoked - CARDIAC Hx Hypertension: Yes - RENAL Hx Chronic Kidney Disease: Yes - ENDOCRINE/METABOLIC Hx Endocrine Disorders: Yes Hx Diabetes Mellitus Type 2: Yes - HEMATOLOGICAL/ONCOLOGICAL Hx Anemia: Yes - MUSCULOSKELETAL/RHEUMATOLOGICAL Hx Falls: No - PSYCHIATRIC Hx Substance Use: No - SURGICAL HISTORY Hx Surgeries: Yes Hx Orthopedic Surgery: Yes (left shoulder) Hx Vascular Access Device: Yes (Left arm AV shunt) - ANESTHESIA Hx Anesthesia: Yes Hx Anesthesia Reactions: No Meds Allergies/Adverse Reactions: Allergies Allergy/AdvReac Type Severity Reaction Status Date / Time No Known Allergies Allergy Verified 06/09/18 18:31 - Medications Medications: Current Medications Amlodipine Besylate (Norvasc) 10 mg PO DAILY [facility] Last Admin: 06/17/18 09:55 Dose: 10 mg Aspirin (Aspirin Chewable) 81 mg PO DAILY [facility] Last Admin: 06/17/18 12:47 Dose: 81 mg Calcium Acetate (Phoslo) 667 mg PO TID [facility] Last Admin: 06/17/18 09:55 Dose: 667 mg Carvedilol (Coreg) 12.5 mg PO BID [facility] Last Admin: 06/17/18 09:56 Dose: 12.5 mg Clonidine HCl (Catapres) 0.3 mg PO Q8 [facility] Last Admin: 06/17/18 05:21 Dose: 0.3 mg Clopidogrel Bisulfate (Plavix) 75 mg PO DAILY [facility] Last Admin: 06/17/18 09:55 Dose: 75 mg Glipizide (Glucotrol) 5 mg PO DAILY [facility] Last Admin: 06/17/18 09:54 Dose: 5 mg Heparin Sodium (Porcine) (Heparin) 5,000 units SC Q12 [facility] Last Admin: 06/17/18 09:55 Dose: 5,000 units Insulin Human Regular (Novolin R) 0 unit SC ACHS [facility]; Protocol Last Admin: 06/17/18 09:56 Dose: 1 unit Isosorbide Mononitrate (Imdur) 60 mg PO DAILY [facility] Last Admin: 06/17/18 09:55 Dose: 60 mg Minoxidil (Minoxidil) 10 mg PO BID [facility] Multivitamins (Hexavitamin) 1 tab PO DAILY [facility] Last Admin: 06/17/18 09:55 Dose: 1 tab Rosuvastatin Calcium (Crestor) 5 mg PO HS [facility] Last Admin: 06/16/18 22:01 Dose: 5 mg Sitagliptin Phosphate (Januvia) 100 mg PO DAILY [facility] Last Admin: 06/17/18 09:54 Dose: 100 mg Physical Exam - Constitutional Appears: Well, Non-toxic - Head Exam Head Exam: ATRAUMATIC, NORMOCEPHALIC - Eye Exam Eye Exam: EOMI, PERRL - ENT Exam ENT Exam: Mucous Membranes Moist - Neck Exam Neck exam: Positive for: Full Rom - Respiratory Exam Respiratory Exam: Clear to Auscultation Bilateral. absent: Rhonchi, Wheezes - Cardiovascular Exam Cardiovascular Exam: REGULAR RHYTHM, +S1, +S2 - GI/Abdominal Exam GI & Abdominal Exam: Normal Bowel Sounds. absent: Tenderness - Extremities Exam Extremities exam: Positive for: full ROM. Negative for: pedal edema - Neurological Exam Neurological exam: Alert, Oriented x3 - Psychiatric Exam Psychiatric exam: Normal Affect, Normal Mood - Skin Skin Exam: Normal Color, Warm Results - Vital Signs Recent Vital Signs: Last Vital Signs Temp 97.8 F 06/17/18 08:42 Pulse 60 06/17/18 09:01 Resp 20 06/17/18 08:42 BP 191/78 H 06/17/18 09:56 Pulse Ox 95 06/17/18 08:42 - Labs Result Diagrams: 06/16/18 13:49 06/16/18 13:49 Labs: Laboratory Results - last 24 hr 06/16/18 06/16/18 06/16/18 13:49 13:49 17:34 WBC 5.6 D RBC 3.39 L Hgb 10.2 L Hct 30.7 L MCV 90.7 MCH 30.0 MCHC 33.0 RDW 15.4 H Plt Count 113 L MPV 9.6 Neut % (Auto) 75.5 H Lymph % (Auto) 16.0 L [place] % (Auto) 6.0 Eos % (Auto) 1.5 Baso % (Auto) 1.0 Neut # (Auto) 4.2 Lymph # (Auto) 0.9 L [place] # (Auto) 0.3 Eos # (Auto) 0.1 Baso # (Auto) 0.1 Sodium 136 Potassium 4.1 Chloride 88 L Carbon Dioxide 33 H Anion Gap 19 BUN 53 H Creatinine 6.6 H Est GFR ( Amer) 11 Est GFR (Non-Af Amer) 9 POC Glucose (mg/dL) 267 H Random Glucose 158 H D Calcium 9.3 Total Bilirubin 0.9 AST 24 ALT 29 Alkaline Phosphatase 149 H Total Creatine Kinase CK-MB (Mass) Troponin I 0.4180 H* NT-Pro-B Natriuret Pep 461570 H Total Protein 7.7 Albumin 4.6 Globulin 3.1 Albumin/Globulin Ratio 1.5 06/16/18 06/16/18 06/17/18 18:08 21:09 00:09 WBC RBC Hgb Hct MCV MCH MCHC RDW Plt Count MPV Neut % (Auto) Lymph % (Auto) [place] % (Auto) Eos % (Auto) Baso % (Auto) Neut # (Auto) Lymph # (Auto) [place] # (Auto) Eos # (Auto) Baso # (Auto) Sodium Potassium Chloride Carbon Dioxide Anion Gap BUN Creatinine Est GFR ( Amer) Est GFR (Non-Af Amer) POC Glucose (mg/dL) 274 H 388 H Random Glucose Calcium Total Bilirubin AST ALT Alkaline Phosphatase Total Creatine Kinase 40 L CK-MB (Mass) 2.35 Troponin I 0.3540 H* NT-Pro-B Natriuret Pep Total Protein Albumin Globulin Albumin/Globulin Ratio 06/17/18 06/17/18 06/17/18 02:05 06:36 07:55 WBC RBC Hgb Hct MCV MCH MCHC RDW Plt Count MPV Neut % (Auto) Lymph % (Auto) [place] % (Auto) Eos % (Auto) Baso % (Auto) Neut # (Auto) Lymph # (Auto) [place] # (Auto) Eos # (Auto) Baso # (Auto) Sodium Potassium Chloride Carbon Dioxide Anion Gap BUN Creatinine Est GFR ( Amer) Est GFR (Non-Af Amer) POC Glucose (mg/dL) 238 H 151 H Random Glucose Calcium Total Bilirubin AST ALT Alkaline Phosphatase Total Creatine Kinase 39 L CK-MB (Mass) 1.62 Troponin I 0.3220 H* NT-Pro-B Natriuret Pep Total Protein Albumin Globulin Albumin/Globulin Ratio Assessment & Plan (1) ESRD (end stage renal disease) on dialysis Status: Acute (2) Severe hypertension Status: Acute (3) Diabetes Status: Acute (4) Hypertensive urgency Status: Acute - Assessment and Plan (Free Text) Plan: maintain HD MWF Next HD tomorrow increase minoxidil to 10 mg bid continue rest antihypertensive - Date & Time Date: 06/17/18 Time: 12:57
[2018-06-17 16:12] LABS: INR 1.2; PROTHROMBIN TIME 12.7 SECONDS (9.7-12.2)
[2018-06-17] MEDS ORDERED: Lidocaine 2% MPF (5 ml) Inj ONE (16:47)
[2018-06-17] MEDS ORDERED: Iodixanol 320 MG/ML 100 ML BOTTLE IV ONE ×2 (17:47→18:33)
[2018-06-17] MEDS ORDERED: Midazolam 2 MG/2 ML VIAL ONE (18:07)
--- NOTE | 2018-06-17 18:24 | CARD ---
APPROVED REPORT Date of service: 06/16/2018 EKG Measurement Heart [id number] <Conclusion> Sinus bradycardia Left ventricular hypertrophy with repolarization abnormality Prolonged QT Abnormal ECG
--- NOTE | 2018-06-17 18:53 | CP.PCM.PN ---
Subjective - Date & Time of Evaluation Date of Evaluation: 06/17/18 Time of Evaluation: 18:45 - Subjective Subjective: cardiac cath performed small vessel disease of the proximal diagonal branch moderate proximal LAD disease renals without stenosis Normal LV function Objective - Vital Signs/Intake and Output Vital Signs (last 24 hours): Temp Pulse Resp BP Pulse Ox 97.8 F 60 20 191/78 H 95 06/17/18 08:42 06/17/18 09:01 06/17/18 08:42 06/17/18 09:56 06/17/18 08:42 Intake and Output: 06/17/18 06/17/18 06:59 18:59 Intake Total 110 500 Output Total 0 Balance 110 500 - Medications Medications: Current Medications Amlodipine Besylate (Norvasc) 10 mg PO DAILY [facility] Last Admin: 06/17/18 09:55 Dose: 10 mg Aspirin (Aspirin Chewable) 81 mg PO DAILY [facility] Last Admin: 06/17/18 12:47 Dose: 81 mg Calcium Acetate (Phoslo) 667 mg PO TID [facility] Last Admin: 06/17/18 13:11 Dose: 667 mg Carvedilol (Coreg) 12.5 mg PO BID [facility] Last Admin: 06/17/18 09:56 Dose: 12.5 mg Clonidine HCl (Catapres) 0.3 mg PO Q8 [facility] Last Admin: 06/17/18 13:11 Dose: 0.3 mg Clopidogrel Bisulfate (Plavix) 75 mg PO DAILY [facility] Last Admin: 06/17/18 09:55 Dose: 75 mg Glipizide (Glucotrol) 5 mg PO DAILY [facility] Last Admin: 06/17/18 09:54 Dose: 5 mg Heparin Sodium (Porcine) (Heparin) 5,000 units SC Q12 [facility] Last Admin: 06/17/18 09:55 Dose: 5,000 units Insulin Human Regular (Novolin R) 0 unit SC ACHS [facility]; Protocol Last Admin: 06/17/18 17:27 Dose: Not Given Isosorbide Mononitrate (Imdur) 60 mg PO DAILY [facility] Last Admin: 06/17/18 09:55 Dose: 60 mg Minoxidil (Minoxidil) 10 mg PO BID [facility] Multivitamins (Hexavitamin) 1 tab PO DAILY [facility] Last Admin: 06/17/18 09:55 Dose: 1 tab Rosuvastatin Calcium (Crestor) 5 mg PO HS [facility] Last Admin: 06/16/18 22:01 Dose: 5 mg Sitagliptin Phosphate (Januvia) 100 mg PO DAILY [facility] Last Admin: 06/17/18 09:54 Dose: 100 mg - Labs Labs: 06/16/18 13:49 06/16/18 13:49 PT 12.7 SECONDS (9.7-12.2) H 06/17/18 15:49 INR 1.2 06/17/18 15:49
[2018-06-18] MEDS ORDERED: Naproxen 550 mg Tab PO PRN (06:36)
--- NOTE | 2018-06-18 07:47 | CARDCATH ---
PROCEDURE DATE: 06/17/2018 PROCEDURES PERFORMED: Left heart catheterization, coronary angiography, and left ventriculography. INDICATIONS: Non-ST segment elevation myocardial infarction. COMPLICATIONS: None. HISTORY: As follows: The patient is a 57-year-old male with uncontrolled hypertension, coronary artery disease, and diabetes mellitus who presents with uncontrolled hypertension and elevated troponin. The patient was referred for cardiac catheterization. Informed consent was obtained and the right common femoral artery is accessed with micropuncture needle. Sheath was advanced and exchanged for a 6-[place] sheath. Coronary angiography and left ventriculography were performed. Renal angiography was performed. All catheters were removed. A Perclose suture-mediated closure device was used to achieve hemostasis. FINDINGS: Coronaries: Left main, normal left anterior descending artery, moderate proximal calcification, 50% stenosis after the first major diagonal branch in the mid vessel. The ostium of the first diagonal has a 90% stenosis. There is a small caliber vessel. There is diffuse disease in the distal vessel. Left circumflex: No significant atherosclerosis. Right coronary artery arises from right sinus of Valsalva. Right dominant circulation. No significant atherosclerosis. Left ventricle: Normal left ventricular systolic function. Ejection fraction is 55%. Renal angiography: No evidence of renal artery stenosis. CONCLUSIONS: 1. Moderate coronary artery disease. 2. Normal left ventricular function. 3. Normal renal arteries. PLAN: Medical therapy. Shana Delcid MD
[2018-06-18] MEDS: (Novolin R) Insulin Human Regular 100 units/ml vial SC SCH ×4 (08:42→21:23)
[2018-06-18 12:50] VITALS: RESP 20
[2018-06-18] MEDS: Multiple Vitamins Tab PO SCH (13:02)
--- NOTE | 2018-06-18 13:48 | CP.PCM.PN ---
Subjective - Date & Time of Evaluation Date of Evaluation: 06/18/18 Time of Evaluation: 13:46 - Subjective Subjective: s/p cardiac cath yesterday non occlusive CAD Bp much improved no CP or SOB no headache Rest 10 point roS negative Objective - Vital Signs/Intake and Output Vital Signs (last 24 hours): Temp Pulse Resp BP Pulse Ox 98.7 F 70 20 159/70 H 95 06/18/18 12:49 06/18/18 12:49 06/18/18 12:49 06/18/18 12:49 06/18/18 12:49 Intake and Output: 06/18/18 06/18/18 06:59 18:59 Intake Total 100 Balance 100 - Medications Medications: Current Medications Amlodipine Besylate (Norvasc) 10 mg PO DAILY [facility] Last Admin: 06/18/18 13:03 Dose: 10 mg Aspirin (Aspirin Chewable) 81 mg PO DAILY [facility] Last Admin: 06/18/18 13:03 Dose: 81 mg Calcium Acetate (Phoslo) 667 mg PO TID [facility] Last Admin: 06/18/18 13:02 Dose: 667 mg Carvedilol (Coreg) 12.5 mg PO BID [facility] Last Admin: 06/18/18 10:40 Dose: Not Given Clonidine HCl (Catapres) 0.3 mg PO Q8 [facility] Last Admin: 06/18/18 13:02 Dose: 0.3 mg Clopidogrel Bisulfate (Plavix) 75 mg PO DAILY [facility] Last Admin: 06/18/18 13:02 Dose: 75 mg Glipizide (Glucotrol) 5 mg PO DAILY [facility] Last Admin: 06/18/18 13:03 Dose: 5 mg Heparin Sodium (Porcine) (Heparin) 5,000 units SC Q12 [facility] Last Admin: 06/18/18 10:40 Dose: Not Given Insulin Human Regular (Novolin R) 0 unit SC [facility]; Protocol Last Admin: 06/18/18 13:09 Dose: Not Given Isosorbide Mononitrate (Imdur) 60 mg PO DAILY [facility] Last Admin: 06/18/18 13:03 Dose: 60 mg Minoxidil (Minoxidil) 10 mg PO BID [facility] Last Admin: 06/18/18 10:41 Dose: Not Given Multivitamins (Hexavitamin) 1 tab PO DAILY [facility] Last Admin: 06/18/18 13:02 Dose: 1 tab Naproxen (Anaprox Ds) 550 mg PO BID PRN PRN Reason: Pain, moderate (4-7) Last Admin: 06/18/18 06:47 Dose: 550 mg Rosuvastatin Calcium (Crestor) 5 mg PO HS [facility] Last Admin: 06/17/18 22:25 Dose: 5 mg Sitagliptin Phosphate (Januvia) 100 mg PO DAILY [facility] Last Admin: 06/18/18 13:02 Dose: 100 mg - Labs Labs: 06/16/18 13:49 06/16/18 13:49 PT 12.7 SECONDS (9.7-12.2) H 06/17/18 15:49 INR 1.2 06/17/18 15:49 - Constitutional Appears: Well, Non-toxic - Head Exam Head Exam: ATRAUMATIC, NORMOCEPHALIC - Eye Exam Eye Exam: EOMI, PERRL - ENT Exam ENT Exam: Mucous Membranes Moist - Neck Exam Neck Exam: Full ROM - Respiratory Exam Respiratory Exam: Clear to Ausculation Bilateral. absent: Rhonchi, Wheezes - Cardiovascular Exam Cardiovascular Exam: REGULAR RHYTHM, +S1, +S2 - GI/Abdominal Exam GI & Abdominal Exam: Soft. absent: Distended, Tenderness - Extremities Exam Extremities Exam: Full ROM. absent: Pedal Edema - Neurological Exam Neurological Exam: Alert, Awake, Oriented x3 - Psychiatric Exam Psychiatric exam: Normal Affect, Normal Mood - Skin Skin Exam: Normal Color, Warm Assessment and Plan (1) ESRD (end stage renal disease) on dialysis Status: Acute (2) Severe hypertension Status: Acute (3) Diabetes Status: Acute (4) Hypertensive urgency Status: Acute - Assessment and Plan (Free Text) Plan: HD today BP improved with increased minoxidil dose s/p cardiac cath- results noted clinically better stable renal cassidy for discharge on increased dose of minoxidil
--- NOTE | 2018-06-18 19:55 | CP.PCM.PN ---
Subjective - Date & Time of Evaluation Date of Evaluation: 06/18/18 Time of Evaluation: 11:00 - Subjective Subjective: clinically same Objective - Vital Signs/Intake and Output Vital Signs (last 24 hours): Temp Pulse Resp BP Pulse Ox 98 F 53 L 20 155/78 H 98 06/18/18 15:00 06/18/18 16:23 06/18/18 15:00 06/18/18 18:02 06/18/18 15:00 Intake and Output: 06/18/18 06/19/18 18:59 06:59 Intake Total 500 Balance 500 - Medications Medications: Current Medications Amlodipine Besylate (Norvasc) 10 mg PO DAILY [facility] Last Admin: 06/18/18 13:03 Dose: 10 mg Aspirin (Aspirin Chewable) 81 mg PO DAILY [facility] Last Admin: 06/18/18 13:03 Dose: 81 mg Calcium Acetate (Phoslo) 667 mg PO TID [facility] Last Admin: 06/18/18 18:02 Dose: 667 mg Carvedilol (Coreg) 12.5 mg PO BID [facility] Last Admin: 06/18/18 18:02 Dose: 12.5 mg Clonidine HCl (Catapres) 0.3 mg PO Q8 [facility] Last Admin: 06/18/18 13:02 Dose: 0.3 mg Clopidogrel Bisulfate (Plavix) 75 mg PO DAILY [facility] Last Admin: 06/18/18 13:02 Dose: 75 mg Glipizide (Glucotrol) 5 mg PO DAILY [facility] Last Admin: 06/18/18 13:03 Dose: 5 mg Heparin Sodium (Porcine) (Heparin) 5,000 units SC Q12 [facility] Last Admin: 06/18/18 10:40 Dose: Not Given Insulin Human Regular (Novolin R) 0 unit SC [facility]; Protocol Last Admin: 06/18/18 18:02 Dose: 3 unit Isosorbide Mononitrate (Imdur) 60 mg PO DAILY [facility] Last Admin: 06/18/18 13:03 Dose: 60 mg Minoxidil (Minoxidil) 10 mg PO BID [facility] Last Admin: 06/18/18 18:02 Dose: 10 mg Multivitamins (Hexavitamin) 1 tab PO DAILY [facility] Last Admin: 06/18/18 13:02 Dose: 1 tab Naproxen (Anaprox Ds) 550 mg PO BID PRN PRN Reason: Pain, moderate (4-7) Last Admin: 06/18/18 06:47 Dose: 550 mg Rosuvastatin Calcium (Crestor) 5 mg PO HS [facility] Last Admin: 06/17/18 22:25 Dose: 5 mg Sitagliptin Phosphate (Januvia) 100 mg PO DAILY [facility] Last Admin: 06/18/18 13:02 Dose: 100 mg - Labs Labs: 06/16/18 13:49 06/16/18 13:49 PT 12.7 SECONDS (9.7-12.2) H 06/17/18 15:49 INR 1.2 06/17/18 15:49
[2018-06-19] MEDS: (Novolin R) Insulin Human Regular 100 units/ml vial SC SCH ×2 (08:11→12:29)
[2018-06-19 08:44] VITALS: BP 145/74; PULSE 58; TEMP 97.9; O2SAT 97
--- NOTE | 2018-06-19 08:50 | CP.PCM.PN ---
Subjective - Date & Time of Evaluation Date of Evaluation: 06/19/18 Time of Evaluation: 08:46 - Subjective Subjective: pt seen and examined comfortable ate whole breakfast no SOB no chest pain no headaches Rest 10 point ROS negative Objective - Vital Signs/Intake and Output Vital Signs (last 24 hours): Temp Pulse Resp BP Pulse Ox 97.9 F 58 L 20 145/74 97 06/19/18 08:43 06/19/18 08:43 06/19/18 08:43 06/19/18 08:43 06/19/18 08:43 Intake and Output: 06/19/18 06/19/18 06:59 18:59 Output Total 300 Balance -300 - Medications Medications: Current Medications Amlodipine Besylate (Norvasc) 10 mg PO DAILY [facility] Last Admin: 06/18/18 13:03 Dose: 10 mg Aspirin (Aspirin Chewable) 81 mg PO DAILY [facility] Last Admin: 06/18/18 13:03 Dose: 81 mg Calcium Acetate (Phoslo) 667 mg PO TID [facility] Last Admin: 06/18/18 18:02 Dose: 667 mg Carvedilol (Coreg) 12.5 mg PO BID [facility] Last Admin: 06/18/18 18:02 Dose: 12.5 mg Clonidine HCl (Catapres) 0.3 mg PO Q8 [facility] Last Admin: 06/19/18 05:36 Dose: 0.3 mg Clopidogrel Bisulfate (Plavix) 75 mg PO DAILY [facility] Last Admin: 06/18/18 13:02 Dose: 75 mg Glipizide (Glucotrol) 5 mg PO DAILY [facility] Last Admin: 06/18/18 13:03 Dose: 5 mg Heparin Sodium (Porcine) (Heparin) 5,000 units SC Q12 [facility] Last Admin: 06/18/18 21:23 Dose: 5,000 units Insulin Human Regular (Novolin R) 0 unit SC ACHS [facility]; Protocol Last Admin: 06/19/18 08:11 Dose: 1 unit Isosorbide Mononitrate (Imdur) 60 mg PO DAILY [facility] Last Admin: 06/18/18 13:03 Dose: 60 mg Minoxidil (Minoxidil) 10 mg PO BID [facility] Last Admin: 06/18/18 18:02 Dose: 10 mg Multivitamins (Hexavitamin) 1 tab PO DAILY [facility] Last Admin: 06/18/18 13:02 Dose: 1 tab Naproxen (Anaprox Ds) 550 mg PO BID PRN PRN Reason: Pain, moderate (4-7) Last Admin: 06/18/18 06:47 Dose: 550 mg Rosuvastatin Calcium (Crestor) 5 mg PO HS [facility] Last Admin: 06/18/18 21:23 Dose: 5 mg Sitagliptin Phosphate (Januvia) 100 mg PO DAILY [facility] Last Admin: 06/18/18 13:02 Dose: 100 mg - Labs Labs: 06/16/18 13:49 06/16/18 13:49 PT 12.7 SECONDS (9.7-12.2) H 06/17/18 15:49 INR 1.2 06/17/18 15:49 - Constitutional Appears: Well, Non-toxic - Head Exam Head Exam: ATRAUMATIC, NORMOCEPHALIC - Eye Exam Eye Exam: EOMI, PERRL - ENT Exam ENT Exam: Mucous Membranes Moist - Neck Exam Neck Exam: Full ROM - Respiratory Exam Respiratory Exam: Clear to Ausculation Bilateral. absent: Rhonchi, Wheezes - Cardiovascular Exam Cardiovascular Exam: REGULAR RHYTHM, +S1, +S2 - GI/Abdominal Exam GI & Abdominal Exam: Soft. absent: Distended, Tenderness - Extremities Exam Extremities Exam: Full ROM. absent: Pedal Edema - Neurological Exam Neurological Exam: Alert, Awake, Oriented x3 - Psychiatric Exam Psychiatric exam: Normal Affect, Normal Mood - Skin Skin Exam: Normal Color, Warm Assessment and Plan (1) ESRD (end stage renal disease) on dialysis Status: Acute (2) Severe hypertension Status: Acute (3) Diabetes Status: Acute (4) Hypertensive urgency Status: Acute - Assessment and Plan (Free Text) Plan: clinically better BP better with increased minoxidil done cardiac cath- non occlusive CAD same BP meds for now low salt diet next HD thursday
[2018-06-19] MEDS: Multiple Vitamins Tab PO SCH (09:56)
--- NOTE | 2018-06-20 17:01 | CP.PCM.CON ---
History of Present Illness - History of Present Illness History of Present Illness: I was asked to see patient by Dr Deepa Holland Patient was seen 06/17/18 [id number] Patient is a 57 year old male with HTN hypercholsterolemia who presents with chest pain and uncontrolled HTN. The patinet describes intermittent headache then substernal chest pressure. There was associated dypsnea. The patinet ruled in for myocardial infarction. Review of Systems - Constitutional Constitutional: absent: As Per HPI, Anorexia, Chills, Daytime Sleepiness, Excessive Sweating, Fatigue, Fever, Frequent Falls, Headache, Increased Appetite, Lethargy, Malaise, Night Sweats, Snoring, Sleep Apnea, Weight Gain, Weight Loss, Weakness, Other - EENT Eyes: absent: As Per HPI, Blind Spots, Blurred Vision, Change in Vision, Decreased Night Vision, Diplopia, Discharge, Dry Eye, Exophthalmos, Floaters, Irritation, Itchy Eyes, Loss of Peripheral Vision, Pain, Photophobia, Requires Corrective Lenses, Sees Flashes, Spots in Vision, Tunnel Vision, Other Visual Disturbances, Loss of Vision, Other Ears: absent: As Per HPI, Decreased Hearing, Ear Discharge, Ear Pain, Tinnitus, Abnormal Hearing, Disequilibrium, Dizziness, Other Nose/Mouth/Throat: absent: As Per HPI, Epistaxis, Nasal Congestion, Nasal Discharge, Nasal Obstruction, Nasal Trauma, Nose Pain, Post Nasal Drip, Sinus Pain, Sinus Pressure, Bleeding Gums, Change in Voice, Dental Pain, Dry Mouth, Dysphagia, Halitosis, Hoarsness, Lip Swelling, Mouth Lesions, Mouth Pain, Odynophagia, Sore Throat, Throat Swelling, Tongue Swelling, Facial Pain, Neck Pain, Neck Mass, Other - Cardiovascular Cardiovascular: Chest Pain - Respiratory Respiratory: absent: As Per HPI, Cough, Dyspnea, Hemoptysis, Dyspnea on Exertion, Wheezing, Snoring, Stridor, Pain on Inspiration, Chest Congestion, Excessive Mucous Production, Change in Mucous Color, Pain with Coughing, Other - Gastrointestinal Gastrointestinal: absent: As Per HPI, Abdominal Pain, Belching, Bloating, Change in Bowel Habits, Change in Stool Character, Coffee Ground Emesis, Constipation, Cramping, Diarrhea, Dyspepsia, Dysphagia, Early Satiety, Excessive Flatus, Fecal Incontinence, Heartburn, Hematemesis, Hematochezia, Loose Stools, Melena, Nausea, Odynophagia, Temesmus, Vomiting, Other - Genitourinary Genitourinary: absent: As Per HPI, Change in Urinary Stream, Difficulty Urinating, Dysuria, Flank Pain, Hematuria, Pyuria, Nocturia, Urinary Incontinence, Urinary Frequency, Urinary Hesitance, Urinary Urgency, Voiding Freq/Small Amts, Freq UTI, Hx Renal/Bladder Calculi, Hx /Renal Surgery, Bladder Distension, Other - Musculoskeletal Musculoskeletal: absent: As Per HPI, Abnormal Gait, Arthralgias, Atrophy, Back Pain, Deformity, Joint Swelling, Limited Range of Motion, Loss of Height, Muscle Cramps, Muscle Weakness, Myalgias, Neck Pain, Numbness, Radiating Pain into Limb, Stiffness, Tingling, Other - Integumentary Integumentary: absent: As Per HPI, Acne, Alopecia, Bleeding Lesions, Change in Hair, Change in Nails, Change in Pigmentation, Changing Lesions, Dry Skin, Erythema, Furuncle, Hirsutism, Lesions, New Lesions, Non-Healing Lesions, Photosensitivity, Pruritus, Rash, Skin Pain, Skin Ulcer, Sores, Striae, Swelling, Unusual Bruising, Wounds, Jaundice, Other - Neurological Neurological: absent: As Per HPI, Abnormal Gait, Abnormal Hearing, Abnormal Movements, Abnormal Speech, Behavioral Changes, Burning Sensations, Confusion, Convulsions, Disequilibrium, Dizziness, Numbness, Focal Weakness, Frequent Falls, Headaches, Lack of Coordination, Loss of Vision, Memory Loss, Paresthesias, Radicular Pain, Restless Legs, Sensory Deficit, Syncope, Tingling, Tremor, Vertigo, Weakness, Other Visual Disturbances, Other - Psychiatric Psychiatric: absent: As Per HPI, Abnormal Sleep Pattern, Anhedonia, Anxiety, Auditory Hallucinations, Behavioral Changes, Change in Appetite, Change in Libido, Confusion, Depression, Difficulty Concentrating, Hallucinations, Homicidal Ideation, Hopelessness, Irritability, Memory Loss, Mood Swings, Panic Attacks, Paranoia, Suicidal Ideation, Visual Hallucinations, Tactile Hallucinations, Other - Endocrine Endocrine: absent: As Per HPI, Change in Body Appearance, Change in Libido, Cold Intolorance, Deepening of Voice, Excessive Sweating, Fatigue, Flushing, Heat Intolorance, Increase in Ring/Shoe/Hat Size, Palpitations, Polydipsia, Polyphagia, Polyuria, Other - Hematologic/Lymphatic Hematologic: absent: As Per HPI, Easy Bleeding, Easy Bruising, Lymphadenopathy, Other Past Patient History - Infectious Disease Hx of Infectious Diseases: None - Past Medical History & Family History Past Medical History?: Yes - Past Social History Smoking Status: Never Smoked - CARDIAC Hx Hypertension: Yes - RENAL Hx Chronic Kidney Disease: Yes - ENDOCRINE/METABOLIC Hx Endocrine Disorders: Yes Hx Diabetes Mellitus Type 2: Yes - HEMATOLOGICAL/ONCOLOGICAL Hx Anemia: Yes - MUSCULOSKELETAL/RHEUMATOLOGICAL Hx Falls: No - PSYCHIATRIC Hx Substance Use: No - SURGICAL HISTORY Hx Surgeries: Yes Hx Orthopedic Surgery: Yes (left shoulder) Hx Vascular Access Device: Yes (Left arm AV shunt) - ANESTHESIA Hx Anesthesia: Yes Hx Anesthesia Reactions: No Meds Home Medications: Home Medication List Medication Instructions Recorded Confirmed Type Acetaminophen [Tylenol 325mg tab] 650 mg PO STAT tab 06/19/18 Rx Aspirin [Aspirin Chewable] 81 mg PO DAILY chew 06/19/18 Rx GlipiZIDE [Glucotrol] 10 mg PO DAILY #60 tab 06/19/18 Rx Minoxidil 10 mg PO BID 30 Days #240 tab 06/19/18 Rx SITagliptin [Januvia] 25 mg PO DAILY #30 tab 06/19/18 Rx cloNIDine [Catapres] 0.2 mg PO Q8 #90 tab 06/19/18 Rx Allergies/Adverse Reactions: Allergies Allergy/AdvReac Type Severity Reaction Status Date / Time No Known Allergies Allergy Verified 06/09/18 18:31 Physical Exam - Constitutional Appears: Non-toxic - Head Exam Head Exam: NORMAL INSPECTION - Eye Exam Eye Exam: Normal appearance - ENT Exam ENT Exam: Mucous Membranes Moist - Neck Exam Neck exam: Positive for: Normal Inspection - Respiratory Exam Respiratory Exam: NORMAL BREATHING PATTERN - Cardiovascular Exam Cardiovascular Exam: REGULAR RHYTHM - GI/Abdominal Exam GI & Abdominal Exam: Normal Bowel Sounds - Rectal Exam Rectal Exam: Deferred - Extremities Exam Extremities exam: Positive for: normal inspection. Negative for: pedal edema - Back Exam Back exam: NORMAL INSPECTION - Neurological Exam Neurological exam: Alert, Oriented x3 - Psychiatric Exam Psychiatric exam: Normal Affect - Skin Skin Exam: Normal Color Results - Vital Signs Recent Vital Signs: Last Vital Signs Temp 97.9 F 06/19/18 08:43 Pulse 58 L 06/19/18 08:43 Resp 20 06/19/18 08:43 BP 145/74 06/19/18 09:54 Pulse Ox 97 06/19/18 08:43 - Labs Result Diagrams: 06/16/18 13:49 06/16/18 13:49 - EKG Data EKG Interpreted by: Myself EKG shows normal: Sinus rhythm Assessment & Plan (1) Non-STEMI (non-ST elevated myocardial infarction) Assessment and Plan: patient has symptoms and risk factors for CAD. Givne elevated troponin, recommend evaluation of coronary anatomy will schedule cardiac cath. Status: Acute (2) HTN (hypertension) Assessment and Plan: blood pressure control Status: Acute (3) Type 2 diabetes mellitus with diabetic nephropathy Assessment and Plan: risk factor for CAD. Status: Acute
== END 2018-06-19 13:34 | disposition home or self-care (01) ==
LOC: C.ER 12:35 → C.9E 15:00 → C.6T 17:05
PROVIDERS: ADMIT Internal Medicine Nephrology; ATTEND Internal Medicine Nephrology
DX: I21.4 Non-ST elevation (NSTEMI) myocardial infarction (principal); I25.10 Atherosclerotic heart disease of native coronary artery without angina pectoris; E11.22 Type 2 diabetes mellitus with diabetic chronic kidney disease; I13.2 Hypertensive heart and chronic kidney disease with heart failure and with stage 5 chronic kidney disease, or end stage renal disease; I50.9 Heart failure, unspecified; N18.6 End stage renal disease; Z99.2 Dependence on renal dialysis; I16.0 Hypertensive urgency; Z95.828 Presence of other vascular implants and grafts; D64.9 Anemia, unspecified; Z79.82 Long term (current) use of aspirin; Z79.4 Long term (current) use of insulin; Z79.899 Other long term (current) drug therapy
CPT/HCPCS: 36415; 70450; 71045; 80053; 82948; 83880; 84484; 85025; 85610; 93005; 93458; 96374; 99285; C1760; C1769; C1887; C1893; G0257; G0378; J1644; J1940; J2250; J3010; Q9967

== ENCOUNTER 2018-06-28 10:45 | Observation (INO) | payer BC ==
[2018-06-28 11:19] VITALS: BMI 23.8
[2018-06-28] MEDS ORDERED: Labetalol 5 mg/ml Inj 20ML IV STA (11:53)
[2018-06-28] MEDS ORDERED: Labetalol 5mg/ml (4ml) ONE (12:02)
--- NOTE | 2018-06-28 12:03 | C.PDOC ---
History Of Present Illness 57 year old male, whose past medical history includes diabetes, ESRD (dialysis Thu-Thu-Thu), HTN and High Cholesterol, is brought to the ED by EMS for evaluation of hypoglycemia noted this morning. Patient's states she found him on the floor this morning and called EMS. Patient does not recall preceding events. Upon EMS arrival, patient was found to have blood sugar of 35. When asked, patient states he normally takes his Insulin at 6pm every evening, but forgot to take insulin last night. Upon checking, he found his blood sugar was 512. Patient was scared and took 6 units of Insulin (instead of his normal dosage of 2 units) before going to bed. Patient is awake and oriented upon ED arrival. He has not received dialysis today. Otherwise, he denies chest pain, shortness of breath, nausea, vomiting. Time Seen by Provider: 06/28/18 11:31 Chief Complaint (Nursing): Altered Mental Status History Per: Patient, EMS, Family History/Exam Limitations: None Onset/Duration Of Symptoms: Hrs Onset Of Symptoms: Cannot Confirm Onset Current Symptoms Are (Timing): Better Usual Baseline: Alert Oriented Exacerbating Factor(s): Diabetic Additional History Per: Patient Past Medical History Reviewed: Historical Data, Nursing Documentation, Vital Signs Vital Signs: Last Vital Signs Temp 97.3 F L 06/28/18 10:55 Pulse 65 06/28/18 11:19 Resp 18 06/28/18 10:55 BP 192/89 H 06/28/18 11:19 Pulse Ox 95 06/28/18 11:19 - Medical History PMH: Anemia, Diabetes, HTN, End Stage Renal Disease, Chronic Kidney Disease Surgical History: No Surg Hx - [facility] Procedures (01/29/18) DIALYSIS ARTERIOVENOSTOM (06/23/13) HEMODIALYSIS (06/23/13) VENOUS CATHETERIZATION FOR RENAL DIALYSIS (06/23/13) Family History: States: Diabetes - Social History Hx Tobacco Use: No Hx Alcohol Use: No Hx Substance Use: No - Immunization History Hx Tetanus Toxoid Vaccination: No Hx Influenza Vaccination: Yes Hx Pneumococcal Vaccination: Yes Review Of Systems Constitutional: Positive for: Other (hypoglycemia) Cardiovascular: Negative for: Chest Pain Respiratory: Negative for: Shortness of Breath Gastrointestinal: Negative for: Nausea, Vomiting Physical Exam - Physical Exam Appears: Non-toxic, No Acute Distress Skin: Normal Color, Warm, Dry Head: Atraumatic, Normacephalic Eye(s): bilateral: Normal Inspection Oral Mucosa: Moist Neck: Normal ROM, Supple Chest: Symmetrical, No Deformity, No Tenderness Cardiovascular: Rhythm Regular, No Murmur Respiratory: Rales, No Rhonchi, No Wheezing Extremity: Normal ROM, Capillary Refill (less than 2 seconds ), Other (AV fistula to left arm with positive thrill ) Neurological/Psych: Oriented x3, Normal Speech, Normal Cognition ED Course And Treatment - Laboratory Results Result Diagrams: 06/28/18 11:58 06/28/18 13:33 ECG: Interpreted By Me, Viewed By Me ECG Rhythm: Sinus Rhythm Interpretation Of ECG: Normal Sinus rhythm at rate 73bpm. Normal intervals, normal axis. T wave inversions in leads II, III and AVF. Rate From EC O2 Sat by Pulse Oximetry: 95 (on RA) Pulse Ox Interpretation: Normal Medical Decision Making Medical Decision Making: Assessment: hypoglycemia Plan: * bloodwork * CXR * EKG * Trandate IV * reassess and disposition Progress: bloodwork, CXR, EKG ordered and reviewed. Patient is due for dialysis today Disposition Discussed With Dr.: Adam Holland Counseled Patient/Family Regarding: Studies Performed, Diagnosis - Disposition Disposition: HOSPITALIZED Disposition Time: 13:10 Condition: FAIR - Clinical Impression Clinical Impression: Fluid overload, Hypoglycemia - Scribe Statement The provider has reviewed the documentation as recorded by the Scribe (Cyndie Holland) Provider Attestation: All medical record entries made by the Scribe were at my direction and personally dictated by me. I have reviewed the chart and agree that the record accurately reflects my personal performance of the history, physical exam, medical decision making, and the department course for this patient. I have also personally directed, reviewed, and agree with the discharge instructions and disposition.
[2018-06-28 12:05] LABS: BASO # 0.1 K/uL (0.0-0.2); BASO % 0.6 % (0.0-2.0); EOS % 0.1 % (0.0-4.0); HEMOGLOBIN 9.6 g/dL (12.0-18.0); LYMPH # 0.3 K/uL (1.0-4.3); LYMPH % 3.5 % (20.0-40.0); MEAN CORPUSCULAR HEMOGLOBIN 30.2 pg (27.0-31.0); MEAN CORPUSCULAR HGB CONC 32.2 g/dL (33.0-37.0); MONO # 0.5 K/uL (0.0-0.8); MONO % 5.6 % (0.0-10.0); NEUT # 8.2 K/uL (1.8-7.0); NEUT % 90.2 % (50.0-75.0); PLATELET COUNT 158 K/uL (130-400); RED CELL DISTRIBUTION WIDTH 16.6 % (11.5-14.5)
[2018-06-28 12:12] LABS: MEAN CELL VOLUME 93.6 fL (80.0-94.0)
[2018-06-28 12:16] LABS: INR 1.2; PROTHROMBIN TIME 12.6 SECONDS (9.7-12.2)
--- NOTE | 2018-06-28 12:27 | RAD ---
HISTORY: SOB COMPARISON: Chest x-ray performed 06/16/18 TECHNIQUE: Chest, one view. FINDINGS: LUNGS: Mild venous congestion. No focal consolidation. Please note that chest x-ray has limited sensitivity for the detection of pulmonary masses. PLEURA: No significant pleural effusion identified. No definite pneumothorax . CARDIOVASCULAR: Severe cardiomegaly persists with CTR approximately 19.7/27.9. OSSEOUS STRUCTURES: No acute osseous abnormality identified. VISUALIZED UPPER ABDOMEN: Unremarkable. OTHER FINDINGS: None. IMPRESSION: Persistent severe cardiomegaly. Mild pulmonary venous congestion.
[2018-06-28 13:02] LABS: BANDS 2 % (0-2); LYMPHOCYTE 3 % (20-40); MONOCYTE 5 % (0-10); NEUTROPHIL 90 % (50-75); PLATELET ESTIMATE NORMAL (NORMAL); TOTAL CELLS COUNTED 100
[2018-06-28 13:03] LABS: ANISOCYTOSIS SLIGHT; POIKILOCYTOSIS SLIGHT
[2018-06-28 14:55] LABS: ALB/GLOB RATIO 1.9 (1.0-2.1); ALBUMIN 4.8 g/dL (3.5-5.0); CALCIUM 9.3 mg/dl (8.6-10.4)
[2018-06-28 15:13] LABS: TROPONIN I 0.122 ng/mL (0.00-0.120)
[2018-06-28] MEDS ORDERED: Sod Polystyrene Sulf 15 gm/60 ml Susp PO ONE (15:29)
--- NOTE | 2018-06-28 16:01 | CP.PCM.CON ---
History of Present Illness - History of Present Illness History of Present Illness: I was asked to see patient by Dr Holland Patient seen 06/28/18 [id number] Patient is a 57 year old male with HTN, CAD, DM ESRD on HD who presents with syncope. Patient was found to be hypoglycemic. He states he became very lightheaded and started to sweat. He denies chest pain. Cardiac cath perfomred last admission Review of Systems - Constitutional Constitutional: absent: As Per HPI, Anorexia, Chills, Daytime Sleepiness, Excessive Sweating, Fatigue, Fever, Frequent Falls, Headache, Increased Appetite, Lethargy, Malaise, Night Sweats, Snoring, Sleep Apnea, Weight Gain, Weight Loss, Weakness, Other - EENT Eyes: absent: As Per HPI, Blind Spots, Blurred Vision, Change in Vision, Decreased Night Vision, Diplopia, Discharge, Dry Eye, Exophthalmos, Floaters, Irritation, Itchy Eyes, Loss of Peripheral Vision, Pain, Photophobia, Requires Corrective Lenses, Sees Flashes, Spots in Vision, Tunnel Vision, Other Visual Disturbances, Loss of Vision, Other Ears: absent: As Per HPI, Decreased Hearing, Ear Discharge, Ear Pain, Tinnitus, Abnormal Hearing, Disequilibrium, Dizziness, Other Nose/Mouth/Throat: absent: As Per HPI, Epistaxis, Nasal Congestion, Nasal Discharge, Nasal Obstruction, Nasal Trauma, Nose Pain, Post Nasal Drip, Sinus Pain, Sinus Pressure, Bleeding Gums, Change in Voice, Dental Pain, Dry Mouth, Dysphagia, Halitosis, Hoarsness, Lip Swelling, Mouth Lesions, Mouth Pain, Odynophagia, Sore Throat, Throat Swelling, Tongue Swelling, Facial Pain, Neck Pain, Neck Mass, Other - Cardiovascular Cardiovascular: absent: As Per HPI, Acrocyanosis, Chest Pain, Chest Pain at Rest, Chest Pain with Activity, Claudication, Diaphoresis, Dyspnea, Dyspnea on Exertion, Edema, Irregular Heart Rhythm, Pain Radiating to Arm/Neck/Jaw, Leg Edema, Leg Ulcers, Lightheadedness, Orthopnea, Palpitations, Paroxysmal Nocturnal Dyspnea, Pedal Edema, Radiating Pain, Rapid Heart Rate, Slow Heart Rate, Syncope, Other - Respiratory Respiratory: absent: As Per HPI, Cough, Dyspnea, Hemoptysis, Dyspnea on Exertion, Wheezing, Snoring, Stridor, Pain on Inspiration, Chest Congestion, Excessive Mucous Production, Change in Mucous Color, Pain with Coughing, Other - Gastrointestinal Gastrointestinal: absent: As Per HPI, Abdominal Pain, Belching, Bloating, Change in Bowel Habits, Change in Stool Character, Coffee Ground Emesis, Constipation, Cramping, Diarrhea, Dyspepsia, Dysphagia, Early Satiety, Excessive Flatus, Fecal Incontinence, Heartburn, Hematemesis, Hematochezia, Loose Stools, Melena, Nausea, Odynophagia, Temesmus, Vomiting, Other - Genitourinary Genitourinary: absent: As Per HPI, Change in Urinary Stream, Difficulty Urina ting, Dysuria, Flank Pain, Hematuria, Pyuria, Nocturia, Urinary Incontinence, Urinary Frequency, Urinary Hesitance, Urinary Urgency, Voiding Freq/Small Amts, Freq UTI, Hx Renal/Bladder Calculi, Hx /Renal Surgery, Bladder Distension, Other - Integumentary Integumentary: absent: As Per HPI, Acne, Alopecia, Bleeding Lesions, Change in Hair, Change in Nails, Change in Pigmentation, Changing Lesions, Dry Skin, Erythema, Furuncle, Hirsutism, Lesions, New Lesions, Non-Healing Lesions, Photosensitivity, Pruritus, Rash, Skin Pain, Skin Ulcer, Sores, Striae, Swel ling, Unusual Bruising, Wounds, Jaundice, Other - Neurological Neurological: absent: As Per HPI, Abnormal Gait, Abnormal Hearing, Abnormal Movements, Abnormal Speech, Behavioral Changes, Burning Sensations, Confusion, Convulsions, Disequilibrium, Dizziness, Numbness, Focal Weakness, Frequent Falls, Headaches, Lack of Coordination, Loss of Vision, Memory Loss, Paresthesias, Radicular Pain, Restless Legs, Sensory Deficit, Syncope, Tingling, Tremor, Vertigo, Weakness, Other Visual Disturbances, Other - Psychiatric Psychiatric: absent: As Per HPI, Abnormal Sleep Pattern, Anhedonia, Anxiety, Auditory Hallucinations, Behavioral Changes, Change in Appetite, Change in Libido, Confusion, Depression, Difficulty Concentrating, Hallucinations, Homicidal Ideation, Hopelessness, Irritability, Memory Loss, Mood Swings, Panic Attacks, Paranoia, Suicidal Ideation, Visual Hallucinations, Tactile Hallucinations, Other - Endocrine Endocrine: absent: As Per HPI, Change in Body Appearance, Change in Libido, Cold Intolorance, Deepening of Voice, Excessive Sweating, Fatigue, Flushing, Heat Intolorance, Increase in Ring/Shoe/Hat Size, Palpitations, Polydipsia, Polyphagia, Polyuria, Other - Hematologic/Lymphatic Hematologic: absent: As Per HPI, Easy Bleeding, Easy Bruising, Lymphadenopathy, Other Past Patient History - Infectious Disease Hx of Infectious Diseases: None - Past Medical History & Family History Past Medical History?: Yes - Past Social History Smoking Status: Never Smoked - CARDIAC Hx Hypertension: Yes - RENAL Hx Chronic Kidney Disease: Yes - ENDOCRINE/METABOLIC Hx Endocrine Disorders: Yes Hx Diabetes Mellitus Type 2: Yes - HEMATOLOGICAL/ONCOLOGICAL Hx Anemia: Yes - MUSCULOSKELETAL/RHEUMATOLOGICAL Hx Falls: No - PSYCHIATRIC Hx Substance Use: No - SURGICAL HISTORY Hx Surgeries: Yes Hx Orthopedic Surgery: Yes (left shoulder) Hx Vascular Access Device: Yes (Left arm AV shunt) - ANESTHESIA Hx Anesthesia: Yes Hx Anesthesia Reactions: No Meds Allergies/Adverse Reactions: Allergies Allergy/AdvReac Type Severity Reaction Status Date / Time No Known Allergies Allergy Verified 06/28/18 10:57 - Medications Medications: Current Medications Amlodipine Besylate (Norvasc) 10 mg PO DAILY [facility] Aspirin (Aspirin Chewable) 81 mg PO DAILY [facility] Calcium Acetate (Phoslo) 667 mg PO TIDCC [facility] Carvedilol (Coreg) 12.5 mg PO BID [facility] Clonidine HCl (Catapres) 0.2 mg PO Q8 [facility] Clopidogrel Bisulfate (Plavix) 75 mg PO DAILY [facility] Insulin Human Regular (Novolin R) 0 unit SC ACHS [facility]; Protocol Isosorbide Mononitrate (Imdur) 60 mg PO DAILY [facility] Minoxidil (Loniten) 10 mg PO BID [facility] Multivitamins/Minerals (Therapeutic-M Tab) 1 tab PO DAILY [facility] Rosuvastatin Calcium (Crestor) 5 mg PO HS [facility] Physical Exam - Constitutional Appears: Non-toxic - Head Exam Head Exam: NORMAL INSPECTION - Eye Exam Eye Exam: Normal appearance - ENT Exam ENT Exam: Mucous Membranes Moist - Neck Exam Neck exam: Positive for: Full Rom - Respiratory Exam Respiratory Exam: NORMAL BREATHING PATTERN - Cardiovascular Exam Cardiovascular Exam: REGULAR RHYTHM - GI/Abdominal Exam GI & Abdominal Exam: Normal Bowel Sounds - Rectal Exam Rectal Exam: Deferred - Extremities Exam Extremities exam: Negative for: pedal edema - Back Exam Back exam: NORMAL INSPECTION - Neurological Exam Neurological exam: Alert, Oriented x3 - Psychiatric Exam Psychiatric exam: Normal Affect - Skin Skin Exam: Normal Color Results - Vital Signs Recent Vital Signs: Last Vital Signs Temp 96.8 F L 06/28/18 15:00 Pulse 60 06/28/18 15:03 Resp 18 06/28/18 14:55 BP 152/77 H 06/28/18 14:55 Pulse Ox 95 06/28/18 14:55 - Labs Result Diagrams: 06/28/18 11:58 06/28/18 13:33 Labs: Laboratory Results - last 24 hr 06/28/18 06/28/18 06/28/18 10:50 11:58 11:58 WBC 9.0 D RBC 3.20 L Hgb 9.6 L Hct 29.9 L MCV 93.6 D MCH 30.2 MCHC 32.2 L RDW 16.6 H Plt Count 158 MPV 10.0 Neut % (Auto) 90.2 H Lymph % (Auto) 3.5 L [place] % (Auto) 5.6 Eos % (Auto) 0.1 Baso % (Auto) 0.6 Neut # (Auto) 8.2 H Lymph # (Auto) 0.3 L [place] # (Auto) 0.5 Eos # (Auto) 0.0 Baso # (Auto) 0.1 Neutrophils % (Manual) 90 H Band Neutrophils % 2 Lymphocytes % (Manual) 3 L Monocytes % (Manual) 5 Platelet Estimate Normal Poikilocytosis (manual Slight Anisocytosis (manual) Slight PT 12.6 H INR 1.2 APTT 34 Sodium Potassium Chloride Carbon Dioxide Anion Gap BUN Creatinine Est GFR ( Amer) Est GFR (Non-Af Amer) POC Glucose (mg/dL) 121 H Random Glucose Calcium Magnesium Total Bilirubin AST ALT Alkaline Phosphatase Troponin I NT-Pro-B Natriuret Pep Total Protein Albumin Globulin Albumin/Globulin Ratio 06/28/18 06/28/18 06/28/18 12:14 13:33 14:37 WBC RBC Hgb Hct MCV MCH MCHC RDW Plt Count MPV Neut % (Auto) Lymph % (Auto) [place] % (Auto) Eos % (Auto) Baso % (Auto) Neut # (Auto) Lymph # (Auto) [place] # (Auto) Eos # (Auto) Baso # (Auto) Neutrophils % (Manual) Band Neutrophils % Lymphocytes % (Manual) Monocytes % (Manual) Platelet Estimate Poikilocytosis (manual Anisocytosis (manual) PT INR APTT Sodium 138 Potassium 6.9 H* D Chloride 97 L Carbon Dioxide 22 Anion Gap 26 H BUN 87 H Creatinine 11.3 H* D Est GFR ( Amer) 6 Est GFR (Non-Af Amer) 5 POC Glucose (mg/dL) 184 H 189 H Random Glucose 196 H D Calcium 9.3 Magnesium 2.3 Total Bilirubin 0.7 AST 61 H D ALT 59 Alkaline Phosphatase 176 H Troponin I 0.1220 H* NT-Pro-B Natriuret Pep [id number] H Total Protein 7.4 Albumin 4.8 Globulin 2.6 Albumin/Globulin Ratio 1.9 - EKG Data EKG Interpreted by: Myself EKG shows normal: Sinus rhythm Assessment & Plan (1) CAD (coronary artery disease) Assessment and Plan: patient will continue medical therapy. recommend ASA/plavix statin therapy Status: Acute (2) ESRD (end stage renal disease) Assessment and Plan: per renal Status: Acute (3) HTN (hypertension) Assessment and Plan: blood pressure is improving on medical therapy Status: Acute
[2018-06-28] MEDS: (Novolin R) Insulin Human Regular 100 units/ml vial SC SCH ×2 (16:49→22:37)
--- NOTE | 2018-06-28 21:38 | CP.PCM.HP ---
Past Patient History - Infectious Disease Hx of Infectious Diseases: None - Past Medical History & Family History Past Medical History?: Yes - Past Social History Smoking Status: Never Smoked - CARDIAC Hx Hypertension: Yes - RENAL Hx Chronic Kidney Disease: Yes - ENDOCRINE/METABOLIC Hx Endocrine Disorders: Yes Hx Diabetes Mellitus Type 2: Yes - HEMATOLOGICAL/ONCOLOGICAL Hx Anemia: Yes - MUSCULOSKELETAL/RHEUMATOLOGICAL Hx Falls: No - PSYCHIATRIC Hx Substance Use: No - SURGICAL HISTORY Hx Surgeries: Yes Hx Orthopedic Surgery: Yes (left shoulder) Hx Vascular Access Device: Yes (Left arm AV shunt) - ANESTHESIA Hx Anesthesia: Yes Hx Anesthesia Reactions: No Meds Allergies/Adverse Reactions: Allergies Allergy/AdvReac Type Severity Reaction Status Date / Time No Known Allergies Allergy Verified 06/28/18 10:57 Physical Exam - Constitutional Appears: Well - Head Exam Head Exam: ATRAUMATIC, NORMAL INSPECTION, NORMOCEPHALIC - Eye Exam Eye Exam: EOMI, Normal appearance, PERRL Pupil Exam: NORMAL ACCOMODATION, PERRL - ENT Exam ENT Exam: Mucous Membranes Moist, Normal Exam - Neck Exam Neck exam: Positive for: Normal Inspection - Respiratory Exam Respiratory Exam: Decreased Breath Sounds - Cardiovascular Exam Cardiovascular Exam: REGULAR RHYTHM, +S1, +S2 - GI/Abdominal Exam GI & Abdominal Exam: Diminished Bowel Sounds, Soft - Rectal Exam Rectal Exam: Deferred Results - Vital Signs Recent Vital Signs: Last Vital Signs Temp 97.8 F 06/28/18 18:40 Pulse 60 06/28/18 19:31 Resp 20 06/28/18 19:31 BP 189/81 H 06/28/18 20:40 Pulse Ox 99 06/28/18 18:40 - Labs Result Diagrams: 06/28/18 11:58 06/28/18 13:33 Labs: Laboratory Results - last 24 hr 06/28/18 06/28/18 06/28/18 10:50 11:58 11:58 WBC 9.0 D RBC 3.20 L Hgb 9.6 L Hct 29.9 L MCV 93.6 D MCH 30.2 MCHC 32.2 L RDW 16.6 H Plt Count 158 MPV 10.0 Neut % (Auto) 90.2 H Lymph % (Auto) 3.5 L [place] % (Auto) 5.6 Eos % (Auto) 0.1 Baso % (Auto) 0.6 Neut # (Auto) 8.2 H Lymph # (Auto) 0.3 L [place] # (Auto) 0.5 Eos # (Auto) 0.0 Baso # (Auto) 0.1 Neutrophils % (Manual) 90 H Band Neutrophils % 2 Lymphocytes % (Manual) 3 L Monocytes % (Manual) 5 Platelet Estimate Normal Poikilocytosis (manual Slight Anisocytosis (manual) Slight PT 12.6 H INR 1.2 APTT 34 Sodium Potassium Chloride Carbon Dioxide Anion Gap BUN Creatinine Est GFR ( Amer) Est GFR (Non-Af Amer) POC Glucose (mg/dL) 121 H Random Glucose Calcium Magnesium Total Bilirubin AST ALT Alkaline Phosphatase Troponin I NT-Pro-B Natriuret Pep Total Protein Albumin Globulin Albumin/Globulin Ratio 06/28/18 06/28/18 06/28/18 12:14 13:33 14:37 WBC RBC Hgb Hct MCV MCH MCHC RDW Plt Count MPV Neut % (Auto) Lymph % (Auto) [place] % (Auto) Eos % (Auto) Baso % (Auto) Neut # (Auto) Lymph # (Auto) [place] # (Auto) Eos # (Auto) Baso # (Auto) Neutrophils % (Manual) Band Neutrophils % Lymphocytes % (Manual) Monocytes % (Manual) Platelet Estimate Poikilocytosis (manual Anisocytosis (manual) PT INR APTT Sodium 138 Potassium 6.9 H* D Chloride 97 L Carbon Dioxide 22 Anion Gap 26 H BUN 87 H Creatinine 11.3 H* D Est GFR ( Amer) 6 Est GFR (Non-Af Amer) 5 POC Glucose (mg/dL) 184 H 189 H Random Glucose 196 H D Calcium 9.3 Magnesium 2.3 Total Bilirubin 0.7 AST 61 H D ALT 59 Alkaline Phosphatase 176 H Troponin I 0.1220 H* NT-Pro-B Natriuret Pep 882059 H Total Protein 7.4 Albumin 4.8 Globulin 2.6 Albumin/Globulin Ratio 1.9
[2018-06-29] MEDS: (Novolin R) Insulin Human Regular 100 units/ml vial SC SCH ×4 (08:25→22:22)
[2018-06-29] MEDS: Multivitamin With Minerals Tab PO SCH (10:10)
--- NOTE | 2018-06-29 10:13 | CP.PCM.CON ---
History of Present Illness - History of Present Illness History of Present Illness: Patient seen and examnied consult dictated dialysis last PM with ultrafiltration resume home meds scdule dialysis again for 3/6 orders written Past Patient History - Infectious Disease Hx of Infectious Diseases: None - Past Medical History & Family History Past Medical History?: Yes - Past Social History Smoking Status: Never Smoked - CARDIAC Hx Hypertension: Yes - RENAL Hx Chronic Kidney Disease: Yes - ENDOCRINE/METABOLIC Hx Endocrine Disorders: Yes Hx Diabetes Mellitus Type 2: Yes - HEMATOLOGICAL/ONCOLOGICAL Hx Anemia: Yes - MUSCULOSKELETAL/RHEUMATOLOGICAL Hx Falls: No - PSYCHIATRIC Hx Substance Use: No - SURGICAL HISTORY Hx Surgeries: Yes Hx Orthopedic Surgery: Yes (left shoulder) Hx Vascular Access Device: Yes (Left arm AV shunt) - ANESTHESIA Hx Anesthesia: Yes Hx Anesthesia Reactions: No Meds Allergies/Adverse Reactions: Allergies Allergy/AdvReac Type Severity Reaction Status Date / Time No Known Allergies Allergy Verified 06/28/18 10:57 - Medications Medications: Current Medications Amlodipine Besylate (Norvasc) 10 mg PO DAILY [facility] Aspirin (Aspirin Chewable) 81 mg PO DAILY [facility] Calcium Acetate (Phoslo) 667 mg PO TIDCC [facility] Last Admin: 06/28/18 17:55 Dose: 667 mg Carvedilol (Coreg) 12.5 mg PO BID [facility] Last Admin: 06/28/18 21:57 Dose: 12.5 mg Clonidine HCl (Catapres) 0.2 mg PO Q8 [facility] Last Admin: 06/29/18 05:51 Dose: 0.2 mg Clopidogrel Bisulfate (Plavix) 75 mg PO DAILY [facility] Heparin Sodium (Porcine) (Heparin) 5,000 units SC Q12 [facility] Insulin Human Regular (Novolin R) 0 unit SC ACHS [facility]; Protocol Last Admin: 06/28/18 22:37 Dose: Not Given Isosorbide Mononitrate (Imdur) 60 mg PO DAILY [facility] Minoxidil (Loniten) 10 mg PO BID [facility] Last Admin: 06/28/18 17:37 Dose: Not Given Multivitamins/Minerals (Therapeutic-M Tab) 1 tab PO DAILY [facility] Rosuvastatin Calcium (Crestor) 5 mg PO HS [facility] Last Admin: 06/28/18 22:40 Dose: 5 mg Results - Vital Signs Recent Vital Signs: Last Vital Signs Temp 99.2 F 06/29/18 07:00 Pulse 64 06/29/18 07:00 Resp 20 06/29/18 07:00 BP 178/73 H 06/29/18 07:00 Pulse Ox 96 06/29/18 07:00 - Labs Result Diagrams: 06/28/18 11:58 06/28/18 13:33 Labs: Laboratory Results - last 24 hr 06/28/18 06/28/18 06/28/18 10:50 11:58 11:58 WBC 9.0 D RBC 3.20 L Hgb 9.6 L Hct 29.9 L MCV 93.6 D MCH 30.2 MCHC 32.2 L RDW 16.6 H Plt Count 158 MPV 10.0 Neut % (Auto) 90.2 H Lymph % (Auto) 3.5 L [place] % (Auto) 5.6 Eos % (Auto) 0.1 Baso % (Auto) 0.6 Neut # (Auto) 8.2 H Lymph # (Auto) 0.3 L [place] # (Auto) 0.5 Eos # (Auto) 0.0 Baso # (Auto) 0.1 Neutrophils % (Manual) 90 H Band Neutrophils % 2 Lymphocytes % (Manual) 3 L Monocytes % (Manual) 5 Platelet Estimate Normal Poikilocytosis (manual Slight Anisocytosis (manual) Slight PT 12.6 H INR 1.2 APTT 34 Sodium Potassium Chloride Carbon Dioxide Anion Gap BUN Creatinine Est GFR ( Amer) Est GFR (Non-Af Amer) POC Glucose (mg/dL) 121 H Random Glucose Calcium Magnesium Total Bilirubin AST ALT Alkaline Phosphatase Troponin I NT-Pro-B Natriuret Pep Total Protein Albumin Globulin Albumin/Globulin Ratio 06/28/18 06/28/18 06/28/18 12:14 13:33 14:37 WBC RBC Hgb Hct MCV MCH MCHC RDW Plt Count MPV Neut % (Auto) Lymph % (Auto) [place] % (Auto) Eos % (Auto) Baso % (Auto) Neut # (Auto) Lymph # (Auto) [place] # (Auto) Eos # (Auto) Baso # (Auto) Neutrophils % (Manual) Band Neutrophils % Lymphocytes % (Manual) Monocytes % (Manual) Platelet Estimate Poikilocytosis (manual Anisocytosis (manual) PT INR APTT Sodium 138 Potassium 6.9 H* D Chloride 97 L Carbon Dioxide 22 Anion Gap 26 H BUN 87 H Creatinine 11.3 H* D Est GFR ( Amer) 6 Est GFR (Non-Af Amer) 5 POC Glucose (mg/dL) 184 H 189 H Random Glucose 196 H D Calcium 9.3 Magnesium 2.3 Total Bilirubin 0.7 AST 61 H D ALT 59 Alkaline Phosphatase 176 H Troponin I 0.1220 H* NT-Pro-B Natriuret Pep 202938 H Total Protein 7.4 Albumin 4.8 Globulin 2.6 Albumin/Globulin Ratio 1.9 06/28/18 22:03 WBC RBC Hgb Hct MCV MCH MCHC RDW Plt Count MPV Neut % (Auto) Lymph % (Auto) [place] % (Auto) Eos % (Auto) Baso % (Auto) Neut # (Auto) Lymph # (Auto) [place] # (Auto) Eos # (Auto) Baso # (Auto) Neutrophils % (Manual) Band Neutrophils % Lymphocytes % (Manual) Monocytes % (Manual) Platelet Estimate Poikilocytosis (manual Anisocytosis (manual) PT INR APTT Sodium Potassium Chloride Carbon Dioxide Anion Gap BUN Creatinine Est GFR ( Amer) Est GFR (Non-Af Amer) POC Glucose (mg/dL) 83 Random Glucose Calcium Magnesium Total Bilirubin AST ALT Alkaline Phosphatase Troponin I NT-Pro-B Natriuret Pep Total Protein Albumin Globulin Albumin/Globulin Ratio Assessment & Plan (1) ESRD (end stage renal disease) on dialysis Status: Acute (2) CHF (congestive heart failure) Status: Acute - Assessment and Plan (Free Text) Plan: schedule diaysis for 06/30
--- NOTE | 2018-06-29 17:53 | CARD ---
APPROVED REPORT Date of service: 06/28/2018 EKG Measurement Heart [id number] <Conclusion> Normal sinus rhythm ST & T wave abnormality, consider inferior ischemia Prolonged QT Abnormal ECG
--- NOTE | 2018-06-29 19:01 | CP.PCM.PN ---
Subjective - Date & Time of Evaluation Date of Evaluation: 06/29/18 Time of Evaluation: 12:00 - Subjective Subjective: clinically same Objective - Vital Signs/Intake and Output Vital Signs (last 24 hours): Temp Pulse Resp BP Pulse Ox 98.2 F 60 20 117/64 95 06/29/18 15:23 06/29/18 15:23 06/29/18 15:23 06/29/18 18:02 06/29/18 16:05 - Medications Medications: Current Medications Amlodipine Besylate (Norvasc) 10 mg PO DAILY [facility] Last Admin: 06/29/18 10:10 Dose: 10 mg Aspirin (Aspirin Chewable) 81 mg PO DAILY [facility] Last Admin: 06/29/18 10:10 Dose: 81 mg Calcium Acetate (Phoslo) 667 mg PO TIDCC [facility] Last Admin: 06/29/18 18:02 Dose: 667 mg Carvedilol (Coreg) 12.5 mg PO BID [facility] Last Admin: 06/29/18 18:02 Dose: 12.5 mg Clonidine HCl (Catapres) 0.2 mg PO Q8 [facility] Last Admin: 06/29/18 13:09 Dose: 0.2 mg Clopidogrel Bisulfate (Plavix) 75 mg PO DAILY [facility] Last Admin: 06/29/18 10:10 Dose: 75 mg Heparin Sodium (Porcine) (Heparin) 5,000 units SC Q12 [facility] Last Admin: 06/29/18 10:11 Dose: 5,000 units Insulin Human Regular (Novolin R) 0 unit SC ACHS [facility]; Protocol Last Admin: 06/29/18 17:25 Dose: Not Given Isosorbide Mononitrate (Imdur) 60 mg PO DAILY [facility] Last Admin: 06/29/18 10:11 Dose: 60 mg Minoxidil (Loniten) 10 mg PO BID [facility] Last Admin: 06/29/18 18:02 Dose: 10 mg Multivitamins/Minerals (Therapeutic-M Tab) 1 tab PO DAILY [facility] Last Admin: 06/29/18 10:10 Dose: 1 tab Rosuvastatin Calcium (Crestor) 5 mg PO HS [facility] Last Admin: 06/28/18 22:40 Dose: 5 mg - Labs Labs: 06/28/18 11:58 06/28/18 13:33 PT 12.6 SECONDS (9.7-12.2) H 06/28/18 11:58 INR 1.2 06/28/18 11:58 APTT 34 SECONDS (21-34) 06/28/18 11:58 - Constitutional Appears: Well - Head Exam Head Exam: ATRAUMATIC, NORMAL INSPECTION, NORMOCEPHALIC - Eye Exam Eye Exam: EOMI, Normal appearance, PERRL Pupil Exam: NORMAL ACCOMODATION, PERRL - ENT Exam ENT Exam: Mucous Membranes Moist, Normal Exam - Neck Exam Neck Exam: Full ROM, Normal Inspection. absent: Lymphadenopathy - Respiratory Exam Respiratory Exam: Decreased Breath Sounds - Cardiovascular Exam Cardiovascular Exam: REGULAR RHYTHM, +S1, +S2 - GI/Abdominal Exam GI & Abdominal Exam: Soft, Diminished Bowel Sounds - Rectal Exam Rectal Exam: Deferred
--- NOTE | 2018-06-29 19:41 | CON ---
DATE: 06/29/2018 ATTENDING PHYSICIAN: Dr. [place]. HISTORY OF PRESENT ILLNESS: Mr. Nieves is a 57-year-old male who is being seen for management of dialysis-dependent renal failure. Mr. Nieves has a long history of diabetes and hypertension, on dialysis, who on the day of admission was found to be confused and hypoglycemic. He was brought to the emergency room and admitted. His chest x-ray showed cardiomegaly with congestion. LABORATORY DATA: His white count was 9000, hemoglobin 9.6, hematocrit 29.9, and platelet count 158,000. Sodium 138, potassium 6.9, chloride 97, CO2 of 22, BUN 87, creatinine 11.3, glucose 189, calcium 9.3, magnesium 2.3, total bili 0.7, AST of 61, ALT of 59, alk phos 176, and troponin 0.1220. BNP of 106,000. Total protein 7.4. Albumin 4.8. He was subsequently taken to the dialysis unit and had a dialysis with ultrafiltration. PAST MEDICAL HISTORY: He denies myocardial infarction or stroke, although he has a history of coronary artery disease. ALLERGIES: HE HAS NO ALLERGIES. MEDICATIONS: He has been admitted to [facility]. His medications include aspirin, PhosLo, Coreg, clonidine, Plavix, insulin, minoxidil, multivitamin, and Crestor. FAMILY HISTORY: Positive for diabetes and hypertension. SOCIAL HISTORY: Negative for alcohol or drug abuse. He does not smoke. REVIEW OF SYSTEMS: He denied fever. There was no chest pain, cough or hemoptysis. He denied abdominal pain, nausea, vomiting or diarrhea. He makes a small amount of urine with no symptomatology. PHYSICAL EXAMINATION: GENERAL: He was awake and alert in no acute distress. VITAL SIGNS: His blood pressure was 178/73, his temperature was 99.2, pulse 64. NECK: There was no jugular venous distention at 30 degrees. LUNGS: Clear with coarse sounds, prolonged inspiration and expiration. HEART: Rhythm was regular with occasional extrasystoles. ABDOMEN: Soft and nontender. There was no CVA tenderness or presacral edema. EXTREMITIES: There was no leg edema. He moved all his extremities and access was patent in his left forearm. IMPRESSION: End-stage renal disease, dialysis dependent, diabetic nephropathy, hypertension, congestive heart failure, hypoglycemia, and hyperkalemia. RECOMMENDATIONS: We will schedule dialysis again for 06/30/2018, orders written. We will continue to ultrafiltrate, would resume his antihypertensives and await further evaluation. Thank you for your kind referral. We will continue to follow with you. Alexx Chavez MD
[2018-06-30] MEDS: (Novolin R) Insulin Human Regular 100 units/ml vial SC SCH ×4 (08:36→21:20)
[2018-06-30] MEDS: Multivitamin With Minerals Tab PO SCH (09:26)
--- NOTE | 2018-06-30 14:14 | CP.PCM.PN ---
Subjective - Date & Time of Evaluation Date of Evaluation: 06/30/18 Time of Evaluation: 14:11 - Subjective Subjective: seen at dialysis to UF 2500ml HTN controlled BSs stabilizing Objective - Vital Signs/Intake and Output Vital Signs (last 24 hours): Temp Pulse Resp BP Pulse Ox 98.2 F 57 L 20 145/81 96 06/30/18 07:00 06/30/18 12:06 06/30/18 07:00 06/30/18 09:27 06/30/18 07:00 Intake and Output: 06/30/18 06/30/18 06:59 18:59 Intake Total 100 Balance 100 - Medications Medications: Current Medications Amlodipine Besylate (Norvasc) 10 mg PO DAILY [facility] Last Admin: 06/30/18 09:29 Dose: Not Given Aspirin (Aspirin Chewable) 81 mg PO DAILY [facility] Last Admin: 06/30/18 09:26 Dose: 81 mg Calcium Acetate (Phoslo) 667 mg PO TIDCC [facility] Last Admin: 06/30/18 13:03 Dose: Not Given Carvedilol (Coreg) 12.5 mg PO BID [facility] Last Admin: 06/30/18 09:27 Dose: 12.5 mg Clonidine HCl (Catapres) 0.2 mg PO Q8 [facility] Last Admin: 06/30/18 13:03 Dose: Not Given Clopidogrel Bisulfate (Plavix) 75 mg PO DAILY [facility] Last Admin: 06/30/18 09:26 Dose: 75 mg Heparin Sodium (Porcine) (Heparin) 5,000 units SC Q12 [facility] Last Admin: 06/30/18 09:27 Dose: 5,000 units Insulin Human Regular (Novolin R) 0 unit SC [facility]; Protocol Last Admin: 06/30/18 11:45 Dose: Not Given Isosorbide Mononitrate (Imdur) 60 mg PO DAILY [facility] Last Admin: 06/30/18 09:27 Dose: 60 mg Minoxidil (Loniten) 10 mg PO BID [facility] Last Admin: 06/30/18 09:29 Dose: Not Given Multivitamins/Minerals (Therapeutic-M Tab) 1 tab PO DAILY [facility] Last Admin: 06/30/18 09:26 Dose: 1 tab Rosuvastatin Calcium (Crestor) 5 mg PO HS [facility] Last Admin: 06/29/18 22:21 Dose: 5 mg - Labs Labs: 06/28/18 11:58 06/28/18 13:33 PT 12.6 SECONDS (9.7-12.2) H 06/28/18 11:58 INR 1.2 06/28/18 11:58 APTT 34 SECONDS (21-34) 06/28/18 11:58 - Constitutional Appears: No Acute Distress, Chronically Ill - Head Exam Head Exam: ATRAUMATIC, NORMAL INSPECTION - Eye Exam Eye Exam: EOMI, Normal appearance - Neck Exam Neck Exam: Normal Inspection. absent: Tenderness - Respiratory Exam Respiratory Exam: Clear to Ausculation Bilateral, NORMAL BREATHING PATTERN - Cardiovascular Exam Cardiovascular Exam: REGULAR RHYTHM, +S1 - GI/Abdominal Exam GI & Abdominal Exam: Soft. absent: Tenderness - Extremities Exam Extremities Exam: Normal Inspection. absent: Tenderness - Neurological Exam Neurological Exam: Awake, CN II-XII Intact - Skin Skin Exam: Dry, Warm Assessment and Plan (1) CAD (coronary artery disease) Status: Acute (2) ESRD (end stage renal disease) on dialysis Status: Acute (3) Fluid overload Status: Acute (4) Hypoglycemia Status: Acute (5) Diabetes Status: Acute (6) Type 2 diabetes mellitus with diabetic nephropathy Status: Acute - Assessment and Plan (Free Text) Plan: increase UF goal DM management Same BP meds
[2018-06-30 17:32] VITALS: RESP 20
--- NOTE | 2018-06-30 19:27 | CP.PCM.PN ---
Subjective - Date & Time of Evaluation Date of Evaluation: 06/30/18 Time of Evaluation: 11:15 - Subjective Subjective: clinically same Objective - Vital Signs/Intake and Output Vital Signs (last 24 hours): Temp Pulse Resp BP Pulse Ox 98.4 F 66 20 124/70 96 06/30/18 17:31 06/30/18 17:31 06/30/18 17:31 06/30/18 17:46 06/30/18 17:31 - Medications Medications: Current Medications Amlodipine Besylate (Norvasc) 10 mg PO DAILY [facility] Last Admin: 06/30/18 09:29 Dose: Not Given Aspirin (Aspirin Chewable) 81 mg PO DAILY [facility] Last Admin: 06/30/18 09:26 Dose: 81 mg Calcium Acetate (Phoslo) 667 mg PO TIDCC [facility] Last Admin: 06/30/18 17:46 Dose: 667 mg Carvedilol (Coreg) 12.5 mg PO BID [facility] Last Admin: 06/30/18 17:46 Dose: 12.5 mg Clonidine HCl (Catapres) 0.2 mg PO Q8 [facility] Last Admin: 06/30/18 13:03 Dose: Not Given Clopidogrel Bisulfate (Plavix) 75 mg PO DAILY [facility] Last Admin: 06/30/18 09:26 Dose: 75 mg Heparin Sodium (Porcine) (Heparin) 5,000 units SC Q12 [facility] Last Admin: 06/30/18 09:27 Dose: 5,000 units Insulin Human Regular (Novolin R) 0 unit SC ACHS [facility]; Protocol Last Admin: 06/30/18 17:18 Dose: Not Given Isosorbide Mononitrate (Imdur) 60 mg PO DAILY [facility] Last Admin: 06/30/18 09:27 Dose: 60 mg Minoxidil (Loniten) 10 mg PO BID [facility] Last Admin: 06/30/18 17:46 Dose: 10 mg Multivitamins/Minerals (Therapeutic-M Tab) 1 tab PO DAILY [facility] Last Admin: 06/30/18 09:26 Dose: 1 tab Rosuvastatin Calcium (Crestor) 5 mg PO HS [facility] Last Admin: 06/29/18 22:21 Dose: 5 mg - Labs Labs: 06/28/18 11:58 06/28/18 13:33 PT 12.6 SECONDS (9.7-12.2) H 06/28/18 11:58 INR 1.2 06/28/18 11:58 APTT 34 SECONDS (21-34) 06/28/18 11:58 - Constitutional Appears: Well - Head Exam Head Exam: ATRAUMATIC, NORMAL INSPECTION, NORMOCEPHALIC - Eye Exam Eye Exam: EOMI, Normal appearance, PERRL Pupil Exam: NORMAL ACCOMODATION, PERRL - ENT Exam ENT Exam: Mucous Membranes Moist, Normal Exam - Neck Exam Neck Exam: Full ROM, Normal Inspection. absent: Lymphadenopathy - Respiratory Exam Respiratory Exam: Decreased Breath Sounds - Cardiovascular Exam Cardiovascular Exam: REGULAR RHYTHM, +S1, +S2 - GI/Abdominal Exam GI & Abdominal Exam: Soft, Diminished Bowel Sounds - Rectal Exam Rectal Exam: Deferred
[2018-07-01 01:17] VITALS: O2SAT 98
[2018-07-01 07:44] VITALS: PULSE 63
[2018-07-01 08:17] VITALS: TEMP 98.1
[2018-07-01] MEDS: (Novolin R) Insulin Human Regular 100 units/ml vial SC SCH ×2 (08:50→12:19)
[2018-07-01] MEDS: Multivitamin With Minerals Tab PO SCH (09:06)
[2018-07-01 09:08] VITALS: BP 166/84
--- NOTE | 2018-07-01 09:57 | CP.PCM.PN ---
Subjective - Date & Time of Evaluation Date of Evaluation: 07/01/18 Time of Evaluation: 09:55 - Subjective Subjective: stable dialysis 3/6 feels better BP has been labile- despite multiple meds BSs better Objective - Vital Signs/Intake and Output Vital Signs (last 24 hours): Temp Pulse Resp BP Pulse Ox 98.1 F 63 20 166/84 H 98 07/01/18 07:15 07/01/18 07:34 07/01/18 07:15 07/01/18 09:07 07/01/18 07:15 - Medications Medications: Current Medications Amlodipine Besylate (Norvasc) 10 mg PO DAILY [facility] Last Admin: 07/01/18 09:06 Dose: 10 mg Aspirin (Aspirin Chewable) 81 mg PO DAILY [facility] Last Admin: 07/01/18 09:07 Dose: 81 mg Calcium Acetate (Phoslo) 667 mg PO TIDCC [facility] Last Admin: 07/01/18 08:50 Dose: 667 mg Carvedilol (Coreg) 12.5 mg PO BID [facility] Last Admin: 07/01/18 09:07 Dose: 12.5 mg Clonidine HCl (Catapres) 0.2 mg PO Q8 [facility] Last Admin: 07/01/18 06:16 Dose: 0.2 mg Clopidogrel Bisulfate (Plavix) 75 mg PO DAILY [facility] Last Admin: 07/01/18 09:06 Dose: 75 mg Heparin Sodium (Porcine) (Heparin) 5,000 units SC Q12 [facility] Last Admin: 07/01/18 09:07 Dose: 5,000 units Insulin Human Regular (Novolin R) 0 unit SC ACHS [facility]; Protocol Last Admin: 07/01/18 08:50 Dose: 3 units Isosorbide Mononitrate (Imdur) 60 mg PO DAILY [facility] Last Admin: 07/01/18 09:06 Dose: 60 mg Minoxidil (Loniten) 10 mg PO BID [facility] Last Admin: 07/01/18 09:06 Dose: 10 mg Multivitamins/Minerals (Therapeutic-M Tab) 1 tab PO DAILY [facility] Last Admin: 07/01/18 09:06 Dose: 1 tab Rosuvastatin Calcium (Crestor) 5 mg PO HS [facility] Last Admin: 06/30/18 21:44 Dose: 5 mg - Labs Labs: 06/28/18 11:58 06/28/18 13:33 PT 12.6 SECONDS (9.7-12.2) H 06/28/18 11:58 INR 1.2 06/28/18 11:58 APTT 34 SECONDS (21-34) 06/28/18 11:58 - Constitutional Appears: No Acute Distress, Chronically Ill - Head Exam Head Exam: ATRAUMATIC, NORMAL INSPECTION - Eye Exam Eye Exam: EOMI, Normal appearance - Neck Exam Neck Exam: Normal Inspection. absent: Tenderness - Respiratory Exam Respiratory Exam: Clear to Ausculation Bilateral, NORMAL BREATHING PATTERN - Cardiovascular Exam Cardiovascular Exam: REGULAR RHYTHM, +S1 - GI/Abdominal Exam GI & Abdominal Exam: Soft. absent: Tenderness - Extremities Exam Extremities Exam: Normal Inspection. absent: Tenderness - Neurological Exam Neurological Exam: Awake, CN II-XII Intact - Skin Skin Exam: Dry, Warm Assessment and Plan (1) CAD (coronary artery disease) Status: Acute (2) ESRD (end stage renal disease) on dialysis Status: Acute (3) Fluid overload Status: Acute (4) Hypoglycemia Status: Acute (5) Diabetes Status: Acute (6) Type 2 diabetes mellitus with diabetic nephropathy Status: Acute - Assessment and Plan (Free Text) Plan: Dialysis MWF monitor BP DM management as per medicine
== END 2018-07-01 14:43 | disposition home or self-care (01) ==
LOC: C.ER 10:45 → C.9E 13:09 → C.6T 13:43
PROVIDERS: ADMIT Internal Medicine Nephrology; ATTEND Internal Medicine Nephrology
DX: I13.2 Hypertensive heart and chronic kidney disease with heart failure and with stage 5 chronic kidney disease, or end stage renal disease (principal); E87.5 Hyperkalemia; E78.00 Pure hypercholesterolemia, unspecified; E11.649 Type 2 diabetes mellitus with hypoglycemia without coma; E11.22 Type 2 diabetes mellitus with diabetic chronic kidney disease; I25.10 Atherosclerotic heart disease of native coronary artery without angina pectoris; N18.6 End stage renal disease; I50.9 Heart failure, unspecified; Z99.2 Dependence on renal dialysis
CPT/HCPCS: 71045; 80053; 82948; 83735; 83880; 84484; 85025; 85610; 85730; 87040; 93005; 97116; 97161; 99285; G0257; G0378; G8978; G8979; G8980; J1644

== ENCOUNTER 2018-09-06 13:31 | Observation (INO) | payer BC ==
[2018-09-06 13:31] VITALS: BMI 24.3
--- NOTE | 2018-09-06 14:12 | C.PDOC ---
History Of Present Illness 57-year-old male, whose PMHx includes ESRD Dialysis (M-W-F) and Hypertension, presents to the ED for evaluation of headache and dizziness which began after dialysis today. Patient has had numerous previous visits for the same. pt feels lighthead and feels "like he will pass out" Patient denies fever, chills, or any other complaints at this time. Time Seen by Provider: 09/06/18 13:36 Chief Complaint (Nursing): Dizziness/Lightheaded History Per: Patient History/Exam Limitations: other (poor historian ) Onset/Duration Of Symptoms: Hrs Current Symptoms Are (Timing): Still Present Past Medical History Reviewed: Historical Data, Nursing Documentation, Vital Signs Vital Signs: Last Vital Signs Temp 98.2 F 09/06/18 13:55 Pulse 70 09/06/18 13:55 Resp 20 09/06/18 13:55 BP 207/90 H 09/06/18 13:55 Pulse Ox 97 09/06/18 13:55 Primary Care Provider: Adam Nolan - Medical History PMH: Anemia, Diabetes, HTN, End Stage Renal Disease, Chronic Kidney Disease Surgical History: No Surg Hx - [facility] Procedures (01/29/18) DIALYSIS ARTERIOVENOSTOM (06/23/13) HEMODIALYSIS (06/23/13) VENOUS CATHETERIZATION FOR RENAL DIALYSIS (06/23/13) Family History: States: Diabetes - Social History Hx Tobacco Use: No Hx Alcohol Use: No Hx Substance Use: No - Immunization History Hx Tetanus Toxoid Vaccination: No Hx Influenza Vaccination: Yes Hx Pneumococcal Vaccination: Yes Review Of Systems Neurological: Positive for: Headache, Dizziness Physical Exam - Physical Exam Appears: Non-toxic, No Acute Distress Skin: Normal Color, Warm, Dry Head: Atraumatic, Normacephalic Eye(s): bilateral: Normal Inspection Ear(s): Bilateral: Normal Oral Mucosa: Moist Neck: Supple Chest: Symmetrical, No Deformity, No Tenderness Cardiovascular: Rhythm Regular Respiratory: Normal Breath Sounds, No Rales, No Rhonchi, No Wheezing Gastrointestinal/Abdominal: Soft, No Tenderness Extremity: Normal ROM, Capillary Refill (less than 2 seconds ) Neurological/Psych: Oriented x3, Normal Speech, Normal Cognition ED Course And Treatment - Laboratory Results Result Diagrams: 09/06/18 14:31 09/06/18 14:31 ECG: Interpreted By Me, Viewed By Me ECG Rhythm: Sinus Rhythm Interpretation Of ECG: Normal Sinus Rhythm at rate 65bpm. LVH with repolarization. No interval changes from previous, 06/16/2018. Rate From EC O2 Sat by Pulse Oximetry: 97 (on RA) Pulse Ox Interpretation: Normal - Other Rad CXR X-Ray: Viewed By Me, Read By Radiologist Interpretation: HISTORY: dizzy. COMPARISON: Chest x-ray performed 06/28/18. TECHNIQUE: Chest, one view. FINDINGS: LUNGS: Mild venous congestion. No focal consolidation. Please note that chest x-ray has limited sensitivity for the detection of pulmonary masses. PLEURA: No significant pleural effusion identified. No definite pneumothorax . CARDIOVASCULAR: Cardiomegaly. Faint atherosclerotic calcifications present. OSSEOUS STRUCTURES: Osseous demineralization. Degenerative changes. VISUALIZED UPPER ABDOMEN: Unremarkable. OTHER FINDINGS: None. IMPRESSION: Cardiomegaly. Mild venous congestion. - CT Scan/US CT Head Other Rad Studies (CT/US): Read By Radiologist, Radiology Report Reviewed CT/US Interpretation: Date of service: 09/06/2018. PROCEDURE: CT HEAD WITHOUT CONTRAST. HISTORY: bennett. COMPARISON: Noncontrast head CT performed 06/16/18. TECHNIQUE: Axial computed tomography images were obtained through the head/brain without intravenous contrast. Radiation dose: Total exam DLP = 998.51 mGy-cm. This CT exam was performed using one or more of the following dose reduction techniques: Automated exposure control, adjustment of the mA and/or kV according to patient size, and/or use of iterative reconstruction technique. FINDINGS: HEMORRHAGE: No intracranial hemorrhage. BRAIN: Diffuse atrophy with prominence of the ventricles and sulci noted. No mass effect or edema. Intracranial atherosclerosis. Bilateral chronic appearing lacunar type infarcts. Scattered periventricular and subcortical white matter hypodensities, which are nonspecific, but often seen with chronic microvascular ischemic disease. Prominent cisterna magna. Please note that MRI with diffusion imaging is more sensitive in the detection of acute ischemic event. VENTRICLES: No hydrocephalus. CALVARIUM: Unremarkable. PARANASAL SINUSES: Unremarkable as visualized. No significant inflammatory changes. MASTOID AIR CELLS: Unremarkable as visualized. No inflammatory changes. OTHER FINDINGS: None. IMPRESSION: Nonspecific white matter changes. Generalized atrophy. Chronic appearing bilateral basal ganglia lacunar type infarcts. Additional findings as above. Medical Decision Making Medical Decision Making: Progress: Bloodwork, urinalysis, CXR, CT Head, EKG ordered and reviewed. Tylenol PO given. near sycnope/dizziness- ro metaoblic infectious cardiac intracranial aetiology labs neg. head ct neg. case discussed with pt pmd dr nolan. requests obs. Disposition - Disposition Disposition: HOSPITALIZED Disposition Time: 18:00 Condition: STABLE - Clinical Impression Clinical Impression: Dizziness, Near syncope - Scribe Statement The provider has reviewed the documentation as recorded by the Scribe (Cyndie Nolan) Provider Attestation: All medical record entries made by the Scribe were at my direction and personally dictated by me. I have reviewed the chart and agree that the record accurately reflects my personal performance of the history, physical exam, medical decision making, and the department course for this patient. I have also personally directed, reviewed, and agree with the discharge instructions and disposition. Decision To Admit - Pt Status Changed To: Hospital Disposition Of: Observation - . Bed Request Type: Telemetry Admitting Physician: Adam Nolan Patient Diagnosis: Dizziness, Near syncope
[2018-09-06 14:35] LABS: BASO % 0.7 % (0.0-2.0); EOS # 0.1 K/uL (0.0-0.7); HEMOGLOBIN 10.1 g/dL (12.0-18.0); LYMPH # 0.8 K/uL (1.0-4.3); LYMPH % 14.1 % (20.0-40.0); MEAN CORPUSCULAR HEMOGLOBIN 31.9 pg (27.0-31.0); MEAN CORPUSCULAR HGB CONC 33.9 g/dL (33.0-37.0); MEAN PLATELET VOLUME 9.8 fL (7.2-11.7); MONO # 0.3 K/uL (0.0-0.8); NEUT # 4.4 K/uL (1.8-7.0); NEUT % 78.2 % (50.0-75.0); NRBC % 0.1 % (0.0-2.0); RBC 3.17 Mil/uL (4.40-5.90); RED CELL DISTRIBUTION WIDTH 17.6 % (11.5-14.5); WHITE BLOOD COUNT 5.6 K/uL (4.8-10.8)
[2018-09-06 14:43] LABS: INR 1.2; PARTIAL THROMBOPLASTIN TIME 30.1 SECONDS (21-34); PROTHROMBIN TIME 13.2 SECONDS (9.7-12.2)
[2018-09-06 14:47] LABS: ALB/GLOB RATIO 1.4 (1.0-2.1); ALBUMIN 4.7 g/dL (3.5-5.0); CALCIUM 9.2 mg/dl (8.6-10.4)
[2018-09-06 14:58] LABS: TROPONIN I 0.047 ng/mL (0.00-0.120)
--- NOTE | 2018-09-06 14:59 | CT ---
Date of service: 09/06/2018 PROCEDURE: CT HEAD WITHOUT CONTRAST. HISTORY: bennett COMPARISON: Noncontrast head CT performed 06/16/18 TECHNIQUE: Axial computed tomography images were obtained through the head/brain without intravenous contrast. Radiation dose: Total exam DLP = 998.51 mGy-cm. This CT exam was performed using one or more of the following dose reduction techniques: Automated exposure control, adjustment of the mA and/or kV according to patient size, and/or use of iterative reconstruction technique. FINDINGS: HEMORRHAGE: No intracranial hemorrhage. BRAIN: Diffuse atrophy with prominence of the ventricles and sulci noted. No mass effect or edema. Intracranial atherosclerosis. Bilateral chronic appearing lacunar type infarcts. Scattered periventricular and subcortical white matter hypodensities, which are nonspecific, but often seen with chronic microvascular ischemic disease. Prominent cisterna magna. Please note that MRI with diffusion imaging is more sensitive in the detection of acute ischemic event. VENTRICLES: No hydrocephalus. CALVARIUM: Unremarkable. PARANASAL SINUSES: Unremarkable as visualized. No significant inflammatory changes. MASTOID AIR CELLS: Unremarkable as visualized. No inflammatory changes. OTHER FINDINGS: None. IMPRESSION: Nonspecific white matter changes. Generalized atrophy. Chronic appearing bilateral basal ganglia lacunar type infarcts. Additional findings as above.
--- NOTE | 2018-09-06 15:19 | RAD ---
HISTORY: dizzy COMPARISON: Chest x-ray performed 06/28/18 TECHNIQUE: Chest, one view. FINDINGS: LUNGS: Mild venous congestion. No focal consolidation. Please note that chest x-ray has limited sensitivity for the detection of pulmonary masses. PLEURA: No significant pleural effusion identified. No definite pneumothorax . CARDIOVASCULAR: Cardiomegaly. Faint atherosclerotic calcifications present. OSSEOUS STRUCTURES: Osseous demineralization. Degenerative changes. VISUALIZED UPPER ABDOMEN: Unremarkable. OTHER FINDINGS: None. IMPRESSION: Cardiomegaly. Mild venous congestion.
[2018-09-06] MEDS ORDERED: Dextrose 50% SYRINGE Inj (50 ml) IV PRN (18:51)
[2018-09-06] MEDS ORDERED: Glucagon Recombinant 1 mg Inj IM PRN (18:51)
[2018-09-06 20:10] LABS: CK-MB 2.2 ng/mL (0.0-3.38); TROPONIN I 0.041 ng/mL (0.00-0.120)
--- NOTE | 2018-09-06 21:21 | CP.PCM.HP ---
Past Patient History - Infectious Disease Hx of Infectious Diseases: None - Past Medical History & Family History Past Medical History?: Yes - Past Social History Smoking Status: Never Smoked - CARDIAC Hx Hypertension: Yes - RENAL Hx Chronic Kidney Disease: Yes - ENDOCRINE/METABOLIC Hx Endocrine Disorders: Yes Hx Diabetes Mellitus Type 2: Yes - HEMATOLOGICAL/ONCOLOGICAL Hx Anemia: Yes - MUSCULOSKELETAL/RHEUMATOLOGICAL Hx Falls: No - PSYCHIATRIC Hx Substance Use: No - SURGICAL HISTORY Hx Surgeries: Yes Hx Orthopedic Surgery: Yes (left shoulder) Hx Vascular Access Device: Yes (Left arm AV shunt) - ANESTHESIA Hx Anesthesia: Yes Hx Anesthesia Reactions: No Hx Malignant Hyperthermia: No Meds Allergies/Adverse Reactions: Allergies Allergy/AdvReac Type Severity Reaction Status Date / Time No Known Allergies Allergy Verified 09/06/18 13:52 Physical Exam - Constitutional Appears: Well - Head Exam Head Exam: ATRAUMATIC, NORMAL INSPECTION, NORMOCEPHALIC - Eye Exam Eye Exam: EOMI, Normal appearance, PERRL Pupil Exam: NORMAL ACCOMODATION, PERRL - ENT Exam ENT Exam: Mucous Membranes Moist, Normal Exam - Neck Exam Neck exam: Positive for: Normal Inspection - Respiratory Exam Respiratory Exam: Decreased Breath Sounds - Cardiovascular Exam Cardiovascular Exam: REGULAR RHYTHM, +S1, +S2 - GI/Abdominal Exam GI & Abdominal Exam: Diminished Bowel Sounds, Soft - Rectal Exam Rectal Exam: Deferred - Neurological Exam Neurological exam: Oriented x3 Results - Vital Signs Recent Vital Signs: Last Vital Signs Temp 98.6 F 09/06/18 18:58 Pulse 66 09/06/18 18:58 Resp 20 09/06/18 18:58 BP 176/77 H 09/06/18 18:58 Pulse Ox 97 09/06/18 20:10 - Labs Result Diagrams: 09/06/18 14:31 09/06/18 14:31 Labs: Laboratory Results - last 24 hr 09/06/18 09/06/18 09/06/18 13:52 14:31 14:31 WBC 5.6 RBC 3.17 L Hgb 10.1 L Hct 29.8 L MCV 94.0 MCH 31.9 H MCHC 33.9 RDW 17.6 H Plt Count 171 MPV 9.8 Neut % (Auto) 78.2 H Lymph % (Auto) 14.1 L [place] % (Auto) 5.0 Eos % (Auto) 2.0 Baso % (Auto) 0.7 Neut # (Auto) 4.4 Lymph # (Auto) 0.8 L [place] # (Auto) 0.3 Eos # (Auto) 0.1 Baso # (Auto) 0.0 PT 13.2 H INR 1.2 APTT 30.1 Sodium Potassium Chloride Carbon Dioxide Anion Gap BUN Creatinine Est GFR ( Amer) Est GFR (Non-Af Amer) POC Glucose (mg/dL) 155 H Random Glucose Calcium Total Bilirubin AST ALT Alkaline Phosphatase Total Creatine Kinase CK-MB (Mass) Troponin I Total Protein Albumin Globulin Albumin/Globulin Ratio 09/06/18 09/06/18 14:31 19:31 WBC RBC Hgb Hct MCV MCH MCHC RDW Plt Count MPV Neut % (Auto) Lymph % (Auto) [place] % (Auto) Eos % (Auto) Baso % (Auto) Neut # (Auto) Lymph # (Auto) [place] # (Auto) Eos # (Auto) Baso # (Auto) PT INR APTT Sodium 141 Potassium 3.9 Chloride 90 L Carbon Dioxide 37 H Anion Gap 17 BUN 42 H Creatinine 5.4 H Est GFR ( Amer) 13 Est GFR (Non-Af Amer) 11 POC Glucose (mg/dL) Random Glucose 134 H D Calcium 9.2 Total Bilirubin 0.9 AST 62 H ALT 54 Alkaline Phosphatase 116 Total Creatine Kinase 51 L CK-MB (Mass) 2.20 Troponin I 0.0470 0.0410 Total Protein 8.1 Albumin 4.7 Globulin 3.4 Albumin/Globulin Ratio 1.4
[2018-09-06] MEDS: (Novolog) Insulin Aspart, Recombinant 100 u/ml 10 ml vial SC SCH (21:42)
[2018-09-07 03:32] LABS: CK-MB 1.61 ng/mL (0.0-3.38); TROPONIN I 0.035 ng/mL (0.00-0.120)
[2018-09-07] MEDS: (Novolog) Insulin Aspart, Recombinant 100 u/ml 10 ml vial SC SCH ×4 (08:46→21:19)
[2018-09-07] MEDS: Multiple Vitamins Tab PO SCH (09:14)
--- NOTE | 2018-09-07 09:58 | CP.PCM.CON ---
History of Present Illness - History of Present Illness History of Present Illness: patient seen and examined consult dictated denies dizziness states came for hbp wants to go home would resume home meds and observe will schedule dialysis for 09/08 with ultrfiltrtion follow bp closely for med adjustments Past Patient History - Infectious Disease Hx of Infectious Diseases: None - Past Medical History & Family History Past Medical History?: Yes - Past Social History Smoking Status: Never Smoked - CARDIAC Hx Hypertension: Yes - RENAL Hx Chronic Kidney Disease: Yes - ENDOCRINE/METABOLIC Hx Endocrine Disorders: Yes Hx Diabetes Mellitus Type 2: Yes - HEMATOLOGICAL/ONCOLOGICAL Hx Anemia: Yes - MUSCULOSKELETAL/RHEUMATOLOGICAL Hx Falls: No - PSYCHIATRIC Hx Substance Use: No - SURGICAL HISTORY Hx Surgeries: Yes Hx Orthopedic Surgery: Yes (left shoulder) Hx Vascular Access Device: Yes (Left arm AV shunt) - ANESTHESIA Hx Anesthesia: Yes Hx Anesthesia Reactions: No Hx Malignant Hyperthermia: No Meds Allergies/Adverse Reactions: Allergies Allergy/AdvReac Type Severity Reaction Status Date / Time No Known Allergies Allergy Verified 09/06/18 13:52 - Medications Medications: Current Medications Amlodipine Besylate (Norvasc) 10 mg PO DAILY [facility] Last Admin: 09/07/18 09:15 Dose: 10 mg Aspirin (Aspirin Chewable) 81 mg PO DAILY [facility] Last Admin: 09/07/18 09:15 Dose: 81 mg Calcium Acetate (Phoslo) 667 mg PO TID [facility] Last Admin: 09/07/18 09:16 Dose: 667 mg Carvedilol (Coreg) 12.5 mg PO BID [facility] Last Admin: 09/07/18 09:16 Dose: 12.5 mg Clonidine HCl (Catapres) 0.2 mg PO Q8 [facility] Last Admin: 09/07/18 06:34 Dose: 0.2 mg Clopidogrel Bisulfate (Plavix) 75 mg PO DAILY [facility] Last Admin: 09/07/18 09:14 Dose: 75 mg Dextrose (Dextrose 50% Inj) 0 ml IV STAT PRN; Protocol PRN Reason: Hypoglycemia Protocol Dextrose (Glutose 15) 0 gm PO ONCE PRN; Protocol PRN Reason: Hypoglycemia Protocol Glipizide (Glucotrol) 10 mg PO DAILY [facility] Last Admin: 09/07/18 09:16 Dose: 10 mg Glucagon (Glucagen Diagnostic Kit) 0 mg IM STAT PRN; Protocol PRN Reason: Hypoglycemia Protocol Dextrose (Dextrose 5% In Water 1000 Ml) 1,000 mls @ 0 mls/hr IV .Q0M PRN; Protocol PRN Reason: Hypoglycemia Protocol Insulin Aspart (Novolog) 0 unit SC ACHS [facility]; Protocol Last Admin: 09/07/18 08:46 Dose: 2 units Isosorbide Mononitrate (Imdur) 60 mg PO DAILY [facility] Last Admin: 09/07/18 09:15 Dose: 60 mg Minoxidil (Loniten) 10 mg PO BID [facility] Last Admin: 09/07/18 09:16 Dose: 10 mg Multivitamins (Hexavitamin) 1 tab PO DAILY [facility] Last Admin: 09/07/18 09:14 Dose: 1 tab Rosuvastatin Calcium (Crestor) 5 mg PO HS [facility] Last Admin: 09/06/18 22:00 Dose: 5 mg Sitagliptin Phosphate (Januvia) 25 mg PO DAILY [facility] Last Admin: 09/07/18 09:15 Dose: 25 mg Results - Vital Signs Recent Vital Signs: Last Vital Signs Temp 98.2 F 09/07/18 07:25 Pulse 60 09/07/18 07:25 Resp 20 09/07/18 07:25 BP 194/83 H 09/07/18 09:16 Pulse Ox 98 09/07/18 07:25 - Labs Result Diagrams: 09/06/18 14:31 09/06/18 14:31 Labs: Laboratory Results - last 24 hr 09/06/18 09/06/18 09/06/18 13:52 14:31 14:31 WBC 5.6 RBC 3.17 L Hgb 10.1 L Hct 29.8 L MCV 94.0 MCH 31.9 H MCHC 33.9 RDW 17.6 H Plt Count 171 MPV 9.8 Neut % (Auto) 78.2 H Lymph % (Auto) 14.1 L [place] % (Auto) 5.0 Eos % (Auto) 2.0 Baso % (Auto) 0.7 Neut # (Auto) 4.4 Lymph # (Auto) 0.8 L [place] # (Auto) 0.3 Eos # (Auto) 0.1 Baso # (Auto) 0.0 PT 13.2 H INR 1.2 APTT 30.1 Sodium Potassium Chloride Carbon Dioxide Anion Gap BUN Creatinine Est GFR ( Amer) Est GFR (Non-Af Amer) POC Glucose (mg/dL) 155 H Random Glucose Calcium Total Bilirubin AST ALT Alkaline Phosphatase Total Creatine Kinase CK-MB (Mass) Troponin I Total Protein Albumin Globulin Albumin/Globulin Ratio 09/06/18 09/06/18 09/07/18 14:31 19:31 03:11 WBC RBC Hgb Hct MCV MCH MCHC RDW Plt Count MPV Neut % (Auto) Lymph % (Auto) [place] % (Auto) Eos % (Auto) Baso % (Auto) Neut # (Auto) Lymph # (Auto) [place] # (Auto) Eos # (Auto) Baso # (Auto) PT INR APTT Sodium 141 Potassium 3.9 Chloride 90 L Carbon Dioxide 37 H Anion Gap 17 BUN 42 H Creatinine 5.4 H Est GFR ( Amer) 13 Est GFR (Non-Af Amer) 11 POC Glucose (mg/dL) Random Glucose 134 H D Calcium 9.2 Total Bilirubin 0.9 AST 62 H ALT 54 Alkaline Phosphatase 116 Total Creatine Kinase 51 L 47 L CK-MB (Mass) 2.20 1.61 Troponin I 0.0470 0.0410 0.0350 Total Protein 8.1 Albumin 4.7 Globulin 3.4 Albumin/Globulin Ratio 1.4 09/07/18 06:24 WBC RBC Hgb Hct MCV MCH MCHC RDW Plt Count MPV Neut % (Auto) Lymph % (Auto) [place] % (Auto) Eos % (Auto) Baso % (Auto) Neut # (Auto) Lymph # (Auto) [place] # (Auto) Eos # (Auto) Baso # (Auto) PT INR APTT Sodium Potassium Chloride Carbon Dioxide Anion Gap BUN Creatinine Est GFR ( Amer) Est GFR (Non-Af Amer) POC Glucose (mg/dL) 181 H Random Glucose Calcium Total Bilirubin AST ALT Alkaline Phosphatase Total Creatine Kinase CK-MB (Mass) Troponin I Total Protein Albumin Globulin Albumin/Globulin Ratio Assessment & Plan (1) ESRD (end stage renal disease) Status: Acute (2) Diabetic nephropathy Status: Acute (3) Diabetic nephropathy Status: Acute (4) Hypertension associated with diabetes Status: Acute
[2018-09-07] MEDS ORDERED: Enoxaparin 40 mg Syringe SC SCH (10:30)
[2018-09-07 11:49] LABS: CK-MB 1.65 ng/mL (0.0-3.38); TROPONIN I 0.026 ng/mL (0.00-0.120)
--- NOTE | 2018-09-07 18:26 | CON ---
DATE: 09/07/2018 ATTENDING PHYSICIAN: Gely Holland MD HISTORY OF PRESENT ILLNESS: Mr. Nieves is a 57-year-old male who is being seen for management of dialysis-dependent renal failure. Mr. Nieves has a history of hypertension, diabetes, on dialysis whose last treatment was on 09/06/2018. According to the emergency room records, he experienced dizziness and near syncope towards the end of his dialysis. He was brought to the emergency room and admitted. When talking to him today, he states that he did not have dizziness, did not feel like he was going to pass out and had high blood pressure. LABORATORY DATA: His white count is 56,000, hemoglobin 10.1, hematocrit 29.8. Sodium 141, potassium 3.9, chloride 90, CO2 of 37, BUN 42, creatinine 5.4, glucose 155, calcium was 9.2. Total bilirubin 0.9, AST 62, ALT 54, alkaline phosphatase of 116, CPK was 51, CPK-MB was 2.2, troponin was 0.47, albumin 4.7. His blood pressure was elevated and no mention of hypotension. Chest x-ray showed mild venous congestion. CAT scan of the head showed nonspecific white matter changes, generalized atrophy, chronic-appearing bilateral basal ganglial infarct. PAST MEDICAL HISTORY: Please see the above. ALLERGIES: HE HAS NO ALLERGIES. He has been [facility] to [facility]. HOME MEDICATIONS: Include clonidine, amlodipine, Januvia, Crestor, multivitamins, Minoxidil, Imdur, glipizide, Plavix, Coreg, PhosLo, aspirin and Tylenol. FAMILY HISTORY: Negative for kidney disease. SOCIAL HISTORY: Negative for alcohol or drug abuse. He does not smoke. REVIEW OF SYSTEMS: He denied dizziness. He denied visual changes or headache. He denied chest pain, palpitations, cough, or hemoptysis. There was no abdominal pain, nausea, vomiting or diarrhea and he is anuric. PHYSICAL EXAMINATION: GENERAL: He was awake and alert, in no acute distress, seen walking in the room. VITAL SIGNS: His blood pressure was 194/83, his temperature was 98.2, pulse 60. NECK: There was no jugular venous distention at 10 degrees. LUNGS: Clear. HEART: Rhythm was regular with grade 2 to 3/6 systolic ejection murmur throughout. ABDOMEN: Soft and nontender. There was no CVA tenderness or presacral edema. EXTREMITIES: There was no leg edema. There were no gross motor deficits and fistula was patent in his left arm. IMPRESSION: 1. End-stage renal disease, dialysis-dependent. 2. Diabetic nephropathy. 3. Hypertension. 4. Near syncope? RECOMMENDATIONS: Would recommend await further cardiac and neurology evaluation. The patient insists on going home, would not sign the dialysis form. Would resume home antihypertensives and observe response. We will schedule dialysis for 09/08/2018 with ultra filtration. Thank you for your kind referral. We will continue to follow with you. Alexx Chavez MD
--- NOTE | 2018-09-07 18:52 | CP.PCM.CON ---
History of Present Illness - History of Present Illness History of Present Illness: I was asked to see patient by Dr Deepa Holland. Patient seen 09/07/18 629 Patient is a 57 year old male with HTn ESRD o nHD who presents with headache. He states his blood pressure elevated during dialysis, and this occurs frequently. He states blood pressure always elevates during dialysis. He developed dizziness and lightheadedness. He denies chest pain. Review of Systems - Constitutional Constitutional: absent: As Per HPI, Anorexia, Chills, Daytime Sleepiness, E xcessive Sweating, Fatigue, Fever, Frequent Falls, Headache, Increased Appetite, Lethargy, Malaise, Night Sweats, Snoring, Sleep Apnea, Weight Gain, Weight Loss, Weakness, Other - EENT Eyes: absent: As Per HPI, Blind Spots, Blurred Vision, Change in Vision, Dec reased Night Vision, Diplopia, Discharge, Dry Eye, Exophthalmos, Floaters, Irritation, Itchy Eyes, Loss of Peripheral Vision, Pain, Photophobia, Requires Corrective Lenses, Sees Flashes, Spots in Vision, Tunnel Vision, Other Visual Disturbances, Loss of Vision, Other Ears: absent: As Per HPI, Decreased Hearing, Ear Discharge, Ear Pain, Tinnitus, Abnormal Hearing, Disequilibrium, Dizziness, Other Nose/Mouth/Throat: absent: As Per HPI, Epistaxis, Nasal Congestion, Nasal Discharge, Nasal Obstruction, Nasal Trauma, Nose Pain, Post Nasal Drip, Sinus Pain, Sinus Pressure, Bleeding Gums, Change in Voice, Dental Pain, Dry Mouth, Dysphagia, Halitosis, Hoarsness, Lip Swelling, Mouth Lesions, Mouth Pain, Odynophagia, Sore Throat, Throat Swelling, Tongue Swelling, Facial Pain, Neck Pain, Neck Mass, Other - Cardiovascular Cardiovascular: Lightheadedness - Respiratory Respiratory: absent: As Per HPI, Cough, Dyspnea, Hemoptysis, Dyspnea on Exertion, Wheezing, Snoring, Stridor, Pain on Inspiration, Chest Congestion, Excessive Mucous Production, Change in Mucous Color, Pain with Coughing, Other - Gastrointestinal Gastrointestinal: absent: As Per HPI, Abdominal Pain, Belching, Bloating, Change in Bowel Habits, Change in Stool Character, Coffee Ground Emesis, Constipation, Cramping, Diarrhea, Dyspepsia, Dysphagia, Early Satiety, Excessive Flatus, Fecal Incontinence, Heartburn, Hematemesis, Hematochezia, Loose Stools, Melena, Rishi sea, Odynophagia, Temesmus, Vomiting, Other - Genitourinary Genitourinary: absent: As Per HPI, Change in Urinary Stream, Difficulty Urinating, Dysuria, Flank Pain, Hematuria, Pyuria, Nocturia, Urinary Incontinence, Urinary Frequency, Urinary Hesitance, Urinary Urgency, Voiding Freq/Small Amts, Freq UTI, Hx Renal/Bladder Calculi, Hx /Renal Surgery, Bladder Distension, Other - Musculoskeletal Musculoskeletal: absent: As Per HPI, Abnormal Gait, Arthralgias, Atrophy, Back Pain, Deformity, Joint Swelling, Limited Range of Motion, Loss of Height, Muscle Cramps, Muscle Weakness, Myalgias, Neck Pain, Numbness, Radiating Pain into Limb, Stiffness, Tingling, Other - Integumentary Integumentary: absent: As Per HPI, Acne, Alopecia, Bleeding Lesions, Change in Hair, Change in Nails, Change in Pigmentation, Changing Lesions, Dry Skin, Erythema, Furuncle, Hirsutism, Lesions, New Lesions, Non-Healing Lesions, Photosensitivity, Pruritus, Rash, Skin Pain, Skin Ulcer, Sores, Striae, Sw elling, Unusual Bruising, Wounds, Jaundice, Other - Neurological Neurological: Dizziness - Psychiatric Psychiatric: absent: As Per HPI, Abnormal Sleep Pattern, Anhedonia, Anxiety, Auditory Hallucinations, Behavioral Changes, Change in Appetite, Change in Libido, Confusion, Depression, Difficulty Concentrating, Hallucinations, Homicidal Ideation, Hopelessness, Irritability, Memory Loss, Mood Swings, Panic Attacks, Paranoia, Suicidal Ideation, Visual Hallucinations, Tactile Hallucinations, Other - Endocrine Endocrine: absent: As Per HPI, Change in Body Appearance, Change in Libido, Cold Intolorance, Deepening of Voice, Excessive Sweating, Fatigue, Flushing, Heat Intolorance, Increase in Ring/Shoe/Hat Size, Palpitations, Polydipsia, Polyphagia, Polyuria, Other - Hematologic/Lymphatic Hematologic: absent: As Per HPI, Easy Bleeding, Easy Bruising, Lymphadenopathy, Other Past Patient History - Infectious Disease Hx of Infectious Diseases: None - Past Medical History & Family History Past Medical History?: Yes - Past Social History Smoking Status: Never Smoked - CARDIAC Hx Hypertension: Yes - RENAL Hx Chronic Kidney Disease: Yes - ENDOCRINE/METABOLIC Hx Endocrine Disorders: Yes Hx Diabetes Mellitus Type 2: Yes - HEMATOLOGICAL/ONCOLOGICAL Hx Anemia: Yes - MUSCULOSKELETAL/RHEUMATOLOGICAL Hx Falls: No - PSYCHIATRIC Hx Substance Use: No - SURGICAL HISTORY Hx Surgeries: Yes Hx Orthopedic Surgery: Yes (left shoulder) Hx Vascular Access Device: Yes (Left arm AV shunt) - ANESTHESIA Hx Anesthesia: Yes Hx Anesthesia Reactions: No Hx Malignant Hyperthermia: No Meds Allergies/Adverse Reactions: Allergies Allergy/AdvReac Type Severity Reaction Status Date / Time No Known Allergies Allergy Verified 09/06/18 13:52 - Medications Medications: Current Medications Amlodipine Besylate (Norvasc) 10 mg PO DAILY [facility] Last Admin: 09/07/18 09:15 Dose: 10 mg Aspirin (Aspirin Chewable) 81 mg PO DAILY [facility] Last Admin: 09/07/18 09:15 Dose: 81 mg Calcium Acetate (Phoslo) 667 mg PO TID [facility] Last Admin: 09/07/18 17:15 Dose: 667 mg Carvedilol (Coreg) 12.5 mg PO BID [facility] Last Admin: 09/07/18 17:16 Dose: 12.5 mg Clonidine HCl (Catapres) 0.2 mg PO Q8 [facility] Last Admin: 09/07/18 13:57 Dose: 0.2 mg Clopidogrel Bisulfate (Plavix) 75 mg PO DAILY [facility] Last Admin: 09/07/18 09:14 Dose: 75 mg Dextrose (Dextrose 50% Inj) 0 ml IV STAT PRN; Protocol PRN Reason: Hypoglycemia Protocol Dextrose (Glutose 15) 0 gm PO ONCE PRN; Protocol PRN Reason: Hypoglycemia Protocol Glipizide (Glucotrol) 10 mg PO DAILY [facility] Last Admin: 09/07/18 09:16 Dose: 10 mg Glucagon (Glucagen Diagnostic Kit) 0 mg IM STAT PRN; Protocol PRN Reason: Hypoglycemia Protocol Heparin Sodium (Porcine) (Heparin) 5,000 units SC Q12H [facility] Last Admin: 09/07/18 12:35 Dose: 5,000 units Dextrose (Dextrose 5% In Water 1000 Ml) 1,000 mls @ 0 mls/hr IV .Q0M PRN; Protocol PRN Reason: Hypoglycemia Protocol Insulin Aspart (Novolog) 0 unit SC ACHS [facility]; Protocol Last Admin: 09/07/18 17:16 Dose: 2 units Isosorbide Mononitrate (Imdur) 60 mg PO DAILY [facility] Last Admin: 09/07/18 09:15 Dose: 60 mg Minoxidil (Loniten) 10 mg PO BID [facility] Last Admin: 09/07/18 17:15 Dose: 10 mg Multivitamins (Hexavitamin) 1 tab PO DAILY [facility] Last Admin: 09/07/18 09:14 Dose: 1 tab Rosuvastatin Calcium (Crestor) 5 mg PO HS [facility] Last Admin: 09/06/18 22:00 Dose: 5 mg Sitagliptin Phosphate (Januvia) 25 mg PO DAILY [facility] Last Admin: 09/07/18 09:15 Dose: 25 mg Physical Exam - Constitutional Appears: Non-toxic - Head Exam Head Exam: NORMAL INSPECTION - Eye Exam Eye Exam: Normal appearance - ENT Exam ENT Exam: Mucous Membranes Moist - Neck Exam Neck exam: Positive for: Full Rom - Respiratory Exam Respiratory Exam: NORMAL BREATHING PATTERN - Cardiovascular Exam Cardiovascular Exam: REGULAR RHYTHM - GI/Abdominal Exam GI & Abdominal Exam: Normal Bowel Sounds - Rectal Exam Rectal Exam: Deferred - Extremities Exam Extremities exam: Positive for: normal inspection. Negative for: pedal edema - Back Exam Back exam: NORMAL INSPECTION - Neurological Exam Neurological exam: Alert, Oriented x3 - Psychiatric Exam Psychiatric exam: Normal Affect - Skin Skin Exam: Normal Color Results - Vital Signs Recent Vital Signs: Last Vital Signs Temp 98.4 F 09/07/18 16:00 Pulse 61 09/07/18 16:00 Resp 20 09/07/18 16:00 BP 175/84 H 09/07/18 17:16 Pulse Ox 95 09/07/18 16:00 - Labs Result Diagrams: 09/06/18 14:31 09/06/18 14:31 Labs: Laboratory Results - last 24 hr 09/06/18 09/07/18 09/07/18 19:31 03:11 06:24 POC Glucose (mg/dL) 181 H Total Creatine Kinase 51 L 47 L CK-MB (Mass) 2.20 1.61 Troponin I 0.0410 0.0350 09/07/18 09/07/18 11:13 16:24 POC Glucose (mg/dL) 180 H Total Creatine Kinase 40 L CK-MB (Mass) 1.65 Troponin I 0.0260 - EKG Data EKG Interpreted by: Myself EKG shows normal: Sinus rhythm Assessment & Plan (1) Severe hypertension Assessment and Plan: consider additonal blood pressure therapy prior to dialysis. Status: Acute (2) Near syncope Assessment and Plan: no arrhythmia on telemetry. medical therapy. symptomt do not appear cardiac in origin. Status: Acute (3) ESRD (end stage renal disease) on dialysis Assessment and Plan: increase blood pressure control prior to dialysis Status: Acute (4) Diabetes Assessment and Plan: glucose control Status: Acute
--- NOTE | 2018-09-07 19:17 | CP.PCM.PN ---
Subjective - Date & Time of Evaluation Date of Evaluation: 09/07/18 - Subjective Subjective: patient examined today no nausea no vomiting no dizziness no diarrhea no fever no shortness of breath Objective - Vital Signs/Intake and Output Vital Signs (last 24 hours): Temp Pulse Resp BP Pulse Ox 98.4 F 61 20 175/84 H 95 09/07/18 16:00 09/07/18 16:00 09/07/18 16:00 09/07/18 17:16 09/07/18 16:00 - Medications Medications: Current Medications Amlodipine Besylate (Norvasc) 10 mg PO DAILY [facility] Last Admin: 09/07/18 09:15 Dose: 10 mg Aspirin (Aspirin Chewable) 81 mg PO DAILY [facility] Last Admin: 09/07/18 09:15 Dose: 81 mg Calcium Acetate (Phoslo) 667 mg PO TID [facility] Last Admin: 09/07/18 17:15 Dose: 667 mg Carvedilol (Coreg) 12.5 mg PO BID [facility] Last Admin: 09/07/18 17:16 Dose: 12.5 mg Clonidine HCl (Catapres) 0.2 mg PO Q8 [facility] Last Admin: 09/07/18 13:57 Dose: 0.2 mg Clopidogrel Bisulfate (Plavix) 75 mg PO DAILY [facility] Last Admin: 09/07/18 09:14 Dose: 75 mg Dextrose (Dextrose 50% Inj) 0 ml IV STAT PRN; Protocol PRN Reason: Hypoglycemia Protocol Dextrose (Glutose 15) 0 gm PO ONCE PRN; Protocol PRN Reason: Hypoglycemia Protocol Glipizide (Glucotrol) 10 mg PO DAILY [facility] Last Admin: 09/07/18 09:16 Dose: 10 mg Glucagon (Glucagen Diagnostic Kit) 0 mg IM STAT PRN; Protocol PRN Reason: Hypoglycemia Protocol Heparin Sodium (Porcine) (Heparin) 5,000 units SC Q12H [facility] Last Admin: 09/07/18 12:35 Dose: 5,000 units Dextrose (Dextrose 5% In Water 1000 Ml) 1,000 mls @ 0 mls/hr IV .Q0M PRN; Protocol PRN Reason: Hypoglycemia Protocol Insulin Aspart (Novolog) 0 unit SC ACHS [facility]; Protocol Last Admin: 09/07/18 17:16 Dose: 2 units Isosorbide Mononitrate (Imdur) 60 mg PO DAILY [facility] Last Admin: 09/07/18 09:15 Dose: 60 mg Minoxidil (Loniten) 10 mg PO BID [facility] Last Admin: 09/07/18 17:15 Dose: 10 mg Multivitamins (Hexavitamin) 1 tab PO DAILY [facility] Last Admin: 09/07/18 09:14 Dose: 1 tab Rosuvastatin Calcium (Crestor) 5 mg PO HS [facility] Last Admin: 09/06/18 22:00 Dose: 5 mg Sitagliptin Phosphate (Januvia) 25 mg PO DAILY [facility] Last Admin: 09/07/18 09:15 Dose: 25 mg - Labs Labs: 09/06/18 14:31 09/06/18 14:31 PT 13.2 SECONDS (9.7-12.2) H 09/06/18 14:31 INR 1.2 09/06/18 14:31 APTT 30.1 SECONDS (21-34) 09/06/18 14:31 - Constitutional Appears: Well - Head Exam Head Exam: ATRAUMATIC, NORMAL INSPECTION, NORMOCEPHALIC - Eye Exam Eye Exam: EOMI, Normal appearance, PERRL Pupil Exam: NORMAL ACCOMODATION, PERRL - ENT Exam ENT Exam: Mucous Membranes Moist, Normal Exam - Neck Exam Neck Exam: Full ROM, Normal Inspection. absent: Lymphadenopathy - Respiratory Exam Respiratory Exam: Decreased Breath Sounds - Cardiovascular Exam Cardiovascular Exam: REGULAR RHYTHM, +S1, +S2 - GI/Abdominal Exam GI & Abdominal Exam: Soft, Diminished Bowel Sounds - Rectal Exam Rectal Exam: Deferred - Neurological Exam Neurological Exam: Oriented x3 Assessment and Plan (1) CAD (coronary artery disease) Status: Acute (2) CHF (congestive heart failure) Status: Acute (3) Chest pain Status: Acute (4) Diabetes Status: Acute (5) Diabetic nephropathy Status: Acute (6) Diabetic nephropathy Status: Acute (7) Dizziness Status: Acute (8) Dyspnea Status: Acute (9) ESRD (end stage renal disease) Status: Acute (10) ESRD (end stage renal disease) Status: Acute (11) ESRD (end stage renal disease) on dialysis Status: Acute (12) ESRD (end stage renal disease) on dialysis Status: Acute (13) Flu Status: Acute (14) Fluid overload Status: Acute (15) HTN (hypertension) Status: Acute (16) Hyperglycemia Status: Acute (17) Hyperkalemia Status: Acute (18) Hypertension associated with diabetes Status: Acute (19) Hypertensive urgency Status: Acute (20) Hypoglycemia Status: Acute (21) Influenza B Status: Acute (22) Near syncope Status: Acute (23) Near syncope Status: Acute (24) Non-STEMI (non-ST elevated myocardial infarction) Status: Acute (25) Renal failure Status: Acute (26) Renal failure syndrome Status: Acute (27) Severe hypertension Status: Acute (28) Slurred speech Status: Acute (29) TIA (transient ischemic attack) Status: Acute (30) Type 2 diabetes mellitus with diabetic nephropathy Status: Acute (31) Upper respiratory infection Status: Acute (32) Weakness Status: Acute - Assessment and Plan (Free Text) Plan: plan discussed with patient moderate complexity of care medications reviewed labs reviewed vitals reviewed Hb 10.1 Hct 29.8 Chloride 90 Bicarbonates 37 BUN 42 Cr 5.4 glucose 134 aspirin chewable catapress coreg crestor dextrose 5% dextrose 50% glucagen diagnostic kit glucotrol glutose 15 heparin hexavitamin imdur [facility]ania moore norvas novolog phoslo plavix
[2018-09-08] MEDS: (Novolog) Insulin Aspart, Recombinant 100 u/ml 10 ml vial SC SCH ×2 (07:38→11:30)
[2018-09-08] MEDS: Multiple Vitamins Tab PO SCH (08:59)
--- NOTE | 2018-09-08 12:06 | CARD ---
APPROVED REPORT Date of service: 09/07/2018 EKG Measurement Heart [id number] FL [id number] [id number] <Conclusion> Sinus rhythm with short FL Left ventricular hypertrophy with repolarization abnormality Prolonged QT Abnormal ECG
--- NOTE | 2018-09-08 14:18 | CP.PCM.PN ---
Subjective - Date & Time of Evaluation Date of Evaluation: 09/08/18 Time of Evaluation: 14:16 - Subjective Subjective: post dialysis today no more dizziness BP controlled adequate UF done with dialysis Objective - Vital Signs/Intake and Output Vital Signs (last 24 hours): Temp Pulse Resp BP Pulse Ox 97.8 F 64 20 147/68 97 09/08/18 09:35 09/08/18 09:57 09/08/18 09:57 09/08/18 11:05 09/08/18 09:35 - Medications Medications: Current Medications Amlodipine Besylate (Norvasc) 10 mg PO DAILY [facility] Last Admin: 09/08/18 10:00 Dose: Not Given Aspirin (Aspirin Chewable) 81 mg PO DAILY [facility] Last Admin: 09/08/18 08:59 Dose: 81 mg Calcium Acetate (Phoslo) 667 mg PO TID [facility] Last Admin: 09/08/18 13:21 Dose: 667 mg Carvedilol (Coreg) 12.5 mg PO BID [facility] Last Admin: 09/08/18 10:00 Dose: Not Given Clonidine HCl (Catapres) 0.2 mg PO Q8 [facility] Last Admin: 09/08/18 13:21 Dose: 0.2 mg Clopidogrel Bisulfate (Plavix) 75 mg PO DAILY [facility] Last Admin: 09/08/18 08:59 Dose: 75 mg Dextrose (Dextrose 50% Inj) 0 ml IV STAT PRN; Protocol PRN Reason: Hypoglycemia Protocol Dextrose (Glutose 15) 0 gm PO ONCE PRN; Protocol PRN Reason: Hypoglycemia Protocol Glipizide (Glucotrol) 10 mg PO DAILY [facility] Last Admin: 09/08/18 08:59 Dose: 10 mg Glucagon (Glucagen Diagnostic Kit) 0 mg IM STAT PRN; Protocol PRN Reason: Hypoglycemia Protocol Heparin Sodium (Porcine) (Heparin) 5,000 units SC Q12H [facility] Last Admin: 09/08/18 10:00 Dose: Not Given Dextrose (Dextrose 5% In Water 1000 Ml) 1,000 mls @ 0 mls/hr IV .Q0M PRN; Protocol PRN Reason: Hypoglycemia Protocol Insulin Aspart (Novolog) 0 unit SC ACHS [facility]; Protocol Last Admin: 09/08/18 11:30 Dose: Not Given Isosorbide Mononitrate (Imdur) 60 mg PO DAILY [facility] Last Admin: 09/08/18 10:00 Dose: Not Given Minoxidil (Loniten) 10 mg PO BID [facility] Last Admin: 09/08/18 10:00 Dose: Not Given Multivitamins (Hexavitamin) 1 tab PO DAILY [facility] Last Admin: 09/08/18 08:59 Dose: 1 tab Rosuvastatin Calcium (Crestor) 5 mg PO HS [facility] Last Admin: 09/07/18 21:44 Dose: 5 mg Sitagliptin Phosphate (Januvia) 25 mg PO DAILY [facility] Last Admin: 09/08/18 08:59 Dose: 25 mg - Labs Labs: 09/06/18 14:31 09/06/18 14:31 PT 13.2 SECONDS (9.7-12.2) H 09/06/18 14:31 INR 1.2 09/06/18 14:31 APTT 30.1 SECONDS (21-34) 09/06/18 14:31 - Constitutional Appears: No Acute Distress, Chronically Ill - Head Exam Head Exam: ATRAUMATIC, NORMAL INSPECTION - Eye Exam Eye Exam: EOMI, Normal appearance - Neck Exam Neck Exam: Normal Inspection. absent: Tenderness - Respiratory Exam Respiratory Exam: Clear to Ausculation Bilateral, NORMAL BREATHING PATTERN - Cardiovascular Exam Cardiovascular Exam: REGULAR RHYTHM, +S1 - GI/Abdominal Exam GI & Abdominal Exam: Soft. absent: Tenderness - Extremities Exam Extremities Exam: Normal Inspection. absent: Tenderness - Neurological Exam Neurological Exam: Awake, CN II-XII Intact - Skin Skin Exam: Dry, Warm Assessment and Plan (1) Diabetic nephropathy Status: Acute (2) ESRD (end stage renal disease) Status: Acute (3) Near syncope Status: Acute (4) CHF (congestive heart failure) Status: Acute (5) HTN (hypertension) Status: Acute - Assessment and Plan (Free Text) Plan: appears better continue same meds- BP controlled at present possible discharge
[2018-09-08 15:40] VITALS: BP 148/75; PULSE 63; RESP 17; TEMP 97.5; O2SAT 100
--- NOTE | 2018-09-09 02:41 | CON ---
DATE: 09/07/2018 HISTORY OF PRESENT ILLNESS: The patient came with a complaint of . I was called to evaluate the patient. PAST MEDICAL HISTORY: Hypertension, chronic kidney disease, diabetes type 2, and anemia. ALLERGIES: NO KNOWN DRUG ALLERGY. HOME MEDICATIONS: Norvasc, aspirin, and Plavix. PHYSICAL EXAMINATION: VITAL SIGNS: Blood pressure 194/83. HEENT: Normocephalic, atraumatic. NECK: Supple. NEUROLOGIC: Awake, oriented to self. Cranial nerves II through XII are tested. Pupils reactive. EOM intact. Visual roberson are full. No facial asymmetry. Tongue midline. Motor examination: Moves all the extremities equally. Tone normal. Deep tendon reflexes 1+. Both plantars are downgoing. Sensory: Appears intact. Cerebellar and gait, deferred. IMPRESSION AND PLAN: Vertigo with multiple medical problems, end-stage renal disease, diabetes, hypertension, and possibly peripheral neuropathy also. CAT scan of the head was done which was reported negative. Continue present management. We will follow up. Venu Mora MD
== END 2018-09-08 14:21 | disposition home or self-care (01) ==
LOC: C.ER 13:31 → C.6T 15:05
PROVIDERS: ADMIT Internal Medicine Nephrology; ATTEND Internal Medicine Nephrology
DX: R55 Syncope and collapse (principal); E11.21 Type 2 diabetes mellitus with diabetic nephropathy; E11.22 Type 2 diabetes mellitus with diabetic chronic kidney disease; N18.6 End stage renal disease; I50.9 Heart failure, unspecified; I13.2 Hypertensive heart and chronic kidney disease with heart failure and with stage 5 chronic kidney disease, or end stage renal disease; Z99.2 Dependence on renal dialysis; I25.10 Atherosclerotic heart disease of native coronary artery without angina pectoris
CPT/HCPCS: 36415; 70450; 71045; 80053; 82948; 84484; 85025; 85610; 85730; 87340; 93005; 96374; 99285; G0257; G0378; J0360; J1644